=== PATIENT | female | born 1970 | race Caucasian/White ===

== ENCOUNTER 2017-07-20 17:05 | Emergency (ER) | payer BC, OTHER ==
[~2017-07-20] VITALS: Ht 172.7 cm; Wt 86.2 kg
[~2017-07-20 17:05] MED LIST: ACHYD1T PO; CALC-671 PO; DCS100C PO; DOCU100T7 PO; DULO30CA3 PO; ESCI20TA2 PO; ESOM20SU PO; FAMO-119 PO; FLUO20CA25 PO; FLUO20CA42 PO; FLURAZEPAM; IBP800T PO; IMIP25TA4 PO; LEVO75TA57 PO; MULT-608 PO; MULT-963 PO; NF-ESOM40C PO; OMEG1CAP51 PO; OMEG1CAP58 PO; POLY17PO6 PO; PRD20T PO; PREN1TAB39 PO; SODI44SP4 NS; SULF1TAB38 PO; [UNRECOGNIZED DRUG - OTHER]
--- OUTSIDE RECORDS SUMMARY | 2017-07-20 17:12 | XMS REPORT ---
Author Author EDISON VEGA Organization [employer] Address Unknown Phone Unavailable Care Team Providers Care Spar Machine Operator Helper Name Role Phone EDISON VEGA CP Unavailable Allergies, Adverse Reactions, Alerts Substance Reaction Event Type Imipramine HCl rash Drug Allergy Celebrex Info Not Available Drug Allergy Amoxicillin Info Not Available Drug Allergy Tape can only use paper tape Non Drug Allergy Vladimir Toilet Paper yeast infection Non Drug Allergy Problems Problem Type Condition Code Onset Dates Condition Status Problem Abnormal mammogram of right breast R92.8 Active Assessment Major depressive disorder, recurrent, moderate F33.1 Active Problem Major depressive disorder, recurrent episode, moderate F33.1 Active Problem Dysuria R30.0 Active Problem Encounter for dental examination Z01.20 Active Problem Chronic fatigue R53.82 Active Problem Hyperkalemia E87.5 Active Problem Acute cystitis without hematuria N30.00 Active Problem Epigastric pain R10.13 Active Medications Medication Code System Code Instructions Start Date End Date Status Dosage Cymbalta [facility] [address]-12 30 MG Orally Once a day 3 capsule Flonase NDC 0 50 mcg/actuation nasal daily Oct 27, 2014 inhale 1 spray (50 mcg) in each nostril by intranasal route 2 times per day PRN Claritin [facility] [address]-16 10 mg February 03, 2013 take 1 tablet (10 mg) by oral route once daily Zolpidem Tartrate [facility] [address]-12 10 MG Orally Once a day January 31, 2016 1 tablet at bedtime as needed Omeprazole [facility] [address]-44 20 MG Nov 05, 2013 take 1 capsule ( 20 mg) by oral route once daily before a meal Procedures Procedure Coding System Code Date Office Visit, Est Pt., Level 4 CPT-4 25021 January 31, 2016 Vital Signs Date/Time: January 31, 2016 Cardiac Monitoring Heart Rate 108 bpm Weight 164.4 lbs Height 68 in BMI 24.99 Index Blood Pressure Diastolic 76 mmHg Blood Pressure Systolic 118 mmHg Results No Known Results Summary Purpose [employer]ClinicalWorks Submission
--- OUTSIDE RECORDS SUMMARY | 2017-07-20 17:12 | XMS REPORT ---
Author Author ALEX DELANEY Organization [employer] Address Unknown Phone Unavailable Care Team Providers Care Maintenance Helper Name Role Phone ALEX DELANEY CP Unavailable Allergies No Known Allergies Problems Problem Type Condition Code Onset Dates Condition Status Problem Acute cystitis without hematuria N30.00 Active Problem Epigastric pain R10.13 Active Problem Dysuria R30.0 Active Problem Abnormal mammogram of right breast R92.8 Active Problem Chronic fatigue R53.82 Active Problem Hyperkalemia E87.5 Active Medications Medication Code System Code Instructions Start Date End Date Status Dosage Ambien [facility] [address]-78 12.5 MG Orally Once a day Aug 24, 2015 1 tablet at bedtime as needed Cymbalta [facility] [address]-69 30 MG Orally Once a day 3 capsule Results No Known Results Summary Purpose eClinicalWorks Submission
--- OUTSIDE RECORDS SUMMARY | 2017-07-20 17:12 | XMS REPORT ---
Author Author EDISON VEGA Organization [employer] Address Unknown Phone Unavailable Care Team Providers Care Invoice Checker Name Role Phone EDISON VEGA CP Unavailable Allergies No Known Allergies Problems Problem Type Condition Code Onset Dates Condition Status Problem Gastroesophageal reflux disease without esophagitis K21.9 Active Problem Tremor R25.1 Active Problem Abnormal fasting glucose R73.01 Active Problem Dental examination Z01.20 Active Problem Prediabetes R73.09 Active Problem Major depressive disorder, recurrent episode, moderate F33.1 Active Medications Medication Code System Code Instructions Start Date End Date Status Dosage Zolpidem Tartrate [facility] [address]-52 10 mg Orally Once a day January 31, 2016 1 tablet at bedtime as needed Results No Known Results Summary Purpose eClinicalWorks Submission
--- OUTSIDE RECORDS SUMMARY | 2017-07-20 17:12 | XMS REPORT ---
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 Active Assessment Dental examination V72.2 Active Problem Dysthymic disorder 300.4 Active Problem Unspecified myalgia and myositis 729.1 Active Problem Adjustment disorder with mixed anxiety and depressed mood 309.28 Active Problem Adjustment disorder with depressed mood 309.0 Active Problem Major depressive disorder, recurrent episode, moderate 296.32 Active Problem Rosacea 695.3 Active Problem Unspecified hypothyroidism 244.9 Active Medications No Known Medications Procedures Procedure Coding System Code Date INTRAORL-PERIAPICAL 1 FILM 03404 CPT-4 D0220 May 09, 2015 INTRAORL-PERIAPICAL EA ADD FILM CPT-4 D0230 May 09, 2015 PERIODIC ORAL EXAMINATION CPT-4 D0120 May 09, 2015 BITEWINGS - FOUR FILMS CPT-4 D0274 May 09, 2015 INTRAORL-PERIAPICAL EA ADD FILM CPT-4 D0230 May 09, 2015 PROPHYLAXIS - ADULT CPT-4 D1110 May 09, 2015 PANORAMIC FILM SEE ALSO CODE 12789 CPT-4 D0330 May 09, 2015 Results No Known Results Summary Purpose eClinicalWorks Submission
--- OUTSIDE RECORDS SUMMARY | 2017-07-20 17:12 | XMS REPORT ---
Author Author MAURICE VEGA [employer] Address Unknown Phone Unavailable Care Team Providers Care Mail Service Coordinator Name Role Phone MAURICE VEGA CP Unavailable Allergies No Known Allergies Problems Problem Type Condition Code Onset Dates Condition Status Problem Abnormal mammogram of right breast R92.8 Active Assessment Major depressive disorder, recurrent episode, moderate F33.1 Active Problem Major depressive disorder, recurrent episode, moderate F33.1 Active Problem Dysuria R30.0 Active Problem Encounter for dental examination Z01.20 Active Problem Chronic fatigue R53.82 Active Problem Hyperkalemia E87.5 Active Problem Acute cystitis without hematuria N30.00 Active Problem Epigastric pain R10.13 Active Medications No Known Medications Procedures Procedure Coding System Code Date Psychotherapy, patient &/family, 30 minutes, established patient CPT-4 88815 May 17, 2016 Results No Known Results Summary Purpose [employer]ClinicalWorks Submission
--- OUTSIDE RECORDS SUMMARY | 2017-07-20 17:12 | XMS REPORT ---
Author Author MAURICE VEGA [employer] Address Unknown Phone Unavailable Care Team Providers Care Assembly Technician Name Role Phone MAURICE VEGA CP Unavailable [...] Coding System Code Date Psychotherapy, patient &/family, 45 minutes, established patient CPT-4 02314 January 31, 2016 Results No Known Results Summary Purpose eClinicalWorks Submission
--- OUTSIDE RECORDS SUMMARY | 2017-07-20 17:12 | XMS REPORT ---
Author Author EDISON VEGA Organization [employer] Address Unknown Phone Unavailable Care Team Providers Care Motorcycle Subassembly Repairer Name Role Phone EDISON VEGA CP Unavailable Allergies, Adverse Reactions, Alerts Substance Reaction Event Type Imipramine HCl rash Drug Allergy Celebrex Info Not Available Drug Allergy Amoxicillin Info Not Available Drug Allergy Tape can only use paper tape Non Drug Allergy Vladimir Toilet Paper yeast infection Non Drug Allergy Problems Problem Type Condition Code Onset Dates Condition Status Assessment Major depressive disorder, recurrent, moderate F33.1 Active Problem Abnormal mammogram of right breast R92.8 Active Problem Hyperkalemia E87.5 Active Assessment Other half-way (current) 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 Z79.899 Active Problem Major depressive disorder, recurrent episode, moderate F33.1 Active Problem Dysuria R30.0 Active Problem Encounter for dental examination Z01.20 Active Problem Chronic fatigue R53.82 Active Problem Dental examination Z01.20 Active Problem Acute cystitis without hematuria N30.00 Active Problem Epigastric pain R10.13 Active Medications Medication Code System Code Instructions Start Date End Date Status Dosage Duloxetine HCl [facility] [address]-45 60 MG Orally Once a day April 09, [address] [facility] [address]-16 150 MG Orally Once a day April 19, 2016 1 [address] B[address] DS [facility] [address]-14 800-160 MG Orally Twice a day May 23, 2016 Jun 02, 2016 1 tablet Zolpidem Tartrate [facility] [address]-49 10 MG Orally Once a day January 31, 2016 1 tablet at bedtime as needed Aripiprazole [facility] [address]-20 5 MG Orally Once a day May 29, 2016 0.[address] [facility] [address]-68 20 MG Nov 05, 2013 take 1 capsule ( 20 mg) by oral route once daily before a meal Flonase NDC 0 50 mcg/actuation nasal daily Oct 27, 2014 inhale 1 spray (50 mcg) in each nostril by intranasal route 2 times per day PRN Claritin [facility] [address]-91 10 mg February 03, 2013 take 1 tablet (10 mg) by oral route once daily Procedures Procedure Coding System Code Date COMPREHEN METABOLIC PANEL CPT-4 67855 May 29, 2016 Office Visit, Est Pt., Level 3 CPT-4 41549 May 29, 2016 Vital Signs Date/Time: May 29, 2016 Cardiac Monitoring Heart Rate 118 bpm Weight 164.0 lbs Height 68 in BMI 24.93 Index Blood Pressure Diastolic 67 mmHg Blood Pressure Systolic 96 mmHg Results No Known Results Summary Purpose eClinicalWorks Submission
--- OUTSIDE RECORDS SUMMARY | 2017-07-20 17:12 | XMS REPORT ---
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
--- OUTSIDE RECORDS SUMMARY | 2017-07-20 17:12 | XMS REPORT ---
Author Author MAURICE VEGA [facility] Address [address] [place] [address] Care Team Providers Care Telephone Directory Deliverer Name Role Phone MAURICE VEGA Unavailable PROBLEMS Type Condition ICD9-CM Code [id number] Code Onset Dates Condition Status SNOMED Code Problem Prediabetes R73.09 Active 690240725 Problem Major depressive disorder, recurrent episode, moderate F33.1 Active 685802760 Problem Major depressive disorder, recurrent, moderate F33.1 Active 90427195 Problem Insomnia, unspecified G47.00 Active 644000995 Problem Gastroesophageal reflux disease without esophagitis K21.9 Active 180144518 Problem Tremor R25.1 Active 45781636 Problem Allergy, insect bite Z91.038 Active 999463511 Problem Abnormal fasting glucose R73.01 Active 658110951 ALLERGIES Unknown Allergies SOCIAL HISTORY No smoking Hx information available PLAN OF CARE Activity Details Follow Up Next available Reason: Follow-up VITAL SIGNS MEDICATIONS Unknown Medications RESULTS No Results PROCEDURES Procedure Date Ordered Related Diagnosis Body Site Psychotherapy, patient &/family, 45 minutes, established patient Sep 26, 2016 IMMUNIZATIONS No Known Immunizations
--- OUTSIDE RECORDS SUMMARY | 2017-07-20 17:12 | XMS REPORT ---
Author Author SINGH CHURCHILL Organization [employer] Address Unknown Phone Unavailable Care Team Providers Care Statistician Name Role Phone SINGH CHURCHILL CP Unavailable Allergies No Known Allergies Problems Problem Type Condition Code Onset Dates Condition Status Assessment Breast cancer screening V76.10 Active Assessment Abnormal mammogram of right breast R92.8 Active Problem Abnormal mammogram of right breast R92.8 Active Medications No Known Medications Results No Known Results Summary Purpose eClinicalWorks Submission
--- OUTSIDE RECORDS SUMMARY | 2017-07-20 17:12 | XMS REPORT | Clinical Summary ---
Author Author [facility] Organization [facility] Address Unknown Phone Unavailable Care Team Providers Care Project Engineering Manager Name Role Phone PCP Unavailable Source Comments Some departments are not documenting in the electronic medical record. If you do not see the information that you expected, contact Release of Information in the Health Information Management department at [phone] for further assistance in locating additional records.[facility] Allergies Active Allergy Reactions Severity Noted Date Comments Amoxicillin RASH Medium 07/26/2015 Cyclobenzaprine RASH Medium 07/26/2015 Current Medications Prescription Sig. Disp. Refills Start End Date Status Date DULoxetine DR (CYMBALTA) Take 3 Caps by mouth 30 Cap 1 07/28/20 Active 30 mg capsule daily. 15 ARIPIPRAZOLE (ABILIFY PO) Take by mouth daily. Active Takes 2.5mg daily zolpidem (AMBIEN) 10 mg Take 10 mg by mouth at Active tablet bedtime as needed for Sleep. omeprazole DR(+) Take 20 mg by mouth daily Active (PRILOSEC) 20 mg capsule before breakfast. linaclotide(+) (LINZESS) Take 290 mcg by mouth Active 290 mcg capsule daily. MULTIVITAMINS WITH Take by mouth daily. Active FLUORIDE (MULTI-VITAMIN PO) SOY ISOFLA/BLK COHOSH/MAG Take by mouth daily. Active BARK (ESTROVEN PO) other medication 1 Dose. Allergy Active injections weekly ibuprofen (ADVIL) 200 mg Take 200 mg by mouth Active tablet every 6 hours as needed for Pain. Take with food. acetaminophen (TYLENOL) Take 15 mg/kg by mouth Active 160 mg/5 mL oral solution every 6 hours as needed. Max of 4,000 mg of acetaminophen in 24 hours. Active Problems Problem Noted Date Physiological tremor 08/15/2016 Overview: Episodes daily that last 15-30 minutes of both hands shaking, facial tremor, and inside her legs feels like they are shaking internally. She also has palpitation and increased breathing during these events Major depressive disorder, recurrent, severe without psychotic features ([facility]) Resolved Problems Problem Noted Date Resolved Date Suicidal ideation 07/26/2015 07/28/2015 Family History Medical History Relation Name Comments Cancer Maternal Aunt Cancer Maternal Aunt Cancer Maternal Aunt Cancer Maternal Grandfather Cancer Maternal Uncle Neuropathy Maternal Uncle Cancer Maternal Uncle Dementia Mother Hypertension Mother Cancer Paternal Grandfather Diabetes Paternal Grandfather Hypertension Paternal Grandmother Cancer Paternal Uncle Migraines Sister Relation Name Status Comments Father Maternal Aunt Maternal Aunt Alive Maternal Aunt Alive Maternal Grandfather Maternal Uncle Maternal Uncle Alive Mother Alive Paternal Grandfather Paternal Grandmother Paternal Uncle Alive Sister Alive Social History Tobacco Use Types Packs/Day Years Used Date Never Smoker Smokeless Tobacco: Never Used Alcohol Use Drinks/Week oz/Week Comments Yes 0 Standard 0.0 occasional use drinks or equivalent Sex Assigned at Date Recorded Not on file Last Filed Vital Signs Vital Sign Reading Time Taken Blood Pressure 101/69 08/15/2016 9:00 AM CDT Pulse 87 08/15/2016 9:00 AM CDT Temperature 36.5 C (97.7 F) 07/28/2015 8:00 AM CDT Respiratory Rate - - Oxygen Saturation 97% 07/28/2015 8:00 AM CDT Inhaled Oxygen - - Concentration Weight 78.7 kg (173 lb 8 oz) 08/15/2016 9:00 AM CDT Height 172.7 cm (5' 8") 08/15/2016 9:00 AM CDT Body Mass Index 26.38 08/15/2016 9:00 AM CDT Plan of Treatment Health Maintenance Due Date Last Done Comments PHYSICAL (COMPREHENSIVE) 1977 EXAM PERTUSSIS VACCINE 1981 TETANUS VACCINE 1987 CERVICAL CANCER SCREENING 2000 BREAST CANCER SCREENING 2010 INFLUENZA VACCINE 07/14/2017 Results Not on filefrom Last 3 Months
--- OUTSIDE RECORDS SUMMARY | 2017-07-20 17:12 | XMS REPORT ---
Author Author EDISON VEGA Organization [employer] Address Unknown Phone Unavailable Care Team Providers Care Telegraph Editor Name Role Phone EDISON VEGA CP Unavailable Allergies No Known Allergies Problems Problem Type Condition Code Onset Dates Condition Status Problem Abnormal mammogram of right breast R92.8 Active Problem Major depressive disorder, recurrent episode, moderate F33.1 Active Problem Dysuria R30.0 Active Problem Encounter for dental examination Z01.20 Active Problem Chronic fatigue R53.82 Active Problem Hyperkalemia E87.5 Active Problem Acute cystitis without hematuria N30.00 Active Problem Epigastric pain R10.13 Active Medications Medication Code System Code Instructions Start Date End Date Status Dosage Duloxetine HCl [facility] [address]-69 60 MG Orally Once a day April 09, 2016 2 capsule Cymbalta [facility] [address]-96 30 MG Orally Once a day 3 capsule Results No Known Results Summary Purpose eClinicalWorks Submission
--- OUTSIDE RECORDS SUMMARY | 2017-07-20 17:12 | XMS REPORT ---
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
--- OUTSIDE RECORDS SUMMARY | 2017-07-20 17:13 | XMS REPORT ---
Author Author EDISON VEGA Organization [employer] Address Unknown Phone Unavailable Care Team Providers Care Public Health Specialist Name Role Phone EDISON VEGA CP Unavailable [...] Date End Date Status Dosage Duloxetine HCl [facility] [address]-88 60 MG Orally Once a day April 09, 2016 2 capsule Results No Known Results Summary Purpose eClinicalWorks Submission
--- OUTSIDE RECORDS SUMMARY | 2017-07-20 17:13 | XMS REPORT ---
Author Author Karon EDISON Organization [facility] Address [address] [place] [address] Care Team Providers Care Field Aide Name Role Phone denisseEDISON Vázquez Unavailable PROBLEMS Type Condition ICD9-CM Code [id number] Code Onset Dates Condition Status SNOMED Code Problem Prediabetes R73.09 Active 240776831 Problem Major depressive disorder, recurrent episode, moderate F33.1 Active 195668368 Problem Major depressive disorder, recurrent, moderate F33.1 Active 14011715 Problem Insomnia, unspecified G47.00 Active 410045379 Problem Gastroesophageal reflux disease without esophagitis K21.9 Active 136666527 Problem Tremor R25.1 Active 00816842 Problem Allergy, insect bite Z91.038 Active 719049344 Problem Abnormal fasting glucose R73.01 Active 368976212 ALLERGIES Unknown Allergies SOCIAL HISTORY No smoking Hx information available PLAN OF CARE Activity Details Follow Up 2 Months Reason: VITAL SIGNS Height 68 in 2016-10-02 Weight 178.5 lbs 2016-10-02 Heart Rate 80 bpm 2016-10-02 Respiratory Rate 18 2016-10-02 BMI 27.14 kg/m2 2016-10-02 Blood pressure systolic 128 mmHg 2016-10-02 Blood pressure diastolic 70 mmHg 2016-10-02 MEDICATIONS Medication Instructions Dosage Frequency Start Date End Date Duration Status Triamcinolone Acetonide 0.1 % Externally Twice a day 1 application to affected area 12h Jul, Active Linzess 290 MCG Orally Once a day 1 capsule 24h Aug, Jan, 30 day(s) Active Cymbalta 30 MG Orally Once a day 3 capsule 24h Aug, Active Zolpidem Tartrate 10 MG Orally Once a day 1 tablet at bedtime as needed 24h 20 Sep, 2016 30 days Active Flonase 50 mcg/actuation nasal daily inhale 1 spray (50 mcg) in each nostril by intranasal route 2 times per day PRN 24h Oct, Active Omeprazole 20 TAKE 1 CAPSULE BY MOUTH DAILY BEFORE A MEAL 30 Active Omeprazole 20 mg Orally Once a day 1 capsule 24h 23 Oct, 2013 Active Aripiprazole 5 TAKE 1/2 TABLET BY MOUTH DAILY Active Aripiprazole 5 MG Orally Once a day 0.5 tablet 24h May, Active RESULTS No Results PROCEDURES Procedure Date Ordered Related Diagnosis Body Site Office Visit, Est Pt., Level 3 Oct 02, 2016 IMMUNIZATIONS No Known Immunizations
--- OUTSIDE RECORDS SUMMARY | 2017-07-20 17:13 | XMS REPORT ---
Author Author MAURICE VEGA [employer] Address Unknown Phone Unavailable Care Team Providers Care Pharmacy Order Entry Technician Name Role Phone MAURICE VEGA CP [...] patient &/family, 45 minutes, established patient CPT-4 92405 March 28, 2016 Results No Known Results Summary Purpose eClinicalWorks Submission
--- OUTSIDE RECORDS SUMMARY | 2017-07-20 17:13 | XMS REPORT ---
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
--- OUTSIDE RECORDS SUMMARY | 2017-07-20 17:13 | XMS REPORT ---
Author Author SINGH CHURCHILL [facility] eClinicalWorks Address Unknown Phone Unavailable Care Team Providers Care Science Professor Name Role Phone SINGH CHURCHILL Unavailable Allergies, Adverse Reactions, Alerts Substance Reaction Event Type Imipramine HCl rash Drug Allergy Celebrex Info Not Available Drug Allergy Amoxicillin Info Not Available Drug Allergy Vladimir Toilet Paper yeast infection Non Drug Allergy Tape can only use paper tape Non Drug Allergy Problems Problem Type Condition Code Onset Dates Condition Status Assessment Prediabetes R73.09 Active Assessment Gastroesophageal reflux disease without esophagitis K21.9 Active Assessment Tremor R25.1 Active Problem Gastroesophageal reflux disease without esophagitis K21.9 Active Problem Tremor R25.1 Active Problem Abnormal fasting glucose R73.01 Active Problem Dental examination Z01.20 Active Assessment Abnormal fasting glucose R73.01 Active Problem Prediabetes R73.09 Active Problem Major depressive disorder, recurrent episode, moderate F33.1 Active Medications Medication Code System Code Instructions Start Date End Date Status Dosage Zolpidem Tartrate [facility] [address]-09 10 MG Orally Once a day January 31, 2016 1 tablet at bedtime as needed Aripiprazole [facility] [address]-48 5 MG Orally Once a day May 29, 2016 0.5 tablet Claritin [facility] [address]-76 10 mg February 03, 2013 take 1 tablet (10 mg) by oral route once daily Omeprazole [facility] [address]-85 20 mg Orally Once a day Nov 05, 2013 1 capsule Duloxetine HCl [facility] [address]-84 60 MG Orally Once a day April 09, 2016 2 capsule Flonase NDC 0 50 mcg/actuation nasal daily Oct 27, 2014 inhale 1 spray (50 mcg) in each nostril by intranasal route 2 times per day PRN Procedures Procedure Coding System Code Date Office Visit, Est Pt., Level 4 CPT-4 94825 Jun 06, 2016 GLYCATED HEMOGLOBIN TEST CPT-4 96958 Jun 06, 2016 Vital Signs Date/Time: Jun 06, 2016 Cardiac Monitoring Heart Rate 94 bpm Weight 165.5 lbs Height 68 in BMI 25.16 Index Blood Pressure Diastolic 70 mmHg Blood Pressure Systolic 118 mmHg Results No Known Results Summary Purpose eClinicalWorks Submission
--- OUTSIDE RECORDS SUMMARY | 2017-07-20 17:13 | XMS REPORT ---
Author Author SINGH CHURCHILL [facility] eClinicalWorks Address Unknown Phone Unavailable Care Team Providers Care Mix Maker Name Role Phone SINGH CHURCHILL CP Unavailable Allergies, Adverse Reactions, Alerts Substance Reaction Event Type Celebrex Info Not Available Drug Allergy Amoxicillin Info Not Available Drug Allergy Vladimir Toilet Paper yeast infection Non Drug Allergy Tape can only use paper tape Non Drug Allergy Problems Problem Type Condition ICD-9 Code Onset Dates Condition Status Assessment Insomnia 780.52 Active Problem Major depressive disorder, recurrent episode, [...] myositis 729.1 Active Problem Rosacea 695.3 Active Assessment Dysuria 788.1 Active Assessment High risk sexual behavior V69.2 Active Assessment Unspecified myalgia and myositis 729.1 Active Medications Medication Code System Code Instructions Start Date End Date Status Dosage Baclofen [facility] [place] [address]-21 10 MG Orally 2 times a day prn 1 tablet with food or milk flurazepam NDC 0 15 mg oral Once a day at hs 1 Capsule by Oral route 1 time per day at bedtime Omeprazole [facility] [place] [address]-59 20 MG Nov 05, 2013 take 1 capsule ( 20 mg) by oral route once daily before a meal Myrbetriq [facility] [place] [address]-97 25 MG Orally Once a day Oct 30, 2015 1 tablet Estroven Nighttime [facility] [place] [address] 1,000 unit Nov 17, 2014 1 time per day Vitamin D3 [facility] [place] [address] 1,000 unit May 25, 2014 take 1 Tablet by Po route 1 time per day Pseudoephedrine HCl [facility] [place] [address]-92 60 mg December 15, 2014 take 1 tablet (60 mg) by oral route every 4-6 hours as needed Multivital-M [facility] [place] [address] Orally not defined Claritin [facility] [place] [address]-24 10 mg February 03, 2013 take 1 tablet (10 mg) by oral route once daily Shedd 3 [facility] [place] [address] 1200 MG Orally Once a day 1 capsule Cymbalta [facility] [place] [address]-63 60 mg May 25, 2014 take 1 capsule (60 mg) by oral route once daily Flonase [facility] [place] [address]-01 50 mcg/actuation Oct 27, 2014 inhale 1 spray (50 mcg) in each nostril by intranasal route 2 times per day PRN Procedures Procedure Coding System Code Date CULTURE, BACTERIA, OTHER CPT-4 76846 Jun 15, 2015 TRICHOMONAS VAGIN, DIR PROBE CPT-4 83552 Jun 15, 2015 No Charge CPT-4 72549 Jun 15, 2015 URINALYSIS, AUTO, W/O SCOPE CPT-4 81568 Jun 15, 2015 VIRUS INOCULATION, TISSUE CPT-4 97825 Jun 15, 2015 Office Visit, Est Pt., Level 4 CPT-4 84615 Jun 15, 2015 Vital Signs Date/Time: Jun 15, 2015 Temperature 98.4 F Weight 168.2 lbs Height 68 in BMI 25.57 Index Blood Pressure Diastolic 74 mmHg Blood Pressure Systolic 112 mmHg Cardiac Monitoring Heart Rate 88 bpm Results Name Result Date Reference Range Unit Abnormality Flag UA LONG DIP (IN HOUSE) TRICHOMONAS (IN HOUSE) Summary Purpose eClinicalWorks Submission
--- OUTSIDE RECORDS SUMMARY | 2017-07-20 17:13 | XMS REPORT ---
Author Author SINGH CHURCHILL Organization eClinicalWorks Address Unknown Phone Unavailable Care Team Providers Care Barrel Raiser Name Role Phone SINGH CHURCHILL CP Unavailable [...] pain R10.13 Active Medications No Known Medications Results No Known Results Summary Purpose eClinicalWorks Submission
--- OUTSIDE RECORDS SUMMARY | 2017-07-20 17:13 | XMS REPORT ---
Author Author GISELL BATISTA Organization eClinicalWorks Address Unknown Phone Unavailable Care Team Providers Care Hose Tubing Backer Name Role Phone GISELL BATISTA Unavailable Allergies, Adverse Reactions, Alerts Substance Reaction Event Type Imipramine HCl rash Drug Allergy Celebrex Info Not Available Drug Allergy Amoxicillin Info Not Available Drug Allergy Vladimir Toilet Paper yeast infection Non Drug Allergy Tape can only use paper tape Non Drug Allergy Problems Problem Type Condition Code Onset Dates Condition Status Problem Dental examination Z01.20 Active Assessment Dental examination Z01.20 Active Problem Major depressive disorder, recurrent episode, moderate F33.1 Active Medications Medication Code System Code Instructions Start Date End Date Status Dosage Omeprazole [facility] [address]-46 20 MG Nov 05, 2013 take 1 capsule ( 20 mg) by oral route once daily before a meal Zolpidem Tartrate [facility] [address]-62 10 MG Orally Once a day January 31, 2016 1 tablet at bedtime as needed Claritin [facility] [address]-64 10 mg February 03, 2013 take 1 tablet (10 mg) by oral route once daily Flonase NDC 0 50 mcg/actuation nasal daily Oct 27, 2014 inhale 1 spray (50 mcg) in each nostril by intranasal route 2 times per day PRN Aripiprazole [facility] [address]-93 5 MG Orally Once a day May 29, 2016 0.5 tablet Procedures Procedure Coding System Code Date BITEWINGS - FOUR FILMS CPT-4 D0274 Jun 01, 2016 PROPHYLAXIS - ADULT CPT-4 D1110 Jun 01, 2016 PERIODIC ORAL EXAMINATION CPT-4 D0120 Jun 01, 2016 Vital Signs Date/Time: Jun 01, 2016 Blood Pressure Diastolic 67 mmHg Blood Pressure Systolic 100 mmHg Results No Known Results Summary Purpose eClinicalWorks Submission
--- OUTSIDE RECORDS SUMMARY | 2017-07-20 17:13 | XMS REPORT ---
Author Author SINGH CHURCHILL [facility] eClinicalWorks Address Unknown Phone Unavailable Care Team Providers Care Club Lounge Attendant Name Role Phone SINGH CHURCHILL CP Unavailable [...] Active Problem Unspecified hypothyroidism 244.9 Active Medications Medication Code System Code Instructions Start Date End Date Status Dosage Omeprazole [facility] [address]-16 20 MG Nov 05, 2013 take 1 capsule ( 20 mg) by oral route once daily before a meal Results No Known Results Summary Purpose eClinicalWorks Submission
--- OUTSIDE RECORDS SUMMARY | 2017-07-20 17:13 | XMS REPORT ---
Author Author EDISON Brantley Organization [facility] Address [address] [place] [address] Care Team Providers Care Alarm Operator Name Role Phone EDISON Brantley Unavailable PROBLEMS Type Condition ICD9-CM Code MDF10-GS Code Onset Dates Condition Status SNOMED Code Problem Prediabetes R73.09 Active 015756837 Problem Major depressive disorder, recurrent episode, moderate F33.1 Active 078652177 Problem Major depressive disorder, recurrent, moderate F33.1 Active 23580683 Problem Insomnia, unspecified G47.00 Active 874785169 Problem Tremor R25.1 Active 47394840 Problem Gastroesophageal reflux disease without esophagitis K21.9 Active 719513188 Problem Allergy, insect bite Z91.038 Active 502433336 Problem Abnormal fasting glucose R73.01 Active 333677811 ALLERGIES Unknown Allergies SOCIAL HISTORY No smoking Hx information available PLAN OF CARE VITAL SIGNS MEDICATIONS Medication Instructions Dosage Frequency Start Date End Date Duration Status Zolpidem Tartrate 10 mg Orally Once a day 1 tablet at bedtime as needed 24h Sep, 30 days Active RESULTS No Results PROCEDURES No Known procedures IMMUNIZATIONS No Known Immunizations
--- OUTSIDE RECORDS SUMMARY | 2017-07-20 17:13 | XMS REPORT ---
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 Active Problem Adjustment disorder with depressed mood 309.0 Active Problem Major depressive disorder, recurrent episode, moderate 296.32 Active Assessment Major depressive disorder, recurrent, moderate F33.1 Active Problem Breast pain 611.71 Active Problem Adjustment disorder with mixed anxiety and depressed mood 309.28 Active Problem Major depressive disorder, recurrent, moderate F33.1 Active Problem Rosacea 695.3 Active Problem Unspecified hypothyroidism 244.9 Active Problem Dysthymic disorder 300.4 Active Problem Unspecified myalgia and myositis 729.1 Active Medications No Known Medications Procedures Procedure Coding System Code Date Psychotherapy, patient &/family, 30 minutes, established patient CPT-4 07139 Aug 31, 2015 Results No Known Results Summary Purpose [employer]ular[employer] Submission
--- OUTSIDE RECORDS SUMMARY | 2017-07-20 17:13 | XMS REPORT ---
Author Author ALEX DELANEY [facility] eClinicalWorks Address Unknown Phone Unavailable Care Team Providers Care Pulverizer Tender Name Role Phone ALEX DELANEY Unavailable Allergies, Adverse Reactions, Alerts Substance Reaction Event Type Imipramine HCl rash Drug Allergy Celebrex Info Not Available Drug Allergy Amoxicillin Info Not Available Drug Allergy Vladimir Toilet Paper yeast infection Non Drug Allergy Tape can only use paper tape Non Drug Allergy Problems Problem Type Condition Code Onset Dates Condition Status Assessment Insomnia, unspecified G47.00 Active Problem Major depressive disorder, recurrent episode, [...] 729.1 Active Problem Rosacea 695.3 Active Assessment Major depressive disorder, recurrent, moderate F33.1 Active Assessment Dysthymic disorder F34.1 Active Assessment Adjustment disorder with mixed anxiety and depressed mood F43.23 Active Medications Medication Code System Code Instructions Start Date End Date Status Dosage Multivital-M [facility] [address] Orally not defined Flonase [facility] [address]-41 50 mcg/actuation Oct 27, 2014 inhale 1 spray (50 mcg) in each nostril by intranasal route 2 times per day PRN Ambien CR [facility] [address]-81 6.25 MG Orally Once a day Aug 24, 2015 1 tablet at bedtime as needed Claritin [facility] [address]-30 10 mg February 03, 2013 take 1 tablet (10 mg) by oral route once daily Myrbetriq [facility] [address]-84 25 MG Orally Once a day Oct 30, 2015 1 tablet Pseudoephedrine HCl [facility] [address]-78 60 mg December 15, 2014 take 1 tablet (60 mg) by oral route every 4-6 hours as needed Vitamin D3 [facility] [address] 1,000 unit May 25, 2014 take 1 Tablet by Po route 1 time per day Cymbalta [facility] [address]-18 30 MG Orally Once a day 1 capsule Cymbalta [facility] [address]-07 60 MG Orally Once a day take with 30mg tab 1 capsule Omeprazole [facility] [address]-82 20 MG Nov 05, 2013 take 1 capsule ( 20 mg) by oral route once daily before a meal Baclofen [facility] [address]-16 10 MG Orally 2 times a day prn 1 tablet with food or milk [place] 3 [facility] [address] 1200 MG Orally Once a day 1 capsule Procedures Procedure Coding System Code Date Psych diagnostic evaluation w/medical services, established patient CPT-4 03758 Aug 24, 2015 Vital Signs Date/Time: Aug 24, 2015 Cardiac Monitoring Heart Rate 96 bpm Weight 163.0 lbs Height 68 in BMI 24.78 Index Blood Pressure Diastolic 70 mmHg Blood Pressure Systolic 110 mmHg Results No Known Results Summary Purpose eClinicalWorks Submission
--- OUTSIDE RECORDS SUMMARY | 2017-07-20 17:13 | XMS REPORT ---
Author Author ROBINSON TAYLOR Organization eClinicalWorks Address Unknown Phone Unavailable Care Team Providers Care Construction Flagger Name Role Phone ROBINSON TAYLOR CP Unavailable Allergies No Known Allergies Problems Problem Type Condition Code Onset Dates Condition Status Problem Acute cystitis without hematuria N30.00 Active Problem Epigastric pain R10.13 Active Problem Dysuria R30.0 Active Problem Abnormal mammogram of right breast R92.8 Active Problem Chronic fatigue R53.82 Active Problem Hyperkalemia E87.5 Active Medications Medication Code System Code Instructions Start Date End Date Status Dosage Nan [facility] [address]-94 12.5 MG Orally Once a day Aug 24, 2015 1 tablet at bedtime as needed Results No Known Results Summary Purpose eClinicalWorks Submission
--- OUTSIDE RECORDS SUMMARY | 2017-07-20 17:14 | XMS REPORT ---
Author Author SINGH CHURCHILL [facility] eClinicalWorks Address Unknown Phone Unavailable Care Team Providers Care Chemical Supervisor Name Role Phone SINGH CHURCHILL Unavailable Allergies, Adverse Reactions, Alerts Substance Reaction Event Type Imipramine HCl rash Drug Allergy Celebrex Info Not Available Drug Allergy Amoxicillin Info Not Available Drug Allergy Vladimir Toilet Paper yeast infection Non Drug Allergy Tape can only use paper tape Non Drug Allergy Problems Problem Type Condition Code Onset Dates Condition Status Assessment Depression F32.9 Active Problem Major depressive disorder, recurrent episode, moderate 296.32 Active Problem 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 Active Assessment Sinusitis J32.9 Active Problem Adjustment disorder with mixed anxiety and depressed mood 309.28 Active Problem Dysthymic disorder 300.4 Active Problem Breast pain 611.71 Active Problem Unspecified hypothyroidism 244.9 Active Problem Adjustment disorder with depressed mood 309.0 Active Problem Unspecified myalgia and myositis 729.1 Active Problem Rosacea 695.3 Active Medications Medication Code System Code Instructions Start Date End Date Status Dosage Multivital-M [facility] [address] Orally not defined Myrbetriq [facility] [address]-66 25 MG Orally Once a day Oct 30, 2015 1 tablet Vitamin D3 [facility] [address] 1,000 unit May 25, 2014 take 1 Tablet by Po route 1 time per day Pseudoephedrine HCl [facility] [address]-75 60 mg December 15, 2014 take 1 tablet (60 mg) by oral route every 4-6 hours as needed Omeprazole [facility] [address]-15 20 MG Nov 05, 2013 take 1 capsule ( 20 mg) by oral route once daily before a meal Baclofen [facility] [address]-73 10 MG Orally 2 times a day prn 1 tablet with food or milk Cymbalta [facility] [address]-95 60 MG Orally Once a day take with 30mg tab 1 capsule Cymbalta [facility] [address]-19 30 MG Orally Twice a day 1 capsule Flonase [facility] [address]-90 50 mcg/actuation Oct 27, 2014 inhale 1 spray (50 mcg) in each nostril by intranasal route 2 times per day PRN Azithromycin [facility] [address]-74 250 MG Orally Once a day Aug 16, 2015 Aug 21, 2015 2 tablets on the first day, then 1 tablet daily for 4 days flurazepam NDC 0 15 mg oral Once a day at hs 1 Capsule by Oral route 1 time per day at bedtime Procedures Procedure Coding System Code Date Office Visit, Est Pt., Level 4 CPT-4 75304 Aug 16, 2015 Vital Signs Date/Time: Aug 16, 2015 Temperature 97.8 F Weight 164.1 lbs Height 68 in BMI 24.95 Index Blood Pressure Diastolic 74 mmHg Blood Pressure Systolic 116 mmHg Cardiac Monitoring Heart Rate 88 bpm Results No Known Results Summary Purpose eClinicalWorks Submission
--- OUTSIDE RECORDS SUMMARY | 2017-07-20 17:14 | XMS REPORT ---
Author Author STEPH OJEDA Organization eClinicalWorks Address Unknown Phone Unavailable Care Team Providers Care Perianesthesia Manager Name Role Phone STEPH OJEDA CP Unavailable Allergies No Known Allergies Problems Problem Type Condition Code Onset Dates Condition Status Problem Abnormal fasting glucose R73.01 Active Problem Gastroesophageal reflux disease without esophagitis K21.9 Active Problem Allergy, insect bite Z91.038 Active Problem Major depressive disorder, recurrent episode, moderate F33.1 Active Problem Dental examination Z01.20 Active Problem Tremor R25.1 Active Problem Prediabetes R73.09 Active Medications Medication Code System Code Instructions Start Date End Date Status Dosage Linzess [facility] [address]-14 290 MCG Orally Once a day Aug 16, 2016January 1 capsule Results No Known Results Summary Purpose eClinicalWorks Submission
--- OUTSIDE RECORDS SUMMARY | 2017-07-20 17:14 | XMS REPORT ---
Author Author SINGH CHURCHILL [facility] eClinicalWorks Address Unknown Phone Unavailable Care Team Providers Care Leader Tier Name Role Phone SINGH CHURCHILL Unavailable Allergies, Adverse Reactions, Alerts Substance Reaction Event Type Imipramine HCl rash Drug Allergy Celebrex Info Not Available Drug Allergy Amoxicillin Info Not Available Drug Allergy Vladimir Toilet Paper yeast infection Non Drug Allergy Tape can only use paper tape Non Drug Allergy Problems Problem Type Condition Code Onset Dates Condition Status Assessment Chronic fatigue R53.82 Active Assessment Acute cystitis without hematuria N30.00 Active Assessment Epigastric pain R10.13 Active Assessment Vaginal yeast infection B37.3 Active Assessment Sinusitis J32.9 Active Problem Acute cystitis without hematuria N30.00 Active Problem Epigastric pain R10.13 Active Problem Dysuria R30.0 Active Problem Abnormal mammogram of right breast R92.8 Active Assessment Dysuria R30.0 Active Problem Chronic fatigue R53.82 Active Problem Hyperkalemia E87.5 Active Medications Medication Code System Code Instructions Start Date End Date Status Dosage Diflucan [facility] [address]-01 150 MG Orally daily Oct 18, 2015 Oct 21, 2015 1 tablet Myrbetriq [facility] [address]-97 25 MG Orally Once a day Oct 30, 2015 1 tablet Multivital-M [facility] [address] Orally not defined Keflex [facility] [address]-67 500 MG Orally three times a day Oct 18, 2015 Oct 28, 2015 1 capsule Cymbalta [facility] [address]-95 30 MG Orally Once a day 3 capsule Ambien CR [facility] [address]-51 12.5 MG Orally Once a day Aug 24, 2015 1 tablet at bedtime as needed Baclofen [facility] [address]-18 10 MG Orally 2 times a day prn 1 tablet with food or milk Flonase NDC 0 50 mcg/actuation Oct 27, 2014 inhale 1 spray (50 mcg ) in each nostril by intranasal route 2 times per day PRN Pseudoephedrine HCl [facility] [address]-85 60 mg December 15, 2014 take 1 tablet (60 mg) by oral route every 4-6 hours as needed Omeprazole [facility] [address]-83 20 MG Nov 05, 2013 take 1 capsule ( 20 mg) by oral route once daily before a meal Procedures Procedure Coding System Code Date IMMUNOASSAY,INFECTIOUS AGENT CPT-4 51267 Oct 18, 2015 ASSAY THYROID STIM HORMONE CPT-4 65477 Oct 18, 2015 URINALYSIS, AUTO, W/O SCOPE CPT-4 95211 Oct 18, 2015 Office Visit, Est Pt., Level 4 CPT-4 87365 Oct 18, 2015 VENIPUNCT, ROUTINE* CPT-4 66405 Oct 18, 2015 COMPLETE CBC W/AUTO DIFF WBC CPT-4 67156 Oct 18, 2015 COMPREHEN METABOLIC PANEL CPT-4 81316 Oct 18, 2015 URINE CULTURE/COLONY COUNT CPT-4 82035 Oct 18, 2015 CULTURE, BACTERIA, OTHER CPT-4 34345 Oct 18, 2015 Vital Signs Date/Time: Oct 18, 2015 Temperature 98.7 F Weight 156.4 lbs Height 68 in BMI 23.78 Index Blood Pressure Diastolic 72 mmHg Blood Pressure Systolic 114 mmHg Cardiac Monitoring Heart Rate 84 bpm Results Name Result Date Reference Range Unit Abnormality Flag UA LONG DIP (IN HOUSE) ----pH 6.0 20151018 ----BLO negative [id number] ----Clarity clear [id number] ----Color yellow [id number] ----Odor no [id number] ----GLU negative [id number] ----TOM Trace [id number] ----RICHARD negative [id number] ----NIT positive [id number] ----KET negative [id number] ----Lot # [id number] ----SG 1.015 20151018 ----URO 0.2 [id number] ----Exp date [id number] ----Protein negative [id number] ROUTINE VENIPUNCTURE H. PYLORI (IN HOUSE) ----Exp date Jul [id number] ----Control + [id number] ----Lot # [id number] ----H. PYLORI Negative [id number] Summary Purpose eClinicalWorks Submission
--- OUTSIDE RECORDS SUMMARY | 2017-07-20 17:14 | XMS REPORT ---
Author Author EDISON VEGA Organization eClinicalWorks Address Unknown Phone Unavailable Care Team Providers Care Truck Loader And Unloader Name Role Phone EDISON VEGA CP Unavailable [...] End Date Status Dosage Zolpidem Tartrate [facility] [address]-57 10 mg Orally Once a day January 31, 2016 1 tablet at bedtime as needed Cymbalta [facility] [address]-06 30 MG Orally Once a day 3 capsule Results No Known Results Summary Purpose eClinicalWorks Submission
--- OUTSIDE RECORDS SUMMARY | 2017-07-20 17:14 | XMS REPORT ---
Author Author Karon EDISON Organization [facility] Address [address] [place] [address] Care Team Providers Care Screen Print Operator Name Role Phone denisseCarlLYNN EDISON Unavailable PROBLEMS Type Condition ICD9-CM Code COR18-PW Code Onset Dates Condition Status SNOMED Code Problem Major depressive disorder, recurrent episode, moderate F33.1 Active 373994723 Problem Gastroesophageal reflux disease without esophagitis K21.9 Active 893140250 Problem Prediabetes R73.09 Active 055003019 Problem Dental examination Z01.20 Active 799588290 Problem Major depressive disorder, recurrent, moderate F33.1 Active 72397110 Problem Abnormal fasting glucose R73.01 Active 264649585 Problem Tremor R25.1 Active 15102444 Problem Insomnia, unspecified G47.00 Active 773308133 Problem Allergy, insect bite Z91.038 Active 951827317 ALLERGIES No Information SOCIAL HISTORY Never Assessed PLAN OF CARE Activity Details Follow Up 2 Months Reason: VITAL SIGNS Height 68 in 2016-12-04 Weight 182.1 lbs 2016-12-04 Heart Rate 88 bpm 2016-12-04 Respiratory Rate 20 2016-12-04 BMI 27.69 kg/m2 2016-12-04 Blood pressure systolic 118 mmHg 2016-12-04 Blood pressure diastolic 72 mmHg 2016-12-04 MEDICATIONS Medication Instructions Dosage Frequency Start Date End Date Duration Status Duloxetine HCl 60 mg Orally take with 30 mg Once a day 1 capsule 24h Mar Active Aripiprazole 5 TAKE 1/2 TABLET BY MOUTH DAILY Active Zolpidem Tartrate 10 mg Orally Once a day 1 tablet at bedtime as needed 24h Sep, Active Cymbalta 30 MG Orally take with 60 mg Once a day 1 capsule 24h Aug, Active Flonase 50 mcg/actuation nasal daily inhale 1 spray (50 mcg) in each nostril by intranasal route 2 times per day PRN 24h Oct, Active Triamcinolone Acetonide 0.1 % Externally Twice a day 1 application to affected area 12h 21 Jul, 2016 Active Omeprazole 20 mg Orally Once a day 1 capsule 24h 23 Oct, 2013 Active RESULTS No Results PROCEDURES No Known procedures IMMUNIZATIONS No Known Immunizations MEDICAL (GENERAL) HISTORY Type Description Date Medical History chronic sinusitis Medical History gastroesophageal reflux disease (GERD) Medical History depression Medical History hypothyroidism- Normal TSH Medical History rosacea Medical History herpes simplex I: negative Medical History adjustment disorder Medical History insomnia Medical History Abnormal mammogram of right breast Surgical History loop electrosurgical excision procedure (LEEP) 1996 Surgical History hernia repair 2002 Surgical History arthroscopic knee surgery: right 1997, 1998; left 1998 Surgical History tonsillectomy 1972 Surgical History bladder suspension 2010 Surgical History dilatation and curettage 2009 Surgical History partial hysterectomy 2010 Surgical History laminectomy with discectomyx5 and fusion C4-6 with cage Surgical History right great toe bone shaved Surgical History right carpel tunnel surgery Surgical History right hand had cyst removed Surgical History left shoulder surgery Surgical History Left knee 02/2015 Surgical History epidural back injection L5 S1 for chronic back pain 12/2015 Surgical History left pinky finger bone spur and cyst removal jun 2016 Surgical History Torn medial meniscus removed 01/17/2017 Surgical History R elbow torn ligament repair 01/24/2017 Hospitalization History infection 2001 Hospitalization History [facility] suicide/depression 07/26/2015
--- OUTSIDE RECORDS SUMMARY | 2017-07-20 17:14 | XMS REPORT ---
Author Author EDISON Brantley Organization [facility] Address [address] [place] [address] Care Team Providers Care Fringe Knotter Name Role Phone EDISON Brantley Unavailable PROBLEMS Type Condition ICD9-CM Code ALL99-VW Code Onset Dates Condition Status SNOMED Code Problem Prediabetes R73.09 Active 842212312 Problem Major depressive disorder, recurrent episode, moderate F33.1 Active 211434957 Problem Major depressive disorder, recurrent, moderate F33.1 Active 75808577 Problem Insomnia, unspecified G47.00 Active 704034225 Problem Tremor R25.1 Active 38063330 Problem Gastroesophageal reflux disease without esophagitis K21.9 Active 481945329 Problem Allergy, insect bite Z91.038 Active 570676647 Problem Abnormal fasting glucose R73.01 Active 555136125 ALLERGIES Unknown Allergies SOCIAL HISTORY No smoking Hx information available PLAN OF CARE VITAL SIGNS MEDICATIONS Medication Instructions Dosage Frequency Start Date End Date Duration Status Duloxetine HCl 60 mg Orally take with 30 mg Once a day 1 capsule 24h Mar 30 days Active Cymbalta 30 MG Orally take with 60 mg Once a day 1 capsule 24h Aug, 30 days Active RESULTS No Results PROCEDURES No Known procedures IMMUNIZATIONS No Known Immunizations
--- OUTSIDE RECORDS SUMMARY | 2017-07-20 17:14 | XMS REPORT ---
Author Author MAURICE VEGA [employer] Address Unknown Phone Unavailable Care Team Providers Care Completions Manager Name Role Phone MAURICE VEGA CP Unavailable Allergies No Known Allergies Problems Problem Type Condition Code Onset Dates Condition Status Assessment Major depressive disorder, recurrent episode, moderate F33.1 Active Problem Abnormal fasting glucose R73.01 Active Problem Gastroesophageal reflux disease without esophagitis K21.9 Active Problem Allergy, insect bite Z91.038 Active Problem Major depressive disorder, recurrent episode, moderate F33.1 Active Problem Dental examination Z01.20 Active Problem Tremor R25.1 Active Problem Prediabetes R73.09 Active Medications No Known Medications Procedures Procedure Coding System Code Date Psychotherapy, patient &/family, 45 minutes, established patient CPT-4 52834 Sep 04, 2016 Results No Known Results Summary Purpose [employer]ClinicalWorks Submission
--- OUTSIDE RECORDS SUMMARY | 2017-07-20 17:14 | XMS REPORT ---
Author Author SINGH CHURCHILL Organization [employer] Address Unknown Phone Unavailable Care Team Providers Care Trapeze Performer Name Role Phone SINGH CHURCHILL CP Unavailable Allergies No Known Allergies Problems Problem Type Condition Code Onset Dates Condition Status Assessment Family history of hypertension Z82.49 Active Problem Acute cystitis without hematuria N30.00 Active Problem Epigastric pain R10.13 Active Problem Dysuria R30.0 Active Problem Abnormal mammogram of right breast R92.8 Active Assessment Hyperkalemia E87.5 Active Problem Chronic fatigue R53.82 Active Problem Hyperkalemia E87.5 Active Medications No Known Medications Results No Known Results Summary Purpose [employer]ClinicalWorks Submission
--- OUTSIDE RECORDS SUMMARY | 2017-07-20 17:14 | XMS REPORT ---
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 Active Problem Major depressive disorder, recurrent episode, moderate F33.1 Active Problem Dysuria R30.0 Active Problem Encounter for dental examination Z01.20 Active Problem Chronic fatigue R53.82 Active Problem Hyperkalemia E87.5 Active Problem Acute cystitis without hematuria N30.00 Active Problem Epigastric pain R10.13 Active Medications No Known Medications Procedures Procedure Coding System Code Date ASSAY OF FREE THYROXINE CPT-4 68311 May 30, 2016 LIPID PANEL CPT-4 78339 May 30, 2016 ASSAY THYROID STIM HORMONE CPT-4 98514 May 30, 2016 MANUAL CELL COUNT, EACH CPT-4 13329 May 30, 2016 COMPREHEN METABOLIC PANEL CPT-4 71781 May 30, 2016 VENIPUNCT, ROUTINE* CPT-4 48606 May 30, 2016 Results No Known Results Summary Purpose [employer]ClinicalWorks Submission
--- OUTSIDE RECORDS SUMMARY | 2017-07-20 17:15 | XMS REPORT ---
Author Author SINGH CHURCHILL Organization [employer] Address Unknown Phone Unavailable Care Team Providers Care Telegraph And Teletype Operator Name Role Phone SINGH CHURCHILL CP Unavailable Allergies No Known Allergies Problems Problem Type Condition Code Onset Dates Condition Status Problem Abnormal mammogram of right breast R92.8 Active Assessment Abnormal mammogram of right breast [...]
--- OUTSIDE RECORDS SUMMARY | 2017-07-20 17:15 | XMS REPORT ---
Author EDISON Chaudhry [employer] Address Unknown Phone Unavailable Care Team Providers Care Science Analyst Name Role Phone EDISON VEGA CP Unavailable Allergies No Known Allergies Problems Problem Type Condition Code Onset Dates Condition Status Assessment MDD (major depressive disorder), recurrent episode, mild F33.0 Active Problem Abnormal fasting glucose R73.01 Active Problem Gastroesophageal reflux disease without esophagitis K21.9 Active Problem Allergy, insect bite Z91.038 Active Problem Major depressive disorder, recurrent episode, moderate F33.1 Active Problem Dental examination Z01.20 Active Problem Tremor R25.1 Active Problem Prediabetes R73.09 Active Medications Medication Code System Code Instructions Start Date End Date Status Dosage Triamcinolone Acetonide [facility] [address]-30 0.1 % Externally Twice a day Aug 03, 2016 1 application to affected area Linzess [facility] [address]-82 290 MCG Orally Once a day Aug 03, 2016 Sep 02, 2016 1 capsule Omeprazole [facility] 70199799405 20 TAKE 1 CAPSULE BY MOUTH DAILY BEFORE A MEAL Cymbalta [facility] [address]-83 30 MG Orally Once a day Aug 22, 2016 3 capsule Zolpidem Tartrate ER [facility] [address]-80 6.25 MG Orally Once a day Aug 22, 2016 1 tablet at bedtime as needed Aripiprazole [facility] [address]-01 5 MG Orally Once a day May 29, 2016 0.5 tablet Flonase NDC 0 50 mcg/actuation nasal daily Oct 27, 2014 inhale 1 spray (50 mcg) in each nostril by intranasal route 2 times per day PRN Omeprazole [facility] [address]-67 20 mg Orally Once a day Nov 05, 2013 1 capsule Procedures Procedure Coding System Code Date Office Visit, Est Pt., Level 4 CPT-4 24741 Aug 16, 2016 Vital Signs Date/Time: Aug 16, 2016 Cardiac Monitoring Heart Rate 72 bpm Weight 172.2 lbs Height 68 in BMI 26.18 Index Blood Pressure Diastolic 70 mmHg Blood Pressure Systolic 118 mmHg Results No Known Results Summary Purpose [employer]ClinicalWorks Submission
--- OUTSIDE RECORDS SUMMARY | 2017-07-20 17:15 | XMS REPORT ---
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 Problem Adjustment disorder with depressed mood 309.0 Active Problem Major depressive disorder, recurrent episode, moderate 296.32 Active Problem Breast pain 611.71 Active Problem Adjustment disorder with mixed anxiety and depressed mood 309.28 Active Problem Major depressive disorder, recurrent, moderate F33.1 Active Problem Rosacea 695.3 Active Problem Unspecified hypothyroidism 244.9 Active Problem Dysthymic disorder 300.4 Active Problem Unspecified myalgia and myositis 729.1 Active Medications Medication Code System Code Instructions Start Date End Date Status Dosage Omeprazole [facility] [address]-40 20 MG Nov 05, 2013 take 1 capsule ( 20 mg) by oral route once daily before a meal Results No Known Results Summary Purpose [employer]Works Submission
--- OUTSIDE RECORDS SUMMARY | 2017-07-20 17:15 | XMS REPORT ---
Author Author DAVONTE VEGA Organization [employer] Address Unknown Phone Unavailable Care Team Providers Care Asp Net Developer Name Role Phone DAVONTE VEGA CP Unavailable Allergies No Known Allergies Problems Problem Type Condition Code Onset Dates Condition Status Assessment Major depressive disorder, recurrent episode, unspecified severity F33.9 Active Problem Major depressive disorder, recurrent episode, [...] Rosacea 695.3 Active Medications No Known Medications Procedures Procedure Coding System Code Date Psych diagnostic evaluation, established patient CPT-4 91553 Aug 16, 2015 Results No Known Results Summary Purpose [employer]ClinicalWorks Submission
--- OUTSIDE RECORDS SUMMARY | 2017-07-20 17:15 | XMS REPORT ---
Author STEPH Mims [facility] [employer]Works Address Unknown Phone Unavailable Care Team Providers Care Broker Assistant Name Role Phone STEPH OJEDA CP Unavailable Allergies, Adverse Reactions, Alerts Substance Reaction Event Type Imipramine HCl rash Drug Allergy Celebrex Info Not Available Drug Allergy Amoxicillin Info Not Available Drug Allergy Vladimir Toilet Paper yeast infection Non Drug Allergy Tape can only use paper tape Non Drug Allergy Problems Problem Type Condition Code Onset Dates Condition Status Assessment Allergy, insect bite Z91.038 Active Assessment Dysuria R30.0 Active Assessment Chronic idiopathic constipation K59.04 Active Problem Abnormal fasting glucose R73.01 Active Problem Gastroesophageal reflux disease without esophagitis K21.9 Active Problem Allergy, insect bite Z91.038 Active Problem Major depressive disorder, recurrent episode, moderate F33.1 Active Problem Dental examination Z01.20 Active Problem Tremor R25.1 Active Problem Prediabetes R73.09 Active Medications Medication Code System Code Instructions Start Date End Date Status Dosage Flonase NDC 0 50 mcg/actuation nasal daily Oct 27, 2014 inhale 1 spray (50 mcg) in each nostril by intranasal route 2 times per day PRN Zolpidem Tartrate [facility] [address]-47 10 mg Orally Once a day January 31, 2016 1 tablet at bedtime as needed Triamcinolone Acetonide [facility] [address]-44 0.1 % Externally Twice a day Aug 03, 2016 1 application to affected area Claritin [facility] [address]-36 10 mg February 03, 2013 take 1 tablet (10 mg) by oral route once daily Aripiprazole [facility] [address]-90 5 MG Orally Once a day May 29, 2016 0.5 tablet Linzess [facility] [address]-69 145 MCG Orally Once a day Aug 03, 2016 Sep 02, 2016 1 capsule Omeprazole [facility] 75244973399 20 TAKE 1 CAPSULE BY MOUTH DAILY BEFORE A MEAL Omeprazole [facility] [address]-38 20 mg Orally Once a day Nov 05, 2013 1 capsule Duloxetine HCl [facility] [address]-51 60 MG Orally Once a day April 09, 2016 2 capsule Procedures Procedure Coding System Code Date Office Visit, Est Pt., Level 3 CPT-4 65396 Aug 03, 2016 URINALYSIS, AUTO, W/O SCOPE CPT-4 42891 Aug 03, 2016 Vital Signs Date/Time: Aug 03, 2016 Cardiac Monitoring Heart Rate 78 bpm Weight 172 lbs Height 68 in BMI 26.15 Index Blood Pressure Diastolic 72 mmHg Blood Pressure Systolic 110 mmHg Results Name Result Date Reference Range Unit Abnormality Flag UA LONG DIP (IN HOUSE) ----TOM Negative 20160803 ----NIT Negative 20160803 ----Exp date 20160803 ----Lot # [id number] ----SG 1.010 20160803 ----KET Negative [id number] ----RICHARD Negative 20160803 ----GLU Negative [id number] ----Odor No 20160803 ----pH 7.0 20160803 ----BLO Negative [id number] ----URO 0.2 20160803 ----Protein Negative [id number] ----Lot # [id number] ----Exp date [id number] ----Clarity Clear [id number] ----Color Yellow [id number] Summary Purpose eClinicalWorks Submission
--- OUTSIDE RECORDS SUMMARY | 2017-07-20 17:15 | XMS REPORT ---
Author STEPH Mims [facility] [employer]Works Address Unknown Phone Unavailable Care Team Providers Care Automobile Bumper Straightener Name Role Phone STEPH OJEDA CP Unavailable [...] R92.8 Active Assessment Dysuria R30.0 Active Problem Major depressive disorder, recurrent episode, moderate F33.1 Active Problem Dysuria R30.0 Active Problem Encounter for dental examination Z01.20 Active Problem Chronic fatigue R53.82 Active Problem Hyperkalemia E87.5 Active Problem Acute cystitis without hematuria N30.00 Active Problem Epigastric pain R10.13 Active Medications Medication Code System Code Instructions Start Date End Date Status Dosage Fluconazole [facility] [address]-36 150 MG Orally Once a day April 19, 2016 1 tablet Omeprazole [facility] [address]-38 20 MG Nov 05, 2013 take 1 capsule ( 20 mg) by oral route once daily before a meal Claritin [facility] [address]-88 10 mg February 03, 2013 take 1 tablet (10 mg) by oral route once daily Duloxetine HCl [facility] [address]-41 60 MG Orally Once a day April 09, 2016 2 capsule Flonase [facility] 0 50 mcg/actuation nasal daily Oct 27, 2014 inhale 1 spray (50 mcg) in each nostril by intranasal route 2 times per day PRN Bactrim DS [facility] [address]-53 800-160 MG Orally Twice a day May 23, 2016 Jun 02, 2016 1 tablet Cymbalta [facility] [address]-07 30 MG Orally Once a day 3 capsule Procedures Procedure Coding System Code Date Office Visit, Est Pt., Level 3 CPT-4 68426 May 23, 2016 URINALYSIS, AUTO, W/O SCOPE CPT-4 14165 May 23, 2016 Vital Signs Date/Time: May 23, 2016 Cardiac Monitoring Heart Rate 76 bpm Weight 165 lbs Height 68 in BMI 25.09 Index Blood Pressure Diastolic 70 mmHg Blood Pressure Systolic 112 mmHg Results No Known Results Summary Purpose eClinicalWorks Submission
--- OUTSIDE RECORDS SUMMARY | 2017-07-20 17:16 | XMS REPORT ---
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
--- OUTSIDE RECORDS SUMMARY | 2017-07-20 17:16 | XMS REPORT ---
Author Author ALEX DELANEY Organization [employer] Address Unknown Phone Unavailable Care Team Providers Care Agriculture Internship Name Role Phone ALEX DELANEY CP Unavailable [...]
--- OUTSIDE RECORDS SUMMARY | 2017-07-20 17:16 | XMS REPORT ---
Author Author SINGH CHURCHILL Organization [employer] Address Unknown Phone Unavailable Care Team Providers Care Lyft Driver Name Role Phone SINGH CHURCHILL CP Unavailable Allergies No Known Allergies Problems Problem Type Condition Code Onset Dates Condition Status Assessment Abnormal mammogram of right breast R92.8 Active Problem Acute cystitis without hematuria N30.00 Active Problem Epigastric pain R10.13 Active Problem Dysuria R30.0 Active Problem Abnormal mammogram of right breast R92.8 Active Assessment Breast cancer screening V76.10 Active Problem Chronic fatigue R53.82 Active Problem Hyperkalemia E87.5 Active Medications No Known Medications Results Name Result Date Reference Range Unit Abnormality Flag Mammogram Dx, Right Summary Purpose [employer]ClinicalWorks Submission
--- OUTSIDE RECORDS SUMMARY | 2017-07-20 17:16 | XMS REPORT ---
Author Author SINGH CHURCHILL Organization [employer] Address Unknown Phone Unavailable Care Team Providers Care Application Spec Name Role Phone SINGH CHURCHILL CP Unavailable [...]
--- OUTSIDE RECORDS SUMMARY | 2017-07-20 17:16 | XMS REPORT ---
Author Author SINGH CHURCHILL [facility] Address [address] [place] [address] Care Team Providers Care District Gauger Name Role Phone SINGH CHURCHILL Unavailable PROBLEMS Type Condition ICD9-CM Code FHZ09-GI Code Onset Dates Condition Status SNOMED Code Problem Major depressive disorder, recurrent episode, moderate F33.1 Active 650378418 Problem Gastroesophageal reflux disease without esophagitis K21.9 Active 823976559 Problem Prediabetes R73.09 Active 277003522 Problem Dental examination Z01.20 Active 990355762 Problem Major depressive disorder, recurrent, moderate F33.1 Active 19270879 Problem Abnormal fasting glucose R73.01 Active 786377819 Problem Tremor R25.1 Active 11202189 Problem Insomnia, unspecified G47.00 Active 795820698 Problem Allergy, insect bite Z91.038 Active 338454067 ALLERGIES Unknown Allergies SOCIAL HISTORY No smoking Hx information available PLAN OF CARE VITAL SIGNS MEDICATIONS Unknown Medications RESULTS No Results PROCEDURES No Known procedures IMMUNIZATIONS No Known Immunizations
--- OUTSIDE RECORDS SUMMARY | 2017-07-20 17:16 | XMS REPORT ---
Author Author ALEX DELANEY [facility] [employer] Address Unknown Phone Unavailable Care Team Providers Care Cosmetic Manager Name Role Phone ALEX DELANEY Unavailable Allergies No Known Allergies Problems Problem [...] Problem Unspecified myalgia and myositis 729.1 Active Assessment Dysthymic disorder F34.1 Active Assessment Major depressive disorder, recurrent, moderate F33.1 Active Assessment Insomnia, unspecified G47.00 Active Medications Medication Code System Code Instructions Start Date End Date Status Dosage Vitamin D3 [facility] 45972-[address]1958 1,000 unit May 25, 2014 take 1 Tablet by Po route 1 time per day Pseudoephedrine HCl [facility] [address]-46 60 mg December 15, 2014 take 1 tablet (60 mg) by oral route every 4-6 hours as needed Claritin [facility] [address]-39 10 mg February 03, 2013 take 1 tablet (10 mg) by oral route once daily Baclofen [facility] [address]-81 10 MG Orally 2 times a day prn 1 tablet with food or milk Flonase [facility] [address]-10 50 mcg/actuation Oct 27, 2014 inhale 1 spray (50 mcg) in each nostril by intranasal route 2 times per day PRN Multivital-M [facility] 23533-05402 Orally not defined Scarbro 3 [facility] 49899-29113 1200 MG Orally Once a day 1 capsule Cymbalta [facility] [address]-10 60 MG Orally Once a day take with 30mg tab 1 capsule Ambien CR [facility] [address]-24 12.5 MG Orally Once a day Aug 24, 2015 1 tablet at bedtime as needed Omeprazole [facility] [address]-23 20 MG Nov 05, 2013 take 1 capsule ( 20 mg) by oral route once daily before a meal Cymbalta [facility] [address]-34 30 MG Orally Once a day 1 capsule Myrbetriq [facility] [address]-94 25 MG Orally Once a day Oct 30, 2015 1 tablet Procedures Procedure Coding System Code Date Office Visit, Est Pt., Level 3 CPT-4 73930 Aug 31, 2015 Vital Signs Date/Time: Aug 31, 2015 Cardiac Monitoring Heart Rate 88 bpm Weight 161.6 lbs Height 68 in BMI 24.57 Index Blood Pressure Diastolic 64 mmHg Blood Pressure Systolic 118 mmHg Results No Known Results Summary Purpose eClinicalWorks Submission
--- OUTSIDE RECORDS SUMMARY | 2017-07-20 17:18 | XMS REPORT | Continuity of Care Document ---
Author Author [facility] Address Unknown Phone Unavailable Allergies Active Description Code Type Severity Reaction Onset Reported/Identified Relationship to Patient Clinical Status Yes amoxicillin [id number] Drug Allergy Unknown RASH 03/01/2010 Yes amoxicillin Drug Allergy 04/10/2012 Yes tape Drug Allergy 04/10/2012 Yes mason toilet paper OA N/A N/A 07/21/2012 Yes mason toilet paper OA 07/21/2012 Yes celecoxib [id number] Drug Allergy Unknown N/A 12/20/2014 Yes cyclobenzaprine [id number] Drug Allergy Unknown N/A 12/20/2014 Yes tapentadol [id number] Drug Allergy Unknown RASH, 12/20/2014 Yes ondansetron [id number] Drug Allergy Mild RASH 08/01/2015 Yes imipramine [id number] Drug Allergy Severe RASH 08/03/2015 Medications Problems Date Dx Coded Attending Type Code Diagnosis Diagnosed By 08/29/2011 Ot 618.4 UTERVAGINAL PROLAPSE NOS 08/29/2011 Ot 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 08/29/2011 Ot 625.6 FEM STRESS INCONTINENCE 04/10/2012 461.9 ACUTE SINUSITIS UNSPECIFIED 04/10/2012 MELINA KIRK APRN 461.9 ACUTE SINUSITIS UNSPECIFIED 04/10/2012 461.9 ACUTE SINUSITIS UNSPECIFIED 04/10/2012 461.9 ACUTE SINUSITIS UNSPECIFIED 04/10/2012 461.9 ACUTE SINUSITIS UNSPECIFIED 04/10/2012 461.9 ACUTE SINUSITIS UNSPECIFIED 04/10/2012 461.9 ACUTE SINUSITIS UNSPECIFIED 04/10/2012 CARLINE FERNANDES MD 461.9 ACUTE SINUSITIS UNSPECIFIED 04/10/2012 RAFFY HYATT DDS 461.9 ACUTE SINUSITIS UNSPECIFIED 04/10/2012 GM WILKS DO 461.9 ACUTE SINUSITIS UNSPECIFIED 04/10/2012 RAFFY HYATT DDS 461.9 ACUTE SINUSITIS UNSPECIFIED 04/10/2012 GETACHEW DDS, JAXON Vasquez 461.9 ACUTE SINUSITIS UNSPECIFIED 04/10/2012 MADL 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, SINGH L 461.9 ACUTE SINUSITIS UNSPECIFIED 04/10/2012 MADL 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, SINGH L 461.9 ACUTE SINUSITIS UNSPECIFIED 04/10/2012 MILADY 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, MERVIN A 461.9 ACUTE SINUSITIS UNSPECIFIED 04/10/2012 ROSA BYERS, SIERRA R 461.9 ACUTE SINUSITIS UNSPECIFIED 04/10/2012 GM WILKS DO K 461.9 ACUTE SINUSITIS UNSPECIFIED 04/10/2012 MADL 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, SINGH L 461.9 ACUTE SINUSITIS UNSPECIFIED 04/10/2012 GALE LCMF, HAILY W 461.9 ACUTE SINUSITIS UNSPECIFIED 04/10/2012 GALE LCMF, HAILY W 461.9 ACUTE SINUSITIS UNSPECIFIED 04/10/2012 MADL 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, SINGH L 461.9 ACUTE SINUSITIS UNSPECIFIED 04/10/2012 GALE LCMF, HAILY W 461.9 ACUTE SINUSITIS UNSPECIFIED 04/10/2012 GALE LCMF, HAILY W 461.9 ACUTE SINUSITIS UNSPECIFIED 04/10/2012 MADL 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, SINGH L 461.9 ACUTE SINUSITIS UNSPECIFIED 04/10/2012 MILADY 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, MERVIN A 461.9 ACUTE SINUSITIS UNSPECIFIED 04/10/2012 STEPH OJEDA APRN 461.9 ACUTE SINUSITIS UNSPECIFIED 04/10/2012 MADL 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, SINGH L 461.9 ACUTE SINUSITIS UNSPECIFIED 04/17/2012 719.46 joint pain, localized in the knee 04/17/2012 MELINA KIRK APRN 719.46 joint pain, localized in the knee 04/17/2012 719.46 joint pain, localized in the knee 04/17/2012 719.46 joint pain, localized in the knee 04/17/2012 719.46 joint pain, localized in the knee 04/17/2012 719.46 joint pain, localized in the knee 04/17/2012 719.46 joint pain, localized in the knee 04/17/2012 DOM IZQUIERDO, CARLINE Chiang 719.46 joint pain, localized in the knee 04/17/2012 HYATT DDS, RAFFY 719.46 joint pain, localized in the knee 04/17/2012 WILKS DO, GM K 719.46 joint pain, localized in the knee 04/17/2012 HYATT DDS, RAFFY 719.46 joint pain, localized in the knee 04/17/2012 GETACHEW DDS, JAXON Vasquez 719.46 joint pain, localized in the knee 04/17/2012 MADL 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, SINGH L 719.46 joint pain, localized in the knee 04/17/2012 MADL 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, SINGH L 719.46 joint pain, localized in the knee 04/17/2012 MILADY 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, MERVIN A 719.46 joint pain, localized in the knee 04/17/2012 ROSA 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SIERRA 719.46 joint pain, localized in the knee 04/17/2012 WILKS DO, GM K 719.46 joint pain, localized in the knee 04/17/2012 MADL 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, SINGH L 719.46 joint pain, localized in the knee 04/17/2012 GALE LCMF, HAILY W 719.46 joint pain, localized in the knee 04/17/2012 GALE LCMF, HAILY W 719.46 joint pain, localized in the knee 04/17/2012 MADL 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, SINGH L 719.46 joint pain, localized in the knee 04/17/2012 GALE LCMF, HAILY W 719.46 joint pain, localized in the knee 04/17/2012 GALE LCMF, HAILY W 719.46 joint pain, localized in the knee 04/17/2012 MADL 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, SINGH L 719.46 joint pain, localized in the knee 04/17/2012 MILADY 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, MERVIN A 719.46 joint pain, localized in the knee 04/17/2012 STEPH OJEDA APRN 719.46 joint pain, localized in the knee 04/17/2012 MADL 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, SINGH L 719.46 joint pain, localized in the knee 05/01/2012 V69.2 HIGH-RISK SEXUAL BEHAVIOR 05/01/2012 MELINA KIRK APRN S V69.2 HIGH-RISK SEXUAL BEHAVIOR 05/01/2012 V69.2 HIGH-RISK SEXUAL BEHAVIOR 05/01/2012 V69.2 High-risk Sexual Behavior 05/01/2012 V69.2 High-risk Sexual Behavior 05/01/2012 V69.2 High-risk Sexual Behavior 05/01/2012 V69.2 High-risk Sexual Behavior 05/01/2012 CARLINE FERNANDES MD V69.2 High-risk Sexual Behavior 05/01/2012 HYATT DDS, RAFFY V69.2 High-risk Sexual Behavior 05/01/2012 WILKS DO GM K V69.2 High-risk Sexual Behavior 05/01/2012 HYATT DDS, RAFFY V69.2 High-risk Sexual Behavior 05/01/2012 GETACHEW DDS, JAXON Vasquez V69.2 High-risk Sexual Behavior 05/01/2012 MADL 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, SINGH L V69.2 High-risk Sexual Behavior 05/01/2012 ANAL 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, SINGH L V69.2 High-risk Sexual Behavior 05/01/2012 MERVIN HENNING APRN V69.2 High-risk Sexual Behavior 05/01/2012 SIERRA LEE APRN V69.2 High-risk Sexual Behavior 05/01/2012 WILKS DOBILLA K V69.2 High-risk Sexual Behavior 05/01/2012 MADJericho 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, SINGH L V69.2 High-risk Sexual Behavior 05/01/2012 GALE DIANEF, HAILY W V69.2 High-risk Sexual Behavior 05/01/2012 GALE DIANEF, HAILY W V69.2 High-risk Sexual Behavior 05/01/2012 KERLINE 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, SINGH L V69.2 High-risk Sexual Behavior 05/01/2012 GALE DIANEF, HAILY W V69.2 High-risk Sexual Behavior 05/01/2012 GALE DIANEF, HAILY W V69.2 High-risk Sexual Behavior 05/01/2012 KERLINE BYERS, SINGH L V69.2 High-risk Sexual Behavior 05/01/2012 RACHAEL HENNING APRNIDI A V69.2 High-risk Sexual Behavior 05/01/2012 STEPH OJEDA APRN V69.2 High-risk Sexual Behavior 05/01/2012 MADJericho 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, SINGH L V69.2 High-risk Sexual Behavior 07/21/2012 683 ACUTE LYMPHADENITIS 07/21/2012 MELINA KIRK APRN S 683 ACUTE LYMPHADENITIS 07/21/2012 683 ACUTE LYMPHADENITIS 07/21/2012 683 Acute Lymphadenitis 07/21/2012 683 Acute Lymphadenitis 07/21/2012 683 Acute Lymphadenitis 07/21/2012 683 Acute Lymphadenitis 07/21/2012 CARLINE FERNANDES MD 683 Acute Lymphadenitis 07/21/2012 OLENA STEWARTS, RAFFY 683 Acute Lymphadenitis 07/21/2012 GM WILKS DO K 683 Acute Lymphadenitis 07/21/2012 HYATT DDS, RAFFY 683 Acute Lymphadenitis 07/21/2012 JAXON CHILEL DDS 683 Acute Lymphadenitis 07/21/2012 MAD 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, SINGH L 683 Acute Lymphadenitis 07/21/2012 MAD 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, SINGH L 683 Acute Lymphadenitis 07/21/2012 MILADY BYERS MERVIN A 683 Acute Lymphadenitis 07/21/2012 SIERRA LEE APRN 683 Acute Lymphadenitis 07/21/2012 GM WILKS DO K 683 Acute Lymphadenitis 07/21/2012 MAD 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, SINGH L 683 Acute Lymphadenitis 07/21/2012 GALE WUMF, HAILY W 683 Acute Lymphadenitis 07/21/2012 GALE WUMF, HAILY W 683 Acute Lymphadenitis 07/21/2012 KERLINE 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, SINGH L 683 Acute Lymphadenitis 07/21/2012 GALE DIANEF, HAILY W 683 Acute Lymphadenitis 07/21/2012 GALE WUMF, HAILY W 683 Acute Lymphadenitis 07/21/2012 MAD 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, SINGH L 683 Acute Lymphadenitis 07/21/2012 MILADY BYERS MERVIN A 683 Acute Lymphadenitis 07/21/2012 STEPH OJEDA APRN 683 Acute Lymphadenitis 07/21/2012 MADL 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, SINGH L 683 Acute Lymphadenitis 10/16/2012 REAGAN 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, MELINA S 465.9 UPPER RESPIRATORY INFECTION 10/16/2012 REAGAN 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, MELINA S V74.5 STD SCREEN 10/16/2012 465.9 UPPER RESPIRATORY INFECTION 10/16/2012 V74.5 STD SCREEN 10/16/2012 465.9 Upper Respiratory Infection 10/16/2012 V74.5 Std Screen 10/16/2012 465.9 Upper Respiratory Infection 10/16/2012 V74.5 Std Screen 10/16/2012 465.9 Upper Respiratory Infection 10/16/2012 V74.5 Std Screen 10/16/2012 465.9 Upper Respiratory Infection 10/16/2012 V74.5 Std Screen 10/16/2012 DOM IZQUIERDO, CARLINE Chiang 465.9 Upper Respiratory Infection 10/16/2012 CARLINE FERNANDES MD V74.5 Std Screen 10/16/2012 HYATT DDS, RAFFY 465.9 Upper Respiratory Infection 10/16/2012 HYATT DDS, RAFFY V74.5 Std Screen 10/16/2012 WILKS DO, GM K 465.9 Upper Respiratory Infection 10/16/2012 WILKS DO, GM K V74.5 Std Screen 10/16/2012 HYATT DDS, RAFFY 465.9 Upper Respiratory Infection 10/16/2012 HYATT DDS, RAFFY V74.5 Std Screen 10/16/2012 WHITE DDS, JAXON D 465.9 Upper Respiratory Infection 10/16/2012 WHITE DDS, JAXON D V74.5 Std Screen 10/16/2012 MADL 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, SINGH L 465.9 Upper Respiratory Infection 10/16/2012 MADL 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, SINGH L V74.5 Std Screen 10/16/2012 MADL 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, SINGH L 465.9 Upper Respiratory Infection 10/16/2012 MADL 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, SINGH L V74.5 Std Screen 10/16/2012 MILADY 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, MERVIN A 465.9 Upper Respiratory Infection 10/16/2012 MILADY 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, MERVIN A V74.5 Std Screen 10/16/2012 SIERRA LEE APRN R 465.9 Upper Respiratory Infection 10/16/2012 ROSA 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, SIERRA R V74.5 Std Screen 10/16/2012 WILKS DO, GM K 465.9 Upper Respiratory Infection 10/16/2012 WILKS DO, GM K V74.5 Std Screen 10/16/2012 MADL 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, SINGH L 465.9 Upper Respiratory Infection 10/16/2012 MADL 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, SINGH L V74.5 Std Screen 10/16/2012 GALE LCMF, HAILY W 465.9 Upper Respiratory Infection 10/16/2012 GALE LCMF, HAILY W V74.5 Std Screen 10/16/2012 GALE LCMF, AHILY W 465.9 Upper Respiratory Infection 10/16/2012 GALE LCMF, HAILY W V74.5 Std Screen 10/16/2012 MADL 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, SINGH L 465.9 Upper Respiratory Infection 10/16/2012 MADL 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, SINGH L V74.5 Std Screen 10/16/2012 GALE LCMF, HAILY W 465.9 Upper Respiratory Infection 10/16/2012 GALE LCMF, HAILY W V74.5 Std Screen 10/16/2012 GALE LCMF, HAILY W 465.9 Upper Respiratory Infection 10/16/2012 GALE LCMF, HAILY W V74.5 Std Screen 10/16/2012 MADL 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, SINGH L 465.9 Upper Respiratory Infection 10/16/2012 MADL 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, SINGH L V74.5 Std Screen 10/16/2012 MILADY 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, MERVIN A 465.9 Upper Respiratory Infection 10/16/2012 MILADY 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, MERVIN A V74.5 Std Screen 10/16/2012 RUSTY 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STEPH Chiang T 465.9 Upper Respiratory Infection 10/16/2012 RUSTY 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STEPH T V74.5 Std Screen 10/16/2012 ANAL 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, SINGH L 465.9 Upper Respiratory Infection 10/16/2012 ANAL 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, SINGH L V74.5 Std Screen 10/25/2012 Ot 558.9 NONINF GASTROENTERIT NEC 10/25/2012 Ot 787.91 DIARRHEA 10/25/2012 Ot V04.81 ND FOR PROPHYLACTIC VACCIN AND INOCULATI 11/12/2012 473.9 SINUSITIS 11/12/2012 473.9 SINUSITIS 11/12/2012 473.9 SINUSITIS 11/12/2012 473.9 SINUSITIS 11/12/2012 473.9 SINUSITIS 11/12/2012 DOM IZQUIERDO, CARLINE Chiang 473.9 SINUSITIS 11/12/2012 OLENA DDS, RAFFY 473.9 SINUSITIS 11/12/2012 GM WILKS DO K 473.9 SINUSITIS 11/12/2012 HYATT DDS, RAFFY 473.9 SINUSITIS 11/12/2012 GETACHEW DDS, JAXON Vasquez 473.9 SINUSITIS 11/12/2012 MADL 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, SINGH L 473.9 SINUSITIS 11/12/2012 MADL 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, SINGH L 473.9 SINUSITIS 11/12/2012 MILADY MIN, MERVIN A 473.9 SINUSITIS 11/12/2012 ROSA 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, SIERRA Pisano 473.9 SINUSITIS 11/12/2012 WILKS , GM K 473.9 SINUSITIS 11/12/2012 MADL 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, SINGH L 473.9 SINUSITIS 11/12/2012 GALE LCMF, HAILY W 473.9 SINUSITIS 11/12/2012 GALE LCMF, HAILY W 473.9 SINUSITIS 11/12/2012 MADL 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, SINGH L 473.9 SINUSITIS 11/12/2012 GALE LCMF, HAILY W 473.9 SINUSITIS 11/12/2012 GALE LCMF, HAILY W 473.9 SINUSITIS 11/12/2012 MADL 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, SINGH L 473.9 SINUSITIS 11/12/2012 MILADY MIN, MERVIN A 473.9 SINUSITIS 11/12/2012 STEPH OJEAD APRN 473.9 SINUSITIS 11/12/2012 MADL 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, SINGH L 473.9 SINUSITIS 01/12/2013 719.41 PAIN IN JOINT INVOLVING SHOULDER REGION 01/12/2013 782.0 DISTURBANCE OF SKIN SENSATION 01/12/2013 719.41 PAIN IN JOINT INVOLVING SHOULDER REGION 01/12/2013 782.0 DISTURBANCE OF SKIN SENSATION 01/12/2013 719.41 PAIN IN JOINT INVOLVING SHOULDER REGION 01/12/2013 782.0 DISTURBANCE OF SKIN SENSATION 01/12/2013 719.41 PAIN IN JOINT INVOLVING SHOULDER REGION 01/12/2013 782.0 DISTURBANCE OF SKIN SENSATION 01/12/2013 CARLINE FERNANDES MD 719.41 PAIN IN JOINT INVOLVING SHOULDER REGION 01/12/2013 CARLINE FERNANDES MD 782.0 DISTURBANCE OF SKIN SENSATION 01/12/2013 HYATT DDSRAFFY 719.41 PAIN IN JOINT INVOLVING SHOULDER REGION 01/12/2013 HYATT DDSRAFFY 782.0 DISTURBANCE OF SKIN SENSATION 01/12/2013 WILKS DO GM K 719.41 PAIN IN JOINT INVOLVING SHOULDER REGION 01/12/2013 WILKS DO GM K 782.0 DISTURBANCE OF SKIN SENSATION 01/12/2013 HYATT DDSRAFFY 719.41 PAIN IN JOINT INVOLVING SHOULDER REGION 01/12/2013 OLENA STEWARTSRAFFY 782.0 DISTURBANCE OF SKIN SENSATION 01/12/2013 JAXON CHILEL DDS 719.41 PAIN IN JOINT INVOLVING SHOULDER REGION 01/12/2013 GETACHEW STEWARTSJAXON D 782.0 DISTURBANCE OF SKIN SENSATION 01/12/2013 MADL 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, SINGH L 719.41 PAIN IN JOINT INVOLVING SHOULDER REGION 01/12/2013 MADL 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, SINGH L 782.0 DISTURBANCE OF SKIN SENSATION 01/12/2013 MADL 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, SINGH L 719.41 PAIN IN JOINT INVOLVING SHOULDER REGION 01/12/2013 MADL 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, SINGH L 782.0 DISTURBANCE OF SKIN SENSATION 01/12/2013 MILADY 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, MERVIN A 719.41 PAIN IN JOINT INVOLVING SHOULDER REGION 01/12/2013 MILADY 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, MERVIN A 782.0 DISTURBANCE OF SKIN SENSATION 01/12/2013 ROSA 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, SIERRA R 719.41 PAIN IN JOINT INVOLVING SHOULDER REGION 01/12/2013 ROSA 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, SIRERA R 782.0 DISTURBANCE OF SKIN SENSATION 01/12/2013 WILKS DO, GM K 719.41 PAIN IN JOINT INVOLVING SHOULDER REGION 01/12/2013 WILKS DO, GM K 782.0 DISTURBANCE OF SKIN SENSATION 01/12/2013 MADL 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, SINGH L 719.41 PAIN IN JOINT INVOLVING SHOULDER REGION 01/12/2013 KERLINE MINENMASINGH L 782.0 DISTURBANCE OF SKIN SENSATION 01/12/2013 GALE LCMF, HAILY W 719.41 PAIN IN JOINT INVOLVING SHOULDER REGION 01/12/2013 GALE LCMF, HAILY W 782.0 DISTURBANCE OF SKIN SENSATION 01/12/2013 GALE LCMF, HAILY W 719.41 PAIN IN JOINT INVOLVING SHOULDER REGION 01/12/2013 GALE LCMF, HAILY W 782.0 DISTURBANCE OF SKIN SENSATION 01/12/2013 KERLINE MIN SINGH L 719.41 PAIN IN JOINT INVOLVING SHOULDER REGION 01/12/2013 ANAL 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, SINGH L 782.0 DISTURBANCE OF SKIN SENSATION 01/12/2013 GALE LCMF, HAILY W 719.41 PAIN IN JOINT INVOLVING SHOULDER REGION 01/12/2013 GALE LCMF, HAILY W 782.0 DISTURBANCE OF SKIN SENSATION 01/12/2013 GALE LCMF, HAILY W 719.41 PAIN IN JOINT INVOLVING SHOULDER REGION 01/12/2013 GALE LCMF, HAILY W 782.0 DISTURBANCE OF SKIN SENSATION 01/12/2013 ANAJericho ENMA BYERSWNYA L 719.41 PAIN IN JOINT INVOLVING SHOULDER REGION 01/12/2013 ANAJericho MIN, SINGH L 782.0 DISTURBANCE OF SKIN SENSATION 01/12/2013 MERVIN HENNING APRN A 719.41 PAIN IN JOINT INVOLVING SHOULDER REGION 01/12/2013 RACHAEL HENNING APRNIDI A 782.0 DISTURBANCE OF SKIN SENSATION 01/12/2013 STEPH OJEDA APRN 719.41 PAIN IN JOINT INVOLVING SHOULDER REGION 01/12/2013 STEPH OJEDA APRN 782.0 DISTURBANCE OF SKIN SENSATION 01/12/2013 KERLINE BYERS SINGH L 719.41 PAIN IN JOINT INVOLVING SHOULDER REGION 01/12/2013 ANAL 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, SINGH L 782.0 DISTURBANCE OF SKIN SENSATION 02/03/2013 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 02/03/2013 V72.31 METAL TURNER EXAM, ROUTINE 02/03/2013 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 02/03/2013 V72.31 METAL TURNER EXAM, ROUTINE 02/03/2013 DOM IZQUIERDO, CARLINE Chiang 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 02/03/2013 DOM IZQUIERDO, CARLINE Chiang V72.31 METAL TURNER EXAM, ROUTINE 02/03/2013 HYATT DDS, RAFFY 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 02/03/2013 HYATT DDS, RAFFY V72.31 METAL TURNER EXAM, ROUTINE 02/03/2013 WILKS DO, GM K 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 02/03/2013 WILKS DO, GM K V72.31 METAL TURNER EXAM, ROUTINE 02/03/2013 HYATT DDS, RAFFY 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 02/03/2013 HYATT DDS, RAFFY V72.31 METAL TURNER EXAM, ROUTINE 02/03/2013 WHITE DDS, JAXON Vasquez 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 02/03/2013 WHITE DDS, JAXON Vasquez V72.31 METAL TURNER EXAM, ROUTINE 02/03/2013 MADL 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, SINGH L 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 02/03/2013 MADL 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, SINGH L V72.31 METAL TURNER EXAM, ROUTINE 02/03/2013 MADL 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, SINGH L 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 02/03/2013 MADL 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, SINGH L V72.31 METAL TURNER EXAM, ROUTINE 02/03/2013 MILADYMariia BYERS MERVIN A 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 02/03/2013 MILADY APRN, MERVIN A V72.31 METAL TURNER EXAM, ROUTINE 02/03/2013 ROSA MIN, SIERRA R 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 02/03/2013 ROSA 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, SIERRA R V72.31 METAL TURNER EXAM, ROUTINE 02/03/2013 WILKS DO, GM K 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 02/03/2013 WILKS DO, GM K V72.31 METAL TURNER EXAM, ROUTINE 02/03/2013 MADL 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, SINGH L 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 02/03/2013 MADL 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, SINGH L V72.31 METAL TURNER EXAM, ROUTINE 02/03/2013 GALE LCMF, HAILY W 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 02/03/2013 GALE LCMF, HAILY W V72.31 METAL TURNER EXAM, ROUTINE 02/03/2013 GALE LCMF, HAILY W 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 02/03/2013 GALE LCMF, HAILY W V72.31 METAL TURNER EXAM, ROUTINE 02/03/2013 MADL 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, SINGH L 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 02/03/2013 MADL 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, SINGH L V72.31 METAL TURNER EXAM, ROUTINE 02/03/2013 GALE LCMF, HAILY W 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 02/03/2013 GALE LCMF, HAILY W V72.31 METAL TURNER EXAM, ROUTINE 02/03/2013 GALE LCMF, HAILY W 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 02/03/2013 GALE LCMF, HAILY W V72.31 METAL TURNER EXAM, ROUTINE 02/03/2013 MADL 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, SINGH L 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 02/03/2013 MADL 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, SINGH L V72.31 METAL TURNER EXAM, ROUTINE 02/03/2013 MILADYMariia BYERS MERVIN A 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 02/03/2013 MILADYTINA BYERS, MERVIN A V72.31 METAL TURNER EXAM, ROUTINE 02/03/2013 STEPH OJEDA APRN 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 02/03/2013 STEPH OJEDA APRN V72.31 METAL TURNER EXAM, ROUTINE 02/03/2013 KERLINE 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, SINGH L 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 02/03/2013 MADL 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, SINGH L V72.31 METAL TURNER EXAM, ROUTINE 03/12/2013 054.10 HERPES SIMPLEX GENITAL 03/12/2013 DOM IZQIUERDO, CARLINE N 054.10 HERPES SIMPLEX GENITAL 03/12/2013 RAFFY YHATT DDS 054.10 HERPES SIMPLEX GENITAL 03/12/2013 WILKS DO, GM K 054.10 HERPES SIMPLEX GENITAL 03/12/2013 OLENA STEWARTS, RAFFY 054.10 HERPES SIMPLEX GENITAL 03/12/2013 GETACHEW STEWARTS, JXAON Vasquez 054.10 HERPES SIMPLEX GENITAL 03/12/2013 [facility] 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, SINGH L 054.10 HERPES SIMPLEX GENITAL 03/12/2013 [facility] 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, SINGH L 054.10 HERPES SIMPLEX GENITAL 03/12/2013 MILADY 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, MERVIN A 054.10 HERPES SIMPLEX GENITAL 03/12/2013 ROSA 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, SIERRA Pisano 054.10 HERPES SIMPLEX GENITAL 03/12/2013 WILKS DO, GM K 054.10 HERPES SIMPLEX GENITAL 03/12/2013 [facility] 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, SINGH L 054.10 HERPES SIMPLEX GENITAL 03/12/2013 [facility] HAILY Arnett 054.10 HERPES SIMPLEX GENITAL 03/12/2013 [facility] HAILY Arnett 054.10 HERPES SIMPLEX GENITAL 03/12/2013 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, SINGH L 054.10 HERPES SIMPLEX GENITAL 03/12/2013 [facility] HAILY Arnett 054.10 HERPES SIMPLEX GENITAL 03/12/2013 [facility], HAILY Arnett 054.10 HERPES SIMPLEX GENITAL 03/12/2013 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, SINGH L 054.10 HERPES SIMPLEX GENITAL 03/12/2013 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, MERVIN A 054.10 HERPES SIMPLEX GENITAL 03/12/2013 RUSTY MIN, STEPH Chung 054.10 HERPES SIMPLEX GENITAL 03/12/2013 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, SINGH L 054.10 HERPES SIMPLEX GENITAL 11/05/2013 CARLINE FERNANDES MD N 244.9 HYPOTHYROIDISM 11/05/2013 CARLINE FERNANDES MD 695.3 ROS[place]A 11/05/2013 OLENA STEWARTSRAFFY 244.9 HYPOTHYROIDISM 11/05/2013 OLENA STEWARTS, RAFFY 695.3 [place] 11/05/2013 WILKS DOGM K 244.9 HYPOTHYROIDISM 11/05/2013 WILKS DOBILLA K 695.3 [place] 11/05/2013 OLENA STEWARTS, RAFFY 244.9 HYPOTHYROIDISM 11/05/2013 OLENA STEWARTS, RAFFY 695.3 [place] 11/05/2013 WHITE DDS, JAXON D 244.9 HYPOTHYROIDISM 11/05/2013 WHITE DDS, JAXON D 695.3 [place] 11/05/2013 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, SINGH L 244.9 HYPOTHYROIDISM 11/05/2013 [facility] 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, 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 L 695.3 [place] 11/05/2013 [facility] 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, SINGH L 244.9 HYPOTHYROIDISM 11/05/2013 [facility] 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, SINGH L 695.3 [place] 11/05/2013 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, MERVIN A 244.9 HYPOTHYROIDISM 11/05/2013 [facility] 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, MERVIN A 695.3 [place] 11/05/2013 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, SIERRA R 244.9 HYPOTHYROIDISM 11/05/2013 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, SIERRA R 695.3 [place] 11/05/2013 WILKS DO, GM K 244.9 HYPOTHYROIDISM 11/05/2013 WILKS DO, GM K 695.3 [place] 11/05/2013 [facility] 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, SINGH L 244.9 HYPOTHYROIDISM 11/05/2013 [facility] 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, SINGH L 695.3 [place] 11/05/2013 [facility], HAILY W 244.9 HYPOTHYROIDISM 11/05/2013 [facility], HAILY Arnett 695.3 [place] 11/05/2013 [facility] LCMF, HAILY W 244.9 HYPOTHYROIDISM 11/05/2013 [facility] LCMF, HAILY Arnett 695.3 [place] 11/05/2013 [facility] 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, 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 L 244.9 HYPOTHYROIDISM 11/05/2013 [facility] 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, SINGH L 695.3 [place] 11/05/2013 [facility] LCMF, HAILY W 244.9 HYPOTHYROIDISM 11/05/2013 [facility] LCMF, HAILY W 695.3 [place] 11/05/2013 [facility] LCMF, HAILY W 244.9 HYPOTHYROIDISM 11/05/2013 [facility] LCMF, HAILY Arnett 695.3 [place] 11/05/2013 [facility] 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, SINGH L 244.9 HYPOTHYROIDISM 11/05/2013 [facility] 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, 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 L 695.3 [place] 11/05/2013 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, MERVIN A 244.9 HYPOTHYROIDISM 11/05/2013 [facility] 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, MERVIN A 695.3 [place] 11/05/2013 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, STEPH T 244.9 HYPOTHYROIDISM 11/05/2013 [facility] 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, STEPH T 695.3 [place] 11/05/2013 [facility] 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, SINGH L 244.9 HYPOTHYROIDISM 11/05/2013 [facility] 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, SINGH L 695.3 ROS[place] 01/26/2014 HYATT DDS, RAFFY 564.00 UNSPECIFIED CONSTIPATION 01/26/2014 HYATT DDS, RAFFY 578.1 BLOOD IN STOOL 01/26/2014 HYATT DDS, RAFFY V74.5 STD SCREEN 01/26/2014 OLENA DDS, RAFFY V76.10 BREAST CANCER SCREENING 01/26/2014 OLENA DDS, RAFFY V76.51 COLON CANCER SCREENING 01/26/2014 WILKS BILL [place] K 564.00 UNSPECIFIED CONSTIPATION 01/26/2014 WILKS GM [place] K 578.1 BLOOD IN STOOL 01/26/2014 GM WILKS DO K V74.5 STD SCREEN 01/26/2014 WILKS GM AUSTIN K V76.10 BREAST CANCER SCREENING 01/26/2014 WILKS GM AUSTIN K V76.51 COLON CANCER SCREENING 01/26/2014 HYATT DDSRAFFY 564.00 UNSPECIFIED CONSTIPATION 01/26/2014 HYATT DDS, RAFFY 578.1 BLOOD IN STOOL 01/26/2014 HYATT DDS, RAFFY V74.5 STD SCREEN 01/26/2014 HYATT DDS, RAFFY V76.10 BREAST CANCER SCREENING 01/26/2014 HYATT DDS, RAFFY V76.51 COLON CANCER SCREENING 01/26/2014 WHITE DDS, JAXON D 564.00 UNSPECIFIED CONSTIPATION 01/26/2014 WHITE DDS, JAXON D 578.1 BLOOD IN STOOL 01/26/2014 WHITE DDS, JAXON D V74.5 STD SCREEN 01/26/2014 WHITE DDS, JAXON Vasquez V76.10 BREAST CANCER SCREENING 01/26/2014 WHITE DDS, JAXON Pedro V76.51 COLON CANCER SCREENING 01/26/2014 MADL 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, SINGH L 564.00 UNSPECIFIED CONSTIPATION 01/26/2014 MADL 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, SINGH L 578.1 BLOOD IN STOOL 01/26/2014 MADL 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, SINGH L V74.5 STD SCREEN 01/26/2014 MADL 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, SINGH L V76.10 BREAST CANCER SCREENING 01/26/2014 MADL 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, SINGH L V76.51 COLON CANCER SCREENING 01/26/2014 MADL 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, SINGH L 564.00 UNSPECIFIED CONSTIPATION 01/26/2014 MADL 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, SINGH L 578.1 BLOOD IN STOOL 01/26/2014 MADL 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, SINGH L V74.5 STD SCREEN 01/26/2014 MADL 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, SINGH L V76.10 BREAST CANCER SCREENING 01/26/2014 [facility] 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, SINGH L V76.51 COLON CANCER SCREENING 01/26/2014 MILADY 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, MERVIN A 564.00 UNSPECIFIED CONSTIPATION 01/26/2014 MILADY 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, MERVIN A 578.1 BLOOD IN STOOL 01/26/2014 MILADY 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, MERVIN A V74.5 STD SCREEN 01/26/2014 MILADY 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, MERVIN A V76.10 BREAST CANCER SCREENING 01/26/2014 MILADY 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, MERVIN A V76.51 COLON CANCER SCREENING 01/26/2014 ROSA 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, SIERRA R 564.00 UNSPECIFIED CONSTIPATION 01/26/2014 ROSA 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, SIERRA R 578.1 BLOOD IN STOOL 01/26/2014 ROSA 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, SIERRA R V74.5 STD SCREEN 01/26/2014 ROSA 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, SIERRA R V76.10 BREAST CANCER SCREENING 01/26/2014 ROSA 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, SIERRA R V76.51 COLON CANCER SCREENING 01/26/2014 WILKS DO, GM K 564.00 UNSPECIFIED CONSTIPATION 01/26/2014 WILKS DO, GM K 578.1 BLOOD IN STOOL 01/26/2014 WILKS DO, GM K V74.5 STD SCREEN 01/26/2014 WILKS DO, GM K V76.10 BREAST CANCER SCREENING 01/26/2014 WILKS DO, GM K V76.51 COLON CANCER SCREENING 01/26/2014 MADL 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, SINGH L 564.00 UNSPECIFIED CONSTIPATION 01/26/2014 MADL 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, SINGH L 578.1 BLOOD IN STOOL 01/26/2014 MADL 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, SINGH L V74.5 STD SCREEN 01/26/2014 MADL 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, SINGH L V76.10 BREAST CANCER SCREENING 01/26/2014 MADL 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, SINGH L V76.51 COLON CANCER SCREENING 01/26/2014 GALE LCMF, HAILY W 564.00 UNSPECIFIED CONSTIPATION 01/26/2014 GALE LCMF, HAILY W 578.1 BLOOD IN STOOL 01/26/2014 GALE LCMF, HAILY W V74.5 STD SCREEN 01/26/2014 GALE LCMF, HAILY W V76.10 BREAST CANCER SCREENING 01/26/2014 GALE LCMF, HAILY W V76.51 COLON CANCER SCREENING 01/26/2014 GALE LCMF, HAILY W 564.00 UNSPECIFIED CONSTIPATION 01/26/2014 GALE LCMF, HAILY W 578.1 BLOOD IN STOOL 01/26/2014 GALE LCMF, HAILY W V74.5 STD SCREEN 01/26/2014 GALE LCMF, HAILY W V76.10 BREAST CANCER SCREENING 01/26/2014 GALE LCMF, HAILY W V76.51 COLON CANCER SCREENING 01/26/2014 MADL 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, SINGH L 564.00 UNSPECIFIED CONSTIPATION 01/26/2014 MADL 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, SINGH L 578.1 BLOOD IN STOOL 01/26/2014 MADL 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, SINGH L V74.5 STD SCREEN 01/26/2014 MADL 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, SINGH L V76.10 BREAST CANCER SCREENING 01/26/2014 MADL 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, SINGH L V76.51 COLON CANCER SCREENING 01/26/2014 GALE LCMF, HAILY W 564.00 UNSPECIFIED CONSTIPATION 01/26/2014 GALE LCMF, HAILY W 578.1 BLOOD IN STOOL 01/26/2014 GALE LCMF, HAILY W V74.5 STD SCREEN 01/26/2014 GALE LCMF, HAILY W V76.10 BREAST CANCER SCREENING 01/26/2014 GALE LCMF, HAILY W V76.51 COLON CANCER SCREENING 01/26/2014 GALE LCMF, HAILY W 564.00 UNSPECIFIED CONSTIPATION 01/26/2014 GALE LCMF, HAILY W 578.1 BLOOD IN STOOL 01/26/2014 GALE LCMF, HAILY W V74.5 STD SCREEN 01/26/2014 GALE LCMF, HAILY W V76.10 BREAST CANCER SCREENING 01/26/2014 GALE LCMF, HAILY W V76.51 COLON CANCER SCREENING 01/26/2014 KERLINE MIN, SINGH L 564.00 UNSPECIFIED CONSTIPATION 01/26/2014 KERLINE 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, SINGH L 578.1 BLOOD IN STOOL 01/26/2014 ANA 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, SINGH L V74.5 STD SCREEN 01/26/2014 ANA 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, SINGH L V76.10 BREAST CANCER SCREENING 01/26/2014 ANA 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, SINGH L V76.51 COLON CANCER SCREENING 01/26/2014 MILADY APRN, MERVIN A 564.00 UNSPECIFIED CONSTIPATION 01/26/2014 MILADY 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, MERVIN A 578.1 BLOOD IN STOOL 01/26/2014 MILADY BYERS, MERVIN A V74.5 STD SCREEN 01/26/2014 MILADY 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, MERVIN A V76.10 BREAST CANCER SCREENING 01/26/2014 MILADY 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, MERVIN A V76.51 COLON CANCER SCREENING 01/26/2014 STEPH OJEDA APRN T 564.00 UNSPECIFIED CONSTIPATION 01/26/2014 STEPH OJEDA APRN 578.1 BLOOD IN STOOL 01/26/2014 STEPH OJEDA APRN T V74.5 STD SCREEN 01/26/2014 STEPH OJEDA APRN T V76.10 BREAST CANCER SCREENING 01/26/2014 STEPH OJEDA APRN V76.51 COLON CANCER SCREENING 01/26/2014 MADJericho BYERS, SINGH L 564.00 UNSPECIFIED CONSTIPATION 01/26/2014 ENMA CHURCHILL APRNWNYA L 578.1 BLOOD IN STOOL 01/26/2014 KERLINE MIMariia SINGH L V74.5 STD SCREEN 01/26/2014 KERLINE MIMariia SINGH L V76.10 BREAST CANCER SCREENING 01/26/2014 KERLINE MIMariia SINGH L V76.51 COLON CANCER SCREENING 01/29/2014 GM WILKS DO 729.1 MYALGIA AND MYOSITIS UNSPECIFIED 01/29/2014 OLENA DDSRAFFY 729.1 MYALGIA AND MYOSITIS UNSPECIFIED 01/29/2014 GETACHEW DDS, JAXON Vasquez 729.1 MYALGIA AND MYOSITIS UNSPECIFIED 01/29/2014 MADL SINGH BYERS L 729.1 MYALGIA AND MYOSITIS UNSPECIFIED 01/29/2014 ANAL 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SALLY ChiangA L 729.1 MYALGIA AND MYOSITIS UNSPECIFIED 01/29/2014 MERVIN HENNING APRN 729.1 MYALGIA AND MYOSITIS UNSPECIFIED 01/29/2014 SIERRA LEE APRN R 729.1 MYALGIA AND MYOSITIS UNSPECIFIED 01/29/2014 GM WILKS DO 729.1 MYALGIA AND MYOSITIS UNSPECIFIED 01/29/2014 SINGH CHURCHILL APRN L 729.1 MYALGIA AND MYOSITIS UNSPECIFIED 01/29/2014 GALE PATEL, HAILY Arnett 729.1 MYALGIA AND MYOSITIS UNSPECIFIED 01/29/2014 GALE DIANEF, HAILY Arnett 729.1 MYALGIA AND MYOSITIS UNSPECIFIED 01/29/2014 SALLY CHURCHILL APRNA L 729.1 MYALGIA AND MYOSITIS UNSPECIFIED 01/29/2014 GALE PATEL, HAILY W 729.1 MYALGIA AND MYOSITIS UNSPECIFIED 01/29/2014 GALE PATEL, HAILY Arnett 729.1 MYALGIA AND MYOSITIS UNSPECIFIED 01/29/2014 SALLY CHURCHILL APRNA L 729.1 MYALGIA AND MYOSITIS UNSPECIFIED 01/29/2014 MILADY 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, MERVIN A 729.1 MYALGIA AND MYOSITIS UNSPECIFIED 01/29/2014 STEPH OJEDA APRN 729.1 MYALGIA AND MYOSITIS UNSPECIFIED 01/29/2014 KERLINE 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SINGH Chiang L 729.1 MYALGIA AND MYOSITIS UNSPECIFIED 05/25/2014 MADL 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, SINGH L 216.9 BENIGN NEOPLASM OF SKIN SITE UNSPECIFIED 05/25/2014 MADL 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, SINGH L 300.4 DYSTHYMIC DISORDER 05/25/2014 MADL 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, SINGH L 216.9 BENIGN NEOPLASM OF SKIN SITE UNSPECIFIED 05/25/2014 MADL 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, SINGH L 300.4 DYSTHYMIC DISORDER 05/25/2014 MILADYMariia BYERS MERVIN A 216.9 BENIGN NEOPLASM OF SKIN SITE UNSPECIFIED 05/25/2014 MILADY APRN, MERVIN A 300.4 DYSTHYMIC DISORDER 05/25/2014 ROSA BYERS, SIERRA R 216.9 BENIGN NEOPLASM OF SKIN SITE UNSPECIFIED 05/25/2014 ROSA BYERS, SIERRA R 300.4 DYSTHYMIC DISORDER 05/25/2014 WILKS DO, GM K 216.9 BENIGN NEOPLASM OF SKIN SITE UNSPECIFIED 05/25/2014 WILKS DO GM K 300.4 DYSTHYMIC DISORDER 05/25/2014 MADL 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, SINGH L 216.9 BENIGN NEOPLASM OF SKIN SITE UNSPECIFIED 05/25/2014 ANAJericho 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, SINGH L 300.4 DYSTHYMIC DISORDER 05/25/2014 HAILY NORMAN 216.9 BENIGN NEOPLASM OF SKIN SITE UNSPECIFIED 05/25/2014 HAILY NORMAN 300.4 DYSTHYMIC DISORDER 05/25/2014 HAILY NORMAN 216.9 BENIGN NEOPLASM OF SKIN SITE UNSPECIFIED 05/25/2014 HAILY NORMAN 300.4 DYSTHYMIC DISORDER 05/25/2014 KERLINE BYERS, SINGH L 216.9 BENIGN NEOPLASM OF SKIN SITE UNSPECIFIED 05/25/2014 ANAL 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, SINGH L 300.4 DYSTHYMIC DISORDER 05/25/2014 HAILY NORMAN 216.9 BENIGN NEOPLASM OF SKIN SITE UNSPECIFIED 05/25/2014 [facility], HAILY W 300.4 DYSTHYMIC DISORDER 05/25/2014 [facility], HAILY W 216.9 BENIGN NEOPLASM OF SKIN SITE UNSPECIFIED 05/25/2014 [facility]ALE [facility], HAILY W 300.4 DYSTHYMIC DISORDER 05/25/2014 MADL 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, SINGH L 216.9 BENIGN NEOPLASM OF SKIN SITE UNSPECIFIED 05/25/2014 MADL 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, SINGH L 300.4 DYSTHYMIC DISORDER 05/25/2014 MILADY 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, MERVIN A 216.9 BENIGN NEOPLASM OF SKIN SITE UNSPECIFIED 05/25/2014 MILADY 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, MERVIN A 300.4 DYSTHYMIC DISORDER 05/25/2014 STEPH OJEDA APRN T 216.9 BENIGN NEOPLASM OF SKIN SITE UNSPECIFIED 05/25/2014 STEPH OJEDA APRN 300.4 DYSTHYMIC DISORDER 05/25/2014 MADL 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, SINGH L 216.9 BENIGN NEOPLASM OF SKIN SITE UNSPECIFIED 05/25/2014 MADL 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, SINGH L 300.4 DYSTHYMIC DISORDER 06/25/2014 MADL 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, SINGH L V69.2 HIGH-RISK SEXUAL BEHAVIOR 06/25/2014 MILADY 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, MERVIN A V69.2 HIGH-RISK SEXUAL BEHAVIOR 06/25/2014 SIERRA LEE APRN R V69.2 HIGH-RISK SEXUAL BEHAVIOR 06/25/2014 GM WILKS DO K V69.2 HIGH-RISK SEXUAL BEHAVIOR 06/25/2014 MADL 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, SINGH L V69.2 HIGH-RISK SEXUAL BEHAVIOR 06/25/2014 [facility], HAILY W V69.2 HIGH-RISK SEXUAL BEHAVIOR 06/25/2014 [facility], HAILY W V69.2 HIGH-RISK SEXUAL BEHAVIOR 06/25/2014 MADL 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, SINGH L V69.2 HIGH-RISK SEXUAL BEHAVIOR 06/25/2014 [facility], HAILY W V69.2 HIGH-RISK SEXUAL BEHAVIOR 06/25/2014 [facility], HAILY W V69.2 HIGH-RISK SEXUAL BEHAVIOR 06/25/2014 MADL 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, SINGH L V69.2 HIGH-RISK SEXUAL BEHAVIOR 06/25/2014 MILADY 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, MERVIN A V69.2 HIGH-RISK SEXUAL BEHAVIOR 06/25/2014 STEPH OJEDA APRN V69.2 HIGH-RISK SEXUAL BEHAVIOR 06/25/2014 MADL 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, SINGH L V69.2 HIGH-RISK SEXUAL BEHAVIOR 07/20/2014 ROSA 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, SIERRA R 461.9 SINUSITIS ACUTE 07/20/2014 WILKS DO, GM K 461.9 SINUSITIS ACUTE 07/20/2014 MADL 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, SINGH L 461.9 SINUSITIS ACUTE 07/20/2014 GALE LCMF, HAILY W 461.9 SINUSITIS ACUTE 07/20/2014 GALE LCMF, HAILY W 461.9 SINUSITIS ACUTE 07/20/2014 MADL 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, SINGH L 461.9 SINUSITIS ACUTE 07/20/2014 GLAE LCMF, HAILY W 461.9 SINUSITIS ACUTE 07/20/2014 GALE LCMF, HAILY W 461.9 SINUSITIS ACUTE 07/20/2014 MADL 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, SINGH L 461.9 SINUSITIS ACUTE 07/20/2014 MILADY 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, MERVIN A 461.9 SINUSITIS ACUTE 07/20/2014 STEPH OJEDA APRN 461.9 SINUSITIS ACUTE 07/20/2014 MADL 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, SINGH L 461.9 SINUSITIS ACUTE 07/26/2014 WILKS DO, GM K 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 07/26/2014 MADL 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, SINGH L 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 07/26/2014 GALE LCMF, HAILY W 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 07/26/2014 GALE LCMF, HAILY W 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 07/26/2014 MADL 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, SINGH L 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 07/26/2014 GALE LCMF, HAILY W 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 07/26/2014 GALE LCMF, HAILY W 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 07/26/2014 MADL 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, SINGH L 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 07/26/2014 MILADY 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, MERVIN A 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 07/26/2014 STEPH OJEDA APRN T 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 07/26/2014 MADL 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, SINGH L 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 10/06/2014 GALE LCMF, HAILY W 296.32 MO DEPRESSIVE RECURRENT MODERATE 10/06/2014 GALE LCMF, HAILY W 309.0 AD ADJ D/O W DEPRESSED 10/06/2014 GALE LCMF, HAILY W 296.32 MO DEPRESSIVE RECURRENT MODERATE 10/06/2014 GALE LCMF, HAILY W 309.0 AD ADJ D/O W DEPRESSED 10/06/2014 MADL 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, SINGH L 296.32 MO DEPRESSIVE RECURRENT MODERATE 10/06/2014 MADL 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, SINGH L 309.0 AD ADJ D/O W DEPRESSED 10/06/2014 GALE LCMF, HAILY W 296.32 MO DEPRESSIVE RECURRENT MODERATE 10/06/2014 GALE LCMF, HAILY W 309.0 AD ADJ D/O W DEPRESSED 10/06/2014 GALE LCMF, HAILY W 296.32 MO DEPRESSIVE RECURRENT MODERATE 10/06/2014 GALE LCMF, HAILY W 309.0 AD ADJ D/O W DEPRESSED 10/06/2014 MADL 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, SINGH L 296.32 MO DEPRESSIVE RECURRENT MODERATE 10/06/2014 MADL 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, SINGH L 309.0 AD ADJ D/O W DEPRESSED 10/06/2014 MILADY APRN, MERVIN A 296.32 MO DEPRESSIVE RECURRENT MODERATE 10/06/2014 MILADY 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, MERVIN A 309.0 AD ADJ D/O W DEPRESSED 10/06/2014 STEPH OJEDA APRN T 296.32 MO DEPRESSIVE RECURRENT MODERATE 10/06/2014 STEPH OJEDA APRN T 309.0 AD ADJ D/O W DEPRESSED 10/06/2014 MADL 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, SINGH L 296.32 MO DEPRESSIVE RECURRENT MODERATE 10/06/2014 MADL 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, SINGH L 309.0 AD ADJ D/O W DEPRESSED 10/13/2014 GALE LCMF, HAILY W 309.4 AD ADJ D/O W DIST OF EMOT 10/13/2014 MADL 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, SINGH L 309.4 AD ADJ D/O W DIST OF EMOT 10/13/2014 GALE LCMF, HAILY W 309.4 AD ADJ D/O W DIST OF EMOT 10/13/2014 GALE MF, HAILY W 309.4 AD ADJ D/O W DIST OF EMOT 10/13/2014 SALLY CHURCHILL APRNA L 309.4 AD ADJ D/O W DIST OF EMOT 10/13/2014 MILADY 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, MERVIN A 309.4 AD ADJ D/O W DIST OF EMOT 10/13/2014 STEPH OJEDA APRN 309.4 AD ADJ D/O W DIST OF EMOT 10/13/2014 KERLINE 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GLORIASINGH L 309.4 AD ADJ D/O W DIST OF EMOT 10/15/2014 SALLY CHURCHILL APRNA L 780.52 INSOMNIA UNSPECIFIED 10/15/2014 [facility], HAILY W 780.52 INSOMNIA UNSPECIFIED 10/15/2014 [facility], HAILY W 780.52 INSOMNIA UNSPECIFIED 10/15/2014 ANAL SALLY BYERSA L 780.52 INSOMNIA UNSPECIFIED 10/15/2014 MILADY MIN, MERVIN A 780.52 INSOMNIA UNSPECIFIED 10/15/2014 STEPH OJEDA APRN 780.52 INSOMNIA UNSPECIFIED 10/15/2014 ANAL MODESTA, SINGH L 780.52 INSOMNIA UNSPECIFIED 11/17/2014 ANAL SALLY BYERSA L 309.28 AD ADJ D/O W ANX DEP MOOD 11/17/2014 MADL GLORIA BYERSNYA L 787.99 OTHER SYMPTOMS INVOLVING DIGESTIVE SYSTEM 11/17/2014 MADL 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, SINGH L 788.41 URINARY FREQUENCY 11/17/2014 MILADY MODESTA MERVIN A 309.28 AD ADJ D/O W ANX DEP MOOD 11/17/2014 MILADY 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RACHAELMERVIN A 787.99 OTHER SYMPTOMS INVOLVING DIGESTIVE SYSTEM 11/17/2014 MILADY MODESTA MERVIN A 788.41 URINARY FREQUENCY 11/17/2014 STEPH OJEDA APRN 309.28 AD ADJ D/O W ANX DEP MOOD 11/17/2014 STEPH OJEDA APRN 787.99 OTHER SYMPTOMS INVOLVING DIGESTIVE SYSTEM 11/17/2014 STEPH OJEDA APRN 788.41 URINARY FREQUENCY 11/17/2014 SINGH CHURCHILL APRN 309.28 AD ADJ D/O W ANX DEP MOOD 11/17/2014 SINGH CHURCHILL APRN 787.99 OTHER SYMPTOMS INVOLVING DIGESTIVE SYSTEM 11/17/2014 SINGH CHURCHILL APRN 788.41 URINARY FREQUENCY 11/29/2014 Ot 599.70 11/29/2014 Ot 285.9 11/29/2014 Ot 618.4 11/29/2014 Ot 625.6 11/29/2014 Ot V72.63 11/29/2014 Ot V74.8 11/29/2014 Ot 719.46 11/29/2014 Ot 785.6 11/29/2014 Ot 719.41 11/29/2014 Ot 729.89 11/29/2014 Ot 782.0 11/29/2014 JOSEFINA PARRA MD Ot 719.41 11/29/2014 MERVIN HENNING A 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 Ot 564.00 11/29/2014 MILADY MERVIN A 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 Ot 578.1 11/29/2014 MILADY MERVIN A 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 Ot V72.31 11/29/2014 MILADY MERVIN A 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 Ot V74.5 11/29/2014 MILADY MERVIN A 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 Ot V76.12 11/29/2014 MILADY MERVIN A 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 Ot V76.51 11/29/2014 MILADY MERVIN A 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 Ot 611.89 11/29/2014 MILADY MERVIN A 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 Ot V76.12 11/30/2014 Ot 599.70 11/30/2014 Ot 285.9 11/30/2014 Ot 618.4 11/30/2014 Ot 625.6 11/30/2014 Ot V72.63 11/30/2014 Ot V74.8 11/30/2014 Ot 719.46 11/30/2014 Ot 785.6 11/30/2014 Ot 719.41 11/30/2014 Ot 729.89 11/30/2014 Ot 782.0 11/30/2014 JOSEFINA PARRA MD Ot 719.41 11/30/2014 MERVIN HENNING SOCK AND STOCKING IRONER Ot 564.00 11/30/2014 MERVIN HENNING SOCK AND STOCKING IRONER Ot 578.1 11/30/2014 MERVIN HENNING SOCK AND STOCKING IRONER Ot V72.31 11/30/2014 MERVIN HENNING SOCK AND STOCKING IRONER Ot V74.5 11/30/2014 MERVIN HENNING SOCK AND STOCKING IRONER Ot V76.12 11/30/2014 MERVIN HENNING SOCK AND STOCKING IRONER Ot V76.51 11/30/2014 MERVIN HENNING SOCK AND STOCKING IRONER Ot 611.89 11/30/2014 MERVIN HENNING SOCK AND STOCKING IRONER Ot V76.12 12/03/2014 STEPH OJEDA APRN 112.1 CANDIDIASIS OF VULVA AND VAGINA 12/03/2014 STEPH OJEDA APRN 599.0 URINARY TRACT INFECTION 12/03/2014 SINGH CHURCHILL APRN 112.1 CANDIDIASIS OF VULVA AND VAGINA 12/03/2014 SINGH CHURCHILL APRN 599.0 URINARY TRACT INFECTION 12/15/2014 STEPH OJEDA APRN 616.10 VAGINITIS AND VULVOVAGINITIS UNSPECIFIED 12/15/2014 SINGH CHURCHILL APRN L 616.10 VAGINITIS AND VULVOVAGINITIS UNSPECIFIED 12/20/2014 Ot 564.00 12/20/2014 Ot V16.0 07/07/2015 MERVIN HENNING SOCK AND STOCKING IRONER Ot 611.71 08/01/2015 MERVIN HENNING SOCK AND STOCKING IRONER Ot 611.71 08/01/2015 JANN IZQUIERDO, VALERIO T Ot K11.7 08/01/2015 JANN IZQUIERDO, VALERIO T Ot L27.0 08/01/2015 JANN IZQUIERDO, VALERIO T Ot S06.0X1A 08/01/2015 JANN IZQUIERDO, VALERIO T Ot S09.90XA 08/01/2015 JANN IZQUIERDO, VALERIO T Ot T43.015A 08/01/2015 JANN IZQUIERDO, VALERIO T Ot W22.8XXA 08/01/2015 JANN IZQUIERDO, VALERIO T Ot Y92.009 08/01/2015 JANN IZQUIERDO, VALERIO Chung Ot Y99.8 08/03/2015 MERVIN HENNING SOCK AND STOCKING IRONER Ot 611.71 08/03/2015 MERVIN HENNING SOCK AND STOCKING IRONER Ot 611.71 08/03/2015 DAVID SARAH Ot L50.0 08/03/2015 DAVID SARAH Ot R11.0 08/03/2015 DAVID SARAH Ot R51 08/03/2015 DAVID SARAH Ot T43.011A 08/03/2015 DAVID SARAH Ot Y92.009 08/23/2015 ANAMARIA BARONE APRN Ot G47.00 INSOMNIA, UNSPECIFIED 08/23/2015 ANAMARIA BARONE APRN Ot K59.00 CONSTIPATION, UNSPECIFIED 08/23/2015 ANAMAIRA BARONE APRN Ot S20.212A CONTUSION OF LEFT FRONT WALL OF THORAX , 08/23/2015 ANAMARIA BARONE APRN Ot W01.190A FALL SAME LEV FROM SLIP/TRIP W STRIKE AG 08/23/2015 ANAMARIA BARONE APRN Ot Y92.017 GARDEN OR YARD IN SINGLE-FAMILY ( PRIVATE 08/23/2015 ANAMARIA BARONE APRN Ot Y93.H2 ACTIVITY, GARDENING AND LANDSCAPING 08/23/2015 ANAMARIA BARONE APRN Ot Y99.8 OTHER EXTERNAL CAUSE STATUS 08/23/2015 MERVIN HENNING APRN Ot 611.71 10/24/2015 MERVIN HENNING APRN Ot 611.71 10/27/2015 MERVIN HENNING SOCK AND STOCKING IRONER Ot 611.71 10/27/2015 SINGH CHURCHILL ELECTRICIAN LOCOMOTIVE Ot R92.8 11/11/2015 MADSINGH Echavarria ELECTRICIAN LOCOMOTIVE Ot R92.8 01/02/2016 MERVIN HENNING SOCK AND STOCKING IRONER Ot 611.71 01/02/2016 SINGH CHURCHILL ELECTRICIAN LOCOMOTIVE Ot R92.8 01/02/2016 RAFFY CHILEL MD Ot M51.16 INTERVERTEBRAL DISC DISORDERS W RADICULO 01/02/2016 RAFFY CHILEL MD Ot Z79.899 OTHER [facility] (CURRENT) DRUG THERAPY 01/02/2016 MERVIN HENNING APRN Ot 611.71 01/02/2016 SINGH [place]UR[place]ILL ELECTRICIAN LOCOMOTIVE Ot R92.8 01/30/2016 GETACHEW IZQUIERDO, RAFFY Fernández Ot M51.16 INTERVERTEBRAL DISC DISORDERS W RADICULO 01/30/2016 GETACHEW IZQUIERDO, RAFFY Fernández Ot M53.3 SACROCOCCYGEAL DISORDERS, NOT ELSEWHERE 02/15/2016 ANAMARIA BARONE SOCK AND STOCKING IRONER Ot M72.2 PLANTAR FASCIAL FIBROMATOSIS 02/16/2016 ANAMARIA BARONE SOCK AND STOCKING IRONER Ot M72.2 PLANTAR FASCIAL FIBROMATOSIS 05/10/2016 MADLSINGH ELECTRICIAN LOCOMOTIVE Ot R92.8 OTH ABN AND INCONCLUSIVE FINDINGS ON DX 05/15/2016 MADL, SINGH Echavarria ELECTRICIAN LOCOMOTIVE Ot R92.8 OTH ABN AND INCONCLUSIVE FINDINGS ON DX 05/25/2016 MADL, SINGH Echavarria ELECTRICIAN LOCOMOTIVE Ot R92.8 OTH ABN AND INCONCLUSIVE FINDINGS ON DX 06/21/2016 Ot 599.70 HEMATURIA, UNSPECIFIED 06/21/2016 Ot 285.9 ANEMIA NOS 06/21/2016 Ot 618.4 UTERVAGINAL PROLAPSE NOS 06/21/2016 Ot 625.6 FEM STRESS INCONTINENCE 06/21/2016 Ot V72.63 PRE-PROCEDURAL LABORATORY EXAMINATION 06/21/2016 Ot V74.8 SCREEN-BACTERIAL DIS NEC 06/21/2016 Ot 719.46 JOINT PAIN-L/LEG 06/21/2016 Ot 785.6 ENLARGEMENT LYMPH NODES 06/21/2016 Ot 719.41 JOINT PAIN-SHLDER 06/21/2016 Ot 729.89 MUSCSKEL SYMPT LIMB NEC 06/21/2016 Ot 782.0 SKIN SENSATION DISTURB 06/21/2016 JOSEFINA PARRA MD Ot 719.41 JOINT PAIN-SHLDER 06/21/2016 MERVIN HENNING SOCK AND STOCKING IRONER Ot 564.00 UNSPEC CONSTIPATION 06/21/2016 MERVIN HENNING SOCK AND STOCKING IRONER Ot 578.1 BLOOD IN STOOL 06/21/2016 MERVIN HENNING APRN Ot V72.31 ROUTINE GYNECOLOGICAL EXAMINATION 06/21/2016 MERVIN HENNING APRN Ot V74.5 SCREEN FOR VENERAL DIS 06/21/2016 MERVIN HENNING APRN Ot V76.12 OTH SCREEN MAMMO-MALIGN NEOPLASM OF ESHA 06/21/2016 MERVIN HENNING SOCK AND STOCKING IRONER Ot V76.51 SCREEN MAL NEOP-COLON 06/21/2016 MERVIN HENNING SOCK AND STOCKING IRONER Ot 611.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 OF BREAST 06/21/2016 MERVIN HENNING SOCK AND STOCKING IRONER Ot V76.12 OTH SCREEN MAMMO-MALIGN NEOPLASM OF ESHA 06/21/2016 ANA IZQUIERDO, NAT Jamison Ot V72.84 EXAM PRE-OPERATIVE NOS 06/21/2016 Ot V72.84 EXAM PRE-OPERATIVE NOS 06/21/2016 SINGH CHURCHILL ELECTRICIAN LOCOMOTIVE Ot R92.8 OTH ABN AND INCONCLUSIVE FINDINGS ON DX 06/22/2016 SARAY IZQUIERDO, MARYCRUZ Monge Ot J32.9 CHRONIC SINUSITIS, UNSPECIFIED 06/27/2016 SARAY IZQUIERDO, MARYCRUZ Monge Ot J32.9 CHRONIC SINUSITIS, UNSPECIFIED 07/04/2016 SARAY IZQUIERDO, MARYCRUZ Monge Ot J32.9 CHRONIC SINUSITIS, UNSPECIFIED 07/12/2016 SINGH CHUR[place]ILL ELECTRICIAN LOCOMOTIVE Ot R92.8 OTH ABN AND INCONCLUSIVE FINDINGS ON DX 07/13/2016 ANAMARIA BARONE APRN Ot G47.00 INSOMNIA, UNSPECIFIED 07/13/2016 ANAMARIA BARONE APRN Ot K59.00 CONSTIPATION, UNSPECIFIED 07/13/2016 ANAMARIA BARONE APRN Ot S20.212A CONTUSION OF LEFT FRONT WALL OF THORAX , 07/13/2016 ANAMARIA BARONE APRN Ot W01.190A FALL SAME LEV FROM SLIP/TRIP W STRIKE AG 07/13/2016 ANAMARIA BARONE APRN Ot Y92.017 GARDEN OR YARD IN SINGLE-FAMILY ( PRIVATE 07/13/2016 ANAMARIA BARONE APRN Ot Y93.H2 ACTIVITY, GARDENING AND LANDSCAPING 07/13/2016 ANAMARIA BARONE APRN Ot Y99.8 OTHER EXTERNAL CAUSE STATUS Procedures Code Description [place] [address] PAP SMEAR 2005 39985 PAP SMEAR 2005 81416 PAP SMEAR 2005 51836 PAP SMEAR 2006 61571 PAP SMEAR 2006 71739 PAP SMEAR 2008 59.79 08/27/2011 65.63 08/27/2011 68.51 08/27/2011 70.50 08/27/2011 99954 ROUTINE VENIPUNCTURE 07/21/2012 72024 ESR/SED RATE 05/2012 05174 CMP 07/22/2012 [id number] GFR CALC (RESULT ONLY) 07/22/2012 56125 CBC 07/22/2012 [address] ABDOMEN & PELVIS W/ & W/O CONTRAST 07/29/2012 93417 TRICHOMONAS (IN-HOUSE) 10/16/2012 34340 GC/CHLAM PROBE (STATE) 10/17/2012 30166 CULTURE UROGENITAL 10/18/2012 30114 MRI EXTREMITY, UPPER LEFT, W/O CONTRAST 01/16/2013 67879 MAMMOGRAM, SCREENING 02/03/2013 24221 HERPES SIMPLEX CULTURE 02/03/2013 63859 ROUTINE VENIPUNCTURE 03/12/2013 59410 SYPHILLIS-STATE LAB 03/12/2013 58376 HIV ANTIBODIES (RML) 03/12/2013 40311 GC/CHLAM URINE (STATE) 03/12/2013 31470 UA W/ CULTURE IF INDICATED 11/05/2013 18793 ROUTINE VENIPUNCTURE 01/26/2014 61322 HEMOCCULT 2013 79051 TRICHOMONAS (IN-HOUSE) 01/26/2014 11828 CBC 01/26/2014 [id number] GFR CALC (RESULT ONLY) 01/26/2014 49153 CMP 01/26/2014 32898 LIPID PANEL 01/26 62314 TSH 01/26/2014 44404 CULTURE UROGENITAL 01/27/2014 24002 MAMMOGRAM, SCREENING 01/27/2014 39848 SYPHILLIS-STATE LAB 01/27/2014 50719 HIV (STATE LAB) 01/27/2014 55868 GC/CHLAM PROBE (STATE) 01/27/2014 19390 ROUTINE VENIPUNCTURE 01/29/2014 85446 VITAMIN D 25-HYDROXY (D2,D3, TOTAL) 01/29/2014 48931 MAMMOGRAM DX, RIGHT 02/11/2014 34457 ROUTINE VENIPUNCTURE 06/25/2014 94059 GC/CHLAM URINE (STATE) 06/25/2014 12759 HIV ANTIBODIES (RML) 06/26/2014 40107 UA W/ CULTURE IF INDICATED 07/20/2014 86861 PSYCH DIAGNOSTIC EVALUATION 10/06/2014 90212 PSYCH DIAGNOSTIC EVALUATION 10/06/2014 79273 PSYTX PT&/FAMILY 45 MINUTES 10/15/2014 79762 ROUTINE VENIPUNCTURE 10/15/2014 [id number] GFR CALC (RESULT ONLY) 10/15/2014 12438 CMP 10/15/2014 93674 VITAMIN D 25-HYDROXY (D2,D3, TOTAL) 10/15/2014 89011 TSH 10/15/2014 24462 PSYCHO TESTING 1 HR W COMP 11/03/2014 96258 ROUTINE VENIPUNCTURE 11/17/2014 51256 PSYTX PT&/FAMILY 45 MINUTES 11/17/2014 GENERAL S PEREZ NAT 11/17/2014 HERPSM1,2 HERPES SIMPLEX 1 AND 2, IGM, IGG 11/17/2014 31836 PSYTX PT&/FAMILY 45 MINUTES 11/18/2014 27645 UA W/ CULTURE IF INDICATED 11/18/2014 35055 CULTURE URINE 04/2015 59374 SKIN TAG REM 1-15 01/04/2015 92477 CRYOTHERAPY OF SKIN 01/04/2015 Results Encounters ACCT No. Visit Date/Time Discharge Status Pt. Type Provider Facility Loc./Unit Complaint [id number] 01/14/2015 16:31:00 01/14/2015 23: 59:59 CLS Outpatient SINGH CHURCHILL APRN [id number] 01/04/2015 14:32:00 01/04/2015 23: 59:59 CLS Outpatient STEPH OJEDA APRN [id number] 11/18/2014 14:49:00 11/18/2014 23: 59:59 CLS Outpatient MERVIN HENNING APRN [id number] 11/17/2014 15:05:00 11/17/2014 23: 59:59 CLS Outpatient SINGH CHURCHILL APRN [id number] 11/03/2014 11:48:00 11/03/2014 23: 59:59 CLS Outpatient HAILY NORMAN [id number] 10/25/2014 17:01:00 10/25/2014 23: 59:59 CLS Outpatient HAILY NORMAN [id number] 10/15/2014 14:30:00 10/15/2014 23: 59:59 CLS Outpatient SINGH CHURCHILL APRN [id number] 10/13/2014 15:57:00 10/13/2014 23: 59:59 CLS Outpatient HAILY NORMAN [id number] 10/06/2014 08:07:00 10/06/2014 23: 59:59 CLS Outpatient GALE LCMMeka, HAILY Arnett [id number] 10/01/2014 10:14:00 10/01/2014 23: 59:59 CLS Outpatient MADL SINGH BYERS [place] [id number] 07/26/2014 13:48:00 07/26/2014 23: 59:59 CLS Outpatient EFE AUSTIN GM Page [id number] 07/20/2014 17:28:00 07/20/2014 23: 59:59 CLS Outpatient WEI LEE APRNKELSEY Pisano [id number] 06/25/2014 15:04:00 06/25/2014 23: 59:59 CLS Outpatient MADL [facility] [employer]ONERSINGH [place] [id number] 05/25/2014 09:09:00 05/25/2014 23: 59:59 CLS Outpatient MADL [employer]ON[employer]H [place] [id number] 02/11/2014 00:00:00 02/11/2014 23: 59:59 CLS Outpatient GETACHEW DDS JAXON Vasquez [id number] 02/04/2014 14:59:00 02/04/2014 23: 59:59 CLS Outpatient HYATT GABE RAFFY [id number] 01/29/2014 14:58:00 01/29/2014 23: 59:59 CLS Outpatient EFE AUSTIN GM Page [id number] 01/26/2014 10:59:00 01/26/2014 23: 59:59 CLS Outpatient HYATT DDSGABINOW [id number] 01/26/2014 08:32:00 01/26/2014 23: 59:59 CLS Outpatient MILADY BYERS MERVIN Jose [id number] 11/05/2013 15:08:00 11/05/2013 23: 59:59 CLS Outpatient CARLINE FERNANDES MD [id number] 01/12/2013 10:25:00 01/12/2013 23: 59:59 CLS Outpatient [id number] 11/12/2012 15:00:00 11/12/2012 23: 59:59 CLS Outpatient [id number] 10/16/2012 18:25:00 10/16/2012 23: 59:59 CLS Outpatient MELINA KIRK APRN [id number] 09/03/2012 13:05:00 09/03/2012 23: 59:59 CLS Outpatient [id number] 03/12/2013 15:01:00 Document Registration [id number] 02/03/2013 15:34:00 Document Registration [id number] 01/21/2013 08:48:00 Document Registration [id number] 05/15/2017 07:32:00 2016 23:59:59 CLS Preadmit DENI CARMONA MD [facility] RAD SCREENING [id number] 06/21/2016 11:19:00 2015 23:59:59 CLS Outpatient MARYCRUZ SO MD [facility] RAD CHRONIC SINUSITIS [id number] 05/09/2016 08:12:00 2015 23:59:59 CLS Outpatient MADLSINGH ELECTRICIAN LOCOMOTIVE [facility] RAD ABNORMAL MAMMO RT BREAST [id number] 02/15/2016 21:45:00 2015 22:49:00 DIS Emergency ANAMARIA BARONE [employer] [facility] ER [id number] 01/30/2016 12:25:00 2015 13:17:00 DIS Outpatient RAFFY CHILEL MD [facility] CARD SI DIORDER NOT ELSEWISE CLASSIFED, LUMBAR RACULOPAT [id number] 01/02/2016 12:12:00 2015 13:20:00 DIS Outpatient RAFFY CHILEL MD [facility] CARD [id number] 10/24/2015 13:35:00 2015 23:59:59 CLS Outpatient ANALSINGH ELECTRICIAN LOCOMOTIVE [facility] RAD ABNORMAL MAMMO [id number] 08/23/2015 18:17:00 2014 21:06:00 DIS Outpatient ANAMARIA BARONE [employer] [facility] ER FALL [id number] 08/03/2015 14:11:00 2014 15:49:00 DIS Emergency DAVID SARAH [facility] ER [id number] 08/01/2015 18:56:00 2014 21:45:00 DIS Emergency JANN IZQUIERDO, VALERIO T [facility] ER [id number] 04/27/2015 14:32:00 2014 23:59:59 CLS Outpatient MILADY, MERVIN A S[employer] 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[employer]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 [facility] RAD [id number] 12/06/2014 09:45:00 2014 23:59:59 CLS Preadmit NAT PEREZ MD [facility] SDC CONSTIPATION; CHANGE IN BOWEL HABITS; FAMILY HX [id number] 12/01/2014 15:15:00 2014 23:59:59 CLS Outpatient NAT PEREZ MD [facility] PREOP CONSTIPATION; CHANGE IN BOWEL HABITS; FAMILY HX [id number] 02/18/2014 14:09:00 2013 23:59:59 CLS Outpatient MILADY MERVIN A 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 [facility] RAD RT BREAST ASYMMETRY,ABN MAMMO [id number] 02/04/2014 11:36:00 2013 23:59:59 CLS Outpatient MILADY, MERVIN A S[employer] STOCK[employer] IRONER [facility] RAD SCREENING [id number] 06/19/2013 13:58:00 2012 23:59:59 CLS Outpatient JOSEFINA PARRA MD [facility] RAD SHOULDER PAIN [id number] 12/20/2014 08:54:00 Document Registration [id number] 12/16/2014 06:09:00 Document Registration [id number] 01/14/2013 13:23:00 Document Registration [id number] 10/25/2012 13:40:00 Document Registration [id number] 07/24/2012 08:53:00 Document Registration [id number] 07/17/2012 10:21:00 Document Registration [id number] 08/27/2011 05:52:00 Document Registration [id number] 08/20/2011 10:29:00 Document Registration [id number] 08/02/2011 12:07:00 Document Registration
[2017-07-20 18:05] LABS: BILIRUBIN,URINE NEGATIVE (NEGATIVE); KETONES,URINE NEGATIVE (NEGATIVE); LEUKOCYTE ESTERASE ,URINE NEGATIVE (NEGATIVE); NITRITE,URINE NEGATIVE (NEGATIVE); PH,URINE 6 (5-9); PROTEIN,URINE NEGATIVE (NEGATIVE); UROBILINOGEN,URINE NORMAL (NORMAL)
[2017-07-20 18:15] LABS: WBC,URINE 0-2 /HPF
--- NOTE | 2017-07-20 18:15 | ED GU-Female ---
General Chief Complaint: -Female Stated Complaint: ABD PAIN Nursing Triage Note: ADM TO ED C/O L LOWER ABD PAIN X 3 WEEKS HAS NOT SEEN HER FAMILY FOR. Nursing Sepsis Screen: No Definite Risk Source: patient Exam Limitations: no limitations History of Present Illness Time seen by provider: 18:15 Initial Comments 46-year-old female patient presents to the emergency department complains of lower abdominal pain for 3 weeks. Patient denies contacting her family practitioner for this. Patient does report a lengthy history for constipation and states she frequently has to take fleets Phospho-Soda to relieve symptoms. Patient does report 1 episode of nausea without vomiting. Denies diarrhea, rectal bleeding, hematemesis. Patient reports having a very small BM this a.m. States prior to this a.m. last BM was approximately one to one and half weeks ago. Timing/Duration: constant, other (3 week onset) Severity/Quality: aching, cramping Location: suprapubic Radiation: LLQ Activities at Onset: none Prior Genitourinary Problems: similar symptoms Modifying Factors: Worsens With Palpation Allergies and Home Medications Allergies Coded Allergies: imipramine (Verified Allergy, Severe, RASH, 08/03/15) ondansetron (Verified Allergy, Mild, RASH, 08/01/15) Mild skin rash after IV administration of Zofran. No signs or symptoms of anaphylaxis amoxicillin (Verified Allergy, Unknown, RASH, 03/01/10) celecoxib (Unverified Allergy, Unknown, 12/20/14) cyclobenzaprine (Unverified Allergy, Unknown, 12/20/14) tapentadol (Unverified Allergy, Unknown, RASH,, 12/20/14) Home Medications Duloxetine HCl 30 Mg Capsule.dr, 90 MG PO DAILY, (Reported) [place]-3 Fatty Acids/Fish Oil 1 Each Capsule, 1 EACH PO DAILY, (Reported) Polyethylene Glycol 3350 17 Gm Powd.pack, 17 GM PO DAILY for 5 Days Prescribed by: ANAMARIA BARONE on 08/23/152034 Polyethylene Glycol 3350 119 Gm Powder, 17 GM PO UD, #1 Ref 0 17 g mixed with 8 oz of fluids bid x3d, then hs as needed for constipation. Prescribed by: DAVID OWEN on 07/20/171931 Promethazine HCl 25 Mg Tablet, 25 MG PO Q6H PRN for NAUSEA/VOMITING, #10 Ref 0 Prescribed by: DAVID OWEN on 07/20/17 193 [Prolisec] , (Reported) Constitutional: No chills, No diaphoresis, No dizziness, No fever, No malaise EENTM: no symptoms reported Respiratory: No cough, No phlegm, No short of breath Cardiovascular: No chest pain, No palpitations Gastrointestinal: see HPI, abdominal pain, constipation, No diarrhea, No loss of appetite, No nausea (reports one episode of nausea. Resolved at this time.) , No vomiting Genitourinary: denies burning, denies discharge, denies dysuria, denies frequency, denies flank pain, denies hematuria Musculoskeletal: no symptoms reported Skin: no symptoms reported Psychiatric/Neurological: No Symptoms Reported All Other Systemes Reviewed Negative Unless Noted: Yes (Negative excepted noted.) Past Xmlatmv-Sjhkds-Sxkuig Hx Patient Social History Alcohol Use: Denies Use Recreational Drug Use: No Smoking Status: Never a Smoker Recent Foreign Travel: No Contact w/Someone Who Travel: No Recent Infectious Disease Expo: No Recent Hopitalizations: Yes (NECK SURG JUL 25 2011) Surgeries History of Surgeries: Yes (T&A, Rt. 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 Gastrointestinal History of Gastrointestinal Di: Yes Gastrointestinal Disorders: Gastroesophageal Reflux, Chronic Constipation Musculoskeletal History of Musculoskeletal Dis: No Endocrine History of Endocrine Disorders: No Cancer History of Cancer: No Psychosocial History of Psychiatric Problem: Yes Behavioral Health Disorders: Depression Integumentary History of Skin or Integumenta: No Blood Transfusions History of Blood Disorders: No Adverse Reaction to a Blood Tr: No Reviewed Nursing Assessment Reviewed/Agree w Nursing PMH: Yes Family Medical History Significant Family History: No Pertinent Family Hx Physical Exam Vital Signs Vital Sign - Last 12Hours 07/20/17 17:50 Temp 99.0 Pulse 84 Resp 18 B/P (MAP) 111/73 Pulse Ox 100 O2 Delivery Room Air Capillary Refill : Less Than 3 Seconds General Appearance: WD/WN, no apparent distress HEENT: PERRL/EOMI, pharynx normal Neck: supple, normal inspection Cardiovascular: normal peripheral pulses, regular rate, rhythm, no edema, no murmur Respiratory: lungs clear, normal breath sounds, no respiratory distress, no accessory muscle use Gastrointestinal: normal bowel sounds, soft, no organomegaly, No distended, No guarding, No rebound, tenderness (suprapubic and bilateral lower quadrant tenderness), No mass Back: normal inspection, no CVA tenderness Extremities: no pedal edema, no calf tenderness, normal capillary refill Neurologic/Psychiatric: alert, normal mood/affect, oriented x 3 Skin: normal color, warm/dry Progress/Results/Core Measures Results/Orders Lab Results Laboratory Tests Test 07/20/17 17:00 07/20/17 18:51 Range/Units Urine Color YELLOW Urine Clarity CLEAR Urine pH 6 5-9 Urine Specific [place] 1.010 L 1.016-1.022 Urine Protein NEGATIVE NEGATIVE Urine Glucose (UA) NEGATIVE NEGATIVE Urine Ketones NEGATIVE NEGATIVE Urine Nitrite NEGATIVE NEGATIVE Urine Bilirubin NEGATIVE NEGATIVE Urine Urobilinogen NORMAL NORMAL MG/DL Urine Leukocyte Esterase NEGATIVE NEGATIVE Urine RBC (Auto) NEGATIVE NEGATIVE Urine RBC NONE /HPF Urine WBC 0-2 /HPF Urine Squamous Epithelial Cells 5-10 /HPF Urine Crystals NONE /LPF Urine Bacteria MODERATE H /HPF Urine Casts NONE /LPF Urine Mucus NEGATIVE /LPF Urine Culture Indicated NO White Blood Count 8.0 4.3-11.0 10^3/uL Red Blood Count 4.28 L 4.35-5.85 10^6/uL Hemoglobin 13.0 11.5-16.0 G/DL Hematocrit 40 35-52 % Mean Corpuscular Volume 93 80-99 FL Mean Corpuscular Hemoglobin 30 25-34 PG Mean Corpuscular Hemoglobin Concent 33 32-36 G/DL Red Cell Distribution Width 12.6 10.0-14.5 % Platelet Count 320 130-400 10^3/uL Mean Platelet Volume 9.6 7.4-10.4 FL Neutrophils (%) (Auto) 48 42-75 % Lymphocytes (%) (Auto) 33 12-44 % Monocytes (%) (Auto) 12 0-12 % Eosinophils (%) (Auto) 7 0-10 % Basophils (%) (Auto) 1 0-10 % Neutrophils # (Auto) 3.8 1.8-7.8 X 10^3 Lymphocytes # (Auto) 2.6 1.0-4.0 X 10^3 Monocytes # (Auto) 1.0 0.0-1.0 X 10^3 Eosinophils # (Auto) 0.6 H 0.0-0.3 10^3/uL Basophils # (Auto) 0.1 0.0-0.1 10^3/uL Sodium Level 139 135-145 MMOL/L Potassium Level 4.1 3.6-5.0 MMOL/L Chloride Level 103 98-107 MMOL/L Carbon Dioxide Level 27 21-32 MMOL/L Anion Gap 9 5-14 MMOL/L Blood Urea Nitrogen 10 7-18 MG/DL Creatinine 0.89 0.60-1.30 MG/DL Estimat Glomerular Filtration Rate > 60 BUN/Creatinine Ratio 11 Glucose Level 87 70-105 MG/DL Calcium Level 9.8 8.5-10.1 MG/DL Total Bilirubin 0.4 0.1-1.0 MG/DL Aspartate Amino Transf (AST/SGOT) 17 5-34 U/L Alanine Aminotransferase (ALT/SGPT) 15 0-55 U/L Alkaline Phosphatase 56 40-136 U/L C-Reactive Protein High Sensitivity 0.08 0.00-0.50 MG/DL Total Protein 7.7 6.4-8.2 GM/DL Albumin 4.2 3.2-4.5 GM/DL Lipase 23 8-78 U/L My Orders Orders - DAVID OWEN Saline Lock/Iv-Start (07/20/17 18:26) Acute Abd Series (07/20/17 18:26) Cbc With Automated Diff (07/20/17 18:26) Comprehensive Metabolic Panel (07/20/17 18:26) Hs C Reactive Protein (07/20/17 18:26) Lipase (07/20/17 18:26) Ns Iv 1000 Ml (Sodium Chloride 0.9%) (07/20/17 18:26) Ketorolac Injection (Toradol Injection) (07/20/17 18:26) Medications Given in ED Current Medications Medications Dose Ordered Sig/Karly Route Start Time Stop Time Status Last Admin Dose Admin Sodium Chloride 1,000 ml @ 0 mls/hr Q0M ONCE IV 07/20/17 18:26 07/20/17 18:32 DC 07/20/17 18:48 1,000 MLS/HR Vital Signs/I&O Vital Sign - Last 12Hours 07/20/17 07/20/17 17:50 19:48 Temp 99.0 Pulse 84 86 Resp 18 16 B/P (MAP) 111/73 Pulse Ox 100 99 O2 Delivery Room Air Blood Pressure Mean: 86 Diagnostic Imaging Diagonstic Imaging: Xray Plain Films/CT/US/NM/MRI: abdomen Comments FINDINGS: Upright view of the chest demonstrates the lungs to be clear. The heart, mediastinum and pulmonary vascularity are normal. Postoperative changes are seen in the cervical spine. Supine and upright views of the abdomen demonstrate surgical clips in the region of gallbladder fossa in the right side of the pelvis. No free air or gaseous distention is present. A few air-fluid levels are seen in the small bowel. Thee small bowel is somewhat gaseous. Possible mild enteritis. IMPRESSION: There are a few air-fluid levels in the small bowel with possible mild enteritis. No dilatation is present. Dictated on workstation # [id number] Reviewed: Reviewed by Me (radiology report reviewed by me) Departure Communication (Admissions) Progress Notes Laboratory and diagnostic findings discussed with the patient. Patient reports feeling better at this time. Plan for discharge to home. Patient to follow-up with her primary care provider for recheck. Impression Impression: Primary Impression: Lower abdominal pain Additional Impression: Chronic constipation Disposition: 01 HOME, SELF-CARE Condition: Improved Departure-Patient Inst. Decision time for Depature: 19:29 Referrals: [facility] (PCP/Family) Primary Care Physician Patient Instructions: Acute Abdomen (Belly Pain), Adult (DC), Constipation, Adult (DC) Add. Discharge Instructions: All discharge instructions reviewed with patient and/or family. Voiced understanding. Continue usual home medications. Plenty of fluids. Tylenol Extra Strength cixo-llh-bjgnrnq as directed for pain. Ibuprofen 800 mg by mouth every 8 hours as needed for pain. MiraLAX 17 g mixed with 8 ounces of fluids by mouth twice daily for 3 days, then at bedtime as needed for constipation. Dulcolax 10 mg once daily as needed for constipation. Magnesium citrate as needed. Return to the emergency department for worsened symptoms or any other concerns. Follow up with her family practitioner for recheck and possible need for outpatient colonoscopy. Scripts Promethazine HCl (Promethazine Tablet) 25 Mg Tablet 25 MG PO Q6H Y for NAUSEA/VOMITING, #10 TAB 0 Refills Prov: DAVID OWEN 07/20/17 Polyethylene Glycol 3350 (Miralax) 119 Gm Powder 17 GM PO UD, #1 EA 0 Refills 17 g mixed with 8 oz of fluids bid x3d, then hs as needed for constipation. Prov: DAVID OWEN 07/20/17 DAVID OWEN Jul 20, 2017 18:15
[2017-07-20] MEDS ORDERED: KETOROLAC 30 MG/ML VIAL IVP STA (18:26)
[2017-07-20] MEDS ORDERED: NS IV 1000 ML 1,000 ML IV ONE (18:26)
[2017-07-20 18:57] LABS: BASOPHILS # (AUTO) 0.1 10^3/uL (0.0-0.1); BASOPHILS % (AUTO) 1 % (0-10); EOSINOPHILS # (AUTO) 0.6 10^3/uL (0.0-0.3); EOSINOPHILS % (AUTO) 7 % (0-10); LYMPHOCYTES # (AUTO) 2.6 X 10^3 (1.0-4.0); LYMPHOCYTES % (AUTO) 33 % (12-44); MEAN CORPUSCULAR HEMOGLOBIN 30 PG (25-34); MEAN CORPUSCULAR HGB CONC 33 G/DL (32-36); MEAN CORPUSCULAR VOLUME 93 FL (80-99); MEAN PLATELET VOLUME 9.6 FL (7.4-10.4); MONOCYTES % (AUTO) 12 % (0-12); NEUTROPHILS # (AUTO) 3.8 X 10^3 (1.8-7.8); NEUTROPHILS % (AUTO) 48 % (42-75); PLATELET COUNT 320 10^3/uL (130-400); RED BLOOD COUNT 4.28 10^6/uL (4.35-5.85); RED CELL DISTRIBUTION WIDTH 12.6 % (10.0-14.5)
--- NOTE | 2017-07-20 19:17 | Diagnostic Imaging Report ---
INDICATION: Lower abdominal pain for 3 weeks COMPARISON STUDIES: None FINDINGS: Upright view of the chest demonstrates the lungs to be clear. The heart, mediastinum and pulmonary vascularity are normal. Postoperative changes are seen in the cervical spine. Supine and upright views of the abdomen demonstrate surgical clips in the region of gallbladder fossa in the right side of the pelvis. No free air or gaseous distention is present. A few air-fluid levels are seen in the small bowel. Thee small bowel is somewhat gaseous. Possible mild enteritis. IMPRESSION: There are a few air-fluid levels in the small bowel with possible mild enteritis. No dilatation is present. Dictated by: Dictated on workstation # [id number]
[2017-07-20 19:20] LABS: ALANINE AMINOTRANSFERASE 15 U/L (0-55); ALBUMIN 4.2 GM/DL (3.2-4.5); ANION GAP 9 MMOL/L (5-14); ASPARTATE AMINO TRANSFERASE 17 U/L (5-34); BILIRUBIN,TOTAL 0.4 MG/DL (0.1-1.0); BLOOD UREA NITROGEN 10 MG/DL (7-18); BUN/CREATININE RATIO 11; CALCIUM 9.8 MG/DL (8.5-10.1); CARBON DIOXIDE 27 MMOL/L (21-32); CHLORIDE 103 MMOL/L (98-107); CREATININE SERUM 0.89 MG/DL (0.60-1.30); GFR ESTIMATED > 60; GLUCOSE 87 MG/DL (70-105); LIPASE 23 U/L (8-78); POTASSIUM 4.1 MMOL/L (3.6-5.0); SODIUM 139 MMOL/L (135-145); TOTAL PROTEIN 7.7 GM/DL (6.4-8.2); hs C REACTIVE PROTEIN 0.08 MG/DL (0.00-0.50)
[2017-07-20] MEDS ORDERED: POLY119P5 PO (19:32)
[2017-07-20] MEDS ORDERED: PROM25TA14 PO (19:38)
[2017-07-20 19:48] VITALS: BP 115/75
== END 2017-07-20 19:48 | disposition home or self-care (01) ==
LOC: EDUNIT# 17:05 → ER 17:07
DX: K59.09 Other constipation (principal); K21.9 Gastro-esophageal reflux disease without esophagitis; F32.9 Major depressive disorder, single episode, unspecified; Z90.89 Acquired absence of other organs
CPT/HCPCS: 36415; 74022; 80053; 81000; 83690; 85025; 86141; 96374

== ENCOUNTER 2018-05-15 19:41 | Emergency (ER) | payer SELFPAY ==
[~2018-05-15] VITALS: Ht 172.7 cm; Wt 85.3 kg
[~2018-05-15 19:41] MED LIST changes: +POLY119P5 PO; +PROM25TA14 PO
[2018-05-15] MEDS ORDERED: KETOROLAC 60 MG/2 ML VIAL IM STA (20:37)
[2018-05-15] MEDS ORDERED: predniSONE 20 MG TAB PO ONE (20:45)
--- NOTE | 2018-05-15 20:53 | ED Lower Extremity ---
General Chief Complaint: Lower Extremity Stated Complaint: R TOE PAIN Nursing Triage Note: PATIENT HERE WITH CONCERNS OF PAIN IN HER TOES AND FEET. 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 SHE STATES THAT THE PAIN STARTS IN THE TOPS OF HER GREAT TOES AND FEELS LIKE A "BOLT OF LIGHTNING." THE PAIN IS INCONSISTENT NORMALLY BUT HAS BEEN RELATIVELY CONSTANT FOR THE LAST COUPLE OF DAYS. IT IS NOW RADIATING UP HER ANKLE. Nursing Sepsis Screen: No Definite Risk Source: patient Exam Limitations: no limitations History of Present Illness Date Seen by Provider: May 15, 2018 Time Seen by Provider: 20:17 Initial Comments Here with report of bilateral toe pain that initially started on the top of her right great toe but now is also noted on her left great toe and across the top of the foot. She describes it as a shooting pain or lightning bolt pain. States that it comes and goes but is been more constant recently. 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 She has been seen by her provider a few times and has not had any improvement but has had limited evaluation. Does report history of L5- S1 disc bulge after an accident in 2000. She hasn't had problems from that significantly since but has noted that she's had some low back pain recently. Denies bowel or bladder incontinence. Denies numbness between her legs. Denies weakness of the lower extremities. Onset: other (4 months) Severity: moderate Pain/Injury Location: bilateral 1st toe Method of Injury: unknown Modifying Factors: Improves With Rest Allergies and Home Medications Allergies Coded Allergies: imipramine (Verified Allergy, Severe, RASH, 08/03/15) ondansetron (Verified Allergy, Mild, RASH, 08/01/15) Mild skin rash after IV administration of Zofran. No signs or symptoms of anaphylaxis amoxicillin (Verified Allergy, Unknown, RASH, 03/01/10) celecoxib (Unverified Allergy, Unknown, 12/20/14) cyclobenzaprine (Unverified Allergy, Unknown, 12/20/14) tapentadol (Unverified Allergy, Unknown, RASH,, 12/20/14) Home Medications Duloxetine HCl 30 Mg Capsule.dr, 90 MG PO DAILY, (Reported) [place]-3 Fatty Acids/Fish Oil 1 Each Capsule, 1 EACH PO DAILY, (Reported) Polyethylene Glycol 3350 17 Gm Powd.pack, 17 GM PO DAILY Prescribed by: ANAMARIA BARONE on 08/23/152034 Polyethylene Glycol 3350 119 Gm Powder, 17 GM PO UD 17 g mixed with 8 oz of fluids bid x3d, then hs as needed for constipation. Prescribed by: DAVID OWEN on 07/20/171931 Promethazine HCl 25 Mg Tablet, 25 MG PO Q6H PRN for NAUSEA/VOMITING Prescribed by: DAVID OWEN on 07/20/171937 Patient Home Medication List Home Medication List Reviewed: Yes Constitutional: see HPI; No chills, No fever Respiratory: no symptoms reported Cardiovascular: no symptoms reported Gastrointestinal: no symptoms reported Genitourinary: no symptoms reported Musculoskeletal: see HPI, back pain; No muscle pain, No muscle stiffness Skin: no symptoms reported Psychiatric/Neurological: See HPI; Denies Weakness Past Jczfmmh-Dzvxvv-Wiwzdx Hx Past Med/Social Hx: Reviewed Nursing Past Med/Soc Hx Patient Social History Alcohol Use: Denies Use Recreational Drug Use: No Smoking Status: Never a Smoker 2nd Hand Smoke Exposure: No Recent Foreign Travel: No Contact w/Someone Who Travel: No Recent Infectious Disease Expo: No Recent Hopitalizations: Yes (NECK SURG JUL 25 2011) Physical Abuse: No Sexual Abuse: No Past Medical History Surgeries: Yes (T&A, Rt. 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 0oz. 85.946957rk; 25.1 BMI Method:Stated General Appearance: WD/WN, no apparent distress Cardiovascular: regular rate, rhythm, no murmur Respiratory: lungs clear, normal breath sounds Gastrointestinal: non tender, soft Back: No muscle spasm, No vertebral tenderness; other (mild bilateral low back tenderness) Feet: bilateral foot non-tender, bilateral foot normal inspection, bilateral foot normal range of motion Neurologic/Psychiatric: alert, oriented x 3 Skin: normal color, warm/dry Progress/Results/Core Measures Results/Orders My Orders Orders - BRYON SMITH MD Ketorolac Injection (Toradol Injection) (05/15/18 20:37) Prednisone Tablet (Deltasone Tablet) (05/15/18 20:45) Vital Signs/I&O 05/15/18 19:45 Temp 98.7 Pulse 90 Resp 20 B/P (MAP) 125/85 (98) Pulse Ox 100 O2 Delivery Room Air Blood Pressure Mean: 98 Progress Progress Note : Progress Note Seen and evaluated. I did review patient's past medical history with her. She does report the low back pain and she does have history of L5-S1 disc bulge. The shooting pain to the toes may be related to radiculopathy from this Sam Jr that fits that nerve distribution. This is discussed with the patient. She may need further imaging including MRI but we will try supportive therapy and have her follow up with her primary doctor for further evaluation is needed. Toradol 60 mg IM and prednisone 40 mg by mouth given. We will try burst dose of steroids and see if this improves her symptoms. All of this was discussed with the patient who agrees. Discharged home with return precautions. Patient verbalize understanding instructions and agreement with plan. I will send a copy of the chart to the clinic. Departure Impression Primary Impression: Radiculopathy of lumbosacral region Disposition: 01 HOME, SELF-CARE Condition: Stable Departure-Patient Inst. Decision time for Depature: 20:54 Referrals: [facility] (PCP/Family) Primary Care Physician Patient Instructions: Radiculopathy (DC) Add. Discharge Instructions: All discharge instructions reviewed with patient and/or family. Voiced understanding. You may take Tylenol/acetaminophen 1000 mg every 8 hours as needed for pain. You may take ibuprofen 800 mg every 8 hours as needed for pain. Drink plenty of fluids. Use supportive pillow for your low back when driving. Follow-up with your doctor next week for recheck and further evaluation. You may need further imaging and this may be discussed with your doctor. Return for worse pain, weakness, numbness between your legs, difficulty walking or going to the bathroom or other concerns as needed. Scripts Prednisone (Prednisone) 20 Mg Tab 40 MG PO DAILY, #12 TAB 0 Refills Prov: BRYON SMITH MD 05/15/18 Copy Copies To 1: GM WILKS TIMOTHY D MD May 15, 2018 20:53
[2018-05-15] MEDS ORDERED: PRD20T PO (20:56)
[2018-05-15 20:58] VITALS: BP 125/85
--- OUTSIDE RECORDS SUMMARY | 2018-05-16 00:32 | XMS REPORT | Clinical Summary ---
Author Author [facility] Organization [facility] Address Unknown Phone Unavailable Care Team Providers Care Beater Boss Name Role Phone JamesGenesis watkins GRISELDA PCP Cedrick Ramirez RN Unavailable Unavailable Jackelin Tirado DO Unavailable Source Comments Some departments are not documenting in the electronic medical record. If you do not see the information that you expected, contact Release of Information in the Health Information Management department at [phone] for further assistance in locating additional records.[facility] Allergies Active Allergy Reactions Severity Noted Date [...] depressive disorder, recurrent, severe without psychotic features ([facility]) Resolved Problems Problem Noted Date Resolved Date [...] PHYSICAL (COMPREHENSIVE) 1977 EXAM PERTUSSIS VACCINE 1981 HIV SCREENING 1985 TETANUS VACCINE 1987 CERVICAL CANCER SCREENING 2000 BREAST CANCER SCREENING 2010 INFLUENZA VACCINE 07/14/2018 Results Not on filefrom Last 3 Months
--- OUTSIDE RECORDS SUMMARY | 2018-05-16 00:32 | XMS REPORT ---
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 In Name Role Phone DENITA CARRINGTON Unavailable PROBLEMS Type Condition ICD9-CM Code [id number] Code Onset Dates Condition Status SNOMED Code Problem Gastroesophageal reflux disease without esophagitis K21.9 Active 805309672 Problem Major depressive disorder, recurrent, moderate F33.1 Active 86708041 Problem Insomnia, unspecified G47.00 Active 689091525 Problem Major depressive disorder, recurrent episode, moderate F33.1 Active 929934427 Problem Recurrent major depressive disorder, in partial remission F33.41 Active 12884624 Problem Chronic maxillary sinusitis J32.0 Active 83072909 Problem History of prediabetes Z87.898 Active 408598553 Problem Overweight (BMI 25.0-29.9) E66.3 Active 530509451 Problem Skin lesion of right leg L98.9 Active 076990263 Problem Hyperlipidemia LDL goal <100 E78.5 Active 17370822 ALLERGIES No Information ENCOUNTERS Encounter Location Date Diagnosis [place] [id number] [place] [address] 20160- 1585 May, [place] [address] [place] [id number] [place] [address] 90189- 6013 May, [place] [id number] [place] [address] 38552- 1471 Apr, Overweight (BMI 25.0-29.9) E66.3 [place] [address] [place] [address] 31254- 4617 Mar, Major depressive disorder, recurrent, moderate F33.1 ; Left lateral ankle pain M25.572 ; Pain of left lower extremity M79.605 ; Insomnia, unspecified G47.00 ; Gastroesophageal reflux disease without esophagitis K21.9 ; Hyperlipidemia LDL goal <100 E78.5 ; Chronic maxillary sinusitis J32.0 and Overweight (BMI 25.0-29.9) E66.3 [facility] [place] [id number] [place] [address] 77322 -4600 February, Pain of left great toe M79.[address] 75608- 8031 Dec, Recurrent major depressive disorder, in partial remission F33.[address] 32023- 9219 Dec, History of prediabetes Z87.898 ; Overweight (BMI 25.0-29.9) E66.3 ; Hyperlipidemia LDL goal <100 E78.5 and Long-term use of high-risk medication Z79.[address] 67098- 7732 Nov, Skin lesion of right leg L98.[address] 38620- 5336 Nov, Overweight (BMI 25.0-29.9) E66.3 ; Gastroesophageal reflux disease without esophagitis K21.9 ; Prediabetes R73.09 ; Chronic maxillary sinusitis J32.0 and Skin lesion of right leg L98.9 [facility] [place] [id number] [place] [address] 21842 -5748 Oct, Acute non-recurrent frontal sinusitis J01.10 [facility] [place] [id number] [place] [address] 95487 -5849 Sep, Other viral agents as the cause of diseases classified elsewhere B97.89 and Acute upper respiratory infection, unspecified J06.9 [place] [id number] [place] [address] 11098- 1754 Sep, Major depressive disorder, recurrent episode, moderate F33.[address] [place] [address]- 0169 04 Sep, 2017 [place] [address] 19265- 3889 Aug, [place] [address] 07324- 6203 Jul, Chronic constipation K59.09 ; Overweight (BMI 25.0-29.9) E66.3 and Facial rash R21 [place] [address] 26107- 5644 17 Jul, 2017 [place] [address] 98577- 9024 14 Jun, 2017 Major depressive disorder, recurrent episode, moderate F33.1 [facility] [address] 52463 -8935 14 Jun, 2017 Dysuria R30.0 and Fluid level behind tympanic membrane of both ears H65.93 [place] [address] 63877- 2879 14 Jun, 2017 Dental examination Z01.20 [place] [address] 72590- 1187 08 Jun, 2017 Other group home (current) 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 Z79.899 [place] [address] 78339- 4392 08 Jun, 2017 Major depressive disorder, recurrent, moderate F33.1 and Other lpn rn hospice (current) 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 Z79.899 [place] [address] [place] [id number] [place] [address] 84626- 4941 May, Major depressive disorder, recurrent, moderate F33.1 [facility] [address] 75890 -7626 May, [facility] [address] 32652 -6117 07 May, 2017 Candidiasis B37.9 and Vaginal lesion N89.8 [facility] [address] [place] [id number] [place] [address] 53714- 0476 May, Major depressive disorder, recurrent, moderate F33.1 [place] [address] [place] [id number] [place] [address] 57737- 7846 Mar, Major depressive disorder, recurrent, moderate F33.1 ; Insomnia, unspecified G47.00 and Other group home (current) 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 Z79.899 [place] [address] [place] [id number] [place] [address] 72033- 9506 February, Major depressive disorder, recurrent, moderate F33.1 [place] [address] [place] [id number] [place] [address] 35549- 5076 Jan, Major depressive disorder, recurrent, moderate F33.1 [place] [address] [place] [id number] [place] [address] 83328- 3547 Nov, Major depressive disorder, recurrent, moderate F33.1 [place] [address] [place] [id number] [place] [address] 06879- 9612 Nov, [place] [address] [place] [id number] [place] [address] 22765- 1205 Oct, Insomnia, unspecified G47.00 [facility] [address] [place] [id number] [place] [address] 49325- 8113 Oct, Major depressive disorder, recurrent, moderate F33.1 [place] [address] [place] [id number] [place] [address] 84424- 8996 Sep, Major depressive disorder, recurrent, moderate F33.1 [place] [address] [place] [id number] [place] [address] 69251- 4696 Sep, Major depressive disorder, recurrent episode, moderate F33.1 [facility] [address] [place] [id number] [place] [address] 66293- 2183 Aug, Major depressive disorder, recurrent episode, moderate F33.1 [facility] [address] [place] [id number] [place] [address] 16001- 5367 Aug, [facility] [address] 71132- 3577 Aug, MDD (major depressive disorder), recurrent episode, mild F33.0 [facility] [address] 70486- 3095 Jul, Dysuria R30.0 ; Chronic idiopathic constipation K59.04 and Allergy, insect bite Z91.038 [facility] [address] 10339- 7239 Jul, Major depressive disorder, recurrent episode, moderate F33.1 [facility] [address] 74152- 6039 May, [facility] [address] 75488- 5152 May, Abnormal fasting glucose R73.01 ; Gastroesophageal reflux disease without esophagitis K21.9 ; Tremor R25.1 and Prediabetes R73.09 [facility] [address] [place] [id number] [place] [address] [id number] May, Dental examination Z01.20 [facility] [address] 42212- 1623 17 May, 2016 Other lpn rn hospice (current) 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 Z79.899 [facility] [address] [place] [id number] [place] [address] 05853- 6580 May, Major depressive disorder, recurrent, moderate F33.1 and Other group home (current) 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 Z79.899 [facility] [address] [place] [id number] [place] [address] 91956- 1324 May, [facility] [address] [place] [id number] [place] [address] 09022 -8989 May, Dysuria R30.0 [facility] [address] 56960- 0165 May, [facility] [address] [address]- 4595 May, Major depressive disorder, recurrent episode, moderate F33.1 [facility] [address] [place] [address] 72973- 4669 Apr, Abnormal mammogram of right breast R92.8 [facility] [address] [place] [address] 41749- 9811 Apr, [facility] [address] [place] [address] 97173- 3964 Apr, [facility] [address] [place] [id number] [place] [address] 06098- 6818 Mar, Major depressive disorder, recurrent, moderate F33.1 and Insomnia, unspecified G47.00 [facility] [address] [place] [address] 49012- 8605 Mar, Major depressive disorder, recurrent episode, moderate F33.1 [facility] [address] [place] [address] 57445- 5641 February, [facility] [address] [place] [id number] [place] [address] 49034- 2237 Jan, [facility] [address] [place] [address] 69075- 1034 Jan, Major depressive disorder, recurrent episode, moderate F33.1 [facility] [address] [place] [address] 09555- 9119 Jan, Major depressive disorder, recurrent, moderate F33.1 [facility] [address] [place] [address] [id number] Jan, Dental examination V72.2 [facility] [address] [address] -1477 Dec, Dysuria R30.0 ; Vaginal discharge N89.8 ; Vaginal yeast infection B37.3 and Encounter for screening for infections with a predominantly sexual mode of transmission Z11.3 [facility] [address] [place] [address] 06212- 5068 Dec, Major depressive disorder, recurrent episode, moderate F33.1 [facility] [address] [place] [id number] [place] [address] 69052- 4641 Dec, [facility] [address] 02935- 6347 Dec, [facility] [address] [place] [id number] [place] [address] 45012- 1249 Dec, [place] [address] 40061- 0253 Nov, Major depressive disorder, recurrent episode, moderate F33.1 [facility] [address] [id number] Nov, Encounter for dental examination Z01.20 [place] [address] [place] [id number] [place] [address] 43017- 0741 Nov, [facility] [address] [place] [id number] [place] [address] 38432- 8568 Nov, [place] [address] [place] [id number] [place] [address] 52062- 8764 Oct, Hyperkalemia E87.5 ; History of UTI Z87.440 and Sinusitis J32.9 [place] [address] [place] [id number] [place] [address] 87644- 0254 Oct, Hyperkalemia E87.5 and Family history of hypertension Z82.49 [place] [address] [place] [id number] [place] [address] 61617- 0449 Oct, [place] [address] 61273- 6349 Oct, Dysuria R30.0 ; Acute cystitis without hematuria N30.00 ; Epigastric pain R10.13 ; Chronic fatigue R53.82 ; Sinusitis J32.9 and Vaginal yeast infection B37.3 [place] [id number] [place] [address] 21159- 0120 Oct, Breast cancer screening V76.10 and Abnormal mammogram of right breast R92.8 [place] [address] [place] [id number] [place] [address] 44982- 2482 Oct, Breast cancer screening V76.10 and Abnormal mammogram of right breast R92.8 [place] [address] [place] [id number] [place] [address] 74421- 8102 Sep, [address] 71873- 1088 Sep, Major depressive disorder, recurrent episode, moderate 296.[address] 53829- 4374 Aug, Insomnia, unspecified G47.00 ; Major depressive disorder, recurrent, moderate F33.1 and Dysthymic disorder F34.1 [place] [id number] [place] [address] 74068- 2910 Aug, Major depressive disorder, recurrent, moderate F33.1 [place] [id number] [place] [address] 85495- 9018 Aug, Insomnia, unspecified G47.00 ; Adjustment disorder with mixed anxiety and depressed mood F43.23 ; Dysthymic disorder F34.1 and Major depressive disorder, recurrent, moderate F33.1 [place] [address] [place] [id number] [place] [address] 11943- 2158 Aug, Depression F32.9 and Sinusitis J32.9 [place] [id number] [place] [address] 45901- 6689 Aug, Major depressive disorder, recurrent episode, unspecified severity F33.9 [place] [id number] [place] [address] 04105- 0827 Aug, [place] [address]- 0715 Jul, [facility] [address] [address]- 1785 Jun, [facility] [address] [place] [address] 415677- 3047 Jun, Dysuria 788.1 [facility] [address] [place] [id number] [place] [address] 44923- 1038 Jun, Insomnia 780.52 ; Unspecified myalgia and myositis 729.1 ; High risk sexual behavior V69.2 and Dysuria 788.1 [place] [address] [place] [id number] [place] [address] 119114- 8881 Jun, [facility] [address] [place] [id number] [place] [address] 20669- 0620 May, [facility] [address] [place] [id number] [place] [address] 85048- 0832 Apr, [facility] [address] [place] [address] [id number] Apr, Dental examination V72.2 [place] [address] [place] [address] 43204- 9315 Apr, Insomnia 780.52 ; Unspecified myalgia and myositis 729.1 ; Long-term use of high-risk medication V58.69 and Urinary incontinence 788.30 [facility] [address] [place] [address] 82333- 8442 Apr, Breast cancer screening V76.10 and Breast pain 611.71 [place] [address] [place] [id number] [place] [address] 19535- 9441 Apr, Breast cancer screening V76.10 [place] [address] [place] [address] 91215- 4249 Apr, Breast cancer screening V76.10 and Vaginal itching 698.1 [place] [address] [place] [id number] [place] [address], [place] Apr, [facility] [address] [id number] [place] [address]- 3423 February, [facility] [address] [facility] [id number] [place] [address]- 4096 February, Insomnia, unspecified 780.52 [facility] [address] [id number] [place] [address]- 2587 Jan, [facility] [address] [id number] [place] [address]- 2914 Jan, [facility] [address] [id number] [place] [address]- 5876 Dec, [facility] [address] [facility] [id number] [place] [address]- 4520 Dec, [facility] [address] [place] [address]- 1696 Dec, [facility] [address] [id number] [place] [address]- 3246 Dec, [facility] [place] [facility] [address] [place] [id number] [place] [address]- 1908 Dec, [facility] [address] [facility] [id number] [place] [address]- 8065 Dec, [facility] [place] [facility] [address] [facility] [id number] [place] [address]- 4168 Dec, [facility] [place] [facility] [address] [id number] [place] [address]- 7144 Dec, [facility] [place] [facility] [address] [facility] [id number] [place] [address]- 4874 Dec, [facility] [place] [facility] [address] [facility] [id number] [place] [address]- 5676 Dec, [facility] [place] [facility] [address] [facility] [id number] [place] 9752 Nov, [facility] [place] [facility] [address] [facility] [id number] [place] [address]- 2770 Nov, 2014 [facility] [place] [facility] [address] [facility] [id number] [place] [address]- 9254 Nov, 2014 [facility] [place] [facility] [address] [facility] [id number] [place] [address]- 1856 Nov, 2014 [facility] [place] [facility] [address] [facility] [id number] [place] [address]- 2546 Nov, 2014 [facility] [place] [facility] [address] [facility] [id number] [place] [address]- 3991 Nov, 2014 [facility] [place] [facility] [address] [facility] [id number] [place] [address]- 5419 18 Nov, 2014 [facility] [place] [facility] [address] [place] [id number] [place] [address]- 8596 18 Nov, 2014 [facility] [place] [facility] [address] [facility] [id number] [place] [address]- 2073 17 Nov, 2014 [facility] [place] [facility] [address] [facility] [id number] [place] [address]- 0025 Nov, 2014 [facility] [place] [facility] [address] [facility] [id number] [place] [address]- 0038 09 Nov, 2014 [facility] [place] [facility] [address] [facility] [id number] [place] [address]- 1128 Nov, 2014 [facility] [place] [facility] [address] [facility] [id number], [place] [address]- 4717 Nov, 2014 [facility] [place] [facility] [address] [facility] [id number] [place] [address]- 5626 07 Nov, 2014 [facility] [place] [facility] [address] [facility] [id number], [place] [address]- 9651 06 Nov, 2014 [facility] [place] [facility] [address] [facility] [id number], [place] [address]- 2437 Nov, 2014 [facility] [place] [facility] [address] [id number] [place] [address]- 9315 Nov, 2014 [facility] [place] [facility] [address] [id number] [place] [address]- 0690 Nov, 2014 [facility] [place] [facility] [address] [id number] [place] [address]- 6514 Nov, 2014 [facility] [place] [facility] [address] [id number] [place] [address]- 6966 Nov, 2014 [facility] [place] [facility] [address] [id number] [place] [address]- 5525 Nov, 2014 [facility] [place] [facility] [address] [id number] [place] [address]- 1625 Nov, 2014 [facility] [place] [facility] [address] [id number] [place] [address]- 4584 Nov, [facility] [place] [facility] [address] [id number] [place] [address]- 9519 Oct, [facility] [place] [facility] [address] [id number] [place] [address]- 6049 Oct, [facility] [place] [facility] [address] [id number] [place] [address]- 3228 Oct, [facility] [place] [facility] [address] [id number], [place] [address]- 6404 Oct, [facility] [place] [facility] [address] [id number], [place] [address]- 5030 Oct, [facility] [place] [facility] [address] [id number] [place] [address]- 3086 Oct, [facility] [place] [facility] [address] [id number] [place] [address]- 7154 Oct, [facility] [place] [facility] [address] [id number] [place] [address]- 0205 Oct, [facility] [place] [facility] [address] [id number] [place] [address]- 3772 Oct, [facility] [place] [facility] [address] [id number] [place] 1968 Oct, [facility] [place] [facility] [address] [id number] [place] [address]- 0938 Oct, [facility] [place] [facility] [address] [id number] [place] [address]- 8383 Oct, [facility] [place] [facility] [address] [id number] [place] [address]- 8835 Sep, [facility] [place] [facility] [address] [id number] [place] 1646 Sep, [facility] [place] [facility] [address] [id number] [place] [address]- 4951 Sep, [facility] [place] [facility] [address] [id number] [place] [address]- 4634 Sep, [facility] [place] [facility] [address] [id number] [place] [address]- 3535 Sep, [facility] [place] [facility] [address] [id number] [place] [address]- 1514 Sep, [facility] [place] [facility] [address] [facility] [id number] [place] [address]- 5602 Aug, [facility] [place] [facility] [address] [id number] [place] [address]- 6328 Aug, [facility] [place] [facility] [address] [id number] [place] [address]- 3205 Jul, [facility] [place] [facility] [address] [id number] [place] [address]- 2009 Jul, [facility] [place] [facility] [address] [id number] [place] 3082 Jul, [facility] [place] [facility] [address] [id number] [place] [address] Jul, [facility] [place] [facility] [address] [id number] [place] [address] Jul, [facility] [place] [facility] [address] [id number] [place] [address] Jul, [facility] [place] [facility] [address] [id number] [place] [address] Jun, [facility] [place] [facility] [address] [id number] [place] [address] Jun, [facility] [place] [facility] [address] [id number] [place] [address] Jun, [facility] [place] [facility] [address] [id number] [place] [address] Jun, [facility] [place] [facility] [address] [id number] [place] [address] Jun, [facility] [place] [facility] [address] [id number] [place] [address] Jun, [facility] [place] [facility] [address] [id number] [place] [address] Jun, [facility] [place] [facility] [address] [id number] [place] [address] May, [facility] [place] [facility] [address] [id number] [place] [address] May, [facility] [place] [facility] [address] [id number] [place] [address] February, [facility] [place] [facility] [address] [id number] [place] [address] February, [facility] [place] [facility] [address] [id number] [place] [address] February, [facility] [place] [facility] [address] [id number] [place] [address] February, [facility] [place] [facility] [address] [id number] [place] [address] February, [facility] [place] [facility] [address] [id number] [place] [address] February, [facility] [place] [facility] [address] [id number] [place] [address] February, [facility] [place] [facility] [address] [id number] [place] [address]- [address] Jan, [facility] [place] [facility] [address] [id number] [place] [address]- [address] Jan, [facility] [place] [facility] [address] [id number] [place] [address]- [address] Jan, [facility] [place] [facility] [address] [id number] [place] [address]- [address] Jan, [facility] [place] [facility] [address] [id number] [place] [address]- [address] Jan, [facility] [place] [facility] [address] [id number] [place] [address] Jan, [facility] [place] [facility] [address] [id number] [place] [address] Jan, [facility] [place] [facility] [address] [id number] [place] [address] Jan, [facility] [place] [facility] [address] [id number] [place] [address]- [address] 16 Jan, 2014 [facility] [place] [facility] [address] [id number] [place] [address] 16 Jan, 2014 [facility] [place] [facility] [address] [id number] [place] [address] 15 Jan, 2014 [facility] [place] [facility] [address] [id number] [place] [address] 15 Jan, 2014 [facility] [place] [facility] [address] [id number] [place] [address] 15 Jan, 2014 [facility] [place] [facility] [address] [id number] [place] [address] 15 Jan, 2014 [facility] [address] [id number] [place] [address] Oct, [facility] [address] [id number] [place] [address] Oct, [facility] [address] [id number] [place] [address] 1978 May, [facility] [address] [id number] [place] [address] Mar, [facility] [address] [address] [id number] [place] [address] Mar, [facility] [address] [id number] [place] [address] Mar, [facility] [address] [id number] [place] [address] February, [facility] [address] [id number] [place] [address] February, [facility] [address] [id number] [place] [address] February, [facility] [address] [id number] [place] [address] February, [facility] [address] [id number] [place] [address] February, [facility] [address] [id number] [place] [address] Jan, [facility] [address] [id number] [place] [address] Jan, [facility] [address] [id number] [place] [address] Jan, [facility] [address] [id number] [place] [address] Oct, [facility] [place] [facility] [address] [id number] [place] [address] Oct, [facility] [place] [facility] [address] [id number] [place] [address] Oct, [facility] [place] [facility] [address] [id number] [place] [address] Oct, [facility] [place] [facility] [address] [id number] [place] [address] Oct, [facility] [place] [facility] [address] [id number] [place] [address] Oct, [facility] [place] [facility] [address] [id number] [place] [address] Oct, [facility] [place] [facility] [address] [id number] [place] [address] Oct, [facility] [place] [facility] [address] [id number], [place] [address] Aug, [facility] [place] [facility] [address] [id number] [address] Jul, [facility] [place] [facility] [address] [id number], [place] [address] Jul, [facility] [place] [facility] [address] [id number], [place] [address] Jul, [facility] [place] [facility] [address] [id number], [place] [address] Jul, [facility] [place] [facility] [address] [id number], [place] [address] Jul, [facility] [place] [facility] [address] [id number] [address] Jul, [facility] [place] [facility] [address] [id number] [address] Jul, [facility] [place] [facility] [address] [id number], [place] [address] Jun, [facility] [id number] [address] May, [facility] [id number] [address] May, [facility] [id number] [address] Apr, [facility] [id number] [address] Apr, [facility] [id number] [place] [address] Apr, [facility] [id number] [address] Apr, [facility] [id number], [place] [address] Apr, [facility] [id number], [place] [address] Apr, [facility] [id number], [place] [address] Apr, [facility] [id number], [place] [address] Apr, [facility] [id number], [place] [address] Mar, [facility] [address] [id number], [place] [address] Jul, IMMUNIZATIONS No Known Immunizations SOCIAL HISTORY Never Assessed REASON FOR VISIT f/u, contract PLAN OF CARE Activity Details Follow Up 4 Months Reason: VITAL SIGNS MEDICATIONS Medication Instructions Dosage Frequency Start Date End Date Duration Status Omeprazole 20 mg Orally Once a day 1 capsule 24h Oct, Active Flonase 50 MCG/ACT Nasally Once a day 1 spray in each nostril 24h 14 Jun, 2017 30 day(s) Active Cymbalta 30 MG Orally take with 60 mg Once a day 1 capsule 24h 30 days Active Contrave 8-90 MG Orally Twice a day 1 tablet 12h Aug, 28 days Active Cymbalta 60 MG Orally Once a day 1 capsule 24h 30 days Active Zolpidem Tartrate 10 mg Orally Once a day 1 tablet at bedtime as needed 24h 20 Sep, 2016 30 days Active Sudafed 12 Hour 120 MG Orally every 12 hrs prn 1 tablet as needed 06 Nov 10 days Active Biotin Active RESULTS No Results PROCEDURES No Known procedures INSTRUCTIONS MEDICATIONS ADMINISTERED No Known Medications MEDICAL (GENERAL) HISTORY Type Description Date Medical History chronic sinusitis Medical History gastroesophageal reflux disease (GERD) Medical History hypothyroidism- Normal TSH Medical History rosacea Medical History herpes simplex I: negative Medical History adjustment disorder Medical History insomnia Medical History Abnormal mammogram of right breast Medical History Chronic Constipation from [place] [facility] Dr. Lieberman Surgical History loop electrosurgical excision procedure (LEEP) [...] History R elbow torn ligament repair 01/24/2017 Surgical History colonoscopy 08/2017 Hospitalization History infection 2001 Hospitalization History [facility] suicide/depression 07/26/2015
--- OUTSIDE RECORDS SUMMARY | 2018-05-16 00:33 | XMS REPORT ---
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 Laboratory Animal Care Name Role Phone SINGH CHURCHILL Unavailable PROBLEMS Type Condition ICD9-CM Code AGX29-YG Code Onset Dates Condition Status SNOMED Code Problem Gastroesophageal reflux disease without esophagitis K21.9 Active 547240978 Problem Major depressive disorder, recurrent, moderate F33.1 Active 92926994 Problem Insomnia, unspecified G47.00 Active 903584960 Problem Major depressive disorder, recurrent episode, moderate F33.1 Active 505706471 Problem Recurrent major depressive disorder, in partial remission F33.41 Active 08129240 Problem Chronic maxillary sinusitis J32.0 Active 90649004 Problem History of prediabetes Z87.898 Active 957757616 Problem Overweight (BMI 25.0-29.9) E66.3 Active 573601494 Problem Skin lesion of right leg L98.9 Active 624213247 Problem Hyperlipidemia LDL goal <100 E78.5 Active 70849287 ALLERGIES Substance Reaction Event Type Date Status Imipramine HCl rash Drug Allergy Dec, Active Celebrex Unknown Drug Allergy Dec, Active Amoxicillin Unknown Drug Allergy Dec, Active Vladimir Toilet Paper yeast infection Non Drug Allergy Dec, Active Tape can only use paper tape Non Drug Allergy Dec, Active ENCOUNTERS Encounter Location Date Diagnosis [facility] [address] [facility] [id number] [address] May, [facility] [address] [facility] [id number], [place] [address] Apr, Overweight (BMI 25.0-29.9) E66.3 [facility] [address] [facility] [id number], [place] [address] Mar, Major depressive disorder, recurrent, moderate F33.1 ; Left lateral ankle pain M25.572 ; Pain of left lower extremity M79.605 ; Insomnia, unspecified G47.00 ; Gastroesophageal reflux disease without esophagitis K21.9 ; Hyperlipidemia LDL goal <100 E78.5 ; Chronic maxillary sinusitis J32.0 and Overweight (BMI 25.0-29.9) E66.3 [facility] [address] [address] February, Pain of left great toe M79.[address] [address] 15 Dec, 2017 Recurrent major depressive disorder, in partial remission F33.[address] [address] Dec, History of prediabetes Z87.898 ; Overweight (BMI 25.0-29.9) E66.3 ; Hyperlipidemia LDL goal <100 E78.5 and Long-term use of high-risk medication Z79.[address] [address] Nov, Skin lesion of right leg L98.[address] [address] Nov, Overweight (BMI 25.0-29.9) E66.3 ; Gastroesophageal reflux disease without esophagitis K21.9 ; Prediabetes R73.09 ; Chronic maxillary sinusitis J32.0 and Skin lesion of right leg L98.9 [facility] [place] [id number] [place] [address] Oct, Acute non-recurrent frontal sinusitis J01.10 [facility] [address] [address] Sep, Other viral agents as the cause of diseases classified elsewhere B97.89 and Acute upper respiratory infection, unspecified J06.[address] [address]- [address] Sep, Major depressive disorder, recurrent episode, moderate F33.1 [facility] [address] [place] [id number] [place] [address] 11919- 9837 Sep, [facility] [address] [place] [id number] [place] [address] Aug, [place] [address] [place] [id number] [place] [address] 95206- 7823 Jul, Chronic constipation K59.09 ; Overweight (BMI 25.0-29.9) E66.3 and Facial rash R21 [place] [address] [place] [id number] [place] [address] 80921- 3408 Jul, [place] [address] [place] [id number] [place] [address] 90721- 8446 14 Jun, 2017 Major depressive disorder, recurrent episode, moderate F33.1 [facility] [address] [place] [id number] [place] [address]161 -4418 14 Jun, 2017 Dysuria R30.0 and Fluid level behind tympanic membrane of both ears H65.93 [place] [address] [place] [id number] [place] [address] 36564- 0503 14 Jun, 2017 Dental examination Z01.20 [place] [address] [place] [id number] [place] [address] 46960- 0640 08 Jun, 2017 Other intermediate (current) 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 Z79.899 [place] [address] [place] [id number] [place] [address] 96250- 7276 08 Jun, 2017 Major depressive disorder, recurrent, moderate F33.1 and Other intermediate (current) 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 Z79.899 [place] [address] [place] [id number] [place] [address] 64289- 5661 14 May, 2017 Major depressive disorder, recurrent, moderate F33.1 [facility] [address] [place] [id number] [place] [address]18 -7035 May, [facility] [address] [place] [id number] [place] [address] 74027 -9365 May, Candidiasis B37.9 and Vaginal lesion N89.8 [facility] [address] [address]- [address] May, Major depressive disorder, recurrent, moderate F33.1 [facility] [address] 03000- 3316 Mar, Major depressive disorder, recurrent, moderate F33.1 ; Insomnia, unspecified G47.00 and 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 [place] [address] 82964- 0266 February, Major depressive disorder, recurrent, moderate F33.1 [place] [address] [place] [id number] [place] [address] 86652- 0633 Jan, Major depressive disorder, recurrent, moderate F33.1 [place] [address] 86321- 5008 Nov, Major depressive disorder, recurrent, moderate F33.1 [place] [address] 71477- 0808 Nov, [place] [address] [place] [id number] [place] [address] 05527- 1414 Oct, Insomnia, unspecified G47.00 [place] [address] [place] [id number] [place] [address] 67704- 8168 Oct, Major depressive disorder, recurrent, moderate F33.1 [place] [address] [place] [id number] [place] [address] 38143- 1496 Sep, Major depressive disorder, recurrent, moderate F33.1 [facility] [address] [place] [id number] [place] [address] 69758- 8819 Sep, Major depressive disorder, recurrent episode, moderate F33.1 [place] [address] [place] [id number] [place] [address] 98464- 8034 Aug, Major depressive disorder, recurrent episode, moderate F33.1 [facility] [address] [place] [id number] [place] [address] 29296- 5523 Aug, [facility] [address] [address] Aug, MDD (major depressive disorder), recurrent episode, mild F33.0 [facility] [address] 75142- 8137 Jul, Dysuria R30.0 ; Chronic idiopathic constipation K59.04 and Allergy, insect bite Z91.038 [place] [address] 11310- 3421 Jul, Major depressive disorder, recurrent episode, moderate F33.1 [place] [address] 41187- 1431 May, [facility] [address] 55343- 7671 May, Abnormal fasting glucose R73.01 ; Gastroesophageal reflux disease without esophagitis K21.9 ; Tremor R25.1 and Prediabetes R73.09 [facility] [address] [place] [id number] [place] [address] [id number] May, Dental examination Z01.20 [place] [address] [place] [id number] [place] [address] 39327- 4600 May, Other intermediate (current) 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 Z79.899 [facility] [address] [place] [id number] [place] [address] 97076- 0050 May, Major depressive disorder, recurrent, moderate F33.1 and Other intermediate (current) 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 Z79.899 [facility] [address] [place] [id number] [place] [address] 84220- 0543 May, [facility] [address] [place] [id number] [place] [address] 91403 -5499 May, Dysuria R30.0 [facility] [address] [address] May, [facility] [address] [place] [id number] [place] [address] 56573- 4862 May, Major depressive disorder, recurrent episode, moderate F33.1 [facility] [address] [place] [id number] [place] [address] 64596- 5503 Apr, Abnormal mammogram of right breast R92.8 [facility] [address] [place] [id number] [place] [address] 80352- 7408 Apr, [facility] [address] [place] [id number] [place] [address] 23150- 8644 Apr, [facility] [address] [place] [id number] [place] [address] 22358- 6900 Mar, Major depressive disorder, recurrent, moderate F33.1 and Insomnia, unspecified G47.00 [facility] [address] [place] [id number] [place] [address] 42189- 0288 Mar, Major depressive disorder, recurrent episode, moderate F33.1 [facility] [address] [place] [id number] [place] [address] 71182- 3974 February, [facility] [address] [place] [id number] [place] [address] 39852- 6614 Jan, [facility] [address] [place] [id number] [place] [address] 44948- 1738 Jan, Major depressive disorder, recurrent episode, moderate F33.1 [facility] [address] [place] [address] 57679- 8723 Jan, Major depressive disorder, recurrent, moderate F33.1 [facility] [address] [place] [address] [id number] Jan, Dental examination V72.2 [facility] [address] [place] [address] 45747 -3836 Dec, Dysuria R30.0 ; Vaginal discharge N89.8 ; Vaginal yeast infection B37.3 and Encounter for screening for infections with a predominantly sexual mode of transmission Z11.3 [facility] [address] [place] [address] 56659- 2070 Dec, Major depressive disorder, recurrent episode, moderate F33.1 [facility] [address] [place] [id number] [place] [address] 20675- 2869 Dec, [facility] [address] [place] [id number] [place] [address] 60402- 1722 Dec, [facility] [address] [place] [id number] [place] [address] 54019- 8095 Dec, [place] [address] [place] [id number] [place] [address] 52296- 1455 Nov, Major depressive disorder, recurrent episode, moderate F33.1 [facility] [address] [place] [id number] [place] [address] [id number] Nov, Encounter for dental examination Z01.20 [place] [address] [place] [id number] [place] [address] 64305- 7268 Nov, [place] [address] [place] [id number] [place] [address] 10275- 2311 Nov, [facility] [address] [place] [address] 62231- 6495 Oct, Hyperkalemia E87.5 ; History of UTI Z87.440 and Sinusitis J32.9 [facility] [address] [place] [address] 15303- 0294 Oct, Hyperkalemia E87.5 and Family history of hypertension Z82.49 [facility] [address] [place] [id number] [place] [address] 88030- 0202 Oct, [facility] [address] [place] [address] 19932- 1026 05 Av, 2016 Dysuria R30.0 ; Acute cystitis without hematuria N30.00 ; Epigastric pain R10.13 ; Chronic fatigue R53.82 ; Sinusitis J32.9 and Vaginal yeast infection B37.3 [place] [address]- [address]33 Oct, Breast cancer screening V76.10 and Abnormal mammogram of right breast R92.[address] 063 Oct, Breast cancer screening V76.10 and Abnormal mammogram of right breast R92.[address] 407 Sep, [address] 872 Sep, Major depressive disorder, recurrent episode, moderate 296.32 [place] [address]- 4370 Aug, Insomnia, unspecified G47.00 ; Major depressive disorder, recurrent, moderate F33.1 and Dysthymic disorder F34.[address] 90676- 8174 Aug, Major depressive disorder, recurrent, moderate F33.[address] 85565- 1940 Aug, Insomnia, unspecified G47.00 ; Adjustment disorder with mixed anxiety and depressed mood F43.23 ; Dysthymic disorder F34.1 and Major depressive disorder, recurrent, moderate F33.1 [place] [address]- 0177 Aug, Depression F32.9 and Sinusitis J32.9 [place]- [address]497 Aug, Major depressive disorder, recurrent episode, unspecified severity F33.[address] [place] [address]- 7166 Aug, [facility] [address] [place] [id number] [place] [address] 59127- 4057 Jul, [facility] [address] [address]- 2198 Jun, [facility] [address] [place] [id number] [place] [address] 40046- 2846 Jun, Dysuria 788.1 [facility] [address] [place] [id number] [place] [address] 76731- 2478 Jun, Insomnia 780.52 ; Unspecified myalgia and myositis 729.1 ; High risk sexual behavior V69.2 and Dysuria 788.1 [facility] [address] [place] [id number] [place] [address] 67749- 8046 Jun, [facility] [address] [place] [id number] [place] [address] 29564- 2378 May, [facility] [address] [place] [address] 87160- 0543 Apr, [facility] [address] [place] [id number] [place] [address] [id number] Apr, Dental examination V72.2 [facility] [address] [place] [address] 78660- 1887 Apr, Insomnia 780.52 ; Unspecified myalgia and myositis 729.1 ; Long-term use of high-risk medication V58.69 and Urinary incontinence 788.30 [facility] [address] [address]- 3173 Apr, Breast cancer screening V76.10 and Breast pain 611.71 [facility] [address] [place] [address] 95859- 8156 Apr, Breast cancer screening V76.10 [facility] [address] [place] [address] 51169- 3618 Apr, Breast cancer screening V76.10 and Vaginal itching 698.1 [facility] [address] [place] [id number] [address]- 6746 Apr, [facility] [address] [facility] [id number] [place] [address]- 9638 February, [facility] [address] [address]- 9699 February, Insomnia, unspecified 780.52 [facility] [address] [facility] [id number] [place] [address]- 0130 Jan, [facility] [address] [place] [id number] [place] [address]- 7935 Jan, [facility] [address] [place] [id number] [address]- 1027 Dec, [facility] [address] 6722 Dec, [facility] [address] [place] [id number] 2994 Dec, [facility] [address] [place] [id number] 5118 Dec, [facility] [address] [place] [id number] [address]- 8137 Dec, [facility] [address] [place] [id number] [address]- 0686 Dec, [facility] [address] [facility] [id number], [place] [address]- 2522 Dec, [facility] [address] [facility] [id number] [place] [address]- 1956 Dec, [facility] [address] [facility] [id number], [place] [address]- 5396 Dec, [facility] [address] [place] [id number] [address]- 9774 Dec, [facility] [place] [facility] [address] [facility] [id number] [place] [address]- 1935 Nov, 2014 [facility] [place] [facility] [address] [facility] [id number] [place] [address]- 9286 Nov, 2014 [facility] [place] [facility] [address] [facility] [id number] [place] [address]- 0711 Nov, 2014 [facility] [place] [facility] [address] [facility] [id number] [place] [address]- 3754 Nov, 2014 [facility] [place] [facility] [address] [facility] [id number] [place] [address]- 4540 Nov, 2014 [facility] [place] [facility] [address] [facility] [id number] [place] [address]- 2168 Nov, 2014 [facility] [place] [facility] [address] [place] [id number] [place] [address]- 3399 Nov, 2014 [facility] [place] [facility] [address] [facility] [id number] [place] [address]- 5869 Nov, 2014 [facility] [place] [facility] [address] [place] [id number] [place] [address]- 3955 17 Nov, 2014 [facility] [place] [facility] [address] [place] [id number] [place] [address]- 0675 Nov, 2014 [facility] [place] [facility] [address] [place] [id number] [place] [address]- 4021 Nov, 2014 [facility] [place] [facility] [address] [facility] [id number] [address]- 2548 Nov, 2014 [facility] [place] [facility] [address] [facility] [id number] [place] [address]- 8657 Nov, 2014 [facility] [place] [facility] [address] [facility] [id number], [place] [address]- 5819 07 Nov, 2014 [facility] [place] [facility] [address] [id number] [address]- 2302 Nov, 2014 [facility] [place] [facility] [address] [id number] [place] [address]- 7827 Nov, 2014 [facility] [place] [facility] [address] [id number] [place] [address]- 7310 Nov, 2014 [facility] [place] [facility] [address] [id number] [place] [address]- 5177 Nov, 2014 [facility] [place] [facility] [address] [id number] [place] [address]- 6466 Nov, 2014 [facility] [place] [facility] [address] [id number] [place] [address]- 2801 Nov, 2014 [facility] [place] [facility] [address] [id number] [place] [address]- 4510 Nov, 2014 [facility] [place] [facility] [address] [id number] [place] [address]- 4501 Nov, 2014 [facility] [place] [facility] [address] [id number] [place] [address]- 7483 Nov, 2014 [facility] [place] [facility] [address] [id number] [place] [address]- 4883 Oct, [facility] [place] [facility] [address] [id number] [place] [address]- 0993 Oct, [facility] [place] [facility] [address] [id number] [place] [address]- 4346 Oct, [facility] [place] [facility] [address] [id number] [place] [address]- 5341 Oct, [facility] [place] [facility] [address] [id number] [place] [address]- 2190 Oct, [facility] [place] [facility] [address] [id number] [place] [address]- 4833 Oct, [facility] [place] [facility] [address] [id number] [place] [address]- 4509 Oct, [facility] [place] [facility] [address] [id number] [place] [address]- 5970 Oct, [facility] [address] [id number] [place] [address]- 4515 Oct, [facility] [place] [facility] [address] [id number] [place] [address]- 8902 Oct, [facility] [address] [id number] [place] [address]- 8955 Oct, [facility] [place] [facility] [address] [id number] [place] [address]- 2222 Oct, [facility] [address] [id number] [place] 6178 Sep, [facility] [address] [id number] [place] [address]- 4698 Sep, [facility] [address] [id number] [place] [address]- 0678 Sep, [facility] [address] [id number] [place] [address]- 5726 Sep, [facility] [place] [facility] [address] [id number] [place] [address]- 3879 Sep, [facility] [address] [facility] [id number] [place] [address]- 4025 Sep, [facility] [place] [facility] [address] [id number] [place] [address]- 4323 Aug, [facility] [place] [facility] [address] [id number] [place] [address]- 9111 Aug, [facility] [place] [facility] [address] [id number] [place] [address]- 3316 Jul, [facility] [place] [facility] [address] [id number] [place] [address] Jul, [facility] [place] [facility] [address] [id number] [place] [address] Jul, [facility] [place] [facility] [address] [id number] [place] [address] Jul, [facility] [place] [facility] [address] [id number] [place] [address] Jul, [facility] [place] [facility] [address] [id number] [place] [address] Jul, [facility] [place] [facility] [address] [id number] [place] [address] Jun, [facility] [place] [facility] [address] [id number] [place] [address] Jun, [facility] [place] [facility] [address] [id number] [place] [address] 16 Jun, 2014 [facility] [place] [facility] [address] [id number] [place] [address] Jun, [facility] [place] [facility] [address] [id number] [place] [address] Jun, [facility] [place] [facility] [address] [id number] [place] [address] Jun, [facility] [place] [facility] [address] [id number] [place] [address] Jun, [facility] [place] [facility] [address] [id number] [place] [address] May, [facility] [place] [facility] [address] [id number] [address] May, [facility] [place] [facility] [address] [id number] [place] [address] February, [facility] [place] [facility] [address] [id number] [place] [address] February, [facility] [place] [facility] [address] [id number] [place] [address] February, [facility] [place] [facility] [address] [id number] [place] [address] February, [facility] [place] [facility] [address] [id number] [place] [address] February, [facility] [place] [facility] [address] [id number] [place] [address] February, [facility] [place] [facility] [address] [id number] [place] [address] February, [facility] [place] [facility] [address] [id number] [place] [address] Jan, [facility] [place] [facility] [address] [id number] [place] [address] Jan, [facility] [place] [facility] [address] [id number] [place] [address] Jan, [facility] [place] [facility] [address] [id number] [place] [address] Jan, [facility] [place] [facility] [address] [id number] [place] [address] Jan, [facility] [place] [facility] [address] [id number] [place] [address] Jan, [facility] [place] [facility] [address] [id number] [place] [address] Jan, [facility] [place] [facility] [address] [id number] [place] [address] Jan, [facility] [place] [facility] [address] [id number] [place] [address]- 0166 16 Jan, 2014 [facility] [place] [facility] [address] [id number] [place] [address] 16 Jan, 2014 [facility] [place] [facility] [address] [id number] [place] [address] 15 Jan, 2014 [facility] [place] [facility] [address] [id number] [place] [address] 15 Jan, 2014 [facility] [place] [facility] [address] [id number] [place] [address] 15 Jan, 2014 [facility] [address] [id number] [place] [address] Jan, [facility] [place] [facility] [address] [id number] [place] [address] Oct, [facility] [address] [id number] [place] [address] Oct, [facility] [address] [id number] [place] [address] May, [facility] [address] [id number] [place] [address] Mar, [facility] [place] [facility] [address] [id number] [place] [address] Mar, [facility] [address] [id number] [place] [address] Mar, [facility] [address] [id number] [place] [address] February, [facility] [address] [id number] [place] [address] February, [facility] [address] [id number] [place] [address] February, [facility] [place] [facility] [address] [id number] [place] [address] February, [facility] [place] [facility] [address] [id number] [place] [address] February, [facility] [place] [facility] [address] [id number] [place] [address] Jan, [facility] [place] [facility] [address] [id number] [place] [address] Jan, [facility] [place] [facility] [address] [id number] [place] [address] Jan, [facility] [place] [facility] [address] [id number] [place] [address] Oct, [facility] [place] [facility] [address] [id number] [place] [address] Oct, [facility] [place] [facility] [address] [id number] [place] [address] Oct, [facility] [place] [facility] [address] [id number] [place] [address] Oct, [facility] [place] [facility] [address] [id number] [place] [address] Oct, [facility] [place] [facility] [address] [id number] [place] [address] Oct, [facility] [place] [facility] [address] [id number] [place] [address] Oct, [facility] [place] [facility] [address] [id number], [place] [address] Oct, [facility] [place] [facility] [address] [id number], [place] [address] Aug, [facility] [place] [facility] [address] [id number], [place] [address] Jul, [facility] [place] [facility] [address] [id number], [place] [address] Jul, [facility] [place] [facility] [address] [id number], [place] [address] Jul, [facility] [place] [facility] [address] [id number], [place] [address] Jul, [facility] [place] [facility] [address] [id number], [place] [address] Jul, [facility] [place] [facility] [address] [id number], [place] [address] Jul, [facility] [place] [facility] [address] [id number] [address] Jul, [facility] [address] [id number], [place] [address] Jun, [facility] [address] [id number], [place] [address] May, [facility] [id number], [place] [address] May, [facility] [address] [facility] [id number], [place] [address] Apr, [facility] [id number], [place] [address] Apr, [facility] [address] [id number], [place] [address] Apr, [facility] [id number], [place] [address] Apr, [facility] [id number], [place] [address] Apr, [facility] [id number], [place] [address] Apr, [facility] [address] [id number], [place] [address] Apr, [facility] [address] [id number], [place] [address] Apr, [facility] [address] [id number], [place] [address] Mar, [facility] [address] [id number] [address] Jul, IMMUNIZATIONS No Known Immunizations SOCIAL HISTORY Never Assessed REASON FOR VISIT weight loss management --Delfina, --wants to see about getting labs done today PLAN OF CARE Activity Details Follow Up 2 Months Reason:weight VITAL SIGNS Height 68 in 2017-12-25 Weight 180 lbs 2017-12-25 Temperature 98.6 degrees Fahrenheit 2017-12-25 Heart Rate 90 bpm 2017-12-25 Respiratory Rate 18 2017-12-25 BMI 27.37 kg/m2 2017-12-25 Blood pressure systolic 98 mmHg 2017-12-25 Blood pressure diastolic 66 mmHg 2017-12-25 MEDICATIONS Medication Instructions Dosage Frequency Start Date End Date Duration Status Contrave 8-90 MG Orally Twice a day 1 tablet 12h Aug, 28 days Active Cymbalta 30 MG Orally take with 60 mg Once a day 1 capsule 24h 30 days Active Zolpidem Tartrate 10 mg Orally Once a day 1 tablet at bedtime as needed 24h Sep, 30 days Active Biotin Active Sudafed 12 Hour 120 MG Orally every 12 hrs prn 1 tablet as needed Nov 10 days Active Flonase 50 MCG/ACT Nasally Once a day 1 spray in each nostril 24h Jun, 30 day(s) Active Omeprazole 20 mg Orally Once a day 1 capsule 24h Oct, Active RESULTS No Results PROCEDURES Procedure Date Ordered Result Body Site GLYCATED HEMOGLOBIN TEST December 25, 2017 COMPREHEN METABOLIC PANEL December 25, 2017 LIPID PANEL December 25, 2017 VENIPUNCT, ROUTINE* December 25, 2017 INSTRUCTIONS MEDICATIONS ADMINISTERED No Known Medications MEDICAL [...] Surgical History colonoscopy 08/2017 Hospitalization History infection 2002 Hospitalization History [facility] suicide/depression 07/26/2015
--- OUTSIDE RECORDS SUMMARY | 2018-05-16 00:34 | XMS REPORT ---
Author Author SINGH CHURCHILL Organization [facility] Address [address] [place] [address] Care Team Providers Care Fisher Mussel Name Role Phone SINGH CHURCHILL Unavailable PROBLEMS Type Condition ICD9-CM Code VYX85-RP Code Onset Dates Condition Status SNOMED Code Problem Gastroesophageal reflux disease without esophagitis K21.9 Active 614753364 Problem Major depressive disorder, recurrent, moderate F33.1 Active 39689070 Problem Insomnia, unspecified G47.00 Active 111818983 Problem Major depressive disorder, recurrent episode, moderate F33.1 Active 958633094 Problem Recurrent major depressive disorder, in partial remission F33.41 Active 32056337 Problem Chronic maxillary sinusitis J32.0 Active 19672746 Problem History of prediabetes Z87.898 Active 671069652 Problem Overweight (BMI 25.0-29.9) E66.3 Active 082139600 Problem Skin lesion of right leg L98.9 Active 429445354 Problem Hyperlipidemia LDL goal <100 E78.5 Active 02543590 ALLERGIES No Information ENCOUNTERS Encounter Location Date Diagnosis [facility] [id number] [place] [address] 11835- 4655 May, [facility] [id number] [place] [address] 34893- 1235 Mar, [facility] [id number] [place] [address] 14833- 4405 February, [facility] [address] [address] -[address]103 February, Pain of left great toe M79.675 [facility] [id number] [place] [address] 13939- 5754 Dec, Recurrent major depressive disorder, in partial remission F33.41 [place] [id number] [place] [address] 67419- 9703 14 Dec, 2017 History of prediabetes Z87.898 ; Overweight (BMI 25.0-29.9) E66.3 ; Hyperlipidemia LDL goal <100 E78.5 and Long-term use of high-risk medication Z79.899 [facility] [id number] [place] [address] 98561- 8551 Nov, Skin lesion of right leg L98.9 [place] [address] 10156- 2879 Nov, Overweight (BMI 25.0-29.9) E66.3 ; Gastroesophageal reflux disease without esophagitis K21.9 ; Prediabetes R73.09 ; Chronic maxillary sinusitis J32.0 and Skin lesion of right leg L98.9 [facility] [place] [id number] [place] [address] 59457 -8449 Oct, Acute non-recurrent frontal sinusitis J01.10 [facility] [place] [address] 45228 -9137 Sep, Other viral agents as the cause of diseases classified elsewhere B97.89 and Acute upper respiratory infection, unspecified J06.9 [place] [id number] [place] [address] 28903- 8827 Sep, Major depressive disorder, recurrent episode, moderate F33.1 [facility] [id number] [place] [address] 43095- 1870 04 Sep, 2017 [place] [id number] [place] [address] 33732- 6417 Aug, [address] 51257- 0673 Jul, Chronic constipation K59.09 ; Overweight (BMI 25.0-29.9) E66.3 and Facial rash R21 [address] 25030- 4635 Jul, [facility] [id number] [place] [address] 50424- 0664 14 Jun, 2017 Major depressive disorder, recurrent episode, moderate F33.1 [facility] [id number] [place] [address] 21092 -9291 14 Jun, 2017 Dysuria R30.0 and Fluid level behind tympanic membrane of both ears H65.93 [place] [id number] [place] [address] 02410- 6246 14 Jun, 2017 Dental examination Z01.20 [place] [address] 44377- 9086 08 Jun, 2017 Other alf (current) 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 Z79.899 [place] [address] 02203- 8901 08 Jun, 2017 Major depressive disorder, recurrent, moderate F33.1 and Other alf (current) 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 Z79.899 [place] [id number] [place] [address] 58311- 1366 May, Major depressive disorder, recurrent, moderate F33.1 [facility] [id number] [place] [address] 36300 -3189 May, [facility] [id number] [place] [address] 23473 -4025 May, Candidiasis B37.9 and Vaginal lesion N89.8 [place] [id number] [place] [address] 99595- 6769 May, Major depressive disorder, recurrent, moderate F33.1 [place] [address] 43677- 2096 Mar, Major depressive disorder, recurrent, moderate F33.1 ; Insomnia, unspecified G47.00 and 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 [place] [id number] [place] [address] 76830- 1066 February, Major depressive disorder, recurrent, moderate F33.1 [facility] [id number] [place] [address] 56511- 5034 Jan, Major depressive disorder, recurrent, moderate F33.1 [facility] [id number] [place] [address] 84606- 4879 Nov, Major depressive disorder, recurrent, moderate F33.1 [facility] [id number] [place] [address] 42809- 2740 Nov, [facility] [address] 92838- 9077 Oct, Insomnia, unspecified G47.00 [facility] [id number] [place] [address] 34005- 9433 Oct, Major depressive disorder, recurrent, moderate F33.1 [facility] [id number] [place] [address] 46560- 3736 Sep, Major depressive disorder, recurrent, moderate F33.1 [facility] [id number] [place] [address] 22435- 0262 Sep, Major depressive disorder, recurrent episode, moderate F33.1 [facility] [id number] [place] [address] 04208- 2095 Aug, Major depressive disorder, recurrent episode, moderate F33.1 [facility] [id number] [place] [address] 03598- 0370 Aug, [facility] [id number] [place] [address] 02351- 5320 Aug, MDD (major depressive disorder), recurrent episode, mild F33.0 [facility] [id number] [place] [address] 65231- 8203 Jul, Dysuria R30.0 ; Chronic idiopathic constipation K59.04 and Allergy, insect bite Z91.038 [facility] [address] [place] [address]- 9712 Jul, Major depressive disorder, recurrent episode, moderate F33.1 [facility] [address] 53879- 1134 May, [facility] [id number] [place] [address] 90704- 1882 May, Abnormal fasting glucose R73.01 ; Gastroesophageal reflux disease without esophagitis K21.9 ; Tremor R25.1 and Prediabetes R73.09 [facility] [id number] [place] [address] [id number] May, Dental examination Z01.20 [facility] [address] 06076- 7326 17 May, 2016 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 [facility] [address] 49861- 5825 May, Major depressive disorder, recurrent, moderate F33.1 and Other alf (current) 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 Z79.899 [facility] [id number] [place] [address] 52276- 3914 May, [facility] [id number] [place] [address] 94362 -6199 May, Dysuria R30.0 [facility] [id number] [place] [address] 12388- 7195 May, [facility] [id number] [place] [address] 29172- 7435 May, Major depressive disorder, recurrent episode, moderate F33.1 [facility] [id number] [place] [address] 18201- 2838 Apr, Abnormal mammogram of right breast R92.8 [facility] [id number] [place] [address] 16315- 5280 Apr, [facility] [address] [place] [address]- 1588 Apr, [facility] [id number] [place] [address] 27732- 3057 Mar, Major depressive disorder, recurrent, moderate F33.1 and Insomnia, unspecified G47.00 [facility] [id number] [place] [address] 66177- 4984 Mar, Major depressive disorder, recurrent episode, moderate F33.1 [facility] [id number] [place] [address] 16237- 5851 February, [facility] [id number] [place] [address] 04564- 2245 Jan, [facility] [id number] [place] [address] 08703- 3905 Jan, Major depressive disorder, recurrent episode, moderate F33.1 [facility] [id number] [place] [address] 84567- 5544 Jan, Major depressive disorder, recurrent, moderate F33.1 [facility] [id number] [place] [address] [id number] Jan, Dental examination V72.2 [facility] [id number] [place] [address] 60933 -8606 Dec, Dysuria R30.0 ; Vaginal discharge N89.8 ; Vaginal yeast infection B37.3 and Encounter for screening for infections with a predominantly sexual mode of transmission Z11.3 [facility] [address] [place] [address] 22992- 8851 Dec, Major depressive disorder, recurrent episode, moderate F33.1 [facility] [id number] [place] [address] 20402- 6892 Dec, [facility] [id number] [place] [address] 72950- 7548 Dec, [facility] [address] 78794- 5548 Dec, [facility] [address] [place] [address] 32132- 6207 Nov, Major depressive disorder, recurrent episode, moderate F33.1 [facility] [address] [place] [address] [id number] 15 Nov, 2015 Encounter for dental examination Z01.20 [place] [id number] [place] [address] 25714- 6473 Nov, [place] [id number] [place] [address] 32235- 4982 Nov, [place] [id number] [place] [address] 37686- 6610 Oct, Hyperkalemia E87.5 ; History of UTI Z87.440 and Sinusitis J32.9 [place] [id number] [place] [address] 74040- 1804 Oct, Hyperkalemia E87.5 and Family history of hypertension Z82.49 [place] [id number] [place] [address] 70261- 2278 Oct, [place] [address] [place] [address] 01411- 2717 Oct, Dysuria R30.0 ; Acute cystitis without hematuria N30.00 ; Epigastric pain R10.13 ; Chronic fatigue R53.82 ; Sinusitis J32.9 and Vaginal yeast infection B37.3 [place] [address] [place] [address] 62998- 3524 Oct, Breast cancer screening V76.10 and Abnormal mammogram of right breast R92.8 [place] [id number] [place] [address] 65408- 0649 Oct, Breast cancer screening V76.10 and Abnormal mammogram of right breast R92.8 [place] [id number] [place] [address] 99979- 1496 Sep, [place] [address] [place] [address] 32710- 9192 Sep, Major depressive disorder, recurrent episode, moderate 296.32 [place] [id number] [place] [address] 3176 Aug, Insomnia, unspecified G47.00 ; Major depressive disorder, recurrent, moderate F33.1 and Dysthymic disorder F34.1 [place] [address] 10246- 3193 Aug, Major depressive disorder, recurrent, moderate F33.1 [place] [address] 427955- 6329 Aug, Insomnia, unspecified G47.00 ; Adjustment disorder with mixed anxiety and depressed mood F43.23 ; Dysthymic disorder F34.1 and Major depressive disorder, recurrent, moderate F33.1 [place] [address] 53241- 4589 Aug, Depression F32.9 and Sinusitis J32.[address] 884554- 4512 Aug, Major depressive disorder, recurrent episode, unspecified severity F33.9 [place] [id number] [place] [address] 30102- 7616 Aug, [facility] [id number] [place] [address] 18231- 8336 Jul, [place] [id number] [place] [address] 50339- 3050 Jun, [place] [address] 05766- 2198 Jun, Dysuria 788.1 [place] [id number] [place] [address] 76697- 0800 Jun, Insomnia 780.52 ; Unspecified myalgia and myositis 729.1 ; High risk sexual behavior V69.2 and Dysuria 788.1 [facility] [address] [address]- 5029 Jun, [facility] [address] [address]- 5248 May, [facility] [address] [address]- 3932 Apr, [facility] [address] [id number] Apr, Dental examination V72.2 [facility] [id number] [place] [address] 94074- 6285 Apr, Insomnia 780.52 ; Unspecified myalgia and myositis 729.1 ; Long-term use of high-risk medication V58.69 and Urinary incontinence 788.30 [facility] [address] [place] [address] 68934- 5737 Apr, Breast cancer screening V76.10 and Breast pain 611.71 [facility] [address] [place] [address] 56878- 8446 Apr, Breast cancer screening V76.10 [facility] [address] [address]- 6162 Apr, Breast cancer screening V76.10 and Vaginal itching 698.1 [facility] [address] [address]- 6954 Apr, [facility] [address] [place] [address]- 8304 February, [facility] [id number] [place] [address] 14630- 3197 February, Insomnia, unspecified 780.52 [facility] [address] [place] [address]- 6572 Jan, [facility] [id number] [place] [address]- 4093 Jan, [facility] [place] [facility] [address] [id number] [place] [address]- 3175 Dec, [facility] [place] [facility] [address] [id number] [place] [address]- 1668 Dec, [facility] [place] [facility] [address] [id number] [place] [address]- 0773 Dec, [facility] [place] [facility] [address] [id number] [place] [address]- 3594 Dec, [facility] [place] [facility] [address] [id number] [place] [address]- 0504 Dec, [facility] [place] [facility] [address] [facility] [id number] [place] [address]- 8872 Dec, [facility] [place] [facility] [address] [facility] [id number] [place] [address]- 9563 Dec, [facility] [place] [facility] [address] [facility] [id number] [place] [address]- 0481 Dec, [facility] [place] [facility] [address] [id number] [place] [address]- 9403 Dec, [facility] [place] [facility] [address] [facility] [id number] [place] [address]- 5774 Dec, [facility] [place] [facility] [address] [id number] [place] [address]- 8153 Nov, [facility] [place] [facility] [address] [facility] [id number] [place] [address]- 3157 Nov, [facility] [place] [facility] [address] [id number] [place] [address]- 3887 Nov, [facility] [place] [facility] [address] [facility] [id number] [place] [address]- 5019 Nov, [facility] [place] [facility] [address] [facility] [id number] [place] [address]- 0179 Nov, [facility] [place] [facility] [address] [facility] [id number] [place] [address]- 2856 Nov, 2014 [facility] [place] [facility] [address] [facility] [id number] [place] [address]- 3569 Nov, 2014 [facility] [place] [facility] [address] [facility] [id number] [place] [address]- 8194 Nov, 2014 [facility] [place] [facility] [address] [facility] [id number] [place] [address]- 4671 Nov, 2014 [facility] [place] [facility] [address] [facility] [id number] [place] [address]- 9779 Nov, 2014 [facility] [place] [facility] [address] [facility] [id number] [place] [address]- 1516 Nov, 2014 [facility] [place] [facility] [id number] [place] [address]- 1672 Nov, 2014 [facility] [place] [facility] [address] [facility] [id number] [place] [address]- 1913 Nov, 2014 [facility] [place] [facility] [address] [facility] [id number] [place] [address]- 9767 Nov, 2014 [facility] [place] [facility] [address] [facility] [id number] [place] [address]- 0298 Nov, 2014 [facility] [place] [facility] [address] [facility] [id number] [place] [address]- 1284 Nov, 2014 [facility] [place] [facility] [address] [facility] [id number], [place] [address]- 5100 Nov, 2014 [facility] [place] [facility] [address] [facility] [id number] [place] [address]- 0672 Nov, 2014 [facility] [place] [facility] [address] [facility] [id number], [place] [address]- 9442 Nov, 2014 [facility] [place] [facility] [address] [facility] [id number], [place] [address]- 9946 Nov, 2014 [facility] [place] [facility] [address] [id number] [place] [address]- 9753 Nov, [facility] [place] [facility] [address] [id number] [place] [address]- 5534 Nov, [facility] [place] [facility] [address] [id number] [place] [address]- 5841 Nov, [facility] [place] [facility] [address] [id number] [place] [address]- 9737 Oct, [facility] [place] [facility] [address] [id number] [place] [address]- 3575 Oct, [facility] [place] [facility] [address] [id number] [place] [address]- 2818 Oct, [facility] [place] [facility] [address] [id number] [place] [address]- 4837 Oct, [facility] [place] [facility] [address] [id number], [place] [address]- 9973 Oct, [facility] [place] [facility] [address] [id number] [place] [address]- 7127 Oct, [facility] [place] [facility] [address] [id number], [place] [address]- 4611 Oct, [facility] [place] [facility] [address] [id number], [place] [address]- 2745 Oct, [facility] [place] [facility] [address] [id number], [place] [address]- 2526 Oct, [facility] [place] [facility] [address] [id number], [place] [address]- 0032 Oct, [facility] [place] [facility] [address] [id number], [place] [address]- 0619 Oct, [facility] [place] [facility] [address] [id number], [place] [address]- 1043 Oct, [facility] [place] [facility] [address] [id number], [place] [address]- 7369 Sep, [facility] [place] [facility] [address] [id number] [place] 4674 Sep, [facility] [place] [facility] [address] [id number] [place] [address]- 5618 Sep, [facility] [place] [facility] [address] [facility] [id number] [place] [address]- 3389 Sep, [facility] [place] [facility] [address] [id number] [place] [address]- 6437 Sep, [facility] [place] [facility] [address] [facility] [id number] [place] [address]- 2407 Sep, [facility] [place] [facility] [address] [facility] [id number] [place] [address]- 2672 Aug, [facility] [place] [facility] [address] [facility] [id number], [place] [address]- 4286 Aug, [facility] [place] [facility] [address] [facility] [id number], [place] [address]- 4558 Jul, [facility] [place] [facility] [address] [facility] [id number] [place] [address]- 6750 Jul, [facility] [place] [facility] [address] [facility] [id number], [place] [address]- 1407 Jul, [facility] [place] [facility] [address] [facility] [id number], [place] [address]- 6362 Jul, [facility] [place] [facility] [address] [facility] [id number], [place] [address]- 9134 Jul, [facility] [place] [facility] [address] [id number] 3646 Jul, [facility] [place] [facility] [address] [facility] [id number], [place] [address]- 9367 Jun, [facility] [place] [facility] [address] [facility] [id number], [place] [address]- 9561 Jun, [facility] [place] [facility] [address] [id number] [place] [address]- 3153 16 Jun, 2014 [facility] [place] [facility] [address] [id number] [place] [address]- 3539 16 Jun, 2014 [facility] [place] [facility] [address] [id number] [place] [address]- 7914 13 Jun, 2014 [facility] [place] [facility] [address] [id number] [place] [address]- 0005 12 Jun, 2014 [facility] [place] [facility] [address] [id number] [place] [address]- 3967 Jun, [facility] [place] [facility] [address] [id number] [place] [address]- 8355 May, [facility] [place] [facility] [address] [id number] [place] [address]- 6915 May, [facility] [place] [facility] [address] [id number] [place] [address] February, [facility] [place] [facility] [address] [id number] [place] [address] February, [facility] [place] [facility] [address] [id number] [place] [address] February, [facility] [place] [facility] [address] [id number] [place] [address] February, [facility] [place] [facility] [address] [id number] [place] [address] February, [facility] [place] [facility] [address] [id number] [place] [address] February, [facility] [place] [facility] [address] [id number] [place] [address] February, [facility] [place] [facility] [address] [id number] [place] [address] Jan, [facility] [place] [facility] [address] [id number] [place] [address] 29 Jan, 2014 [facility] [place] [facility] [address] [id number] [place] [address] Jan, [facility] [place] [facility] [address] [id number] [place] [address] Jan, [facility] [place] [facility] [address] [id number] [place] [address] 18 Jan, 2014 [facility] [place] [facility] [address] [id number] [place] [address] 18 Jan, 2014 [facility] [place] [facility] [address] [id number] [place] [address] Jan, [facility] [place] [facility] [address] [id number] [place] [address] 17 Jan, 2014 [facility] [place] [facility] [address] [id number] [place] [address] 16 Jan, 2014 [facility] [place] [facility] [address] [id number] [place] [address] 16 Jan, 2014 [facility] [place] [facility] [address] [id number] [place] [address] 15 Jan, 2014 [facility] [place] [facility] [address] [id number] [place] [address] 15 Jan, 2014 [facility] [place] [facility] [address] [id number] [place] [address] 15 Jan, 2014 [facility] [place] [facility] [address] [id number] [place] [address] 15 Jan, 2014 [facility] [place] [facility] [address] [id number] [place] [address] Oct, [facility] [place] [facility] [address] [id number] [place] [address] Oct, [facility] [place] [facility] [address] [id number] [place] [address] May, [facility] [place] [facility] [address] [id number] [place] [address] 14 Mar, 2013 [facility] [address] [id number] [place] [address] Mar, [facility] [address] [id number] [place] [address] Mar, [facility] [address] [id number] [place] [address] February, [facility] [address] [id number] [place] [address] February, [facility] [address] [id number] [place] [address] February, [facility] [address] [id number] [place] [address] February, [facility] [facility] [address] [id number] [place] [address] February, [facility] [address] [id number] [place] [address] Jan, [facility] [address] [id number] [place] [address] Jan, [facility] [address] [id number] [place] [address] Jan, [facility] [address] [id number] [place] [address] Oct, [facility] [address] [id number] [place] [address] Oct, [facility] [place] [facility] [address] [id number] [place] [address] 15 Oct, 2012 [facility] [place] [facility] [address] [id number] [place] [address] Oct, [facility] [address] [id number] [place] [address] Oct, [facility] [address] [id number] [place] [address] Oct, [facility] [place] [facility] [address] [id number] [place] [address] Oct, [facility] [place] [facility] [address] [id number] [place] [address] Oct, [facility] [place] [facility] [address] [id number] [place] [address] Aug, [facility] [place] [facility] [address] [id number] [place] [address] Jul, [facility] [place] [facility] [address] [id number] [place] [address] Jul, [facility] [place] [facility] [address] [id number] [place] [address] Jul, [facility] [place] [facility] [address] [id number] [place] [address] Jul, [facility] [place] [facility] [address] [id number] [place] [address] Jul, [facility] [place] [facility] [address] [id number] [place] [address] Jul, [facility] [place] [facility] [address] [id number] [place] [address] Jul, [facility] [place] [facility] [address] [id number] [place] [address] Jun, [facility] [place] [facility] [address] [id number] [place] [address] May, [facility] [place] [facility] [address] [id number] [place] [address] May, [facility] [place] [facility] [address] [id number] [place] [address] Apr, [facility] [place] [facility] [address] [id number], [place] [address] Apr, [facility] [address] [id number] [address] [address] Apr, [facility] [address] [id number], [place] [address] Apr, [facility] [id number] [id number] Apr, [facility] [id number], [place] [address] Apr, [facility] [id number], [place] [address] Apr, [facility] [id number], [place] [address] Apr, [facility] [id number], [place] [address] Mar, [facility] [id number] [address] Jul, IMMUNIZATIONS No Known Immunizations SOCIAL HISTORY Never Assessed REASON FOR VISIT New Rx PLAN OF CARE VITAL SIGNS MEDICATIONS Medication Instructions Dosage Frequency Start Date End Date Duration Status Contrave 8-90 MG 1 tablet daily x 7 days, 1 tablet BID thereafter Aug, Active RESULTS No Results PROCEDURES No Known [...]
--- OUTSIDE RECORDS SUMMARY | 2018-05-16 00:34 | XMS REPORT ---
Author Author JUANITA Muir Organization [facility] Address [address] [place] [address] Care Team Providers Care Firer Retort Name Role Phone JUANITA Muir Unavailable PROBLEMS Type Condition ICD9-CM Code ZES49-KG Code Onset Dates Condition Status SNOMED Code Problem Gastroesophageal reflux disease without esophagitis K21.9 Active 756887359 Problem Major depressive disorder, recurrent, moderate F33.1 Active 62445191 Problem Insomnia, unspecified G47.00 Active 482339823 Problem Major depressive disorder, recurrent episode, moderate F33.1 Active 241879771 Problem Recurrent major depressive disorder, in partial remission F33.41 Active 61102284 Problem Chronic maxillary sinusitis J32.0 Active 91874849 Problem History of prediabetes Z87.898 Active 229531577 Problem Overweight (BMI 25.0-29.9) E66.3 Active 530204558 Problem Skin lesion of right leg L98.9 Active 132172575 Problem Hyperlipidemia LDL goal <100 E78.5 Active 67048958 ALLERGIES Substance Reaction Event Type Date Status Imipramine HCl rash Drug Allergy Oct, Active Celebrex Unknown Drug Allergy Oct, Active Amoxicillin Unknown Drug Allergy Oct, Active Vladimir Toilet Paper yeast infection Non Drug Allergy Oct, Active Tape can only use paper tape Non Drug Allergy Oct, Active ENCOUNTERS Encounter Location Date Diagnosis [facility] [address] [facility] [id number] [address] May, [facility] [id number] [address] Apr, Overweight (BMI 25.0-29.9) E66.3 [facility] [address] [facility] [id number], [place] [address] Mar, Major depressive disorder, recurrent, moderate F33.1 ; Left lateral ankle pain M25.572 ; Pain of left lower extremity M79.605 ; Insomnia, unspecified G47.00 ; Gastroesophageal reflux disease without esophagitis K21.9 ; Hyperlipidemia LDL goal <100 E78.5 ; Chronic maxillary sinusitis J32.0 and Overweight (BMI 25.0-29.9) E66.3 [facility] [place] [address] [address] February, Pain of left great toe M79.[address] [address] Dec, Recurrent major depressive disorder, in partial remission F33.[address] [address] Dec, History of prediabetes Z87.898 ; Overweight (BMI 25.0-29.9) E66.3 ; Hyperlipidemia LDL goal <100 E78.5 and Long-term use of high-risk medication Z79.[address] [address] Nov, Skin lesion of right leg L98.[address] [address] Nov, Overweight (BMI 25.0-29.9) E66.3 ; Gastroesophageal reflux disease without esophagitis K21.9 ; Prediabetes R73.09 ; Chronic maxillary sinusitis J32.0 and Skin lesion of right leg L98.9 [facility] [address] [address] Oct, Acute non-recurrent frontal sinusitis J01.10 [facility] [address] [address] Sep, Other viral agents as the cause of diseases classified elsewhere B97.89 and Acute upper respiratory infection, unspecified J06.[address] [address] Sep, Major depressive disorder, recurrent episode, moderate F33.1 [facility] [facility] [id number] [place] [address]- 0019 Sep, [facility] [id number] [place] [address] 13211- 0901 Aug, [place] [address] [address] Jul, Chronic constipation K59.09 ; Overweight (BMI 25.0-29.9) E66.3 and Facial rash R21 [facility] [id number] [place] [address] 38620- 4890 Jul, [facility] [id number] [place] [address] 13472- 3528 14 Jun, 2017 Major depressive disorder, recurrent episode, moderate F33.1 [facility] [id number] [place] [address] 28678 [address]74 14 Jun, 2017 Dysuria R30.0 and Fluid level behind tympanic membrane of both ears H65.93 [facility] [facility] [id number] [place] [address] 13261- 4735 14 Jun, 2017 Dental examination Z01.20 [facility] [id number] [place] [address] 89633- 7293 08 Jun, 2017 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.899 [facility] [id number] [place] [address] 49222- 5642 08 Jun, 2017 Major depressive disorder, recurrent, moderate F33.1 and 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.899 [facility] [id number] [place] [address] 20522- 6016 14 May, 2017 Major depressive disorder, recurrent, moderate F33.1 [facility] [id number] [place] [address] May, [facility] [id number] [place] [address] May, Candidiasis B37.9 and Vaginal lesion N89.8 [facility] [id number] [place] [address] 34485- 6141 May, Major depressive disorder, recurrent, moderate F33.1 [facility] [id number] [place] [address] 41357- 7558 Mar, Major depressive disorder, recurrent, moderate F33.1 ; Insomnia, unspecified G47.00 and Other fci (current) 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 Z79.899 [facility] [id number] [place] [address] 59556- 5373 February, Major depressive disorder, recurrent, moderate F33.1 [facility] [id number] [place] [address] 65297- 3851 Jan, Major depressive disorder, recurrent, moderate F33.1 [facility] [id number] [place] [address] 29744- 5992 Nov, Major depressive disorder, recurrent, moderate F33.1 [facility] [id number] [place] [address] 19643- 1082 Nov, [facility] [id number] [place] [address] 47139- 4496 Oct, Insomnia, unspecified G47.00 [facility] [id number] [place] [address] 24645- 4666 Oct, Major depressive disorder, recurrent, moderate F33.1 [facility] [id number] [place] [address] 43167- 9447 Sep, Major depressive disorder, recurrent, moderate F33.1 [facility] [id number] [place] [address] 93733- 1716 Sep, Major depressive disorder, recurrent episode, moderate F33.1 [facility] [id number] [place] [address] 34499- 4228 Aug, Major depressive disorder, recurrent episode, moderate F33.1 [facility] [id number] [place] [address] 54332- 7983 Aug, [facility] [address] [address] Aug, MDD (major depressive disorder), recurrent episode, mild F33.0 [facility] [address] [address]60- 0598 Jul, Dysuria R30.0 ; Chronic idiopathic constipation K59.04 and Allergy, insect bite Z91.038 [facility] [facility] [address] [address] Jul, Major depressive disorder, recurrent episode, moderate F33.1 [facility] [address] [address]99- 0983 May, [facility] [address] [address]- 14[address] May, Abnormal fasting glucose R73.01 ; Gastroesophageal reflux disease without esophagitis K21.9 ; Tremor R25.1 and Prediabetes R73.09 [facility] [id number] [place] [id number] May, Dental examination Z01.20 [place] [id number] [place] [address] 06394- 1596 May, Other fci (current) 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 Z79.899 [facility] [id number] [place] [address] 55308- 5154 May, Major depressive disorder, recurrent, moderate F33.1 and Other fci (current) 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 Z79.899 [facility] [id number] [place] [address] 70044- 5084 May, [facility] [address] [address] May, Dysuria R30.0 [facility] [address], [place] [address] May, [facility] [id number] [place] [address] 78534- 9605 May, Major depressive disorder, recurrent episode, moderate F33.1 [facility] [address] [place] [address] 11586- 0017 Apr, Abnormal mammogram of right breast R92.8 [facility] [address] [place] [address] 36727- 4151 Apr, [facility] [id number] [place] [address] 81300- 6256 Apr, [facility] [id number] [place] [address] 85739- 7161 Mar, Major depressive disorder, recurrent, moderate F33.1 and Insomnia, unspecified G47.00 [facility] [address] [place] [address] 57181- 5541 Mar, Major depressive disorder, recurrent episode, moderate F33.1 [facility] [address] [place] [address] 84380- 9823 February, [facility] [address] [place] [address] 22718- 1695 Jan, [facility] [address] [place] [address] 51822- 6412 Jan, Major depressive disorder, recurrent episode, moderate F33.1 [facility] [address], [place] [address]- 98[address] Jan, Major depressive disorder, recurrent, moderate F33.1 [facility] [address] [id number] Jan, Dental examination V72.2 [facility] [address], [place] [address] Dec, Dysuria R30.0 ; Vaginal discharge N89.8 ; Vaginal yeast infection B37.3 and Encounter for screening for infections with a predominantly sexual mode of transmission Z11.3 [facility] [address] [place] [address] 00235- 8920 Dec, Major depressive disorder, recurrent episode, moderate F33.1 [facility] [facility] [id number] [place] [address] 47248- 2800 Dec, [facility] [address] 14107- 9844 Dec, [facility] [address] 35871- 8643 Dec, [facility] [id number] [place] [address] 61811- 3881 Nov, Major depressive disorder, recurrent episode, moderate F33.1 [facility] [address] [id number] Nov, Encounter for dental examination Z01.20 [facility] [id number] [place] [address] 13535- 6339 Nov, [facility] [id number] [place] [address] 68468- 2884 Nov, [facility] [address] [place] [address] 98443- 9643 Oct, Hyperkalemia E87.5 ; History of UTI Z87.440 and Sinusitis J32.9 [facility] [id number] [place] [address] 20457- 2940 Oct, Hyperkalemia E87.5 and Family history of hypertension Z82.49 [facility] [id number] [place] [address] 24594- 9480 Oct, [facility] [id number] [place] [address] 77900- 4996 Oct, Dysuria R30.0 ; Acute cystitis without hematuria N30.00 ; Epigastric pain R10.13 ; Chronic fatigue R53.82 ; Sinusitis J32.9 and Vaginal yeast infection B37.3 [facility] [id number] [place] [address] 82947- 1296 Oct, Breast cancer screening V76.10 and Abnormal mammogram of right breast R92.8 [place]386- 6860 Oct, Breast cancer screening V76.10 and Abnormal mammogram of right breast R92.8 [place] [id number] [place] [address] Sep, [place] [id number] [place] [address] Sep, Major depressive disorder, recurrent episode, moderate 296.[address] [address]- 3948 Aug, Insomnia, unspecified G47.00 ; Major depressive disorder, recurrent, moderate F33.1 and Dysthymic disorder F34.1 [place] [id number] [place] [address] 32045- 8136 Aug, Major depressive disorder, recurrent, moderate F33.1 [address] [place] [address] 52469- 8686 Aug, Insomnia, unspecified G47.00 ; Adjustment disorder with mixed anxiety and depressed mood F43.23 ; Dysthymic disorder F34.1 and Major depressive disorder, recurrent, moderate F33.1 [place] [id number] [place] [address] 93506- 2095 Aug, Depression F32.9 and Sinusitis J32.9 [address] [place] [address] Aug, Major depressive disorder, recurrent episode, unspecified severity F33.9 [address] [id number] [address]- 4927 Aug, [facility] [address] [place] [address] 03000- 7180 Jul, [facility] [id number] [place] [address] 28214- 2498 Jun, [facility] [id number] [place] [address] 49638- 5598 Jun, Dysuria 788.1 [facility] [id number] [place] [address] 62920- 2197 Jun, Insomnia 780.52 ; Unspecified myalgia and myositis 729.1 ; High risk sexual behavior V69.2 and Dysuria 788.1 [place] [id number] [place] [address] 45034- 1648 Jun, [facility] [id number] [place] [address] 76105- 8430 May, [facility] [address], [place] [address]- 8344 Apr, [facility] [id number] [place] [address] [id number] Apr, Dental examination V72.2 [facility] [address], [place] [address]- 2061 Apr, Insomnia 780.52 ; Unspecified myalgia and myositis 729.1 ; Long-term use of high-risk medication V58.69 and Urinary incontinence 788.30 [facility] [address], [place] [address]- 8792 Apr, Breast cancer screening V76.10 and Breast pain 611.71 [facility] [address] [place] [address] 19762- 5062 Apr, Breast cancer screening V76.10 [facility] [id number] [place] [address] 24904- 3426 Apr, Breast cancer screening V76.10 and Vaginal itching 698.1 [facility] [address], [place] [address]- 3079 Apr, [facility] [id number] [address]- 9466 February, [facility] [id number] [place] [address] 27954- 3889 February, Insomnia, unspecified 780.52 [facility] [address] [facility] [id number] [place] [address] 27422- 4514 Jan, [facility] [id number] [place] [address] 92475- 4078 Jan, [facility] [id number] [place] [address] 664479- 1795 Dec, [facility] [id number] [place] [address] 25548- 2933 Dec, [facility] [address], [place] [address]- 3891 Dec, [facility] [address] 7040 Dec, [facility] [address] 6623 Dec, [facility] [address], [place] [address]- 8076 Dec, [facility] [address], [place] [address]- 7982 Dec, [facility] [id number] [address]- 0497 Dec, [facility] [id number], [place] [address]- 8299 Dec, [facility] [id number], [place] [address]- 8068 Dec, [facility] [place] [facility] [address] [id number] [place] [address]- 3146 Nov, 2014 [facility] [place] [facility] [address] [id number] [place] [address]- 0615 Nov, 2014 [facility] [place] [facility] [address] [facility] [id number] [place] [address]- 9412 Nov, 2014 [facility] [place] [facility] [address] [id number] [place] [address]- 4376 Nov, 2014 [facility] [place] [facility] [address] [facility] [id number] [place] [address]- 4876 Nov, 2014 [facility] [place] [facility] [address] [facility] [id number] [place] [address]- 2762 Nov, 2014 [facility] [place] [facility] [address] [facility] [id number] [place] [address]- 9267 18 Nov, 2014 [facility] [place] [facility] [address] [facility] [id number] [place] [address]- 2535 18 Nov, 2014 [facility] [place] [facility] [address] [facility] [id number] [place] [address]- 7732 17 Nov, 2014 [facility] [place] [facility] [address] [facility] [id number] [address]- 3299 09 Nov, 2014 [facility] [place] [facility] [address] [facility] [id number] [place] [address]- 2543 09 Nov, 2014 [facility] [place] [facility] [address] [facility] [id number] [place] [address]- 2540 09 Nov, 2014 [facility] [place] [facility] [address] [facility] [id number] [place] [address]- 5784 09 Nov, 2014 [facility] [place] [facility] [address] [facility] [id number] [place] [address]- 4541 07 Nov, 2014 [facility] [place] [facility] [address] [facility] [id number] [place] [address]- 1290 Nov, 2014 [facility] [place] [facility] [address] [id number] [place] [address]- 0185 Nov, 2014 [facility] [place] [facility] [address] [id number] [place] [address]- 8810 Nov, 2014 [facility] [place] [facility] [address] [facility] [id number] [place] [address]- 1300 Nov, 2014 [facility] [place] [facility] [address] [id number] [place] [address]- 2721 Nov, 2014 [facility] [place] [facility] [address] [id number] [place] [address]- 4544 Nov, 2014 [facility] [place] [facility] [address] [facility] [id number] [place] [address]- 1098 Nov, 2014 [facility] [place] [facility] [address] [facility] [id number] [place] [address]- 9753 Nov, 2014 [facility] [place] [facility] [address] [facility] [id number] [place] [address]- 2527 Nov, [facility] [place] [facility] [address] [facility] [id number] [place] [address]- 8725 Oct, [facility] [place] [facility] [address] [facility] [id number] [place] [address]- 2051 Oct, [facility] [place] [facility] [address] [facility] [id number], [place] [address]- 0574 Oct, [facility] [place] [facility] [address] [facility] [id number], [place] [address]- 1339 Oct, [facility] [place] [facility] [address] [id number] [place] [address]- 6635 Oct, [facility] [place] [facility] [address] [facility] [id number], [place] [address]- 2958 Oct, [facility] [place] [facility] [address] [facility] [id number] [place] [address]- 3510 Oct, [facility] [place] [facility] [address] [id number] [place] [address]- 6312 Oct, [facility] [place] [facility] [address] [id number] [place] [address]- 0146 Oct, [facility] [place] [facility] [address] [id number] [place] [address]- 7746 Oct, [facility] [place] [facility] [address] [id number] [place] [address]- 2982 Oct, [facility] [place] [facility] [address] [id number] [place] [address]- 9825 Oct, [facility] [place] [facility] [address] [id number] [place] [address]- 9119 Sep, [facility] [place] [facility] [address] [id number] [place] 3397 Sep, [facility] [place] [facility] [address] [id number] [place] [address]- 6195 Sep, [facility] [place] [facility] [address] [id number] [place] [address]- 7962 Sep, [facility] [place] [facility] [address] [id number] [place] [address]- 8965 Sep, [facility] [place] [facility] [address] [id number] [place] [address]- 8762 Sep, [facility] [place] [facility] [address] [id number] [place] [address]- 3590 Aug, [facility] [place] [facility] [address] [id number] [place] [address]- 0652 Aug, [facility] [place] [facility] [address] [id number] [place] [address]- 1313 Jul, [facility] [place] [facility] [address] [id number] [place] [address]- 5506 Jul, [facility] [place] [facility] [address] [id number] [place] [address]- 2122 Jul, [facility] [place] [facility] [address] [id number] [place] [address]- 4609 Jul, [facility] [place] [facility] [address] [id number] [place] [address]- 6316 Jul, [facility] [place] [facility] [address] [id number] [place] [address]- 7987 Jul, [facility] [place] [facility] [address] [id number] [place] [address]- 0952 Jun, [facility] [place] [facility] [address] [id number] [place] [address]- 8422 Jun, [facility] [place] [facility] [address] [id number] [place] [address]- 7200 16 Jun, 2014 [facility] [place] [facility] [address] [id number] [place] [address]- 7389 Jun, [facility] [place] [facility] [address] [id number] [place] [address]- 9045 13 Jun, 2014 [facility] [place] [facility] [address] [id number] [place] [address]- 3462 Jun, [facility] [place] [facility] [address] [id number] [place] [address]- 7952 Jun, [facility] [place] [facility] [address] [id number], [place] [address] May, [facility] [place] [facility] [address] [id number], [place] [address] May, [facility] [place] [facility] [address] [id number] [place] [address] February, [facility] [place] [facility] [address] [id number] [place] [address] February, [facility] [place] [facility] [address] [id number] [place] [address] February, [facility] [place] [facility] [address] [id number] [place] [address] February, [facility] [place] [facility] [address] [id number] [place] [address] February, [facility] [place] [facility] [address] [id number] [place] [address] February, [facility] [place] [facility] [address] [id number] [place] [address] February, [facility] [place] [facility] [address] [id number] [place] [address] Jan, [facility] [place] [facility] [address] [id number] [place] [address] Jan, [facility] [place] [facility] [address] [id number] [place] [address] Jan, [facility] [place] [facility] [address] [id number] [place] [address] Jan, [facility] [place] [facility] [address] [id number] [place] [address] Jan, [facility] [place] [facility] [address] [id number] [place] [address] Jan, [facility] [place] [facility] [address] [id number] [place] [address] Jan, [facility] [place] [facility] [address] [id number] [place] [address] Jan, [facility] [place] [facility] [address] [id number] [place] [address] 16 Jan, 2014 [facility] [place] [facility] [address] [id number] [place] [address] Jan, [facility] [place] [facility] [address] [id number] [place] [address] 15 Jan, 2014 [facility] [place] [facility] [address] [id number] [place] [address] 15 Jan, 2014 [facility] [place] [facility] [address] [id number] [place] [address] Jan, [facility] [address] [id number] [place] [address] Jan, [facility] [address] [id number] [place] [address] Oct, [facility] [address] [id number] [place] [address] Oct, [facility] [address] [id number] [place] [address] May, [facility] [address] [id number] [place] [address] Mar, [facility] [address] [id number] [place] [address] Mar, [facility] [facility] [address] [id number] [place] [address] Mar, [facility] [address] [id number] [place] [address] February, [facility] [address] [id number] [place] [address] February, [facility] [address] [id number] [place] [address] February, [facility] [address] [id number] [place] [address] February, [facility] [address] [id number] [place] [address] February, [facility] [address] [id number] [place] [address] Jan, [facility] [address] [id number] [place] [address] Jan, [facility] [address] [id number] [place] [address] Jan, [facility] [place] [facility] [address] [id number] [place] [address] Oct, [facility] [place] [facility] [address] [id number] [place] [address] Oct, [facility] [place] [facility] [address] [id number] [place] [address] Oct, [facility] [place] [facility] [address] [id number] [place] [address] Oct, [facility] [place] [facility] [address] [id number] [place] [address] Oct, [facility] [place] [facility] [address] [id number] [place] [address] Oct, [facility] [place] [facility] [address] [id number] [place] [address] Oct, [facility] [place] [facility] [address] [id number] [place] [address] Oct, [facility] [place] [facility] [address] [id number] [place] [address] Aug, [facility] [place] [facility] [address] [id number] [place] [address] Jul, [facility] [place] [facility] [address] [id number], [place] [address] Jul, [facility] [place] [facility] [address] [id number], [place] [address] Jul, [facility] [place] [facility] [address] [id number] [place] [address] Jul, [facility] [place] [facility] [address] [id number], [place] [address] Jul, [facility] [place] [facility] [address] [id number] [place] [address] Jul, [facility] [place] [facility] [id number] [address] Jul, [facility] [id number] [place] [address] Jun, [facility] [id number], [place] [address] May, [facility] [id number], [place] [address] May, [facility] [id number], [place] [address] Apr, [facility] [id number] [place] [address] Apr, [facility] [id number], [place] [address] Apr, [facility] [id number] [place] [address] Apr, [facility] [id number], [place] [address] Apr, [facility] [id number], [place] [address] Apr, [facility] [id number], [place] [address] Apr, [facility] [id number] [place] [address] Apr, [facility] [id number] [address] Mar, [facility] [id number], [place] [address] Jul, IMMUNIZATIONS No Known Immunizations SOCIAL HISTORY Never Assessed REASON FOR VISIT Flu Symptoms/runny nose/congestion/headache/no energy PLAN OF CARE Activity Details Follow Up prn Reason: VITAL SIGNS Height 68 in 2017-10-16 Weight 182.4 lbs 2017-10-16 Temperature 99.2 degrees Fahrenheit 2017-10-16 Heart Rate 78 bpm 2017-10-16 Respiratory Rate 18 2017-10-16 BMI 27.73 kg/m2 2017-10-16 Blood pressure systolic 118 mmHg 2017-10-16 Blood pressure diastolic 64 mmHg 2017-10-16 MEDICATIONS Medication Instructions Dosage Frequency Start Date End Date Duration Status Zinc + Vitamin C Not-Taking Claritin 10 mg take 1 tablet (10 mg) by oral route once daily Jan, Not-Taking HydrOXYzine HCl 25 MG Orally three times a day as needed for anxiety 1 tablet as needed May, Not-Taking Duloxetine HCl 60 mg Orally take with 30 mg Once a day 1 capsule 24h 30 days Not-Taking Doxycycline Hyclate 100 mg Orally every 12 hrs 1 capsule 12h Oct, Oct, 5 day(s) Active Biotin Not-Taking [place] 3 Not-Taking Flonase 50 mcg/actuation nasal daily inhale 1 spray (50 mcg) in each nostril by intranasal route 2 times per day PRN 24h Oct, Not-Taking Zolpidem Tartrate 10 mg Orally Once a day 1 tablet at bedtime as needed 24h Sep, 30 days Active Omeprazole 20 mg Orally Once a day 1 capsule 24h 23 Oct, 2013 Active Triamcinolone Acetonide 0.1 % Externally Twice a day 1 application to affected area 12h Jul, Not-Taking Cymbalta 30 MG Orally take with 60 mg Once a day 1 capsule 24h 30 days Active Flonase 50 MCG/ACT Nasally Once a day 1 spray in each nostril 24h Jun, 30 day(s) Not-Taking Calcium Not-Taking RESULTS No Results PROCEDURES No Known procedures [...]
--- OUTSIDE RECORDS SUMMARY | 2018-05-16 00:35 | XMS REPORT ---
Author Author RAINA ANGELES [facility] Address [address] [place] [address] Care Team Providers Care Technical Proposal Writer Name Role Phone RAINA ANGELES Unavailable PROBLEMS Type Condition ICD9-CM Code [id number] Code Onset Dates Condition Status SNOMED Code Problem Gastroesophageal reflux disease without esophagitis K21.9 Active 379842492 Problem Major depressive disorder, recurrent, moderate F33.1 Active 25940337 Problem Insomnia, unspecified G47.00 Active 470346422 Problem Major depressive disorder, recurrent episode, moderate F33.1 Active 625937512 Problem Recurrent major depressive disorder, in partial remission F33.41 Active 73770073 Problem Chronic maxillary sinusitis J32.0 Active 61489338 Problem History of prediabetes Z87.898 Active 031004928 Problem Overweight (BMI 25.0-29.9) E66.3 Active 569002939 Problem Skin lesion of right leg L98.9 Active 318481155 Problem Hyperlipidemia LDL goal <100 E78.5 Active 33741382 ALLERGIES Substance Reaction Event Type Date Status Imipramine HCl rash Drug Allergy Jun, Active Celebrex Unknown Drug Allergy Jun, Active Amoxicillin Unknown Drug Allergy Jun, Active Vladimir Toilet Paper yeast infection Non Drug Allergy Jun, Active Tape can only use paper tape Non Drug Allergy Jun, Active ENCOUNTERS Encounter Location Date Diagnosis [facility] [place] [address] [facility] [id number], [place] [address] May, [facility] [place] [address] [facility] [id number], [place] [address] 15 Dec, 2017 Recurrent major depressive disorder, in partial remission F33.41 [facility] [place] [address] [facility] [id number], [place] [address] 14 Dec, 2017 History of prediabetes Z87.898 ; Overweight (BMI 25.0-29.9) E66.3 ; Hyperlipidemia LDL goal <100 E78.5 and Long-term use of high-risk medication Z79.[address] [address] 19 Nov, 2017 Skin lesion of right leg L98.[address] [address] 06 Nov, 2017 Overweight (BMI 25.0-29.9) E66.3 ; Gastroesophageal reflux disease without esophagitis K21.9 ; Prediabetes R73.09 ; Chronic maxillary sinusitis J32.0 and Skin lesion of right leg L98.9 [facility] [address] [address] Oct, Acute non-recurrent frontal sinusitis J01.[address] [address] Sep, Other viral agents as the cause of diseases classified elsewhere B97.89 and Acute upper respiratory infection, unspecified J06.[address] [address] Sep, Major depressive disorder, recurrent episode, moderate F33.1 [place] [id number] [place] [address] Sep, [address] [address] Aug, [address] [address] Jul, Chronic constipation K59.09 ; Overweight (BMI 25.0-29.9) E66.3 and Facial rash R21 [place] [address] [address] 17 Jul, 2017 [place] [address] [address] 14 Jun, 2017 Major depressive disorder, recurrent episode, moderate F33.1 [facility] [address] [place] [place] [id number] [place] [address] 14 Jun, 2017 Dysuria R30.0 and Fluid level behind tympanic membrane of both ears H65.93 [facility] [place] [address] [id number] [place] [address]207- 9300 14 Jun, 2017 Dental examination Z01.20 [place] [address] [place] [place] [id number] [place] [address] 41898- 6165 08 Jun, 2017 Other digester (current) 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 Z79.899 [place] [address] [place] [id number] [place] [address] 51167- 7275 08 Jun, 2017 Major depressive disorder, recurrent, moderate F33.1 and Other fci (current) 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 Z79.899 [place] [address] [place] [place] [id number] [place] [address] 91957- 2170 May, Major depressive disorder, recurrent, moderate F33.1 [facility] [id number] [place] [address]82 [address] May, [facility] [address] [address] May, Candidiasis B37.9 and Vaginal lesion N89.8 [place] [address] [place] [id number] [place] [address] 29263- 2174 May, Major depressive disorder, recurrent, moderate F33.1 [place] [address] [place] [id number] [place] [address] 43811- 7130 Mar, Major depressive disorder, recurrent, moderate F33.1 ; Insomnia, unspecified G47.00 and Other digester (current) 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 Z79.899 [place] [address] [place] [place] [id number] [place] [address] 81390- 6777 February, Major depressive disorder, recurrent, moderate F33.1 [place] [address] [place] [id number] [place] [address] 16522- 1653 Jan, Major depressive disorder, recurrent, moderate F33.1 [facility] [place] [address] [place] [address] 40501- 0164 Nov, Major depressive disorder, recurrent, moderate F33.1 [facility] [place] [address] [id number] [place] [address] 86257- 4956 Nov, [facility] [place] [address] [address] Oct, Insomnia, unspecified G47.00 [facility] [place] [address] [id number] [place] [address] 80552- 1191 Oct, Major depressive disorder, recurrent, moderate F33.1 [facility] [place] [address] [place] [id number] [place] [address] 12086- 7271 Sep, Major depressive disorder, recurrent, moderate F33.1 [facility] [place] [address] [place] [id number] [place] [address] 74627- 6216 Sep, Major depressive disorder, recurrent episode, moderate F33.1 [facility] [place] [address] [place] [id number] [place] [address] 32880- 3594 Aug, Major depressive disorder, recurrent episode, moderate F33.1 [facility] [place] [address] [place] [id number] [place] [address] 36863- 2528 Aug, [facility] [place] [address] [id number] [place] [address] 04403- 9567 Aug, MDD (major depressive disorder), recurrent episode, mild F33.0 [facility] [place] [address] [id number] [place] [address] 73930- 0809 Jul, Dysuria R30.0 ; Chronic idiopathic constipation K59.04 and Allergy, insect bite Z91.038 [facility] [place] [address] [id number] [place] [address] 68337- 4681 Jul, Major depressive disorder, recurrent episode, moderate F33.1 [facility] [place] [address] [place] [address] May, [facility] [place] [address] [place] [id number] [place] [address] 47931- 6838 May, Abnormal fasting glucose R73.01 ; Gastroesophageal reflux disease without esophagitis K21.9 ; Tremor R25.1 and Prediabetes R73.09 [facility] [address] [id number] May, Dental examination Z01.20 [facility] [place] [address] [id number] [place] [address] 01808- 1873 17 May, 2016 Other fci (current) 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 Z79.899 [facility] [place] [address] [place] [id number] [place] [address] 27310- 3072 May, Major depressive disorder, recurrent, moderate F33.1 and Other digester (current) 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 Z79.899 [facility] [place] [address] [id number] [place] [address] 09544- 3216 May, [facility] [address] [id number] [place] [address] 94072 -8586 May, Dysuria R30.0 [facility] [place] [address] [id number] [place] [address] 81407- 9680 May, [facility] [place] [address] [id number] [place] [address] 47050- 1896 May, Major depressive disorder, recurrent episode, moderate F33.1 [facility] [place] [address] [place] [address] 53310- 0901 Apr, Abnormal mammogram of right breast R92.8 [facility] [place] [address] [id number] [place] [address] 89695- 3717 Apr, [facility] [place] [address] [id number] [place] [address] 54803- 6908 Apr, [facility] [place] [address] [id number] [place] [address] 55729- 6076 Mar, Major depressive disorder, recurrent, moderate F33.1 and Insomnia, unspecified G47.00 [facility] [place] [address] [place] [address] 17432- 9209 Mar, Major depressive disorder, recurrent episode, moderate F33.1 [facility] [place] [address], [place] [address] 95[address] February, [facility] [place] [address] [place] [id number] [place] [address] 27336- 9046 Jan, [facility] [place] [address] [id number] [place] [address] 28586- 1814 Jan, Major depressive disorder, recurrent episode, moderate F33.1 [facility] [place] [address] [place] [address] 47435- 4324 Jan, Major depressive disorder, recurrent, moderate F33.1 [facility] [address] [place] [id number] [place] [address] [id number] Jan, Dental examination V72.2 [facility] [address] [place] [address] 87784 -8031 Dec, Dysuria R30.0 ; Vaginal discharge N89.8 ; Vaginal yeast infection B37.3 and Encounter for screening for infections with a predominantly sexual mode of transmission Z11.3 [facility] [place] [address], [place] [address] Dec, Major depressive disorder, recurrent episode, moderate F33.1 [facility] [place] [address], [place] [address]- 2301 Dec, [facility] [place] [address] [place] [place] [id number] [place] [address] 72981- 9467 Dec, [facility] [place] [address] [place] [address] 77445- 3290 Dec, [facility] [place] [address] [place] [address] 22227- 4545 Nov, Major depressive disorder, recurrent episode, moderate F33.1 [facility] [address] [id number] Nov, Encounter for dental examination Z01.20 [place] [address] [place] [address] 02512- 6635 Nov, [place] [address] [place] [id number] [place] [address] 24315- 8571 Nov, [place] [address] [place] [id number] [place] [address] 55402- 8881 Oct, Hyperkalemia E87.5 ; History of UTI Z87.440 and Sinusitis J32.9 [place] [address] [place] [id number] [place] [address] 18461- 6624 Oct, Hyperkalemia E87.5 and Family history of hypertension Z82.49 [place] [address] [place] [id number] [place] [address] 04112- 4338 Oct, [place] [address] [place] [id number] [place] [address] 48935- 3132 Oct, Dysuria R30.0 ; Acute cystitis without hematuria N30.00 ; Epigastric pain R10.13 ; Chronic fatigue R53.82 ; Sinusitis J32.9 and Vaginal yeast infection B37.3 [place] [address] [place] [address] 08976- 1217 Oct, Breast cancer screening V76.10 and Abnormal mammogram of right breast R92.8 [place] [address] [place] [address] 92052- 8268 Oct, Breast cancer screening V76.10 and Abnormal mammogram of right breast R92.8 [place] [address] [place] [address] 55690- 2546 Sep, [place] [address] [place] [id number] [place] [address] 23485- 4340 Sep, Major depressive disorder, recurrent episode, moderate 296.32 [place] [address] [place] [id number] [place] [address] 73653- 8587 Aug, Insomnia, unspecified G47.00 ; Major depressive disorder, recurrent, moderate F33.1 and Dysthymic disorder F34.1 [place] [address] [place] [id number] [place] [address] 49032- 1171 Aug, Major depressive disorder, recurrent, moderate F33.1 [place] [address] 237432- 3752 Aug, Insomnia, unspecified G47.00 ; Adjustment disorder with mixed anxiety and depressed mood F43.23 ; Dysthymic disorder F34.1 and Major depressive disorder, recurrent, moderate F33.1 [place] [address] 80793- 1748 Aug, Depression F32.9 and Sinusitis J32.9 [place] [address] 04868- 7527 Aug, Major depressive disorder, recurrent episode, unspecified severity F33.9 [place] [address] 20159- 3700 Aug, [place] [address] 43148- 8173 Jul, [place] [address] 12893- 7361 Jun, [place] [address] 21152- 1642 Jun, Dysuria 788.[address] 43677- 3930 Jun, Insomnia 780.52 ; Unspecified myalgia and myositis 729.1 ; High risk sexual behavior V69.2 and Dysuria 788.1 [place] [address] 61871- 1105 Jun, [facility] [place] [address], [place] [address]- 8483 May, [facility] [place] [address] [address] Apr, [facility] [id number] [id number] Apr, Dental examination V72.2 [facility] [place] [address] [place] [address] 56725- 9121 Apr, Insomnia 780.52 ; Unspecified myalgia and myositis 729.1 ; Long-term use of high-risk medication V58.69 and Urinary incontinence 788.30 [facility] [place] [address], [place] [address]- 1794 Apr, Breast cancer screening V76.10 and Breast pain 611.71 [place] [address] [place] [address] 73852- 5458 Apr, Breast cancer screening V76.10 [facility] [place] [address] [place] [id number] [place] [address] 62716- 0896 Apr, Breast cancer screening V76.10 and Vaginal itching 698.1 [facility] [place] [address], [place] [address]- 7673 Apr, [facility] [place] [address], [place] [address]- 4214 February, [facility] [place] [address], [place] [address]- 3624 February, Insomnia, unspecified 780.52 [facility] [place] [address], [place] [address]- 0475 Jan, [facility] [place] [address], [place] [address]- 7050 Jan, [facility] [place] [address] [place] [address] 14334- 2025 Dec, [facility] [place] [facility] [address] [id number] [place] [address]- 8664 Dec, [facility] [place] [facility] [address] [id number] [place] [address]- 0732 Dec, [facility] [place] [facility] [address] [facility] [id number] [place] [address]- 8917 Dec, [facility] [place] [facility] [address] [id number] [place] [address]- 5492 Dec, [facility] [place] [facility] [address] [id number] [place] [address]- 3945 Dec, [facility] [place] [facility] [address] [facility] [id number] [place] [address]- 6879 Dec, [facility] [place] [facility] [address] [facility] [id number] [place] [address]- 3685 Dec, [facility] [place] [facility] [address] [id number], [place] [address]- 8734 Dec, [facility] [place] [facility] [address] [facility] [id number] [place] [address]- 9946 Dec, [facility] [place] [facility] [address] [facility] [id number] [place] [address]- 3489 Nov, [facility] [place] [facility] [address] [facility] [id number], [place] [address]- 5972 Nov, [facility] [place] [facility] [address] [id number], [place] [address]- 1126 Nov, [facility] [place] [facility] [address] [id number] [place] [address]- 1255 Nov, [facility] [place] [facility] [address] [facility] [id number] [place] [address]- 8827 Nov, [facility] [place] [facility] [address] [facility] [id number] [place] [address]- 1251 Nov, [facility] [place] [facility] [address] [id number] [place] [address]- 1394 Nov, 2014 [facility] [place] [facility] [address] [id number] [place] [address]- 1925 Nov, 2014 [facility] [place] [facility] [address] [facility] [id number] [place] [address]- 254 17 Nov, 2014 [facility] [place] [facility] [address] [facility] [id number] [place] [address]- 2206 Nov, 2014 [facility] [place] [facility] [address] [id number] [place] [address]- 3599 Nov, 2014 [facility] [place] [facility] [address] [facility] [id number] [place] [address]- 5267 Nov, 2014 [facility] [place] [facility] [address] [facility] [id number] [place] [address]- 4655 Nov, 2014 [facility] [place] [facility] [address] [facility] [id number] [place] [address]- 0125 Nov, 2014 [facility] [place] [facility] [address] [facility] [id number] [place] [address]- 6423 Nov, 2014 [facility] [place] [facility] [address] [facility] [id number] [place] [address]- 4387 Nov, 2014 [facility] [place] [facility] [address] [facility] [id number] [place] [address]- 5741 Nov, 2014 [facility] [place] [facility] [address] [facility] [id number], [place] [address]- 2547 Nov, 2014 [facility] [place] [facility] [address] [facility] [id number] [place] [address]- 5241 Nov, 2014 [facility] [place] [facility] [address] [facility] [id number] [place] [address]- 8729 Nov, 2014 [facility] [place] [facility] [address] [facility] [id number] [place] [address]- 4869 Nov, 2014 [facility] [place] [facility] [address] [facility] [id number] [place] [address]- 4684 Nov, [facility] [address] [id number] [place] [address]- 1197 Nov, [facility] [place] [facility] [address] [id number] [place] [address]- 2299 Oct, [facility] [address] [id number] [place] [address] Oct, [facility] [address] [id number] [place] [address] Oct, [facility] [address] [id number] [place] [address] Oct, [facility] [address] [id number] [place] [address] Oct, [facility] [address] [id number] [place] [address] Oct, [facility] [address] [id number] [place] [address] Oct, [facility] [address] [id number] [place] [address] Oct, [facility] [address] [id number] [place] [address] Oct, [facility] [address] [id number] [place] [address] Oct, [facility] [address] [id number] [place] [address] Oct, [facility] [place] [facility] [address] [id number] [place] [address] Oct, [facility] [place] [facility] [address] [id number] [place] [address] Sep, [facility] [address] [id number] [place] [address] Sep, [facility] [place] [facility] [address] [id number] [place] [address] Sep, [facility] [place] [facility] [address] [id number] [place] [address] Sep, [facility] [place] [facility] [address] [id number] [place] [address] Sep, [facility] [place] [facility] [address] [id number] [place] [address] Sep, [facility] [place] [facility] [address] [id number] [place] [address] Aug, [facility] [place] [facility] [address] [id number] [place] [address] Aug, [facility] [place] [facility] [address] [id number] [place] [address] Jul, [facility] [place] [facility] [address] [id number] [place] [address] Jul, [facility] [place] [facility] [address] [id number] [place] [address] Jul, [facility] [place] [facility] [address] [id number], [place] [address] Jul, [facility] [place] [facility] [address] [id number], [place] [address] Jul, [facility] [place] [facility] [address] [id number], [place] [address] 07 Jul, 2014 [facility] [place] [facility] [address] [id number] [place] [address] Jun, [facility] [place] [facility] [address] [id number] [address] 25 Jun, 2014 [facility] [place] [facility] [address] [id number], [place] [address] 16 Jun, 2014 [facility] [place] [facility] [address] [id number], [place] [address] 16 Jun, 2014 [facility] [place] [facility] [address] [id number] [place] [address] 13 Jun, 2014 [facility] [place] [facility] [address] [id number] [place] [address] Jun, [facility] [place] [facility] [address] [id number] [place] [address] Jun, [facility] [place] [facility] [address] [id number] [place] [address] May, [facility] [place] [facility] [address] [id number] [place] [address] May, [facility] [facility] [address] [id number] [place] [address] February, [facility] [place] [facility] [address] [id number] [place] [address] February, [facility] [place] [facility] [address] [id number] [place] [address] February, [facility] [place] [facility] [address] [id number] [place] [address] February, [facility] [place] [facility] [address] [id number] [place] [address] February, [facility] [place] [facility] [address] [id number] [place] [address] February, [facility] [place] [facility] [address] [id number] [place] [address] February, [facility] [place] [facility] [address] [id number] [place] [address] Jan, [facility] [place] [facility] [address] [id number] [place] [address] Jan, [facility] [place] [facility] [address] [id number] [place] [address] Jan, [facility] [place] [facility] [address] [id number] [place] [address] 21 Jan, 2014 [facility] [place] [facility] [address] [id number] [place] [address] 18 Jan, 2014 [facility] [place] [facility] [address] [id number] [place] [address] 18 Jan, 2014 [facility] [place] [facility] [address] [id number] [place] [address] 17 Jan, 2014 [facility] [place] [facility] [address] [id number] [place] [address] 17 Jan, 2014 [facility] [place] [facility] [address] [id number] [place] [address] 16 Jan, 2014 [facility] [place] [facility] [address] [id number] [place] [address] 16 Jan, 2014 [facility] [place] [facility] [address] [id number] [place] [address] 15 Jan, 2014 [facility] [address] [id number] [place] [address] 15 Jan, 2014 [facility] [address] [id number] [place] [address] 15 Jan, 2014 [facility] [address] [id number] [place] [address] 15 Jan, 2014 [facility] [address] [id number] [place] [address] Oct, [facility] [address] [id number] [place] [address] Oct, [facility] [place] [address] [id number] [place] [address] May, [facility] [address] [id number] [place] [address] 14 Mar, 2013 [facility] [address] [id number] [place] [address] Mar, [facility] [address] [id number] [place] [address] Mar, [facility] [address] [id number] [place] [address] February, [facility] [address] [id number] [place] [address] February, [facility] [address] [id number] [place] [address] February, [facility] [address] [id number] [place] [address] February, [facility] [address] [id number] [place] [address] February, [facility] [address] [id number] [place] [address] Jan, [facility] [address] [id number] [place] [address] Jan, [facility] [address] [id number] [place] [address] 365[address] Jan, [facility] [address] [id number] [place] [address] Oct, [facility] [address] [id number], [place] [address] Oct, [facility] [address] [id number], [place] [address] Oct, [facility] [address] [id number] [place] [address] Oct, [facility] [address] [id number], [place] [address] Oct, [facility] [address] [id number] [place] [address] Oct, [facility] [address] [id number] [place] [address] Oct, [facility] [address] [id number] [place] [address] Oct, [facility] [address] [id number] [place] [address]44 Aug, [facility] [address] [id number] [place] [address] 9769 Jul, [facility] [address] [id number] [place] [address] Jul, [facility] [address] [id number] [place] [address] Jul, [facility] [address] [id number] [place] [address] Jul, [facility] [address] [id number] [place] [address] Jul, [facility] [address] [id number] [place] [address] Jul, [facility] [address] [id number] [place] [address] Jul, [facility] [address] [id number] [place] [address] Jun, [facility] [address] [id number] [place] [address] May, [facility] [address] [id number] [place] [address]42 May, [facility] [address] [id number] [place] [address] Apr, [facility] [address] [id number] [place] [address] 2026 Apr, [facility] [address] [id number] [place] [address] Apr, [facility] [place] [address] [facility] [id number], [place] [address] Apr, [facility] [place] [address] [id number], [place] [address] Apr, [facility] [place] [address] [facility] [id number], [place] [address] Apr, [facility] [place] [id number], [place] [address] Apr, [facility] [place] [address] [facility] [id number], [place] [address] Apr, [facility] [place] [address] [id number], [place] [address] Mar, [facility] [place] [address] [id number], [place] [address] Jul, IMMUNIZATIONS Vaccine Route Administration Date Status DEXAMETHASONE 4MG/ML (PER 1 MG) IM Intramuscular Jun 27, 2017 Administered DEPO MEDROL 40 MG/ML IM Intramuscular Jun 27, 2017 Administered SOCIAL HISTORY Never Assessed REASON FOR VISIT Sinus Infection/UTI, dizzy started saturdaySilvina Larson MA PLAN OF CARE Activity Details Follow Up prn Reason: VITAL SIGNS Height 68 in 2017-06-27 Weight 187.8 lbs 2017-06-27 Temperature 97.9 degrees Fahrenheit 2017-06-27 Heart Rate 68 bpm 2017-06-27 Respiratory Rate 20 2017-06-27 BMI 28.55 kg/m2 2017-06-27 Blood pressure systolic 98 mmHg 2017-06-27 Blood pressure diastolic 68 mmHg 2017-06-27 MEDICATIONS Medication Instructions Dosage Frequency Start Date End Date Duration Status Triamcinolone Acetonide 0.1 % Externally Twice a day 1 application to affected area 12h Jul, Active Flonase 50 MCG/ACT Nasally Once a day 1 spray in each nostril 24h Jun, 30 day(s) Active Zyrtec Allergy 10 MG Orally Once a day 1 tablet 24h Jun, Jul, 30 day(s) Active Zolpidem Tartrate 10 mg Orally Once a day 1 tablet at bedtime as needed 24h Sep, 30 days Active Duloxetine HCl 60 mg Orally take with 30 mg Once a day 1 capsule 24h 30 Active HydrOXYzine HCl 25 MG Orally three times a day as needed for anxiety 1 tablet as needed May, 30 day(s) Active Abilify 5 mg Orally Once a day TAKE ONE-HALF TABLET BY MOUTH ONCE DAILY 24h 30 Active Cymbalta 30 MG Orally take with 60 mg Once a day 1 capsule 24h 30 days Active RESULTS No Results PROCEDURES Procedure Date Ordered Result Body Site URINALYSIS, AUTO, W/O SCOPE Jun 27, 2017 DEPO MEDROL 40 MG/ML Jun 27, 2017 DEXAMETHASONE 4MG/ML (PER 1 MG) Jun 27, 2017 THER/PROPH/DIAG INJ, SC/IM Jun 27, 2017 INSTRUCTIONS MEDICATIONS ADMINISTERED No Known Medications [...] 01/24/2017 Hospitalization History infection 2001 Hospitalization History psych hernandez suicide/depression 07/26/2015
--- OUTSIDE RECORDS SUMMARY | 2018-05-16 00:35 | XMS REPORT ---
Author Author CHARISSA DENITA Organization [facility] Address [address] [place] [address] Care Team Providers Care Studio Artist Name Role Phone ELIZABETKEKE PELLETIERA Unavailable PROBLEMS Type Condition ICD9-CM Code ZYN75-WP Code Onset Dates Condition Status SNOMED Code Problem Gastroesophageal reflux disease without esophagitis K21.9 Active 545203482 Problem Major depressive disorder, recurrent, moderate F33.1 Active 51034836 Problem Insomnia, unspecified G47.00 Active 021701534 Problem Major depressive disorder, recurrent episode, moderate F33.1 Active 820147606 Problem Recurrent major depressive disorder, in partial remission F33.41 Active 04737179 Problem Chronic maxillary sinusitis J32.0 Active 33563338 Problem History of prediabetes Z87.898 Active 483788250 Problem Overweight (BMI 25.0-29.9) E66.3 Active 049926626 Problem Skin lesion of right leg L98.9 Active 232760386 Problem Hyperlipidemia LDL goal <100 E78.5 Active 04400709 ALLERGIES Substance Reaction Event Type Date Status Imipramine HCl rash Drug Allergy Sep, Active Celebrex Unknown Drug Allergy Sep, Active Amoxicillin Unknown Drug Allergy Sep, Active Vladimir Toilet Paper yeast infection Non Drug Allergy Sep, Active Tape can only use paper tape Non Drug Allergy Sep, Active ENCOUNTERS Encounter Location Date Diagnosis [facility] [id number] [address] May, [facility] [id number] [place] [address] Mar, [facility] [address] [id number] [address] February, Pain of left great toe M79.675 [facility] [address] [place] [address] 38649- 5840 15 Dec, 2017 Recurrent major depressive disorder, in partial remission F33.[address] [address]- [address] 14 Dec, 2017 History of prediabetes Z87.898 ; Overweight (BMI 25.0-29.9) E66.3 ; Hyperlipidemia LDL goal <100 E78.5 and Long-term use of high-risk medication Z79.[address] 7[address]- 4821 Nov, Skin lesion of right leg L98.[address] 47858- 1357 06 Nov, 2017 Overweight (BMI 25.0-29.9) E66.3 ; Gastroesophageal reflux disease without esophagitis K21.9 ; Prediabetes R73.09 ; Chronic maxillary sinusitis J32.0 and Skin lesion of right leg L98.9 [facility] WALK [place] [id number] [place] [address]07 -2943 Oct, Acute non-recurrent frontal sinusitis J01.10 [facility] [place] [id number] [place] [address] 49446 -6484 Sep, Other viral agents as the cause of diseases classified elsewhere B97.89 and Acute upper respiratory infection, unspecified J06.9 [place] [id number] [place] [address] 27951- 5801 Sep, Major depressive disorder, recurrent episode, moderate F33.1 [place] [id number] [place] [address] 09634- 2312 Sep, [address] 01856- 8604 Aug, [address] [address]252- 9617 Jul, Chronic constipation K59.09 ; Overweight (BMI 25.0-29.9) E66.3 and Facial rash R21 [place] [id number] [address]28- 0888 17 Jul, 2017 [place] [address] 18132- 1891 14 Jun, 2017 Major depressive disorder, recurrent episode, moderate F33.1 [facility] [place] [address] 89127 [address]7838 14 Jun, 2017 Dysuria R30.0 and Fluid level behind tympanic membrane of both ears H65.93 [place] [address] 46083- 1271 14 Jun, 2017 Dental examination Z01.20 [place] [address] 58498- 3207 08 Jun, 2017 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 [place] [address] 97177- 0937 08 Jun, 2017 Major depressive disorder, recurrent, moderate F33.1 and Other mcfp (current) 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 Z79.899 [place] [address] 29930- 6320 May, Major depressive disorder, recurrent, moderate F33.1 [facility] [place] [address] [address]396 May, [facility] [address] [address] May, Candidiasis B37.9 and Vaginal lesion N89.8 [place] [address] 35802- 1832 May, Major depressive disorder, recurrent, moderate F33.1 [place] [address] 74568- 3233 Mar, Major depressive disorder, recurrent, moderate F33.1 ; Insomnia, unspecified G47.00 and 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 [facility] [address] [place] [address] 81185- [address] February, Major depressive disorder, recurrent, moderate F33.1 [facility] [id number] [place] [address] 10993- 5495 Jan, Major depressive disorder, recurrent, moderate F33.1 [facility] [id number] [place] [address] 71568- 6434 Nov, Major depressive disorder, recurrent, moderate F33.1 [facility] [id number] [place] [address] 46229- 5558 Nov, [facility] [id number] [place] [address] 69029- 9144 Oct, Insomnia, unspecified G47.00 [facility] [id number] [place] [address] 47634- 1839 Oct, Major depressive disorder, recurrent, moderate F33.1 [facility] [id number] [place] [address] 54586- 8765 Sep, Major depressive disorder, recurrent, moderate F33.1 [facility] [id number] [place] [address] 70227- 6307 Sep, Major depressive disorder, recurrent episode, moderate F33.1 [facility] [id number] [place] [address] 13800- 5844 Aug, Major depressive disorder, recurrent episode, moderate F33.1 [facility] [id number] [place] [address] 77477- 4394 Aug, [facility] [id number] [place] [address] 29821- 3329 Aug, MDD (major depressive disorder), recurrent episode, mild F33.0 [facility] [id number] [place] [address] 67608- 6312 Jul, Dysuria R30.0 ; Chronic idiopathic constipation K59.04 and Allergy, insect bite Z91.038 [facility] [id number] [place] [address] 22530- 4222 Jul, Major depressive disorder, recurrent episode, moderate F33.1 [facility] [id number] [place] [address] 51062- 2282 May, [facility] [address] 84242- 6826 May, Abnormal fasting glucose R73.01 ; Gastroesophageal reflux disease without esophagitis K21.9 ; Tremor R25.1 and Prediabetes R73.09 [facility] [address] [id number] May, Dental examination Z01.20 [place] [address] 93174- 3223 17 May, 2016 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 [facility] [address] 36832- 0463 May, Major depressive disorder, recurrent, moderate F33.1 and 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 [facility] [address] 57712- 4626 May, [facility] [id number] [place] [address] 84158 -8690 May, Dysuria R30.0 [facility] [id number] [place] [address] 71592- 7350 May, [facility] [address] 36733- 5359 May, Major depressive disorder, recurrent episode, moderate F33.1 [facility] [id number] [place] [address] 43987- 5605 Apr, Abnormal mammogram of right breast R92.8 [facility] [address] [place] [address]- 4566 Apr, [facility] [id number] [place] [address] 29126- 4665 Apr, [facility] [id number] [place] [address] 09312- 9063 Mar, Major depressive disorder, recurrent, moderate F33.1 and Insomnia, unspecified G47.00 [facility] [id number] [place] [address] 23462- 6086 Mar, Major depressive disorder, recurrent episode, moderate F33.1 [facility] [id number] [place] [address] 42875- 6828 February, [facility] [id number] [place] [address] 77292- 1658 Jan, [facility] [id number] [place] [address] 33695- 6134 Jan, Major depressive disorder, recurrent episode, moderate F33.1 [facility] [id number] [place] [address] 75166- 2714 Jan, Major depressive disorder, recurrent, moderate F33.1 [facility] [id number] [place] [address] [id number] Jan, Dental examination V72.2 [facility] [address] [place] [address] 05340 -9181 Dec, Dysuria R30.0 ; Vaginal discharge N89.8 ; Vaginal yeast infection B37.3 and Encounter for screening for infections with a predominantly sexual mode of transmission Z11.3 [facility] [address] [place] [address] 08213- 0707 Dec, Major depressive disorder, recurrent episode, moderate F33.1 [facility] [id number] [place] [address] 73097- 4773 Dec, [facility] [id number] [place] [address] 73465- 9607 Dec, [facility] [address] [place] [address] 97631- 7708 Dec, [facility] [id number] [place] [address] 60012- 4712 Nov, Major depressive disorder, recurrent episode, moderate F33.1 [facility] [address] [place] [address] [id number] Nov, Encounter for dental examination Z01.20 [place] [id number] [place] [address] 71207- 7474 Nov, [place] [id number] [place] [address] 19615- 7576 Nov, [place] [id number] [place] [address] 99123- 3899 Oct, Hyperkalemia E87.5 ; History of UTI Z87.440 and Sinusitis J32.9 [place] [id number] [place] [address] 50381- 1728 Oct, Hyperkalemia E87.5 and Family history of hypertension Z82.49 [place] [id number] [place] [address] 77814- 5902 Oct, [place] [id number] [place] [address] 02508- 0863 Oct, Dysuria R30.0 ; Acute cystitis without hematuria N30.00 ; Epigastric pain R10.13 ; Chronic fatigue R53.82 ; Sinusitis J32.9 and Vaginal yeast infection B37.3 [place] [id number] [place] [address] 44396- 2164 Oct, Breast cancer screening V76.10 and Abnormal mammogram of right breast R92.8 [place] [id number] [place] [address] 56867- 8997 Oct, Breast cancer screening V76.10 and Abnormal mammogram of right breast R92.8 [place] [address] [place] [address] 29048- 7892 Sep, [place] [id number] [place] [address] 29121- 7037 Sep, Major depressive disorder, recurrent episode, moderate 296.32 [place] [id number] [place] [address] 67801- 5962 Aug, Insomnia, unspecified G47.00 ; Major depressive disorder, recurrent, moderate F33.1 and Dysthymic disorder F34.1 [place] [id number] [place] [address] 23136- 1098 Aug, Major depressive disorder, recurrent, moderate F33.1 [place] [id number] [place] [address] 09495- 4452 Aug, Insomnia, unspecified G47.00 ; Adjustment disorder with mixed anxiety and depressed mood F43.23 ; Dysthymic disorder F34.1 and Major depressive disorder, recurrent, moderate F33.1 [place] [id number] [place] [address] 33963- 7991 Aug, Depression F32.9 and Sinusitis J32.9 [place] [id number] [place] [address] 52607- 6558 Aug, Major depressive disorder, recurrent episode, unspecified severity F33.9 [place] [id number] [place] [address] 62931- 3849 Aug, [place] [id number] [place] [address] 66385- 4347 Jul, [place] [id number] [place] [address] 77247- 6643 Jun, [place] [id number] [place] [address] 84928- 8664 15 Jun, 2015 Dysuria 788.1 [place] [address] 05705- 0321 Jun, Insomnia 780.52 ; Unspecified myalgia and myositis 729.1 ; High risk sexual behavior V69.2 and Dysuria 788.1 [facility] [address], [place] [address]- 1402 Jun, [facility] [address] [place] [address] 99094- 4823 May, [facility] [address] [place] [address] 63987- 5628 Apr, [facility] [address] [place] [address] [id number] Apr, Dental examination V72.2 [facility] [id number] [place] [address] 41494- 1954 Apr, Insomnia 780.52 ; Unspecified myalgia and myositis 729.1 ; Long-term use of high-risk medication V58.69 and Urinary incontinence 788.30 [facility] [address] [place] [address] 16486- 5334 Apr, Breast cancer screening V76.10 and Breast pain 611.71 [facility] [address] [place] [address] 41365- 1506 Apr, Breast cancer screening V76.10 [facility] [id number] [place] [address] 41919- 2866 Apr, Breast cancer screening V76.10 and Vaginal itching 698.1 [facility] [address], [place] [address]- 3837 Apr, [facility] [id number] [place] [address] 15044- 1873 February, [facility] [address] [address]- 0562 February, Insomnia, unspecified 780.52 [facility] [id number] [place] [address]- 3187 14 Jan, 2015 [facility] [place] [facility] [address] [id number] [place] [address]- 5368 13 Jan, 2015 [facility] [place] [facility] [address] [id number] [place] [address]- 8230 Dec, [facility] [place] [facility] [address] [id number] [place] [address]- 5751 Dec, [facility] [place] [facility] [address] [id number] [place] [address]- 9196 Dec, [facility] [place] [facility] [address] [id number] [place] [address]- 3435 Dec, [facility] [place] [facility] [address] [facility] [id number] [place] [address]- 7864 Dec, [facility] [place] [facility] [address] [facility] [id number] [place] [address]- 8160 Dec, [facility] [place] [facility] [address] [facility] [id number] [place] [address]- 4398 Dec, [facility] [place] [facility] [address] [id number] [place] [address]- 6716 Dec, [facility] [place] [facility] [address] [facility] [id number] [place] [address]- 2309 Dec, [facility] [place] [facility] [address] [id number] [place] [address] Dec, [facility] [place] [facility] [address] [facility] [id number] [place] [address]- 7854 Nov, [facility] [place] [facility] [address] [id number] [place] [address]- 1404 Nov, [facility] [place] [facility] [address] [facility] [id number] [place] [address]- 8001 Nov, [facility] [place] [facility] [address] [facility] [id number] [place] [address]- 8643 Nov, [facility] [place] [facility] [address] [id number] [place] [address]- 9636 Nov, 2014 [facility] [place] [facility] [address] [facility] [id number] [place] [address]- 7006 Nov, 2014 [facility] [place] [facility] [address] [facility] [id number] [place] [address]- 8061 Nov, 2014 [facility] [place] [facility] [address] [facility] [id number] [place] [address]- 4313 Nov, 2014 [facility] [place] [facility] [address] [facility] [id number] [place] [address]- 2469 Nov, 2014 [facility] [place] [facility] [address] [facility] [id number] [place] [address]- 6493 Nov, 2014 [facility] [place] [facility] [address] [facility] [id number] [place] [address]- 6862 Nov, 2014 [facility] [place] [facility] [address] [facility] [id number] [place] [address]- 5330 Nov, 2014 [facility] [place] [facility] [address] [facility] [id number] [place] [address]- 8722 Nov, 2014 [facility] [place] [facility] [address] [facility] [id number] [place] [address]- 0225 Nov, 2014 [facility] [place] [facility] [address] [facility] [id number] [place] [address]- 8242 Nov, 2014 [facility] [place] [facility] [address] [facility] [id number] [address]- 4479 Nov, 2014 [facility] [place] [facility] [address] [facility] [id number] [place] [address]- 7908 Nov, 2014 [facility] [place] [facility] [address] [facility] [id number] [place] [address]- 9838 Nov, 2014 [facility] [place] [facility] [address] [facility] [id number], [place] [address]- 6408 05 Fe2014 [facility] [place] [facility] [address] [id number] [place] [address]- 1341 Nov, [facility] [place] [facility] [address] [id number] [place] [address]- 9661 Nov, [facility] [place] [facility] [address] [id number] [place] [address]- 6946 Nov, [facility] [place] [facility] [address] [id number] [place] [address]- 5012 Nov, [facility] [place] [facility] [address] [id number] [place] [address]- 4695 Oct, [facility] [place] [facility] [address] [id number] [place] [address]- 6103 Oct, [facility] [place] [facility] [address] [id number] [place] [address]- 4364 Oct, [facility] [place] [facility] [address] [id number] [place] [address]- 8816 Oct, [facility] [place] [facility] [address] [id number] [place] [address]- 8691 Oct, [facility] [place] [facility] [address] [id number] [place] [address]- 6691 Oct, [facility] [place] [facility] [address] [id number] [place] [address]- 9229 Oct, [facility] [place] [facility] [address] [id number], [place] [address]- 8399 Oct, [facility] [place] [facility] [address] [id number] [place] [address]- 6848 Oct, [facility] [place] [facility] [address] [id number] [place] [address]- 5746 Oct, [facility] [place] [facility] [address] [id number], [place] [address]- 6250 Oct, [facility] [place] [facility] [address] [id number], [place] [address]- 6796 Oct, [facility] [place] [facility] [address] [id number] [place] [address]- 0884 Sep, [facility] [place] [facility] [address] [id number] [place] 8268 Sep, [facility] [place] [facility] [address] [id number] [place] [address]- 2251 Sep, [facility] [place] [facility] [address] [id number] [place] [address]- 1217 Sep, [facility] [place] [facility] [address] [id number] [place] [address]- 1842 Sep, [facility] [place] [facility] [address] [id number] [place] [address]- 0077 Sep, [facility] [place] [facility] [address] [facility] [id number] [place] [address]- 6295 Aug, [facility] [place] [facility] [address] [id number] [place] [address]- 2942 Aug, [facility] [place] [facility] [address] [facility] [id number] [place] [address]- 8987 Jul, [facility] [place] [facility] [address] [facility] [id number] [place] [address]- 7319 Jul, [facility] [place] [facility] [address] [facility] [id number], [place] [address]- 0511 Jul, [facility] [place] [facility] [address] [id number], [place] [address]- 2775 Jul, [facility] [place] [facility] [address] [id number], [place] [address]- 2493 Jul, [facility] [place] [facility] [address] [facility] [id number], [place] [address]- 9749 Jul, [facility] [place] [facility] [address] [facility] [id number], [place] [address]- 5684 Jun, [facility] [place] [facility] [address] [id number] [place] [address]- 9012 25 Jun, 2014 [facility] [place] [facility] [address] [id number] [place] [address]- 1863 16 Jun, 2014 [facility] [place] [facility] [address] [id number] [place] [address]- 0521 16 Jun, 2014 [facility] [place] [facility] [address] [id number] [place] [address]- 3351 13 Jun, 2014 [facility] [place] [facility] [address] [id number] [place] [address]- 7983 12 Jun, 2014 [facility] [place] [facility] [address] [id number] [place] [address]- 6036 Jun, [facility] [place] [facility] [address] [id number] [place] [address]- 6946 May, [facility] [place] [facility] [address] [id number] [place] [address] May, [facility] [place] [facility] [address] [id number] [place] [address] February, [facility] [place] [facility] [address] [id number] [place] [address] February, [facility] [place] [facility] [address] [id number] [place] [address] February, [facility] [place] [facility] [address] [id number] [place] [address] February, [facility] [place] [facility] [address] [id number] [place] [address] February, [facility] [place] [facility] [address] [id number] [place] [address] February, [facility] [place] [facility] [address] [id number] [place] [address] February, [facility] [place] [facility] [address] [id number] [place] [address] 29 Jan, 2014 [facility] [place] [facility] [address] [id number] [place] [address] 29 Jan, 2014 [facility] [place] [facility] [address] [id number] [place] [address] Jan, [facility] [place] [facility] [address] [id number] [place] [address] Jan, [facility] [place] [facility] [address] [id number] [place] [address] 18 Jan, 2014 [facility] [place] [facility] [address] [id number] [place] [address] 18 Jan, 2014 [facility] [place] [facility] [address] [id number] [place] [address] 17 Jan, 2014 [facility] [place] [facility] [address] [id number] [place] [address] Jan, [facility] [place] [facility] [address] [id number] [place] [address] 16 Jan, 2014 [facility] [place] [facility] [address] [id number] [place] [address] 16 Jan, 2014 [facility] [place] [facility] [address] [id number] [place] [address] 15 Jan, 2014 [facility] [place] [facility] [address] [id number] [place] [address] 15 Jan, 2014 [facility] [place] [facility] [address] [id number] [address] 15 Jan, 2014 [facility] [place] [facility] [address] [id number] [place] [address] 15 Jan, 2014 [facility] [place] [facility] [address] [id number] [place] [address] Oct, [facility] [place] [facility] [address] [id number] [place] [address] Oct, [facility] [place] [facility] [address] [id number] [place] [address] May, [facility] [address] [id number] [place] [address] Mar, [facility] [address] [id number] [place] [address] Mar, [facility] [address] [id number] [place] [address] Mar, [facility] [address] [id number] [place] [address] February, [facility] [address] [id number] [place] [address] February, [facility] [address] [id number] [place] [address] February, [facility] [address] [id number] [place] [address] February, [facility] [address] [id number] [place] [address] February, [facility] [address] [id number] [place] [address] Jan, [facility] [address] [id number] [place] [address] Jan, [facility] [address] [id number] [place] [address] Jan, [facility] [address] [id number] [place] [address] Oct, [facility] [address] [id number] [place] [address] Oct, [facility] [place] [facility] [address] [id number] [place] [address] Oct, [facility] [address] [id number] [place] [address] Oct, [facility] [place] [facility] [address] [id number] [place] [address] Oct, [facility] [place] [facility] [address] [id number] [place] [address] Oct, [facility] [place] [facility] [address] [id number] [place] [address] Oct, [facility] [place] [facility] [address] [id number] [place] [address] Oct, [facility] [place] [facility] [address] [id number] [place] [address] Aug, [facility] [place] [facility] [address] [id number] [place] [address] Jul, [facility] [place] [facility] [address] [id number] [place] [address] Jul, [facility] [place] [facility] [address] [id number] [place] [address] Jul, [facility] [place] [facility] [address] [id number] [place] [address] Jul, [facility] [place] [facility] [address] [id number] [place] [address] Jul, [facility] [place] [facility] [address] [id number] [place] [address] Jul, [facility] [place] [facility] [address] [id number] [place] [address] Jul, [facility] [place] [facility] [address] [id number] [place] [address] Jun, [facility] [place] [facility] [address] [id number] [place] [address] May, [facility] [place] [facility] [address] [id number] [place] [address] May, [facility] [place] [facility] [address] [id number] [address] Apr, [facility] [address] [id number] [address] Apr, [facility] [id number] [address] Apr, [facility] [id number], [place] [address] Apr, [facility] [id number] [address] Apr, [facility] [id number], [place] [address] Apr, [facility] [id number] [address] Apr, [facility] [id number], [place] [address] Apr, [facility] [id number], [place] [address] Mar, [facility] [address] [id number] [address] Jul, IMMUNIZATIONS No Known Immunizations SOCIAL HISTORY Never Assessed REASON FOR VISIT f/u--Garry Mcgee MA PLAN OF CARE Activity Details Follow Up 3 Months Reason: VITAL SIGNS Height 68 in 2017-09-24 Weight 184.2 lbs 2017-09-24 Heart Rate 88 bpm 2017-09-24 Respiratory Rate 20 2017-09-24 BMI 28.00 kg/m2 2017-09-24 Blood pressure systolic 108 mmHg 2017-09-24 Blood pressure diastolic 68 mmHg 2017-09-24 MEDICATIONS Medication Instructions Dosage Frequency Start Date End Date Duration Status Claritin 10 mg take 1 tablet (10 mg) by oral route once daily Jan, Not-Taking Schuyler 3 Active Omeprazole 20 mg Orally Once a day 1 capsule 24h Oct, Not- Taking Triamcinolone Acetonide 0.1 % Externally Twice a day 1 application to affected area 12h Jul, Not-Taking Biotin Active HydrOXYzine HCl 25 MG Orally three times a day as needed for anxiety 1 tablet as needed May, Active Cymbalta 30 MG Orally take with 60 mg Once a day 1 capsule 24h 30 days Active Zinc + Vitamin C Active Flonase 50 MCG/ACT Nasally Once a day 1 spray in each nostril 24h Jun, 30 day(s) Not-Taking Calcium Active Duloxetine HCl 60 mg Orally take with 30 mg Once a day 1 capsule 24h 30 days Active Flonase 50 mcg/actuation nasal daily inhale 1 spray (50 mcg) in each nostril by intranasal route 2 times per day PRN 24h Oct, Not-Taking Contrave 8-90 MG Orally Twice a day 1 tablet 12h Aug, Sep, 14 days Active Zolpidem Tartrate 10 mg Orally [...]
--- OUTSIDE RECORDS SUMMARY | 2018-05-16 00:36 | XMS REPORT ---
Author Author ROBINSON TAYLOR [facility] Address [address] [place] [address] Care Team Providers Care Carpenter/Labor Name Role Phone ROBINSON TAYLOR Unavailable PROBLEMS Type Condition ICD9-CM Code IUD42-NS Code Onset Dates Condition Status SNOMED Code Problem Gastroesophageal reflux disease without esophagitis K21.9 Active 844613317 Problem Major depressive disorder, recurrent, moderate F33.1 Active 96928352 Problem Insomnia, unspecified G47.00 Active 749166777 Problem Major depressive disorder, recurrent episode, moderate F33.1 Active 688538014 Problem Recurrent major depressive disorder, in partial remission F33.41 Active 37753555 Problem Chronic maxillary sinusitis J32.0 Active 28836755 Problem History of prediabetes Z87.898 Active 172316698 Problem Overweight (BMI 25.0-29.9) E66.3 Active 568487275 Problem Skin lesion of right leg L98.9 Active 801638207 Problem Hyperlipidemia LDL goal <100 E78.5 Active 53130734 ALLERGIES No Information ENCOUNTERS Encounter Location Date Diagnosis [place] [address], [place] [address] May, [facility] [id number] [place] [address] 50812- 8783 Dec, Recurrent major depressive disorder, in partial remission F33.41 [facility] [address] [place] [id number], [place] [address] 14 Dec, 2017 History of prediabetes Z87.898 ; Overweight (BMI 25.0-29.9) E66.3 ; Hyperlipidemia LDL goal <100 E78.5 and Long-term use of high-risk medication Z79.899 [facility] [id number], [place] [address] 24[address] Nov, Skin lesion of right leg L98.9 [place] [address] [place] [address] [id number] [place] [address] 46590- 3345 Nov, Overweight (BMI 25.0-29.9) E66.3 ; Gastroesophageal reflux disease without esophagitis K21.9 ; Prediabetes R73.09 ; Chronic maxillary sinusitis J32.0 and Skin lesion of right leg L98.9 [facility] [place] [address] [address] [id number] [place] [address] 31124 -2560 Oct, Acute non-recurrent frontal sinusitis J01.10 [facility] [place] [id number] [place] [address] 01178 -2391 Sep, Other viral agents as the cause of diseases classified elsewhere B97.89 and Acute upper respiratory infection, unspecified J06.9 [place] [id number] [place] [address] 37702- 9333 Sep, Major depressive disorder, recurrent episode, moderate F33.1 [place] [address] [place] [address] [id number] [place] [address] 34314- 6216 Sep, [address] [address]- [address] Aug, [place] [address] [place] [address] [id number] [place] [address] 86677- 3242 Jul, Chronic constipation K59.09 ; Overweight (BMI 25.0-29.9) E66.3 and Facial rash R21 [place] [address] [address] [id number] [place] [address] 98451- 2171 17 Jul, [address] 23778- 3179 14 Jun, 2017 Major depressive disorder, recurrent episode, moderate F33.1 [facility] [place] [address] [place] [id number] [place] [address] 69459 -0438 14 Jun, 2017 Dysuria R30.0 and Fluid level behind tympanic membrane of both ears H65.[address] [id number] [address] 14 Jun, 2017 Dental examination Z01.20 [place] [address] [place] [address] [id number] [place] [address] 94714- 9076 08 Jun, 2017 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 [place] [address] [place] [id number] [place] [address] 31318- 4514 08 Jun, 2017 Major depressive disorder, recurrent, moderate F33.1 and Other half-way (current) 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 Z79.899 [place] [address] [place] [id number] [place] [address] 57494- 5523 14 May, 2017 Major depressive disorder, recurrent, moderate F33.1 [facility] [id number] [place] [address] 42099 -7737 May, [facility] [address] [place] [id number] [place] [address] 80863 -3366 May, Candidiasis B37.9 and Vaginal lesion N89.8 [place] [address] [place] [id number] [place] [address] 98923- 2547 May, Major depressive disorder, recurrent, moderate F33.1 [place] [address] [place] [address] 82460- 2770 Mar, Major depressive disorder, recurrent, moderate F33.1 ; Insomnia, unspecified G47.00 and Other half-way (current) 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 Z79.899 [place] [address] [place] [address] 13346- 8872 February, Major depressive disorder, recurrent, moderate F33.1 [place] [address] [place] [id number] [place] [address] 42526- 7264 Jan, Major depressive disorder, recurrent, moderate F33.1 [place] [address] [place] [address] 19596- 8777 Nov, Major depressive disorder, recurrent, moderate F33.1 [place] [address] [place] [address] 79962- 4714 Nov, [place] [address] [place] [id number] [place] [address] 72672- 5851 Oct, Insomnia, unspecified G47.00 [facility] [address] [place] [address] [id number] [place] [address] 17277- 7787 Oct, Major depressive disorder, recurrent, moderate F33.1 [place] [address] [place] [id number] [place] [address] 81318- 4674 Sep, Major depressive disorder, recurrent, moderate F33.1 [place] [address] [place] [id number] [place] [address] 58952- 2688 Sep, Major depressive disorder, recurrent episode, moderate F33.1 [place] [address] [place] [id number] [place] [address] 01997- 4131 Aug, Major depressive disorder, recurrent episode, moderate F33.1 [place] [address] [place] [id number] [place] [address] 90705- 1990 Aug, [place] [address] [place] [id number] [place] [address] 04779- 1794 Aug, MDD (major depressive disorder), recurrent episode, mild F33.0 [place] [address] [place] [id number] [place] [address] 89652- 6496 Jul, Dysuria R30.0 ; Chronic idiopathic constipation K59.04 and Allergy, insect bite Z91.038 [place] [address] [place] [id number] [place] [address] 13940- 1938 Jul, Major depressive disorder, recurrent episode, moderate F33.1 [place] [address] [place] [id number] [place] [address] 79560- 8350 May, [place] [address] [place] [id number] [place] [address] 53138- 7258 May, Abnormal fasting glucose R73.01 ; Gastroesophageal reflux disease without esophagitis K21.9 ; Tremor R25.1 and Prediabetes R73.09 [facility] [address] [id number] [id number] May, 2016 Dental examination Z01.20 [facility] [address], [place] [address] 0373 17 May, 2016 Other half-way (current) 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 Z79.899 [facility] [address] [place] [address] [id number] [place] [address] 37008- 6601 16 May, 2016 Major depressive disorder, recurrent, moderate F33.1 and Other half-way (current) 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 Z79.899 [facility] [address] [place] [address] [id number] [place] [address] 82509- 1790 16 May, 2016 [facility] [address] [place] [address] 16274 -7445 10 May, 2016 Dysuria R30.0 [facility] [address] [place] [address] 10512- 9650 08 May, 2016 [facility] [address] [place] [address] 39667- 5158 May, Major depressive disorder, recurrent episode, moderate F33.1 [facility] [address] [place] [address] 60195- 1376 Apr, Abnormal mammogram of right breast R92.8 [facility] [address] [place] [address] 91790- 7370 Apr, [facility] [address] [place] [address] 81379- 1184 Apr, [facility] [address] [place] [id number] [place] [address] 35514- 4896 Mar, Major depressive disorder, recurrent, moderate F33.1 and Insomnia, unspecified G47.00 [facility] [address], [place] [address]- 5492 Mar, Major depressive disorder, recurrent episode, moderate F33.1 [facility] [address], [place] [address]- 5558 February, [facility] [address] [place] [address] [id number] [place] [address] 35111- 6817 Jan, [facility] [address] [place] [address] 87222- 2174 Jan, Major depressive disorder, recurrent episode, moderate F33.1 [facility] [id number] [place] [address] 99063- 4600 Jan, Major depressive disorder, recurrent, moderate F33.1 [facility] [address] [place] [id number] [place] [address] [id number] Jan, Dental examination V72.2 [facility] [address], [place] [address] Dec, Dysuria R30.0 ; Vaginal discharge N89.8 ; Vaginal yeast infection B37.3 and Encounter for screening for infections with a predominantly sexual mode of transmission Z11.3 [facility] [address] [place] [address] 46286- 3912 Dec, Major depressive disorder, recurrent episode, moderate F33.1 [facility] [address], [place] [address]- 5136 30 Dec, 2015 [facility] [address] [place] [address] 29140- 0036 Dec, [facility] [address], [place] [address]- 4707 Dec, [facility] [address] [place] [address] 93889- 4515 Nov, Major depressive disorder, recurrent episode, moderate F33.1 [facility] [address] [place] [address] [id number] Nov, Encounter for dental examination Z01.20 [facility] [address] [place] [id number] [place] [address] 46393- 1602 Nov, [place] [address] [place] [id number] [place] [address] 05635- 1132 Nov, [place] [address] [place] [address] [id number] [place] [address] 1213 Oct, Hyperkalemia E87.5 ; History of UTI Z87.440 and Sinusitis J32.9 [place] [address] 93726- 6580 Oct, Hyperkalemia E87.5 and Family history of hypertension Z82.49 [place] [address] 11447- 0930 Oct, [place] [address] [place] [id number] [place] [address] 36884- 4190 Oct, Dysuria R30.0 ; Acute cystitis without hematuria N30.00 ; Epigastric pain R10.13 ; Chronic fatigue R53.82 ; Sinusitis J32.9 and Vaginal yeast infection B37.3 [place] [address] [place] [id number] [place] [address] 94823- 7629 Oct, Breast cancer screening V76.10 and Abnormal mammogram of right breast R92.8 [place] [id number] [place] [address] 17235- 7054 Oct, Breast cancer screening V76.10 and Abnormal mammogram of right breast R92.8 [place] [address] [place] [id number] [place] [address] 48831- 2335 Sep, [address] 22700- 5645 09 Sep, 2015 Major depressive disorder, recurrent episode, moderate 296.32 [place] [address] [place] [id number] [place] [address] 19969- 0925 18 Aug, 2015 Insomnia, unspecified G47.00 ; Major depressive disorder, recurrent, moderate F33.1 and Dysthymic disorder F34.1 [facility] [address] [place] [address] [id number] [place] [address] 68590- 5908 Aug, Major depressive disorder, recurrent, moderate F33.1 [facility] [address] [place] [id number] [place] [address] 08236- 2491 Aug, Insomnia, unspecified G47.00 ; Adjustment disorder with mixed anxiety and depressed mood F43.23 ; Dysthymic disorder F34.1 and Major depressive disorder, recurrent, moderate F33.1 [place] [address] 32035- 7854 Aug, Depression F32.9 and Sinusitis J32.9 [place] [address] 82509- 8047 Aug, Major depressive disorder, recurrent episode, unspecified severity F33.9 [place] [address] 10158- 4412 Aug, [place] [address] [place] [id number] [place] [address] 36441- 9638 Jul, [place] [address] 13189- 2972 Jun, [place] [address] 09154- 7946 Jun, Dysuria 788.1 [place] [address] [place] [id number] [place] [address] 19033- 9159 Jun, Insomnia 780.52 ; Unspecified myalgia and myositis 729.1 ; High risk sexual behavior V69.2 and Dysuria 788.1 [place] [address] 74811- 3605 Jun, [facility] [address] [place] [id number] [place] [address] 95920- 4510 May, [place] [address] 54466- 2803 Apr, [facility] [id number] [id number] Apr, Dental examination V72.2 [facility] [address], [place] [address]- 2114 Apr, Insomnia 780.52 ; Unspecified myalgia and myositis 729.1 ; Long-term use of high-risk medication V58.69 and Urinary incontinence 788.30 [facility] [address], [place] [address]- 3999 17 Apr, 2015 Breast cancer screening V76.10 and Breast pain 611.71 [place] [address] [place] [id number] [place] [address] 35039- 1083 Apr, Breast cancer screening V76.10 [facility] [address] [place] [id number] [place] [address] 63418- 4973 Apr, Breast cancer screening V76.10 and Vaginal itching 698.1 [facility] [address], [place] [address]- 0751 Apr, [facility] [address], [place] [address]- 0837 February, [facility] [address], [place] [address]- 2869 February, Insomnia, unspecified 780.52 [facility] [address], [place] [address]- 7230 Jan, [facility] [address], [place] [address]- 2513 Jan, [facility] [address] [id number] 1666 Dec, [facility] [address] 2856 Dec, [facility] [address] 8246 Dec, [facility] [place] [facility] [address] [id number] [place] [address]- 5431 Dec, [facility] [place] [facility] [address] [id number] [place] [address]- 9866 Dec, [facility] [place] [facility] [address] [id number] [place] [address]- 3382 Dec, [facility] [place] [facility] [address] [id number] [place] [address]- 8389 Dec, [facility] [place] [facility] [address] [id number] [place] [address]- 7451 Dec, [facility] [place] [facility] [address] [id number] [place] [address]- 5861 Dec, [facility] [place] [facility] [address] [facility] [id number] [place] [address]- 5264 Dec, [facility] [place] [facility] [address] [facility] [id number] [place] [address]- 7710 Nov, 2014 [facility] [place] [facility] [address] [facility] [id number] [place] [address]- 7914 Nov, [facility] [place] [facility] [address] [facility] [id number] [place] [address]- 7096 Nov, [facility] [place] [facility] [address] [id number] [place] [address]- 2871 Nov, 2014 [facility] [place] [facility] [address] [facility] [id number], [place] [address]- 4040 Nov, 2014 [facility] [place] [facility] [address] [id number] [place] [address]- 5611 Nov, 2014 [facility] [place] [facility] [address] [facility] [id number] [place] [address]- 2672 Nov, 2014 [facility] [place] [facility] [address] [facility] [id number] [place] [address]- 5241 Nov, 2014 [facility] [place] [facility] [address] [id number] [place] [address]- 2574 Nov, 2014 [facility] [place] [facility] [address] [id number] [place] [address]- 7803 Nov, 2014 [facility] [place] [facility] [address] [id number] [place] [address]- 2544 Nov, 2014 [facility] [place] [facility] [address] [id number] [place] [address]- 5621 Nov, 2014 [facility] [place] [facility] [address] [id number] [place] [address]- 7483 Nov, 2014 [facility] [place] [facility] [address] [id number] [place] [address]- 9100 Nov, 2014 [facility] [place] [facility] [address] [facility] [id number] [place] [address]- 2139 Nov, 2014 [facility] [place] [facility] [address] [facility] [id number] [place] [address]- 1565 Nov, 2014 [facility] [place] [facility] [address] [facility] [id number] [place] [address]- 3421 Nov, 2014 [facility] [place] [facility] [address] [facility] [id number] [place] [address]- 0404 Nov, 2014 [facility] [place] [facility] [address] [facility] [id number] [place] [address]- 3616 Nov, 2014 [facility] [place] [facility] [address] [facility] [id number], [place] [address]- 0149 Nov, 2014 [facility] [place] [facility] [address] [facility] [id number] [place] [address]- 9457 Nov, 2014 [facility] [place] [facility] [address] [id number] [place] [address]- 2139 Nov, 2014 [facility] [place] [facility] [address] [facility] [id number] [place] [address]- 1740 Nov, 2014 [facility] [place] [facility] [address] [facility] [id number] [place] [address]- 6674 Oct, [facility] [address] [id number] [place] [address]- 3876 Oct, [facility] [place] [facility] [address] [id number] [place] [address]- 1162 Oct, [facility] [place] [facility] [address] [id number] [place] [address]- 5400 Oct, [facility] [place] [facility] [address] [id number] [place] [address]- 2265 Oct, [facility] [place] [facility] [address] [id number] [place] [address]- 8383 Oct, [facility] [place] [facility] [address] [id number] [place] [address]- 7100 Oct, [facility] [place] [facility] [address] [id number] [place] [address]- 3903 Oct, [facility] [place] [facility] [address] [id number] [place] [address]- 7258 Oct, [facility] [place] [facility] [address] [id number] [place] [address]- 1074 Oct, [facility] [place] [facility] [address] [id number] [place] [address]- 4117 Oct, [facility] [place] [facility] [address] [id number] [place] [address]- 8960 Oct, [facility] [place] [facility] [address] [id number] [place] [address]- 0240 Sep, [facility] [place] [facility] [address] [id number] [place] [address]- 1487 Sep, [facility] [place] [facility] [address] [id number] [place]- 2589 Sep, [facility] [place] [facility] [address] [id number] [place] [address]- 0502 Sep, [facility] [place] [facility] [address] [id number] [place] [address]- 4654 Sep, [facility] [place] [facility] [address] [id number] [place] [address]- 8051 Sep, [facility] [place] [facility] [address] [id number] [place] [address]- 3393 Aug, [facility] [place] [facility] [address] [id number] [place] [address]- 3449 Aug, [facility] [place] [facility] [address] [id number] [place] [address]- 3468 Jul, [facility] [place] [facility] [address] [id number] [place] [address]- 5895 Jul, [facility] [place] [facility] [address] [id number] [place] [address]- 3978 Jul, [facility] [place] [facility] [address] [id number] [place] [address]- 9713 Jul, [facility] [place] [facility] [address] [id number] [place] [address]- 8310 Jul, [facility] [place] [facility] [address] [id number] [place] [address]- 0751 Jul, [facility] [place] [facility] [address] [id number] [place] [address]- 3308 25 Jun, 2014 [facility] [place] [facility] [address] [id number], [place] [address]- 1406 25 Jun, 2014 [facility] [place] [facility] [address] [id number] [place] [address] 16 Jun, 2014 [facility] [place] [facility] [address] [id number] [place] [address] 16 Jun, 2014 [facility] [place] [facility] [address] [id number] [place] [address] 13 Jun, 2014 [facility] [place] [facility] [address] [id number], [place] [address] Jun, [facility] [place] [facility] [address] [id number] [place] [address] Jun, [facility] [place] [facility] [address] [id number] [place] [address] May, [facility] [place] [facility] [address] [id number] [place] [address] May, [facility] [place] [facility] [address] [id number] [place] [address] February, [facility] [place] [facility] [address] [id number] [place] [address] February, [facility] [place] [facility] [address] [id number] [place] [address] February, [facility] [place] [facility] [address] [id number] [place] [address] February, [facility] [place] [facility] [address] [id number] [place] [address] February, [facility] [place] [facility] [address] [id number] [place] [address] February, [facility] [place] [facility] [address] [id number] [place] [address] February, [facility] [place] [facility] [address] [id number] [place] [address] Jan, [facility] [place] [facility] [address] [id number] [place] [address] Jan, [facility] [place] [facility] [address] [id number] [place] [address] Jan, [facility] [place] [facility] [address] [id number] [place] [address] Jan, [facility] [place] [facility] [address] [id number] [place] [address] Jan, [facility] [place] [facility] [address] [id number] [place] [address] 18 Jan, 2014 [facility] [address] [id number] [place] [address] 17 Jan, 2014 [facility] [place] [facility] [address] [id number] [place] [address] 17 Jan, 2014 [facility] [address] [id number] [place] [address] 16 Jan, 2014 [facility] [place] [facility] [address] [id number] [place] [address] 16 Jan, 2014 [facility] [address] [id number] [place] [address] 15 Jan, 2014 [facility] [address] [id number] [place] [address] 15 Jan, 2014 [facility] [address] [id number] [place] [address] 15 Jan, 2014 [facility] [address] [id number] [place] [address] 15 Jan, 2014 [facility] [place] [facility] [address] [id number] [place] [address] Oct, [facility] [address] [id number] [place] [address] Oct, [facility] [address] [id number] [place] [address] May, [facility] [place] [facility] [address] [id number] [place] [address] Mar, [facility] [place] [facility] [address] [id number] [place] [address] Mar, [facility] [place] [facility] [address] [id number] [place] [address] Mar, [facility] [place] [facility] [address] [id number] [place] [address] February, [facility] [address] [id number] [place] [address] February, [facility] [address] [id number] [place] [address] February, [facility] [facility] [address] [id number] [place] [address] February, [facility] [address] [id number] [place] [address] February, [facility] [address] [id number] [place] [address] Jan, [facility] [address] [id number] [place] [address] Jan, [facility] [address] [id number] [place] [address] Jan, [facility] [address] [id number] [place] [address] Oct, [facility] [address] [id number] [place] [address] Oct, [facility] [address] [id number] [place] [address] Oct, [facility] [address] [id number] [place] [address] Oct, [facility] [place] [facility] [address] [id number] [place] [address] Oct, [facility] [place] [facility] [address] [id number] [place] [address] Oct, [facility] [place] [facility] [address] [id number] [place] [address] Oct, [facility] [place] [facility] [address] [id number] [place] [address] Oct, [facility] [place] [facility] [address] [id number] [place] [address] Aug, [facility] [place] [facility] [address] [id number] [place] [address] Jul, [facility] [place] [facility] [address] [id number] [place] [address] Jul, [facility] [place] [facility] [address] [id number] [place] [address] Jul, [facility] [place] [facility] [address] [id number] [place] [address] Jul, [facility] [place] [facility] [address] [id number] [place] [address] Jul, [facility] [place] [facility] [address] [id number] [place] [address] Jul, [facility] [place] [facility] [address] [id number] [place] [address] Jul, [facility] [place] [facility] [address] [id number] [place] [address] Jun, [facility] [place] [facility] [address] [id number] [place] [address] May, [facility] [place] [facility] [address] [id number] [place] [address] May, [facility] [place] [facility] [address] [id number] [place] [address] Apr, [facility] [place] [facility] [address] [id number] [place] [address] Apr, [facility] [place] [facility] [address] [id number] [place] [address] Apr, [facility] [place] [facility] [address] [id number] [place] [address] Apr, [facility] [place] [facility] [address] [id number] [place] [address] Apr, [facility] [place] [facility] [address] [facility] [id number], [place] [address] Apr, [facility] [address] [facility] [id number], [place] [address] Apr, [facility] [address] [facility] [id number], [place] [address] Apr, [facility] [address] [facility] [id number], [place] [address] Mar, [facility] [address] [facility] [id number], [place] [address] Jul, IMMUNIZATIONS No Known Immunizations SOCIAL HISTORY Never Assessed REASON FOR VISIT ambien refill PLAN OF CARE VITAL SIGNS MEDICATIONS Medication Instructions Dosage Frequency Start Date End Date Duration Status Cymbalta 30 MG Orally take with 60 mg Once a day 1 capsule 24h 30 days Active Abilify 5 mg Orally Once a day TAKE ONE-HALF TABLET BY MOUTH ONCE DAILY 24h 30 days Active Zolpidem Tartrate 10 [...] 1997, 1998; left 1998 Surgical History tonsillectomy 1973 Surgical History bladder suspension 2010 Surgical History [...]
--- OUTSIDE RECORDS SUMMARY | 2018-05-16 00:37 | XMS REPORT ---
Author Author GISELL BATISTA [facility] Address [address] [place] [address] Care Team Providers Care Credit Professional Name Role Phone GISELL ABTISTA Unavailable PROBLEMS Type Condition ICD9-CM Code ORQ62-PB Code Onset Dates Condition Status SNOMED Code Problem Gastroesophageal reflux disease without esophagitis K21.9 Active 376889105 Problem Major depressive disorder, recurrent, moderate F33.1 Active 53236779 Problem Insomnia, unspecified G47.00 Active 324163045 Problem Major depressive disorder, recurrent episode, moderate F33.1 Active 505762235 Problem Recurrent major depressive disorder, in partial remission F33.41 Active 91714342 Problem Chronic maxillary sinusitis J32.0 Active 79758638 Problem History of prediabetes Z87.898 Active 460962630 Problem Overweight (BMI 25.0-29.9) E66.3 Active 156545190 Problem Skin lesion of right leg L98.9 Active 763417981 Problem Hyperlipidemia LDL goal <100 E78.5 Active 20416930 ALLERGIES Substance Reaction Event Type Date Status Imipramine HCl rash Drug Allergy Jun, Active Celebrex Unknown Drug Allergy Jun, Active Amoxicillin Unknown Drug Allergy Jun, Active Vladimir Toilet Paper yeast infection Non Drug Allergy Jun, Active Tape can only use paper tape Non Drug Allergy Jun, Active ENCOUNTERS Encounter Location Date Diagnosis [facility] [address] [facility] [id number] [address] May, [facility] [address] [facility] [id number], [place] [address] 15 Dec, 2017 Recurrent major depressive disorder, in partial remission F33.41 [facility] [address] [id number] [address] 14 Dec, 2017 History of prediabetes Z87.898 ; Overweight (BMI 25.0-29.9) E66.3 ; Hyperlipidemia LDL goal <100 E78.5 and Long-term use of high-risk medication Z79.[address] [address] Nov, Skin lesion of right leg L98.[address] [address]- [address] Nov, Overweight (BMI 25.0-29.9) E66.3 ; Gastroesophageal reflux disease without esophagitis K21.9 ; Prediabetes R73.09 ; Chronic maxillary sinusitis J32.0 and Skin lesion of right leg L98.9 [facility] [address] [address] Oct, Acute non-recurrent frontal sinusitis J01.[address] [address] Sep, Other viral agents as the cause of diseases classified elsewhere B97.89 and Acute upper respiratory infection, unspecified J06.[address] [address]- [address] Sep, Major depressive disorder, recurrent episode, moderate F33.[address] [address]- 7826 Sep, [address] [address]- 4499 Aug, [address] [address]- 1874 Jul, Chronic constipation K59.09 ; Overweight (BMI 25.0-29.9) E66.3 and Facial rash R21 [address] [address]- 1171 17 Jul, [address] [address]- 4229 14 Jun, 2017 Major depressive disorder, recurrent episode, moderate F33.1 [facility] [id number] [place] [address]288 14 Jun, 2017 Dysuria R30.0 and Fluid level behind tympanic membrane of both ears H65.93 [facility] [id number] [place] [address] 00327- 0550 14 Jun, 2017 Dental examination Z01.20 [place] [address] [address]- [address] 08 Jun, 2017 Other fusing machine feeder (current) 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 Z79.899 [place] [address] [address]- 7704 08 Jun, 2017 Major depressive disorder, recurrent, moderate F33.1 and Other residential (current) 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 Z79.899 [place] [id number] [place] [address] 53375- 4400 May, Major depressive disorder, recurrent, moderate F33.1 [facility] [id number] [place] [address] 6[address]32 -1430 May, [facility] [id number] [place] [address] 89161 -0223 May, Candidiasis B37.9 and Vaginal lesion N89.8 [place] [id number] [place] [address] 75055- 6775 May, Major depressive disorder, recurrent, moderate F33.1 [place] [id number] [place] [address] 58193- 0744 Mar, Major depressive disorder, recurrent, moderate F33.1 ; Insomnia, unspecified G47.00 and Other residential (current) 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 Z79.899 [facility] [id number] [place] [address] 06748- 2471 February, Major depressive disorder, recurrent, moderate F33.1 [place] [id number] [place] [address] 46173- 4537 Jan, Major depressive disorder, recurrent, moderate F33.1 [facility] [address] [place] [address] 77790- 3226 Nov, Major depressive disorder, recurrent, moderate F33.1 [facility] [id number] [place] [address] 59412- 6073 Nov, [facility] [address] 13072- 7549 Oct, Insomnia, unspecified G47.00 [facility] [id number] [place] [address] 32087- 9812 Oct, Major depressive disorder, recurrent, moderate F33.1 [facility] [id number] [place] [address] 39469- 0855 Sep, Major depressive disorder, recurrent, moderate F33.1 [facility] [id number] [place] [address] 93767- 1574 Sep, Major depressive disorder, recurrent episode, moderate F33.1 [facility] [id number] [place] [address] 24076- 2710 Aug, Major depressive disorder, recurrent episode, moderate F33.1 [facility] [id number] [place] [address] 10148- 1332 Aug, [facility] [id number] [place] [address] 54130- 4335 Aug, MDD (major depressive disorder), recurrent episode, mild F33.0 [facility] [id number] [place] [address] 21272- 9918 Jul, Dysuria R30.0 ; Chronic idiopathic constipation K59.04 and Allergy, insect bite Z91.038 [facility] [address] [place] [address] 31045- 0481 Jul, Major depressive disorder, recurrent episode, moderate F33.1 [facility] [id number] [place] [address] 24476- 2149 May, [facility] [id number] [place] [address] 02884- 4470 May, Abnormal fasting glucose R73.01 ; Gastroesophageal reflux disease without esophagitis K21.9 ; Tremor R25.1 and Prediabetes R73.09 [facility] [address] [place] [address] [id number] May, Dental examination Z01.20 [facility] [id number] [place] [address] 00117- 5066 17 May, 2016 Other residential (current) 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 Z79.899 [place] [id number] [place] [address] 49843- 4223 May, Major depressive disorder, recurrent, moderate F33.1 and Other fusing machine feeder (current) 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 Z79.899 [place] [id number] [place] [address] 90128- 8769 May, [facility] [id number] [place] [address] 80499 -2563 May, Dysuria R30.0 [facility] [id number] [place] [address] 89674- 7078 May, [facility] [id number] [place] [address] 05545- 4669 May, Major depressive disorder, recurrent episode, moderate F33.1 [facility] [id number] [place] [address] 52313- 6085 Apr, Abnormal mammogram of right breast R92.8 [facility] [id number] [place] [address] 13739- 1130 Apr, [facility] [id number] [place] [address] 48982- 8692 Apr, [facility] [id number] [place] [address] 00444- 8686 Mar, Major depressive disorder, recurrent, moderate F33.1 and Insomnia, unspecified G47.00 [facility] [address], [place] [address]- 97[address] Mar, Major depressive disorder, recurrent episode, moderate F33.1 [facility] [address], [place] [address] February, [facility] [id number] [place] [address] 57151- 1613 Jan, [facility] [address] [place] [address] 54775- 3912 Jan, Major depressive disorder, recurrent episode, moderate F33.1 [facility] [address], [place] [address]- 5470 Jan, Major depressive disorder, recurrent, moderate F33.1 [facility] [address] [place] [address] [id number] Jan, Dental examination V72.2 [facility] [address], [place] [address] Dec, Dysuria R30.0 ; Vaginal discharge N89.8 ; Vaginal yeast infection B37.3 and Encounter for screening for infections with a predominantly sexual mode of transmission Z11.3 [facility] [address], [place] [address]- 7161 Dec, Major depressive disorder, recurrent episode, moderate F33.1 [facility] [address], [place] [address]- [address] Dec, [facility] [id number] [place] [address] 809724- 1792 Dec, [facility] [address], [place] [address]- 7582 Dec, [facility] [address] [place] [address] 23042- 0329 Nov, Major depressive disorder, recurrent episode, moderate F33.1 [facility] [address] [address] 15 Nov, 2015 Encounter for dental examination Z01.20 [place] [address] [place] [address] 88259- 2029 Nov, [place] [id number] [place] [address] 47938- 8480 Nov, [place] [address] [place] [address] 06785- 2774 Oct, Hyperkalemia E87.5 ; History of UTI Z87.440 and Sinusitis J32.9 [place] [address] [place] [address] 13147- 0453 Oct, Hyperkalemia E87.5 and Family history of hypertension Z82.49 [place] [address] [place] [address] 74675- 0181 Oct, [place] [address] [place] [address] 00783- 3425 Oct, Dysuria R30.0 ; Acute cystitis without hematuria N30.00 ; Epigastric pain R10.13 ; Chronic fatigue R53.82 ; Sinusitis J32.9 and Vaginal yeast infection B37.3 [place] [address] [place] [address] 33187- 2371 Oct, Breast cancer screening V76.10 and Abnormal mammogram of right breast R92.8 [place] [address] [place] [address] 69866- 3000 Oct, Breast cancer screening V76.10 and Abnormal mammogram of right breast R92.8 [place] [address] [place] [address] 24751- 0676 Sep, [place] [address] [place] [address] 88205- 1938 Sep, Major depressive disorder, recurrent episode, moderate 296.32 [place] [address] 67053- 7960 Aug, Insomnia, unspecified G47.00 ; Major depressive disorder, recurrent, moderate F33.1 and Dysthymic disorder F34.1 [place] [address] 22850- 1094 Aug, Major depressive disorder, recurrent, moderate F33.1 [place] [address] 071516- 7510 Aug, Insomnia, unspecified G47.00 ; Adjustment disorder with mixed anxiety and depressed mood F43.23 ; Dysthymic disorder F34.1 and Major depressive disorder, recurrent, moderate F33.1 [place] [address] 74892- 9574 Aug, Depression F32.9 and Sinusitis J32.9 [place] [address] 716466- 7318 Aug, Major depressive disorder, recurrent episode, unspecified severity F33.9 [place] [address] 46853- 9393 Aug, [place] [address] 75294- 3152 Jul, [place] [address] 07191- 3597 Jun, [place] [address] 94582- 3409 15 Jun, 2015 Dysuria [address]88.[address] 37453- 3462 02 Jun, 2015 Insomnia 780.52 ; Unspecified myalgia and myositis 729.1 ; High risk sexual behavior V69.2 and Dysuria 788.[address] 78058- 7197 Jun, [facility] [address] [address] 1278 May, [facility] [address] [place] [address] 546627- 5708 Apr, [facility] [address] [address] Apr, Dental examination V72.2 [facility] [address] [place] [address] 93768- 3977 Apr, Insomnia 780.52 ; Unspecified myalgia and myositis 729.1 ; Long-term use of high-risk medication V58.69 and Urinary incontinence 788.30 [facility] [address] [place] [address] 02246- 0947 Apr, Breast cancer screening V76.10 and Breast pain 611.71 [facility] [address] [place] [address] 34372- 8488 Apr, Breast cancer screening V76.10 [facility] [address] [place] [address] 03515- 1391 Apr, Breast cancer screening V76.10 and Vaginal itching 698.1 [facility] [address] [place] [address] 48065- 9720 Apr, [facility] [id number] [place] [address] 33880- 1174 February, [facility] [address] [place] [address] 79130- 2574 February, Insomnia, unspecified 780.52 [facility] [id number] [place] [address] 24974- 2999 Jan, [facility] [id number] [place] [address] 90804- 1964 Jan, [facility] [id number] [place] [address] 91907- 0442 Dec, [facility] [place] [facility] [address] [id number] [place] [address]- 9669 Dec, [facility] [place] [facility] [address] [id number] [place] [address]- 4926 Dec, [facility] [place] [facility] [address] [id number] [place] [address]- 1433 Dec, [facility] [place] [facility] [address] [id number] [place] [address]- 9545 Dec, [facility] [place] [facility] [address] [id number] [place] [address]- 6398 Dec, [facility] [place] [facility] [address] [facility] [id number] [place] [address]- 7561 Dec, [facility] [place] [facility] [address] [facility] [id number] [place] [address]- 6430 Dec, [facility] [place] [facility] [address] [facility] [id number], [place] [address]- 7188 Dec, [facility] [place] [facility] [address] [id number], [place] [address]- 9606 Dec, [facility] [place] [facility] [address] [facility] [id number], [place] [address]- 9916 Nov, [facility] [place] [facility] [address] [id number], [place] [address]- 0672 Nov, [facility] [place] [facility] [address] [facility] [id number], [place] [address]- 8591 Nov, [facility] [place] [facility] [address] [id number] [place] [address]- 5525 Nov, [facility] [place] [facility] [address] [id number], [place] [address]- 9797 Nov, [facility] [place] [facility] [address] [facility] [id number], [place] [address]- 3624 Nov, [facility] [place] [facility] [address] [id number] [place] [address]- 2734 Nov, 2014 [facility] [place] [facility] [address] [id number] [place] [address]- 7393 Nov, 2014 [facility] [place] [facility] [address] [id number] [place] [address]- 6438 17 Nov, 2014 [facility] [place] [facility] [address] [id number] [place] [address]- 8670 Nov, 2014 [facility] [place] [facility] [address] [id number] [place] [address]- 6036 Nov, 2014 [facility] [place] [facility] [address] [facility] [id number] [place] [address]- 2218 Nov, 2014 [facility] [place] [facility] [address] [facility] [id number] [place] [address]- 6836 Nov, 2014 [facility] [place] [facility] [address] [facility] [id number] [place] [address]- 9645 Nov, 2014 [facility] [place] [facility] [address] [facility] [id number] [place] [address]- 7940 Nov, 2014 [facility] [place] [facility] [address] [facility] [id number] [place] [address]- 6429 Nov, 2014 [facility] [place] [facility] [id number] [place] [address]- 9006 Nov, 2014 [facility] [place] [facility] [address] [facility] [id number] [place] [address]- 254 Nov, 2014 [facility] [place] [facility] [address] [facility] [id number] [place] [address]- 5875 Nov, 2014 [facility] [place] [facility] [address] [facility] [id number] [place] [address]- 4034 Nov, 2014 [facility] [place] [facility] [address] [facility] [id number] [place] [address]- 8681 Nov, 2014 [facility] [place] [facility] [address] [id number] [place] [address]- 7535 Nov, [facility] [place] [facility] [address] [id number] [place] [address]- 9680 Nov, [facility] [place] [facility] [address] [id number] [place] [address]- 3939 Oct, [facility] [place] [facility] [address] [id number] [place] [address]- 2009 Oct, [facility] [place] [facility] [address] [id number] [place] [address]- 0418 Oct, [facility] [place] [facility] [address] [id number] [place] [address]- 0168 Oct, [facility] [place] [facility] [address] [id number] [place] [address]- 6784 Oct, [facility] [place] [facility] [address] [id number] [place] [address]- 9507 Oct, [facility] [place] [facility] [address] [id number] [place] [address]- 1859 Oct, [facility] [place] [facility] [address] [id number] [place] [address]- 4758 Oct, [facility] [place] [facility] [address] [id number] [place] [address]- 5625 Oct, [facility] [place] [facility] [address] [id number] [place] [address]- 7069 Oct, [facility] [place] [facility] [address] [id number] [place] [address]- 1183 Oct, [facility] [place] [facility] [address] [id number] [place] [address]- 5711 Oct, [facility] [place] [facility] [address] [id number] [place] [address]- 9601 Sep, [facility] [place] [facility] [address] [id number] [place] [address]- 4193 Sep, [facility] [place] [facility] [address] [id number] [place] [address]- 4212 Sep, [facility] [place] [facility] [address] [id number] [place] [address]- 9722 Sep, [facility] [place] [facility] [address] [id number] [place] 4421 Sep, [facility] [place] [facility] [address] [id number] [place] [address]- 1836 Sep, [facility] [place] [facility] [address] [id number] [place] [address]- 1185 Aug, [facility] [place] [facility] [address] [id number] [place] [address]- 9702 Aug, [facility] [place] [facility] [address] [id number] [place] [address]- 0098 Jul, [facility] [place] [facility] [address] [id number] [place] [address]- 4891 Jul, [facility] [place] [facility] [address] [id number] [place] [address]- 9092 Jul, [facility] [place] [facility] [address] [id number], [place] [address]- 8994 Jul, [facility] [place] [facility] [address] [id number], [place] [address]- 0721 Jul, [facility] [place] [facility] [address] [id number], [place] [address]- 4768 07 Jul, 2014 [facility] [place] [facility] [address] [id number], [place] [address] Jun, [facility] [place] [facility] [address] [id number], [place] [address] 25 Jun, 2014 [facility] [place] [facility] [address] [id number], [place] [address] 16 Jun, 2014 [facility] [place] [facility] [address] [id number] [place] [address] 16 Jun, 2014 [facility] [place] [facility] [address] [id number] [place] [address] 13 Jun, 2014 [facility] [place] [facility] [address] [id number] [place] [address] Jun, [facility] [place] [facility] [address] [id number] [place] [address] Jun, [facility] [place] [facility] [address] [id number] [place] [address] May, [facility] [place] [facility] [address] [id number] [place] [address] May, [facility] [place] [facility] [address] [id number] [place] [address] February, [facility] [place] [facility] [address] [id number] [place] [address] February, [facility] [place] [facility] [address] [id number] [place] [address] February, [facility] [place] [facility] [address] [id number] [place] [address] February, [facility] [place] [facility] [address] [id number] [place] [address]- [address] February, [facility] [place] [facility] [address] [id number] [place] [address] February, [facility] [place] [facility] [address] [id number] [place] [address] February, [facility] [place] [facility] [address] [id number] [place] [address] Jan, [facility] [place] [facility] [address] [id number] [place] [address] Jan, [facility] [place] [facility] [address] [id number] [place] [address] Jan, [facility] [place] [facility] [address] [id number] [place] [address]- [address] Jan, [facility] [place] [facility] [address] [id number] [place] [address] 18 Jan, 2014 [facility] [place] [facility] [address] [id number] [place] [address] 18 Jan, 2014 [facility] [place] [facility] [address] [id number] [place] [address] Jan, [facility] [place] [facility] [address] [id number] [place] [address] 17 Jan, 2014 [facility] [place] [facility] [address] [id number] [place] [address] 16 Jan, 2014 [facility] [place] [facility] [address] [id number] [place] [address] 16 Jan, 2014 [facility] [place] [facility] [address] [id number] [place] [address] 15 Jan, 2014 [facility] [place] [facility] [address] [id number] [place] [address] Jan, [facility] [place] [facility] [address] [id number] [place] [address] 15 Jan, 2014 [facility] [place] [facility] [address] [id number] [place] [address] Jan, [facility] [facility] [address] [id number] [place] [address] Oct, [facility] [place] [facility] [address] [id number] [place] [address] Oct, [facility] [place] [facility] [address] [id number] [place] [address] May, [facility] [place] [facility] [address] [id number] [place] [address] 14 Mar, 2013 [facility] [place] [facility] [address] [id number] [place] [address] Mar, [facility] [address] [id number] [place] [address] Mar, [facility] [place] [facility] [address] [id number] [place] [address] February, [facility] [address] [id number] [place] [address] February, [facility] [place] [facility] [address] [id number] [place] [address] February, [facility] [address] [id number] [place] [address] February, [facility] [address] [id number] [place] [address] February, [facility] [address] [id number] [place] [address] Jan, [facility] [place] [facility] [address] [id number] [place] [address] Jan, [facility] [place] [facility] [address] [id number] [place] [address] Jan, [facility] [place] [facility] [address] [id number] [place] [address] Oct, [facility] [place] [facility] [address] [id number] [place] [address] Oct, [facility] [place] [address] [id number] [place] [address] Oct, [facility] [place] [facility] [address] [id number] [place] [address] Oct, [facility] [place] [facility] [address] [id number] [place] [address] Oct, [facility] [place] [address] [id number] [place] [address] Oct, [facility] [address] [id number] [place] [address] Oct, [facility] [address] [id number] [place] [address] Oct, [facility] [address] [id number] [place] [address] Aug, [facility] [address] [id number] [place] [address] Jul, [facility] [address] [id number] [place] [address] Jul, [facility] [address] [id number] [place] [address] Jul, [facility] [address] [id number] [place] [address] Jul, [facility] [place] [facility] [address] [id number] [place] [address] Jul, [facility] [address] [id number] [place] [address] Jul, [facility] [address] [id number] [place] [address] Jul, [facility] [address] [id number] [place] [address] Jun, [facility] [address] [id number] [place] [address] May, [facility] [address] [id number] [place] [address] May, [facility] [address] [id number] [place] [address] Apr, [facility] [address] [id number] [place] [address] Apr, [facility] [address] [id number] [place] [address] Apr, [facility] [address] [facility] [id number] [address] Apr, [facility] [address] [id number] [address] Apr, [facility] [address] [id number] [address] Apr, [facility] [id number] [address] Apr, [facility] [address] [facility] [id number], [place] [address] Apr, [facility] [address] [id number], [place] [address] Mar, [facility] [address] [id number], [place] [address] Jul, IMMUNIZATIONS No Known Immunizations SOCIAL HISTORY Never Assessed REASON FOR VISIT Dental Hygiene Recare PLAN OF CARE Activity Details Follow Up 2 - 3 Days Reason:WALT/RE-EVALUATION OF TX. PLAN VITAL SIGNS Blood pressure systolic 103 mmHg 2017-06-27 Blood pressure diastolic 69 mmHg 2017-06-27 MEDICATIONS Medication Instructions Dosage Frequency Start Date End Date Duration Status Triamcinolone Acetonide 0.1 % Externally Twice a day 1 application to affected area 12h 21 Jul, 2016 Active Abilify 5 mg Orally Once a day TAKE ONE-HALF TABLET BY MOUTH ONCE DAILY 24h 30 Active Zolpidem Tartrate 10 mg Orally Once a day 1 tablet at bedtime as needed 24h 20 Sep, 2016 30 days Active Cymbalta 30 MG Orally take with 60 mg Once a day 1 capsule 24h 30 days Active HydrOXYzine HCl 25 MG Orally three times a day as needed for anxiety 1 tablet as needed May, 30 day(s) Active Duloxetine HCl 60 mg Orally take with 30 mg Once a day 1 capsule 24h 30 Active RESULTS No Results PROCEDURES Procedure Date Ordered Result Body Site BITEWINGS - FOUR FILMS Jun 27, 2017 PROPHYLAXIS - ADULT Jun 27, 2017 TOPICAL FLUORIDE VARNISH Jun 27, 2017 INSTRUCTIONS MEDICATIONS ADMINISTERED No [...]
--- OUTSIDE RECORDS SUMMARY | 2018-05-16 00:38 | XMS REPORT ---
Author Author SINGH CHURCHILL Organization [facility] Address [address] [place] [address] Care Team Providers [employer] Director Name Role Phone SINGH CHURCHILL Unavailable PROBLEMS Type Condition ICD9-CM Code [id number] Code Onset Dates Condition Status SNOMED Code Problem Gastroesophageal reflux disease without esophagitis K21.9 Active 011587396 Problem Major depressive disorder, recurrent, moderate F33.1 Active 61786936 Problem Insomnia, unspecified G47.00 Active 406995761 Problem Major depressive disorder, recurrent episode, moderate F33.1 Active 748872150 Problem Recurrent major depressive disorder, in partial remission F33.41 Active 85264224 Problem Chronic maxillary sinusitis J32.0 Active 63023147 Problem History of prediabetes Z87.898 Active 839065481 Problem Overweight (BMI 25.0-29.9) E66.3 Active 062383544 Problem Skin lesion of right leg L98.9 Active 990066694 Problem Hyperlipidemia LDL goal <100 E78.5 Active 92621627 ALLERGIES No Information ENCOUNTERS Encounter Location Date Diagnosis [facility] [id number] [place] [address] 14221- 3236 May, [facility] [id number] [place] [address] 65577- 8136 28 Mar, 2018 [facility] [id number] [place] [address] 83526 -0126 February, Pain of left great toe M79.675 [facility] [id number] [place] [address] 59063- 2983 15 Dec, 2017 Recurrent major depressive disorder, in partial remission F33.41 [facility] [id number] [place] [address] 32644- 1192 14 Dec, 2017 History of prediabetes Z87.898 ; Overweight (BMI 25.0-29.9) E66.3 ; Hyperlipidemia LDL goal <100 E78.5 and Long-term use of high-risk medication Z79.[id number] [place] [address] 83438- 7372 19 Nov, 2017 Skin lesion of right leg L98.[address] 74976- 0636 Nov, Overweight (BMI 25.0-29.9) E66.3 ; Gastroesophageal reflux disease without esophagitis K21.9 ; Prediabetes R73.09 ; Chronic maxillary sinusitis J32.0 and Skin lesion of right leg L98.9 [facility] [address] [address] -3579 Oct, Acute non-recurrent frontal sinusitis J01.10 [facility] [address] 72332 -7491 Sep, Other viral agents as the cause of diseases classified elsewhere B97.89 and Acute upper respiratory infection, unspecified J06.[address] 27911- 1898 Sep, Major depressive disorder, recurrent episode, moderate F33.[address] 94210- 9272 Sep, [address] 67344- 8338 Aug, [address] 77858- 2925 Jul, Chronic constipation K59.09 ; Overweight (BMI 25.0-29.9) E66.3 and Facial rash R21 [address] 48304- 6221 17 Jul, [address] 15817- 2374 14 Jun, 2017 Major depressive disorder, recurrent episode, moderate F33.1 [facility] [id number] [place] [address] 11657 -6465 14 Jun, 2017 Dysuria R30.0 and Fluid level behind tympanic membrane of both ears H65.93 [facility] [id number] [place] [address] 28089- 6385 14 Jun, 2017 Dental examination Z01.20 [place] [address] 05008- 9862 08 Jun, 2017 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 [place] [address] 14505- 2195 08 Jun, 2017 Major depressive disorder, recurrent, moderate F33.1 and Other halfway (current) 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 Z79.899 [place] [address] 99844- 9965 May, Major depressive disorder, recurrent, moderate F33.1 [facility] [id number] [place] [address] 59111 -4338 May, [facility] [id number] [place] [address] 36960 -4140 May, Candidiasis B37.9 and Vaginal lesion N89.8 [place] [id number] [place] [address] 64773- 8667 May, Major depressive disorder, recurrent, moderate F33.1 [place] [id number] [place] [address] 92632- 3173 Mar, Major depressive disorder, recurrent, moderate F33.1 ; Insomnia, unspecified G47.00 and 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 [facility] [id number] [place] [address] 79146- 2033 February, Major depressive disorder, recurrent, moderate F33.1 [place] [address] [place] [address]- 0256 Jan, Major depressive disorder, recurrent, moderate F33.1 [facility] [id number] [place] [address] 91947- 1862 Nov, Major depressive disorder, recurrent, moderate F33.1 [facility] [id number] [place] [address] 54288- 6666 Nov, [facility] [address] 63989- 4287 Oct, Insomnia, unspecified G47.00 [facility] [id number] [place] [address] 61352- 0218 Oct, Major depressive disorder, recurrent, moderate F33.1 [facility] [id number] [place] [address] 08765- 5100 Sep, Major depressive disorder, recurrent, moderate F33.1 [facility] [id number] [place] [address] 41300- 8149 Sep, Major depressive disorder, recurrent episode, moderate F33.1 [facility] [id number] [place] [address] 80940- 8292 Aug, Major depressive disorder, recurrent episode, moderate F33.1 [facility] [id number] [place] [address] 88370- 9667 Aug, [facility] [id number] [place] [address] 83763- 0297 Aug, MDD (major depressive disorder), recurrent episode, mild F33.0 [facility] [id number] [place] [address] 89779- 8133 Jul, Dysuria R30.0 ; Chronic idiopathic constipation K59.04 and Allergy, insect bite Z91.038 [facility] [id number] [place] [address] 84367- 5487 Jul, Major depressive disorder, recurrent episode, moderate F33.1 [facility] [id number] [place] [address] 38750- 2057 May, [facility] [id number] [place] [address] 97593- 1801 May, Abnormal fasting glucose R73.01 ; Gastroesophageal reflux disease without esophagitis K21.9 ; Tremor R25.1 and Prediabetes R73.09 [facility] [id number] [place] [address] [id number] May, Dental examination Z01.20 [facility] [id number] [place] [address] 29345- 2657 17 May, 2016 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 [facility] [id number] [place] [address] 44796- 4947 May, Major depressive disorder, recurrent, moderate F33.1 and 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 [facility] [id number] [place] [address] 39878- 9565 May, [facility] [id number] [place] [address] 89121 -7180 May, Dysuria R30.0 [facility] [id number] [place] [address] 98502- 6069 May, [facility] [id number] [place] [address] 52271- 5548 May, Major depressive disorder, recurrent episode, moderate F33.1 [facility] [id number] [place] [address] 90337- 8903 Apr, Abnormal mammogram of right breast R92.8 [facility] [id number] [place] [address] 64542- 9681 Apr, [facility] [id number] [place] [address] 25418- 3405 Apr, [facility] [address] [place] [address]- 9003 Mar, Major depressive disorder, recurrent, moderate F33.1 and Insomnia, unspecified G47.00 [facility] [id number] [place] [address] 11775- 5102 Mar, Major depressive disorder, recurrent episode, moderate F33.1 [facility] [id number] [place] [address] 50655- 8724 February, [facility] [id number] [place] [address] 32460- 7019 Jan, [facility] [id number] [place] [address] 78066- 5815 Jan, Major depressive disorder, recurrent episode, moderate F33.1 [facility] [id number] [place] [address] 07931- 2288 Jan, Major depressive disorder, recurrent, moderate F33.1 [facility] [id number] [place] [address] [id number] Jan, Dental examination V72.2 [facility] [id number] [place] [address] 66405 -5965 Dec, Dysuria R30.0 ; Vaginal discharge N89.8 ; Vaginal yeast infection B37.3 and Encounter for screening for infections with a predominantly sexual mode of transmission Z11.3 [facility] [address] [place] [address] 64927- 5785 Dec, Major depressive disorder, recurrent episode, moderate F33.1 [facility] [id number] [place] [address] 39643- 7207 Dec, [facility] [id number] [place] [address] 19828- 1457 Dec, [facility] [address] [place] [address] 47597- 8325 Dec, [facility] [id number] [place] [address] 86192- 6292 Nov, Major depressive disorder, recurrent episode, moderate F33.1 [facility] [address] [place] [address] [id number] 15 Nov, 2015 Encounter for dental examination Z01.20 [place] [id number] [place] [address] 13202- 6137 Nov, [place] [address] 39262- 0027 Nov, [place] [id number] [place] [address] 44829- 8390 Oct, Hyperkalemia E87.5 ; History of UTI Z87.440 and Sinusitis J32.9 [place] [id number] [place] [address] 63778- 2266 07 Oct, 2015 Hyperkalemia E87.5 and Family history of hypertension Z82.49 [place] [id number] [place] [address] 34319- 6913 Oct, [place] [id number] [place] [address] 88242- 6950 Oct, Dysuria R30.0 ; Acute cystitis without hematuria N30.00 ; Epigastric pain R10.13 ; Chronic fatigue R53.82 ; Sinusitis J32.9 and Vaginal yeast infection B37.3 [place] [id number] [place] [address] 22817- 0153 Oct, Breast cancer screening V76.10 and Abnormal mammogram of right breast R92.8 [place] [id number] [place] [address] 87009- 2328 Oct, Breast cancer screening V76.10 and Abnormal mammogram of right breast R92.8 [place] [address] [place] [address] 20975- 9294 Sep, [place] [id number] [place] [address] 69051- 9223 Sep, Major depressive disorder, recurrent episode, moderate 296.32 [place] [id number] [place] [address] 63285- 5999 Aug, Insomnia, unspecified G47.00 ; Major depressive disorder, recurrent, moderate F33.1 and Dysthymic disorder F34.1 [place] [id number] [place] [address] 90268- 3143 Aug, Major depressive disorder, recurrent, moderate F33.1 [place] [address] 40561- 0121 Aug, Insomnia, unspecified G47.00 ; Adjustment disorder with mixed anxiety and depressed mood F43.23 ; Dysthymic disorder F34.1 and Major depressive disorder, recurrent, moderate F33.1 [place] [id number] [place] [address] 43169- 8650 Aug, Depression F32.9 and Sinusitis J32.9 [place] [address] 04033- 7948 Aug, Major depressive disorder, recurrent episode, unspecified severity F33.[address] 45717- 4181 Aug, [place] [address] 99525- 0784 Jul, [place] [id number] [place] [address] 27669- 8269 Jun, [place] [id number] [place] [address] 82225- 3218 Jun, Dysuria 788.[address] 51950- 6828 Jun, Insomnia 780.52 ; Unspecified myalgia and myositis 729.1 ; High risk sexual behavior V69.2 and Dysuria 788.[address] [address] Jun, [facility] [address] [address]- 6330 May, [facility] [address]- 5549 Apr, [facility] [address] [id number] Apr, Dental examination V72.2 [facility] [id number] [place] [address] 48382- 0695 Apr, Insomnia 780.52 ; Unspecified myalgia and myositis 729.1 ; Long-term use of high-risk medication V58.69 and Urinary incontinence 788.30 [facility] [address] [address]- 9097 Apr, Breast cancer screening V76.10 and Breast pain 611.71 [facility] [id number] [place] [address] 98364- 2971 Apr, Breast cancer screening V76.10 [facility] [id number] [place] [address] 69756- 9575 Apr, Breast cancer screening V76.10 and Vaginal itching 698.1 [facility] [address] [address]- 5821 Apr, [facility] [id number] [place] [address] 55844- 1088 February, [facility] [address] [address]- 6133 February, Insomnia, unspecified 780.52 [facility] [address] [address]- 0165 Jan, [facility] [address] [address]- 9334 Jan, [facility] [address] [facility] [place] [address]- 8460 Dec, [facility] [place] [facility] [address] [id number] [place] [address]- 1250 Dec, [facility] [place] [facility] [address] [id number] [place] [address]- 0685 Dec, [facility] [place] [facility] [address] [id number] [place] [address]- 3116 Dec, [facility] [place] [facility] [address] [id number] [place] [address]- 9833 Dec, [facility] [place] [facility] [address] [id number] [place] [address]- 5118 Dec, [facility] [place] [facility] [address] [facility] [place] [id number] [place] [address]- 7513 Dec, [facility] [place] [facility] [address] [facility] [id number] [place] [address]- 3348 Dec, [facility] [place] [facility] [address] [facility] [id number] [place] [address]- 0120 Dec, [facility] [place] [facility] [address] [id number] [place] [address]- 7151 Dec, [facility] [place] [facility] [address] [facility] [place] [id number] [place] [address]- 8233 Nov, 2014 [facility] [place] [facility] [address] [id number] [place] [address]- 7808 Nov, 2014 [facility] [place] [facility] [address] [facility] [id number] [place] [address]- 0900 Nov, [facility] [place] [facility] [address] [id number] [place] 3374 Nov, 2014 [facility] [place] [facility] [address] [facility] [place] [place] [id number] [place] [address]- 6051 Nov, 2014 [facility] [place] [facility] [address] [facility] [place] [place] [id number] [place] [address]- 8650 Nov, 2014 [facility] [place] [facility] [address] [facility] [place] [place] [id number] [place] [address]- 8414 Nov, 2014 [facility] [place] [facility] [address] [facility] [place] [place] [id number] [place] [address]- 6354 Nov, 2014 [facility] [place] [facility] [address] [facility] [place] [place] [id number] [place] [address]- 2761 Nov, 2014 [facility] [place] [facility] [address] [facility] [place] [place] [id number] [place] [address]- 0102 Nov, 2014 [facility] [place] [facility] [address] [facility] [place] [place] [id number] [place] [address]- 3274 Nov, 2014 [facility] [place] [facility] [address] [facility] [place] [place] [id number] [place] [address]- 8745 Nov, 2014 [facility] [place] [facility] [id number] [place] [address]- 4342 Nov, 2014 [facility] [place] [facility] [address] [facility] [place] [place] [id number] [place] [address]- 6992 Nov, 2014 [facility] [place] [facility] [address] [facility] [place] [place] [id number] [place] [address]- 3376 Nov, 2014 [facility] [place] [facility] [address] [facility] [place] [place] [id number] [place] [address]- 1500 Nov, 2014 [facility] [place] [facility] [address] [facility] [place] [place] [id number] [place] [address]- 2668 Nov, 2014 [facility] [place] [facility] [address] [facility] [place] [id number] [address]- 2542 Nov, 2014 [facility] [place] [facility] [address] [facility] [place] [place] [id number] [place] [address]- 4621 Nov, 2014 [facility] [place] [facility] [address] [facility] [place] [id number], [place] [address]- 1404 Nov, 2014 [facility] [place] [facility] [address] [facility] [place] [place] [id number] [address]- 1432 Nov, [facility] [place] [facility] [address] [id number] [place] [address]- 6214 Nov, [facility] [place] [facility] [address] [id number] [place] [address]- 4099 Nov, [facility] [place] [facility] [address] [id number] [place] [address]- 1379 Oct, [facility] [place] [facility] [address] [id number] [place] [address]- 7821 Oct, [facility] [place] [facility] [address] [id number] [place] [address]- 9858 Oct, [facility] [place] [facility] [address] [id number] [place] [address]- 2729 Oct, [facility] [place] [facility] [address] [id number] [place] [address]- 0032 Oct, [facility] [place] [facility] [address] [id number] [place] [address]- 5456 Oct, [facility] [place] [facility] [address] [id number] [place] [address]- 5440 Oct, [facility] [place] [facility] [address] [id number], [place] [address]- 4253 Oct, [facility] [place] [facility] [address] [id number], [place] [address]- 1975 Oct, [facility] [place] [facility] [address] [id number], [place] [address]- 3860 Oct, [facility] [place] [facility] [address] [id number] [place] [address]- 6355 Oct, [facility] [place] [facility] [address] [id number], [place] [address]- 1798 Oct, [facility] [place] [facility] [address] [id number], [place] [address]- 0551 Sep, [facility] [place] [facility] [address] [id number], [place] [address]- 9047 Sep, [facility] [place] [facility] [address] [id number] [place] [address]- 0390 Sep, [facility] [place] [facility] [address] [id number] [place] [address]- 8710 Sep, [facility] [place] [facility] [address] [facility] [place] [place] [id number] [place] [address]- 9551 Sep, [facility] [place] [facility] [address] [id number] [place] [address]- 6240 Sep, [facility] [place] [facility] [address] [facility] [place] [id number] [place] [address]- 4164 Aug, [facility] [place] [facility] [address] [facility] [place] [id number] [place] [address] Aug, [facility] [place] [facility] [address] [facility] [place] [id number], [place] [address] Jul, [facility] [place] [facility] [address] [facility] [place] [id number][place] [address] Jul, [facility] [place] [facility] [address] [facility] [place] [id number], [place] [address] Jul, [facility] [place] [facility] [address] [facility] [place] [id number], [place] [address] Jul, [facility] [place] [facility] [address] [facility] [place] [id number], [place] [address] Jul, [facility] [place] [facility] [address] [facility] [place] [id number], [place] [address] Jul, [facility] [place] [facility] [address] [id number], [place] [address] Jun, [facility] [place] [facility] [address] [facility] [place] [id number], [place] [address] 25 Jun, 2014 [facility] [place] [facility] [address] [facility] [place] [id number], [place] [address] 16 Jun, 2014 [facility] [place] [facility] [address] [id number] [place] [address] 16 Jun, 2014 [facility] [place] [facility] [address] [id number] [place] [address]- [address] 13 Jun, 2014 [facility] [place] [facility] [address] [id number] [place] [address] Jun, [facility] [place] [facility] [address] [id number] [place] [address] Jun, [facility] [place] [facility] [address] [id number] [place] [address] May, [facility] [place] [facility] [address] [id number] [place] [address] May, [facility] [place] [facility] [address] [id number] [place] [address] February, [facility] [place] [facility] [address] [id number] [place] [address] February, [facility] [place] [facility] [address] [id number] [place] [address] February, [facility] [place] [facility] [address] [id number] [place] [address] February, [facility] [place] [facility] [address] [id number] [place] [address] February, [facility] [place] [facility] [address] [id number] [place] [address] February, [facility] [place] [facility] [address] [id number] [place] [address] February, [facility] [place] [facility] [address] [id number] [place] [address] Jan, [facility] [place] [facility] [address] [id number] [place] [address] Jan, [facility] [place] [facility] [address] [id number] [place] [address] Jan, [facility] [place] [facility] [address] [id number] [place] [address] Jan, [facility] [place] [facility] [address] [id number] [place] [address] 18 Jan, 2014 [facility] [place] [facility] [address] [id number] [place] [address] 18 Jan, 2014 [facility] [place] [facility] [address] [id number] [place] [address] 17 Jan, 2014 [facility] [place] [facility] [address] [id number] [place] [address] 17 Jan, 2014 [facility] [place] [facility] [address] [id number] [place] [address] 16 Jan, 2014 [facility] [place] [facility] [address] [id number] [place] [address] 16 Jan, 2014 [facility] [place] [facility] [address] [id number] [place] [address] 15 Jan, 2014 [facility] [place] [facility] [address] [id number] [place] [address] 15 Jan, 2014 [facility] [place] [facility] [address] [id number] [place] [address] 15 Jan, 2014 [facility] [place] [facility] [address] [id number] [place] [address] 15 Jan, 2014 [facility] [place] [facility] [address] [id number], [place] [address] Oct, [facility] [place] [facility] [address] [id number] [place] [address] Oct, [facility] [place] [facility] [address] [id number] [place] [address] May, [facility] [place] [facility] [address] [id number] [place] [address] Mar, [facility] [place] [facility] [address] [id number] [place] [address] Mar, [facility] [address] [id number] [place] [address] Mar, [facility] [address] [id number] [place] [address] February, [facility] [address] [id number] [place] [address] February, [facility] [address] [id number] [place] [address] February, [facility] [address] [id number] [place] [address] February, [facility] [address] [id number] [place] [address] February, [facility] [address] [id number] [place] [address] Jan, [facility] [address] [id number] [place] [address] Jan, [facility] [address] [id number] [place] [address] Jan, [facility] [address] [id number] [place] [address] Oct, [facility] [address] [id number] [place] [address] Oct, [facility] [address] [id number] [place] [address] Oct, [facility] [place] [facility] [address] [id number] [place] [address] Oct, [facility] [place] [facility] [address] [id number] [place] [address] Oct, [facility] [address] [id number] [place] [address] Oct, [facility] [address] [id number] [place] [address] Oct, [facility] [place] [facility] [address] [id number] [place] [address] Oct, [facility] [place] [facility] [address] [id number] [place] [address] Aug, [facility] [place] [facility] [address] [id number] [place] [address] Jul, [facility] [place] [facility] [address] [id number] [place] [address] Jul, [facility] [place] [facility] [address] [id number] [place] [address] Jul, [facility] [place] [facility] [address] [id number] [place] [address] Jul, [facility] [place] [facility] [address] [id number] [place] [address] Jul, [facility] [place] [facility] [address] [id number] [place] [address] Jul, [facility] [place] [facility] [address] [id number] [place] [address] Jul, [facility] [place] [facility] [address] [id number] [place] [address] Jun, [facility] [place] [facility] [address] [id number] [place] [address] May, [facility] [place] [facility] [address] [id number] [place] [address] May, [facility] [place] [facility] [address] [id number] [place] [address] Apr, [facility] [place] [facility] [address] [id number] [place] [address] Apr, [facility] [place] [facility] [address] [id number], [place] [address] Apr, [facility] [address] [id number], [place] [address] Apr, [facility] [address] [id number], [place] [address] Apr, [facility] [id number], [place] [address] Apr, [facility] [id number], [place] [address] Apr, [facility] [id number], [place] [address] Apr, [facility] [id number], [place] [address] Mar, [facility] [id number], [place] [address] Jul, IMMUNIZATIONS No Known Immunizations SOCIAL HISTORY Never Assessed REASON FOR VISIT Medication refill request PLAN OF CARE VITAL SIGNS MEDICATIONS Medication Instructions Dosage Frequency Start Date End Date Duration Status Contrave 8-90 MG Orally Twice a day 1 tablet 12h Aug, Sep, 14 days Active RESULTS No Results PROCEDURES No [...]
--- OUTSIDE RECORDS SUMMARY | 2018-05-16 00:39 | XMS REPORT ---
Author Author DENITA CARRINGTON Organization [facility] Address [address] [place] [address] Care Team Providers Care Clay Grinder Name Role Phone ELIZABETPRABHU DENITA Unavailable PROBLEMS Type Condition ICD9-CM Code INR14-SQ Code Onset Dates Condition Status SNOMED Code Problem Gastroesophageal reflux disease without esophagitis K21.9 Active 693475343 Problem Major depressive disorder, recurrent, moderate F33.1 Active 38228033 Problem Insomnia, unspecified G47.00 Active 499306011 Problem Major depressive disorder, recurrent episode, moderate F33.1 Active 754840246 Problem Recurrent major depressive disorder, in partial remission F33.41 Active 41587927 Problem Chronic maxillary sinusitis J32.0 Active 01660379 Problem History of prediabetes Z87.898 Active 547592386 Problem Overweight (BMI 25.0-29.9) E66.3 Active 415134203 Problem Skin lesion of right leg L98.9 Active 376232969 Problem Hyperlipidemia LDL goal <100 E78.5 Active 13711912 ALLERGIES Substance Reaction Event Type Date Status Imipramine HCl rash Drug Allergy Jun, Active Celebrex Unknown Drug Allergy Jun, Active Amoxicillin Unknown Drug Allergy Jun, Active Vladimir Toilet Paper yeast infection Non Drug Allergy Jun, Active Tape can only use paper tape Non Drug Allergy Jun, Active ENCOUNTERS Encounter Location Date Diagnosis [facility] [address] [facility] [id number] [address] May, [facility] [address] [facility] [id number] [address] Dec, Recurrent major depressive disorder, in partial remission F33.41 [facility] [address] [facility] [id number] [address] Dec, History of prediabetes Z87.898 ; Overweight (BMI 25.0-29.9) E66.3 ; Hyperlipidemia LDL goal <100 E78.5 and Long-term use of high-risk medication Z79.[address] [address] 19 Nov, 2017 Skin lesion of right leg L98.[address] [address]- [address] 06 Nov, 2017 Overweight (BMI 25.0-29.9) E66.3 ; Gastroesophageal reflux disease without esophagitis K21.9 ; Prediabetes R73.09 ; Chronic maxillary sinusitis J32.0 and Skin lesion of right leg L98.9 [facility] [address] [address] Oct, Acute non-recurrent frontal sinusitis J01.[address] [address] Sep, Other viral agents as the cause of diseases classified elsewhere B97.89 and Acute upper respiratory infection, unspecified J06.[address] [address] Sep, Major depressive disorder, recurrent episode, moderate F33.1 [place] [id number] [place] [address]876- 9033 Sep, [address] [address] Aug, [address] [address]- [address] Jul, Chronic constipation K59.09 ; Overweight (BMI 25.0-29.9) E66.3 and Facial rash R21 [place] [address] [address]- [address] 17 Jul, 2017 [place] [address] [address] 14 Jun, 2017 Major depressive disorder, recurrent episode, moderate F33.1 [facility] [id number] [place] [address] 78656 -0421 14 Jun, 2017 Dysuria R30.0 and Fluid level behind tympanic membrane of both ears H65.93 [facility] [id number] [place] [address] 95920- 2008 14 Jun, 2017 Dental examination Z01.20 [place] [address] [place] [id number] [place] [address] 89264- 6137 08 Jun, 2017 Other correction (current) 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 Z79.899 [place] [address] [place] [id number] [place] [address] 38055- 8248 08 Jun, 2017 Major depressive disorder, recurrent, moderate F33.1 and 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 [place] [address] [place] [id number] [place] [address] 57460- 4674 May, Major depressive disorder, recurrent, moderate F33.1 [facility] [id number] [place] [address] 86821 -9388 May, [facility] [address] [address] May, Candidiasis B37.9 and Vaginal lesion N89.8 [place] [address] [place] [id number] [place] [address] 65229- 6482 May, Major depressive disorder, recurrent, moderate F33.1 [place] [address] [id number] [place] [address] 76697- 8297 Mar, Major depressive disorder, recurrent, moderate F33.1 ; Insomnia, unspecified G47.00 and 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 [place] [address] [place] [id number] [place] [address] 63755- 2995 February, Major depressive disorder, recurrent, moderate F33.1 [place] [address] [place] [id number] [place] [address] 30367- 6532 Jan, Major depressive disorder, recurrent, moderate F33.1 [facility] [address] [place] [address] 97009- 6680 Nov, Major depressive disorder, recurrent, moderate F33.1 [facility] [id number] [place] [address] 94392- 2786 Nov, [facility] [address] 28789- 3667 Oct, Insomnia, unspecified G47.00 [facility] [id number] [place] [address] 94268- 9584 Oct, Major depressive disorder, recurrent, moderate F33.1 [facility] [id number] [place] [address] 36462- 9238 Sep, Major depressive disorder, recurrent, moderate F33.1 [facility] [id number] [place] [address] 45158- 8593 Sep, Major depressive disorder, recurrent episode, moderate F33.1 [facility] [id number] [place] [address] 13380- 0551 Aug, Major depressive disorder, recurrent episode, moderate F33.1 [facility] [id number] [place] [address] 30530- 6034 Aug, [facility] [id number] [place] [address] 42299- 4329 Aug, MDD (major depressive disorder), recurrent episode, mild F33.0 [facility] [id number] [place] [address] 63564- 5937 Jul, Dysuria R30.0 ; Chronic idiopathic constipation K59.04 and Allergy, insect bite Z91.038 [facility] [id number] [place] [address] 57035- 7673 Jul, Major depressive disorder, recurrent episode, moderate F33.1 [facility] [address] [place] [address] 97[address] May, [facility] [id number] [place] [address] 36605- 3883 May, Abnormal fasting glucose R73.01 ; Gastroesophageal reflux disease without esophagitis K21.9 ; Tremor R25.1 and Prediabetes R73.09 [facility] [address] [address] May, Dental examination Z01.20 [facility] [address] [place] [id number] [place] [address] 63442- 5443 17 May, 2016 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 [facility] [address] [place] [id number] [place] [address] 51023- 5285 May, Major depressive disorder, recurrent, moderate F33.1 and 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 [facility] [id number] [place] [address] 84678- 1399 May, [facility] [id number] [place] [address] 55855 -3361 May, Dysuria R30.0 [facility] [id number] [place] [address] 53933- 7379 May, [facility] [id number] [place] [address] 69178- 8533 May, Major depressive disorder, recurrent episode, moderate F33.1 [facility] [address] [place] [address] 05409- 4826 Apr, Abnormal mammogram of right breast R92.8 [facility] [id number] [place] [address] 93435- 1487 Apr, [facility] [id number] [place] [address] 60538- 2491 Apr, [facility] [id number] [place] [address] 55954- 8017 Mar, Major depressive disorder, recurrent, moderate F33.1 and Insomnia, unspecified G47.00 [facility] [address] [place] [address] 71650- 3567 Mar, Major depressive disorder, recurrent episode, moderate F33.1 [facility] [address] [address]- 6[address] February, [facility] [id number] [place] [address] 40297- 1448 Jan, [facility] [id number] [place] [address] 76459- 6208 Jan, Major depressive disorder, recurrent episode, moderate F33.1 [facility] [address] [place] [address] 08583- 8419 Jan, Major depressive disorder, recurrent, moderate F33.1 [facility] [address] [place] [id number] [place] [address] [id number] Jan, Dental examination V72.2 [facility] [address] [place] [address] 02199 -6656 Dec, Dysuria R30.0 ; Vaginal discharge N89.8 ; Vaginal yeast infection B37.3 and Encounter for screening for infections with a predominantly sexual mode of transmission Z11.3 [facility] [address] [address]- 4833 Dec, Major depressive disorder, recurrent episode, moderate F33.1 [facility] [address] [address]- 8584 Dec, [facility] [address] [id number] [place] [address] 33864- 0544 Dec, [facility] [address] [place] [address] 11685- 8456 Dec, [facility] [address] [place] [address] 60392- 3725 Nov, Major depressive disorder, recurrent episode, moderate F33.1 [facility] [address] [address] Nov, Encounter for dental examination Z01.20 [place] [address] [place] [address] 72308- 6383 Nov, [place] [address] [place] [id number] [place] [address] 38084- 6213 Nov, [place] [address] [place] [id number] [place] [address] 25511- 3954 Oct, Hyperkalemia E87.5 ; History of UTI Z87.440 and Sinusitis J32.9 [place] [address] [place] [id number] [place] [address] 56642- 8617 Oct, Hyperkalemia E87.5 and Family history of hypertension Z82.49 [place] [address] [place] [id number] [place] [address] 04507- 6640 Oct, [place] [address] [place] [id number] [place] [address] 57416- 3922 Oct, Dysuria R30.0 ; Acute cystitis without hematuria N30.00 ; Epigastric pain R10.13 ; Chronic fatigue R53.82 ; Sinusitis J32.9 and Vaginal yeast infection B37.3 [place] [address] [place] [address] 67620- 8080 Oct, Breast cancer screening V76.10 and Abnormal mammogram of right breast R92.8 [place] [address] [place] [address] 61666- 3862 Oct, Breast cancer screening V76.10 and Abnormal mammogram of right breast R92.8 [place] [address] [place] [address] 69898- 2782 Sep, [place] [address] [place] [id number] [place] [address] 68250- 2853 Sep, Major depressive disorder, recurrent episode, moderate 296.32 [place] [address] [place] [id number] [place] [address] 90492- 4331 Aug, Insomnia, unspecified G47.00 ; Major depressive disorder, recurrent, moderate F33.1 and Dysthymic disorder F34.1 [place] [address] [place] [id number] [place] [address] 80152- 4175 Aug, Major depressive disorder, recurrent, moderate F33.1 [place] [address] 454127- 7313 Aug, Insomnia, unspecified G47.00 ; Adjustment disorder with mixed anxiety and depressed mood F43.23 ; Dysthymic disorder F34.1 and Major depressive disorder, recurrent, moderate F33.1 [place] [address] 69542- 3952 Aug, Depression F32.9 and Sinusitis J32.9 [place] [address] 42260- 5006 Aug, Major depressive disorder, recurrent episode, unspecified severity F33.9 [place] [address] 11946- 2119 Aug, [place] [address] 80602- 2400 Jul, [place] [address] 31668- 2665 Jun, [place] [address] 73877- 4499 Jun, Dysuria 788.[address] 60139- 2271 Jun, Insomnia 780.52 ; Unspecified myalgia and myositis 729.1 ; High risk sexual behavior V69.2 and Dysuria 788.1 [place] [address] 71147- 5887 Jun, [facility] [address] [address]- 2568 May, [facility] [address] [address] Apr, [facility] [address] [place] [id number] [id number] Apr, Dental examination V72.2 [facility] [address] [place] [address] 22919- 3849 Apr, Insomnia 780.52 ; Unspecified myalgia and myositis 729.1 ; Long-term use of high-risk medication V58.69 and Urinary incontinence 788.30 [facility] [address] [address]- 0190 Apr, Breast cancer screening V76.10 and Breast pain 611.71 [place] [address] [place] [address] 12839- 2951 Apr, Breast cancer screening V76.10 [facility] [address] [place] [id number] [place] [address] 59597- 7919 Apr, Breast cancer screening V76.10 and Vaginal itching 698.1 [facility] [address] [address]- 0606 Apr, [facility] [address] [address]- 9501 February, [facility] [address] [address]- 7917 February, Insomnia, unspecified 780.52 [facility] [address] [address]- 9607 Jan, [facility] [address] [address]- 4854 Jan, [facility] [address] [place] [address] 75956- 1952 Dec, [facility] [place] [facility] [address] [id number] [place] [address]- 7728 Dec, [facility] [place] [facility] [address] [id number] [place] [address]- 2466 Dec, [facility] [place] [facility] [address] [facility] [id number] [place] [address]- 4448 Dec, [facility] [place] [facility] [address] [id number] [place] [address]- 7487 Dec, [facility] [place] [facility] [address] [id number] [place] [address]- 0233 Dec, [facility] [place] [facility] [address] [facility] [id number] [place] [address]- 8798 Dec, [facility] [place] [facility] [address] [facility] [id number] [place] [address]- 1341 Dec, [facility] [place] [facility] [address] [id number] [address]- 2336 Dec, [facility] [place] [facility] [address] [facility] [id number] [place] [address]- 4546 Dec, [facility] [place] [facility] [address] [facility] [id number] [place] [address]- 1862 Nov, [facility] [place] [facility] [address] [facility] [id number] [address]- 1810 Nov, [facility] [place] [facility] [address] [id number] [address]- 3565 Nov, [facility] [place] [facility] [address] [id number] [place] [address]- 0172 Nov, [facility] [place] [facility] [address] [facility] [id number] [place] [address]- 5533 Nov, [facility] [place] [facility] [address] [facility] [id number] [place] [address]- 3384 Nov, [facility] [place] [facility] [address] [id number] [place] [address]- 8649 Nov, 2014 [facility] [place] [facility] [address] [id number] [place] [address]- 6008 Nov, 2014 [facility] [place] [facility] [address] [facility] [id number] [place] [address]- 2544 17 Nov, 2014 [facility] [place] [facility] [address] [facility] [id number] [place] [address]- 1931 Nov, 2014 [facility] [place] [facility] [address] [id number] [place] [address]- 2236 Nov, 2014 [facility] [place] [facility] [address] [facility] [id number] [place] [address]- 2513 Nov, 2014 [facility] [place] [facility] [address] [facility] [id number] [place] [address]- 1628 Nov, 2014 [facility] [place] [facility] [address] [facility] [id number] [place] [address]- 7531 Nov, 2014 [facility] [place] [facility] [address] [facility] [id number] [place] [address]- 6842 Nov, 2014 [facility] [place] [facility] [address] [facility] [id number] [place] [address]- 7668 Nov, 2014 [facility] [place] [facility] [address] [facility] [id number] [place] [address]- 9292 Nov, 2014 [facility] [place] [facility] [address] [facility] [id number] [address]- 2542 Nov, 2014 [facility] [place] [facility] [address] [facility] [id number] [place] [address]- 5300 Nov, 2014 [facility] [place] [facility] [address] [facility] [id number] [place] [address]- 3321 Nov, 2014 [facility] [place] [facility] [address] [facility] [id number] [place] [address]- 9267 Nov, 2014 [facility] [place] [facility] [address] [facility] [id number] [place] [address]- 4391 Nov, [facility] [address] [id number] [place] [address]- 2175 Nov, [facility] [place] [facility] [address] [id number] [place] [address]- 2865 Oct, [facility] [address] [id number] [place] [address]- 4584 Oct, [facility] [address] [id number] [place] [address]- 4013 Oct, [facility] [address] [id number] [place] [address]- 2969 Oct, [facility] [address] [id number] [place] [address]- 3683 Oct, [facility] [address] [id number] [place] [address]- 0194 Oct, [facility] [address] [id number] [place] [address]- 4197 Oct, [facility] [address] [id number] [place] [address]- 4915 Oct, [facility] [address] [id number] [place] [address]- 4257 Oct, [facility] [address] [id number] [place] [address]- 9529 Oct, [facility] [address] [id number] [place] [address]- 7340 Oct, [facility] [place] [facility] [address] [id number] [place] [address]- 6821 Oct, [facility] [place] [facility] [address] [id number] [place] [address]- 7371 Sep, [facility] [address] [id number] [place] [address]- 9063 Sep, [facility] [place] [facility] [address] [id number] [place] [address]- 9529 Sep, [facility] [place] [facility] [address] [id number] [place] [address]- 9434 Sep, [facility] [place] [facility] [address] [id number] [place] [address]- 0524 Sep, [facility] [place] [facility] [address] [id number] [place] [address]- 6816 Sep, [facility] [place] [facility] [address] [id number] [place] [address]- 6600 Aug, [facility] [place] [facility] [address] [id number] [place] [address]- 6402 Aug, [facility] [place] [facility] [address] [id number] [place] [address]- 4772 Jul, [facility] [place] [facility] [address] [id number] [place] [address]- 2495 Jul, [facility] [place] [facility] [address] [id number] [place] [address]- 3651 Jul, [facility] [place] [facility] [address] [id number] [address]- 0808 Jul, [facility] [place] [facility] [address] [id number] [place] [address]- 9520 Jul, [facility] [place] [facility] [address] [id number] [place] [address]- 1745 07 Jul, 2014 [facility] [place] [facility] [address] [id number] [place] [address]- 8432 Jun, [facility] [place] [facility] [address] [id number] 8906 25 Jun, 2014 [facility] [place] [facility] [address] [id number] [place] [address]- 3889 16 Jun, 2014 [facility] [place] [facility] [address] [id number] [place] [address]- 9708 16 Jun, 2014 [facility] [place] [facility] [address] [id number] [place] [address]- 6024 13 Jun, 2014 [facility] [place] [facility] [address] [id number] [place] [address] Jun, [facility] [place] [facility] [address] [id number] [place] [address] Jun, [facility] [place] [facility] [address] [id number] [place] [address] May, [facility] [place] [facility] [address] [id number] [place] [address] May, [facility] [place] [facility] [address] [id number] [place] [address] February, [facility] [place] [facility] [address] [id number] [place] [address] February, [facility] [place] [facility] [address] [id number] [place] [address] February, [facility] [place] [facility] [address] [id number] [place] [address] February, [facility] [place] [facility] [address] [id number] [place] [address] February, [facility] [place] [facility] [address] [id number] [place] [address] February, [facility] [place] [facility] [address] [id number] [place] [address] February, [facility] [place] [facility] [address] [id number] [place] [address] Jan, [facility] [place] [facility] [address] [id number] [place] [address] Jan, [facility] [place] [facility] [address] [id number] [place] [address] Jan, [facility] [place] [facility] [address] [id number] [place] [address] 21 Jan, 2014 [facility] [place] [facility] [address] [id number] [place] [address] 18 Jan, 2014 [facility] [place] [facility] [address] [id number] [place] [address] 18 Jan, 2014 [facility] [place] [facility] [address] [id number] [place] [address] 17 Jan, 2014 [facility] [place] [facility] [address] [id number] [place] [address] 17 Jan, 2014 [facility] [place] [facility] [address] [id number] [place] [address] 16 Jan, 2014 [facility] [place] [facility] [address] [id number] [place] [address] 16 Jan, 2014 [facility] [place] [facility] [address] [id number] [place] [address] 15 Jan, 2014 [facility] [place] [facility] [address] [id number] [place] [address] 15 Jan, 2014 [facility] [place] [facility] [address] [id number] [place] [address] 15 Jan, 2014 [facility] [place] [facility] [address] [id number] [place] [address] 15 Jan, 2014 [facility] [facility] [address] [id number] [place] [id number] Oct, [facility] [place] [facility] [address] [id number] [place] [address] Oct, [facility] [place] [facility] [address] [id number] [place] [address] May, [facility] [place] [facility] [address] [id number] [place] [address] 14 Mar, 2013 [facility] [place] [facility] [address] [id number] [place] [address] Mar, [facility] [address] [id number] [place] [address] Mar, [facility] [address] [id number] [place] [address] February, [facility] [address] [id number] [place] [address] February, [facility] [address] [id number] [place] [address] February, [facility] [address] [id number] [place] [address] February, [facility] [address] [id number] [place] [address] February, [facility] [address] [id number] [place] [address] Jan, [facility] [place] [facility] [address] [id number] [place] [address] Jan, [facility] [address] [id number] [place] [address] Jan, [facility] [address] [id number] [place] [address] Oct, [facility] [address] [id number] [address] Oct, [facility] [address] [id number] [address] Oct, [facility] [address] [id number] [place] [address] Oct, [facility] [address] [id number] [address] Oct, [facility] [address] [id number] [place] [address] Oct, [facility] [address] [id number] [place] [address] Oct, [facility] [address] [id number] [place] [address] Oct, [facility] [address] [id number] [place] [address] Aug, [facility] [address] [id number] [place] [address] Jul, [facility] [address] [id number] [place] [address] Jul, [facility] [address] [id number] [place] [address] Jul, [facility] [address] [id number] [place] [address] Jul, [facility] [address] [id number] [place] [address] Jul, [facility] [address] [id number] [place] [address] Jul, [facility] [address] [id number] [place] [address] Jul, [facility] [address] [id number] [place] [address] Jun, [facility] [address] [id number] [place] [address] May, [facility] [address] [id number] [place] [address] May, [facility] [address] [id number] [place] [address] Apr, [facility] [address] [id number] [place] [address] Apr, [facility] [address] [id number] [place] [address] Apr, [facility] [address] [facility] [id number] [address] Apr, [facility] [id number] [address] Apr, [facility] [id number] [address] Apr, [facility] [id number] [address] Apr, [facility] [id number] [address] Apr, [facility] [id number] [address] Mar, [facility] [id number] [address] Jul, IMMUNIZATIONS No Known Immunizations SOCIAL HISTORY Never Assessed REASON FOR VISIT f/u Marissa PLAN OF CARE Activity Details Follow Up 3 Months Reason: VITAL SIGNS Height 68 in 2017-06-27 Weight 187.9 lbs 2017-06-27 Temperature 97.9 degrees Fahrenheit 2017-06-27 Heart Rate 68 bpm 2017-06-27 Respiratory Rate 20 2017-06-27 BMI 28.57 kg/m2 2017-06-27 Blood pressure systolic 98 mmHg 2017-06-27 Blood pressure diastolic 68 mmHg 2017-06-27 MEDICATIONS Medication Instructions Dosage Frequency Start Date End Date Duration Status Duloxetine HCl 60 mg Orally take with 30 mg Once a day 1 capsule 24h 30 days Active Abilify 5 mg Orally Once a day TAKE ONE-HALF TABLET BY MOUTH ONCE DAILY 24h 30 days Active Cymbalta 30 MG Orally take with 60 mg Once a day 1 capsule 24h 30 days Active Triamcinolone Acetonide 0.1 % Externally Twice a day 1 application to affected area 12h Jul, Active HydrOXYzine HCl 25 MG Orally three times a day as needed for anxiety 1 tablet as needed May, Active Flonase 50 MCG/ACT Nasally Once a [...]
--- OUTSIDE RECORDS SUMMARY | 2018-05-16 00:40 | XMS REPORT ---
Author Author STEPH OJEDA Organization [facility] Address [address] [place] [address] Care Team Providers Care Desulphuring Operator Name Role Phone STEPH OJEDA Unavailable PROBLEMS Type Condition ICD9-CM Code FMD70-JC Code Onset Dates Condition Status SNOMED Code Problem Gastroesophageal reflux disease without esophagitis K21.9 Active 577774377 Problem Major depressive disorder, recurrent, moderate F33.1 Active 73827410 Problem Insomnia, unspecified G47.00 Active 326261314 Problem Major depressive disorder, recurrent episode, moderate F33.1 Active 276083756 Problem Recurrent major depressive disorder, in partial remission F33.41 Active 68868743 Problem Chronic maxillary sinusitis J32.0 Active 66364774 Problem History of prediabetes Z87.898 Active 598274269 Problem Overweight (BMI 25.0-29.9) E66.3 Active 925926444 Problem Skin lesion of right leg L98.9 Active 205022088 Problem Hyperlipidemia LDL goal <100 E78.5 Active 52188692 ALLERGIES Substance Reaction Event Type Date Status Imipramine HCl rash Drug Allergy Sep, Active Celebrex Unknown Drug Allergy Sep, Active Amoxicillin Unknown Drug Allergy Sep, Active Vladimir Toilet Paper yeast infection Non Drug Allergy Sep, Active Tape can only use paper tape Non Drug Allergy Sep, Active ENCOUNTERS Encounter Location Date Diagnosis [facility] [id number] [place] [address] May, [facility] [id number] [place] [address] 91739- 0809 Mar, [facility] [id number] [address] February, Pain of left great toe M79.675 [facility] [id number] [place] [address] 67414- 3339 15 Dec, 2017 Recurrent major depressive disorder, in partial remission F33.41 [place] [id number] [place] [address] 96630- 5782 14 Dec, 2017 History of prediabetes Z87.898 ; Overweight (BMI 25.0-29.9) E66.3 ; Hyperlipidemia LDL goal <100 E78.5 and Long-term use of high-risk medication Z79.[address] [address]- 2504 Nov, Skin lesion of right leg L98.[address] 46615- 9056 06 Nov, 2017 Overweight (BMI 25.0-29.9) E66.3 ; Gastroesophageal reflux disease without esophagitis K21.9 ; Prediabetes R73.09 ; Chronic maxillary sinusitis J32.0 and Skin lesion of right leg L98.9 [facility] [place] [id number] [place] [address]23 -1044 Oct, Acute non-recurrent frontal sinusitis J01.10 [facility] [address] [address] Sep, Other viral agents as the cause of diseases classified elsewhere B97.89 and Acute upper respiratory infection, unspecified J06.[address] 7[address]44- 2227 Sep, Major depressive disorder, recurrent episode, moderate F33.1 [place] [id number] [place] [address] 33446- 2979 04 Sep, [address] 39834- 7377 Aug, [address] 25375- 4678 Jul, Chronic constipation K59.09 ; Overweight (BMI 25.0-29.9) E66.3 and Facial rash R21 [place] [id number] [place] [address] 94678- 6957 17 Jul, 2017 [place] [address] [address]47- 86[address] 14 Jun, 2017 Major depressive disorder, recurrent episode, moderate F33.1 [facility] [address] [address]708 14 Jun, 2017 Dysuria R30.0 and Fluid level behind tympanic membrane of both ears H65.93 [place] [id number] [place] [address] 04800- 7280 14 Jun, 2017 Dental examination Z01.20 [place] [address] 61601- 5198 08 Jun, 2017 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 [place] [address] 49748- 4110 08 Jun, 2017 Major depressive disorder, recurrent, moderate F33.1 and Other chcf (current) 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 Z79.899 [place] [id number] [place] [address] 52962- 4380 May, Major depressive disorder, recurrent, moderate F33.1 [facility] [id number] [place] [address] 92333 -4524 May, [facility] [id number] [place] [address] 95880 -2121 May, Candidiasis B37.9 and Vaginal lesion N89.8 [place] [id number] [place] [address] 80655- 6466 May, Major depressive disorder, recurrent, moderate F33.1 [place] [id number] [place] [address] 74718- 2492 Mar, Major depressive disorder, recurrent, moderate F33.1 ; Insomnia, unspecified G47.00 and 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 [facility] [address] [address] February, Major depressive disorder, recurrent, moderate F33.1 [facility] [address] [place] [address] 052839- 8756 Jan, Major depressive disorder, recurrent, moderate F33.1 [facility] [id number] [place] [address] 85096- 7862 Nov, Major depressive disorder, recurrent, moderate F33.1 [facility] [id number] [place] [address] 67865- 2592 Nov, [facility] [id number] [place] [address] 94869- 7446 Oct, Insomnia, unspecified G47.00 [facility] [id number] [place] [address] 08212- 8690 Oct, Major depressive disorder, recurrent, moderate F33.1 [facility] [id number] [place] [address] 29734- 5694 Sep, Major depressive disorder, recurrent, moderate F33.1 [facility] [address] [place] [address] 12780- 0664 Sep, Major depressive disorder, recurrent episode, moderate F33.1 [facility] [address] [place] [address] 13176- 6278 Aug, Major depressive disorder, recurrent episode, moderate F33.1 [facility] [address] [place] [address] 05765- 3411 Aug, [facility] [id number] [place] [address] 00933- 9350 Aug, MDD (major depressive disorder), recurrent episode, mild F33.0 [facility] [address] [place] [address] 55136- 9246 Jul, Dysuria R30.0 ; Chronic idiopathic constipation K59.04 and Allergy, insect bite Z91.038 [facility] [id number] [place] [address] 09121- 0362 Jul, Major depressive disorder, recurrent episode, moderate F33.1 [facility] [id number] [place] [address] 06884- 3148 May, [facility] [address] 63170- 6139 May, Abnormal fasting glucose R73.01 ; Gastroesophageal reflux disease without esophagitis K21.9 ; Tremor R25.1 and Prediabetes R73.09 [facility] [address] [id number] May, Dental examination Z01.20 [place] [address] 49118- 2764 17 May, 2016 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 [facility] [address] 98673- 7598 May, Major depressive disorder, recurrent, moderate F33.1 and 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 [facility] [id number] [place] [address] 62643- 1060 May, [facility] [id number] [place] [address] 12125 -5173 May, Dysuria R30.0 [facility] [id number] [place] [address] 33320- 7785 May, [facility] [id number] [place] [address] 43713- 5242 May, Major depressive disorder, recurrent episode, moderate F33.1 [facility] [id number] [place] [address] 43658- 3252 Apr, Abnormal mammogram of right breast R92.8 [facility] [address] 65314- 5522 Apr, [facility] [address] [address]- 7916 Apr, [facility] [address] [place] [address] 741899- 6627 Mar, Major depressive disorder, recurrent, moderate F33.1 and Insomnia, unspecified G47.00 [facility] [id number] [place] [address] 62508- 2589 Mar, Major depressive disorder, recurrent episode, moderate F33.1 [facility] [address] [place] [address] 89641- 5789 February, [facility] [id number] [place] [address] 96647- 2195 Jan, [facility] [address] [place] [address] 86916- 3263 Jan, Major depressive disorder, recurrent episode, moderate F33.1 [facility] [address] [place] [address] 18451- 7862 Jan, Major depressive disorder, recurrent, moderate F33.1 [facility] [address] [place] [address] [id number] Jan, Dental examination V72.2 [facility] [address] [place] [address] Dec, Dysuria R30.0 ; Vaginal discharge N89.8 ; Vaginal yeast infection B37.3 and Encounter for screening for infections with a predominantly sexual mode of transmission Z11.3 [facility] [address] [place] [address] 61979- 4599 Dec, Major depressive disorder, recurrent episode, moderate F33.1 [facility] [address] [address]- 3548 Dec, [facility] [id number] [place] [address] 16956- 6334 Dec, [facility] [address] [place] [address]- 9962 Dec, [facility] [address] [place] [address] 80878- 1921 Nov, Major depressive disorder, recurrent episode, moderate F33.1 [facility] [address] [place] [address] Nov, Encounter for dental examination Z01.20 [facility] [id number] [place] [address] 92994- 8075 Nov, [place] [id number] [place] [address] 20400- 6797 Nov, [place] [address] [place] [address] 92850- 8293 Oct, Hyperkalemia E87.5 ; History of UTI Z87.440 and Sinusitis J32.9 [place] [address] [place] [address] 09755- 6962 Oct, Hyperkalemia E87.5 and Family history of hypertension Z82.49 [place] [address] [place] [address] 69567- 8709 Oct, [place] [address] [place] [address] 59626- 1093 Oct, Dysuria R30.0 ; Acute cystitis without hematuria N30.00 ; Epigastric pain R10.13 ; Chronic fatigue R53.82 ; Sinusitis J32.9 and Vaginal yeast infection B37.3 [place] [address] [place] [address] 23203- 8487 Oct, Breast cancer screening V76.10 and Abnormal mammogram of right breast R92.8 [place] [address] [place] [address] 06516- 4134 Oct, Breast cancer screening V76.10 and Abnormal mammogram of right breast R92.8 [place] [address] [place] [address] 09407- 7611 Sep, [place] [id number] [place] [address] 98384- 8626 Sep, Major depressive disorder, recurrent episode, moderate 296.32 [place] [id number] [place] [address] 29615- 4480 Aug, Insomnia, unspecified G47.00 ; Major depressive disorder, recurrent, moderate F33.1 and Dysthymic disorder F34.1 [place] [id number] [place] [address] 76399- 1285 Aug, Major depressive disorder, recurrent, moderate F33.1 [place] [id number] [place] [address] 59897- 5501 Aug, Insomnia, unspecified G47.00 ; Adjustment disorder with mixed anxiety and depressed mood F43.23 ; Dysthymic disorder F34.1 and Major depressive disorder, recurrent, moderate F33.1 [place] [id number] [place] [address] 17972- 1711 Aug, Depression F32.9 and Sinusitis J32.9 [place] [id number] [place] [address] 88230- 9762 Aug, Major depressive disorder, recurrent episode, unspecified severity F33.9 [place] [id number] [place] [address] 59843- 8211 Aug, [place] [id number] [place] [address] 34007- 8944 Jul, [place] [id number] [place] [address] 64973- 7790 Jun, [place] [id number] [place] [address] 86533- 6448 15 Jun, 2015 Dysuria 788.1 [place] [address] 43298- 8185 Jun, Insomnia 780.52 ; Unspecified myalgia and myositis 729.1 ; High risk sexual behavior V69.2 and Dysuria 788.1 [facility] [address] [place] [address] Jun, [facility] [address] [address]- 9958 May, [facility] [address] [place] [address] 53267- 3045 Apr, [facility] [address] [place] [address] Apr, Dental examination V72.2 [facility] [address] [place] [address] 06259- 7712 Apr, Insomnia 780.52 ; Unspecified myalgia and myositis 729.1 ; Long-term use of high-risk medication V58.69 and Urinary incontinence 788.30 [place] [address] [address]- 9299 Apr, Breast cancer screening V76.10 and Breast pain 611.71 [place] [address] [place] [address] 22204- 8792 Apr, Breast cancer screening V76.10 [place] [address] [address]- 1596 Apr, Breast cancer screening V76.10 and Vaginal itching 698.1 [facility] [address] [address]- 4893 Apr, [place] [address] [place] [address] 23541- 0921 February, [place] [address] [address]- 1636 February, Insomnia, unspecified 780.52 [place] [address] [place] [address] 00097- 7056 14 Jan, 2015 [facility] [place] [facility] [address] [id number] [place] [address]- 6616 Jan, [facility] [place] [facility] [address] [id number] [place] [address]- 1040 Dec, [facility] [place] [facility] [address] [facility] [id number] [place] [address]- 0340 Dec, [facility] [place] [facility] [address] [id number] [place] [address]- 8546 Dec, [facility] [place] [facility] [address] [id number] [place] [address]- 8789 Dec, [facility] [place] [facility] [address] [facility] [id number] [place] [address]- 3086 Dec, [facility] [place] [facility] [address] [facility] [id number] [place] [address]- 3460 Dec, [facility] [place] [facility] [address] [facility] [id number] [place] [address]- 8083 Dec, [facility] [place] [facility] [address] [facility] [id number] [place] [address]- 2158 Dec, [facility] [place] [facility] [address] [facility] [id number] [place] [address]- 0663 Dec, [facility] [place] [facility] [address] [id number] [place] [address]- 2868 Dec, [facility] [place] [facility] [address] [facility] [id number] [place] [address]- 4996 Nov, [facility] [place] [facility] [address] [id number] [place] [address]- 0189 Nov, [facility] [place] [facility] [address] [id number] [place] [address]- 2012 Nov, [facility] [place] [facility] [address] [facility] [id number] [place] 8602 Nov, [facility] [place] [facility] [address] [id number] [place] [address]- 2902 Nov, 2014 [facility] [place] [facility] [address] [id number] [place] [address]- 1810 Nov, 2014 [facility] [place] [facility] [address] [facility] [id number] [place] [address]- 4321 Nov, 2014 [facility] [place] [facility] [address] [facility] [id number] [place] [address]- 7596 Nov, 2014 [facility] [place] [facility] [address] [id number] [place] [address]- 0347 Nov, 2014 [facility] [place] [facility] [address] [facility] [id number] [place] [address]- 1787 Nov, 2014 [facility] [place] [facility] [id number] [place] [address]- 7380 Nov, 2014 [facility] [place] [facility] [address] [facility] [id number] [place] [address]- 6365 Nov, 2014 [facility] [place] [facility] [address] [facility] [id number] [place] [address]- 4574 Nov, 2014 [facility] [place] [facility] [id number] [place] [address]- 7291 Nov, 2014 [facility] [place] [facility] [id number] [place] [address]- 4940 Nov, 2014 [facility] [place] [facility] [address] [facility] [id number] [place] [address]- 254 Nov, 2014 [facility] [place] [facility] [address] [facility] [id number] [place] [address]- 5821 Nov, 2014 [facility] [place] [facility] [address] [facility] [id number] [place] [address]- 8832 Nov, 2014 [facility] [place] [facility] [address] [facility] [id number] [place] [address]- 9692 Nov, 2014 [facility] [place] [facility] [address] [id number] [place] [address]- 6609 Nov, 2014 [facility] [place] [facility] [address] [id number] [place] [address]- 4699 Nov, [facility] [place] [facility] [address] [id number] [place] [address]- 7319 Nov, 2014 [facility] [place] [facility] [address] [id number] [place] [address]- 9342 Nov, [facility] [place] [facility] [address] [id number] [place] [address]- 3767 Oct, [facility] [place] [facility] [address] [id number] [place] [address]- 2091 Oct, [facility] [place] [facility] [address] [id number] [place] [address]- 1564 Oct, [facility] [place] [facility] [address] [id number] [place] [address]- 2149 Oct, [facility] [place] [facility] [address] [id number] [place] [address]- 8558 Oct, [facility] [place] [facility] [address] [id number] [place] [address]- 7391 Oct, [facility] [place] [facility] [address] [id number] [place] [address]- 8860 Oct, [facility] [place] [facility] [address] [id number] [place] [address]- 8419 Oct, [facility] [place] [facility] [address] [id number] [place] [address]- 4988 Oct, [facility] [place] [facility] [address] [id number] [place] [address]- 9823 Oct, [facility] [place] [facility] [address] [id number] [place] [address]- 2293 Oct, [facility] [place] [facility] [address] [id number] [place] [address]- 6209 Oct, [facility] [place] [facility] [address] [id number] [place] [address]- 0077 Sep, [facility] [place] [facility] [address] [id number] [place] [address]- 1386 Sep, [facility] [place] [facility] [address] [id number] [place] [address]- 3745 Sep, [facility] [place] [facility] [address] [id number] [place] [address]- 0949 Sep, [facility] [place] [facility] [address] [id number] [place] [address]- 8696 Sep, [facility] [place] [facility] [address] [id number] [place] [address]- 0257 Sep, [facility] [place] [facility] [address] [id number] [place] [address]- 7661 Aug, [facility] [place] [facility] [address] [id number] [place] [address]- 5287 Aug, [facility] [place] [facility] [address] [id number] [place] [address]- 3197 Jul, [facility] [place] [facility] [address] [id number] [place] [address]- 4133 Jul, [facility] [place] [facility] [address] [id number] [place] [address]- 8372 Jul, [facility] [place] [facility] [address] [id number] [place] [address]- 5755 Jul, [facility] [place] [facility] [address] [id number] [place] [address]- 4467 Jul, [facility] [place] [facility] [address] [id number] [place] [address]- 0922 Jul, [facility] [place] [facility] [address] [id number] [place] [address]- 5423 Jun, [facility] [place] [facility] [address] [id number] [place] [address]- 9705 25 Jun, 2014 [facility] [place] [facility] [address] [id number] [place] [address]- 6959 16 Jun, 2014 [facility] [place] [facility] [address] [id number] [place] [address]- 1161 16 Jun, 2014 [facility] [place] [facility] [address] [id number] [place] [address]- 3542 13 Jun, 2014 [facility] [place] [facility] [address] [id number] [place] [address]- 8078 Jun, [facility] [place] [facility] [address] [id number] [place] [address]- 4476 Jun, [facility] [place] [facility] [address] [id number] [place] [address]- 5125 May, [facility] [place] [facility] [address] [id number] [place] [address]- 7705 May, [facility] [place] [facility] [address] [id number] [place] [address]- 4273 February, [facility] [place] [facility] [address] [id number] [place] [address]- 1636 February, [facility] [place] [facility] [address] [id number] [place] [address]- 4916 February, [facility] [place] [facility] [address] [id number] [place] [address]- 9020 February, [facility] [place] [facility] [address] [id number] [place] [address]- 1260 February, [facility] [place] [facility] [address] [id number] [place] [address]- 9489 February, [facility] [place] [facility] [address] [id number] [place] [address]- 8733 February, [facility] [place] [facility] [address] [id number] [place] [address]- 3896 Jan, [facility] [place] [facility] [address] [id number] [place] [address] 29 Jan, 2014 [facility] [place] [facility] [address] [id number] [place] [address] Jan, [facility] [place] [facility] [address] [id number] [place] [address] Jan, [facility] [place] [facility] [address] [id number] [place] [address] Jan, [facility] [address] [id number] [place] [address] 18 Jan, 2014 [facility] [place] [facility] [address] [id number] [place] [address] Jan, [facility] [address] [id number] [place] [address] Jan, [facility] [address] [id number] [place] [address] 16 Jan, 2014 [facility] [place] [facility] [address] [id number] [place] [address] 16 Jan, 2014 [facility] [place] [facility] [address] [id number] [place] [address] 15 Jan, 2014 [facility] [place] [facility] [address] [id number] [place] [address] 15 Jan, 2014 [facility] [place] [facility] [address] [id number] [place] [address] 15 Jan, 2014 [facility] [place] [facility] [address] [id number] [place] [address] Jan, [facility] [place] [facility] [address] [id number] [place] [address] Oct, [facility] [place] [facility] [address] [id number] [place] [address] Oct, [facility] [place] [facility] [address] [id number] [place] [address] May, [facility] [address] [id number] [place] [address] Mar, [facility] [place] [facility] [address] [id number] [place] [address] Mar, [facility] [address] [id number] [place] [address] Mar, [facility] [place] [facility] [address] [id number] [place] [address] February, [facility] [address] [id number] [place] [address] February, [facility] [place] [facility] [address] [id number] [place] [address] February, [facility] [address] [id number] [place] [address] February, [facility] [address] [id number] [place] [address]- [address] February, [facility] [address] [id number] [place] [address] Jan, [facility] [place] [facility] [address] [id number] [place] [address] Jan, [facility] [place] [facility] [address] [id number] [place] [address] Jan, [facility] [place] [facility] [address] [id number] [place] [address] Oct, [facility] [place] [facility] [address] [id number] [place] [address] Oct, [facility] [place] [facility] [address] [id number] [place] [address] Oct, [facility] [place] [facility] [address] [id number] [place] [address] Oct, [facility] [place] [facility] [address] [id number] [place] [address] Oct, [facility] [address] [id number] [place] [id number] Oct, [facility] [place] [facility] [address] [id number] [place] [address] Oct, [facility] [address] [id number] [place] [address] Oct, [facility] [place] [facility] [address] [id number] [place] [address] Aug, [facility] [address] [id number] [place] [address] Jul, [facility] [place] [facility] [address] [id number] [place] [address] Jul, [facility] [place] [facility] [address] [id number] [place] [address] Jul, [facility] [address] [id number] [place] [address] Jul, [facility] [place] [facility] [address] [id number] [place] [address] Jul, [facility] [address] [id number] [place] [address] Jul, [facility] [place] [facility] [address] [id number] [place] [address] Jul, [facility] [place] [facility] [address] [id number] [place] [address] Jun, [facility] [place] [facility] [address] [id number] [place] [address] May, [facility] [place] [facility] [address] [id number] [place] [address] May, [facility] [place] [facility] [address] [id number] [place] [address] Apr, [facility] [address] [id number] [place] [address] Apr, [facility] [id number] [place] [address] Apr, [facility] [address] [id number] [place] [address] Apr, [facility] [id number] [place] [address] Apr, [facility] [id number] [place] [address] Apr, [facility] [id number] [place] [address] Apr, [facility] [id number] [place] [address] Apr, [facility] [id number] [place] [address] Mar, [facility] [address] [id number] [place] [address] Jul, IMMUNIZATIONS No Known Immunizations SOCIAL HISTORY Never Assessed REASON FOR VISIT sore throat Pt c/o sore throat, states everything she drinks [place] throat. Also c/o sinus drainage. INEZ Barker PLAN OF CARE VITAL SIGNS Height 68 in 2017-10-09 Weight 182.4 lbs 2017-10-09 Temperature 97.9 degrees Fahrenheit 2017-10-09 Heart Rate 80 bpm 2017-10-09 Respiratory Rate 20 2017-10-09 BMI 27.73 kg/m2 2017-10-09 Blood pressure systolic 104 mmHg 2017-10-09 Blood pressure diastolic 62 mmHg 2017-10-09 MEDICATIONS Medication Instructions Dosage Frequency Start Date End Date Duration Status Flonase 50 mcg/actuation nasal daily inhale 1 spray (50 mcg) in each nostril by intranasal route 2 times per day PRN 24h 14 Oct, 2014 Active Biotin Not-Taking Claritin 10 mg take 1 tablet (10 mg) by oral route once daily Jan, Active Omeprazole 20 mg Orally Once a day 1 capsule 24h 23 Oct, 2013 Active Flonase 50 MCG/ACT Nasally Once a day 1 spray in each nostril 24h Jun, 30 day(s) Active HydrOXYzine HCl 25 MG Orally three times a day as needed for anxiety 1 tablet as needed May, Not-Taking Duloxetine HCl 60 mg Orally take with 30 mg Once a day 1 capsule 24h 30 days Not-Taking Zinc + Vitamin C Not-Taking Calcium Not-Taking [place] 3 Not-Taking PredniSONE 20 mg Orally Once a day 2 tablets 24h Sep, Oct, 05 days Active Triamcinolone Acetonide 0.1 % Externally Twice a day 1 application to affected area 12h Jul, Active Cymbalta 30 MG Orally take with 60 mg Once a day 1 capsule 24h 30 days Not-Taking Zolpidem Tartrate 10 mg Orally Once a day 1 tablet at bedtime as needed 24h Sep, 30 days Not-Taking RESULTS No Results PROCEDURES No Known [...]
--- OUTSIDE RECORDS SUMMARY | 2018-05-16 00:42 | XMS REPORT ---
Author Author DENITA CARRINGTON Organization [facility] Address [address] [place] [address] Care Team Providers Care Adolescent Psychiatrist Name Role Phone DENITA CARRINGTON Unavailable PROBLEMS Type Condition ICD9-CM Code ZKV48-PK Code Onset Dates Condition Status SNOMED Code Problem Gastroesophageal reflux disease without esophagitis K21.9 Active 643860071 Problem Major depressive disorder, recurrent, moderate F33.1 Active 65216733 Problem Insomnia, unspecified G47.00 Active 439772536 Problem Major depressive disorder, recurrent episode, moderate F33.1 Active 854038680 Problem Recurrent major depressive disorder, in partial remission F33.41 Active 28495906 Problem Chronic maxillary sinusitis J32.0 Active 17915825 Problem History of prediabetes Z87.898 Active 624720854 Problem Overweight (BMI 25.0-29.9) E66.3 Active 577331269 Problem Skin lesion of right leg L98.9 Active 722481855 Problem Hyperlipidemia LDL goal <100 E78.5 Active 21692567 ALLERGIES No Information ENCOUNTERS Encounter Location Date Diagnosis [place] [id number] [place] [address] 10637- 7664 May, [facility] [id number] [place] [address] 66395- 0369 15 Dec, 2017 Recurrent major depressive disorder, in partial remission F33.41 [facility] [address] [place] [id number] [place] [address] 06813- 8699 14 Dec, 2017 History of prediabetes Z87.898 ; Overweight (BMI 25.0-29.9) E66.3 ; Hyperlipidemia LDL goal <100 E78.5 and Long-term use of high-risk medication Z79.899 [facility] [address] [place] [address] [id number] [place] [address] 84688- 0206 Nov, Skin lesion of right leg L98.9 [place] [address] [place] [id number] [place] [address] 58202- 3248 Nov, Overweight (BMI 25.0-29.9) E66.3 ; Gastroesophageal reflux disease without esophagitis K21.9 ; Prediabetes R73.09 ; Chronic maxillary sinusitis J32.0 and Skin lesion of right leg L98.9 [facility] [place] [address] [place] [id number] [place] [address] 07349 -3376 Oct, Acute non-recurrent frontal sinusitis J01.10 [facility] [place] [address] [place] [id number] [place] [address] 46044 -9993 Sep, Other viral agents as the cause of diseases classified elsewhere B97.89 and Acute upper respiratory infection, unspecified J06.9 [place] [address] [place] [id number] [place] [address] 61014- 6952 Sep, Major depressive disorder, recurrent episode, moderate F33.1 [place] [address] [place] [id number] [place] [address] 69211- 2742 Sep, [place] [address] 64752- 6810 Aug, [place] [address] [place] [id number] [place] [address] 24928- 6687 Jul, Chronic constipation K59.09 ; Overweight (BMI 25.0-29.9) E66.3 and Facial rash R21 [place] [address] [place] [id number] [place] [address] 50494- 1498 Jul, [place] [address] 39557- 8929 14 Jun, 2017 Major depressive disorder, recurrent episode, moderate F33.1 [facility] [place] [address] [place] [id number] [place] [address] 83127 -4115 14 Jun, 2017 Dysuria R30.0 and Fluid level behind tympanic membrane of both ears H65.93 [place] [address] [address] 9629 14 Jun, 2017 Dental examination Z01.20 [place] [address] [place] [id number] [place] [address] 82875- 2575 08 Jun, 2017 Other residential (current) 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 Z79.899 [place] [address] [place] [id number] [place] [address] 64876- 3074 08 Jun, 2017 Major depressive disorder, recurrent, moderate F33.1 and 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 [place] [address] [address]- 1095 14 May, 2017 Major depressive disorder, recurrent, moderate F33.1 [facility] [address] [place] [id number] [place] [address] 50467 -1126 May, [facility] [address] [place] [id number] [place] [address] 32178 -6229 May, Candidiasis B37.9 and Vaginal lesion N89.8 [place] [address] [place] [id number] [place] [address] 29609- 1285 May, Major depressive disorder, recurrent, moderate F33.1 [place] [address] [address]- 8519 Mar, Major depressive disorder, recurrent, moderate F33.1 ; Insomnia, unspecified G47.00 and Other residential (current) 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 Z79.899 [place] [address] [address]- 0790 February, Major depressive disorder, recurrent, moderate F33.1 [place] [address] [place] [id number] [place] [address] 80048- 7432 Jan, Major depressive disorder, recurrent, moderate F33.1 [place] [address] [address]- 6219 Nov, Major depressive disorder, recurrent, moderate F33.1 [place] [address] [address]- 2791 Nov, [place] [address] [place] [id number] [place] [address] 18794- 7051 Oct, Insomnia, unspecified G47.00 [place] [address] [place] [id number] [place] [address] 37416- 3240 Oct, Major depressive disorder, recurrent, moderate F33.1 [place] [address] [place] [id number] [place] [address] 80818- 2260 Sep, Major depressive disorder, recurrent, moderate F33.1 [place] [address] [place] [id number] [place] [address] 51317- 2451 Sep, Major depressive disorder, recurrent episode, moderate F33.1 [place] [address] [place] [id number] [place] [address] 95224- 4640 Aug, Major depressive disorder, recurrent episode, moderate F33.1 [place] [address] [place] [id number] [place] [address] 21147- 5197 Aug, [place] [address] [place] [id number] [place] [address] 31306- 3297 Aug, MDD (major depressive disorder), recurrent episode, mild F33.0 [place] [address] [place] [id number] [place] [address] 63780- 4785 Jul, Dysuria R30.0 ; Chronic idiopathic constipation K59.04 and Allergy, insect bite Z91.038 [place] [address] [place] [address] 25043- 1627 Jul, Major depressive disorder, recurrent episode, moderate F33.1 [place] [address] [place] [id number] [place] [address] 65564- 5593 May, [place] [address] [place] [id number] [place] [address] 36146- 8716 May, Abnormal fasting glucose R73.01 ; Gastroesophageal reflux disease without esophagitis K21.9 ; Tremor R25.1 and Prediabetes R73.09 [facility] [address] [place] [id number] [address] 19 May, 2016 Dental examination Z01.20 [facility] [address] [place] [address] 96408- 8728 17 May, 2016 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 [address] [place] [address] [id number] [place] [address] 74542 -2149 10 May, 2016 Dysuria R30.0 [facility] [address] [place] [id number] [place] [address] 38403- 0597 08 May, 2016 [facility] [address] [place] [id number] [place] [address] 66649- 8320 May, Major depressive disorder, recurrent episode, moderate F33.1 [facility] [address] [place] [address] 60280- 2907 Apr, Abnormal mammogram of right breast R92.8 [facility] [address] [place] [id number] [place] [address] 92693- 4008 Apr, [facility] [address] [place] [address] 77974- 5276 Apr, [facility] [address] [place] [id number] [place] [address] 36249- 5157 Mar, Major depressive disorder, recurrent, moderate F33.1 and Insomnia, unspecified G47.00 [facility] [address] [place] [address] 87148- 8075 Mar, Major depressive disorder, recurrent episode, moderate F33.1 [facility] [address] [address]- 9695 February, [facility] [address] [place] [id number] [place] [address] 62405- 1563 Jan, [facility] [address] [place] [address] 28222- 1063 Jan, Major depressive disorder, recurrent episode, moderate F33.1 [facility] [address] [address]- 6457 Jan, Major depressive disorder, recurrent, moderate F33.1 [facility] [address] [place] [id number] [place] [address] [id number] Jan, Dental examination V72.2 [facility] [address] [address] -8701 Dec, Dysuria R30.0 ; Vaginal discharge N89.8 ; Vaginal yeast infection B37.3 and Encounter for screening for infections with a predominantly sexual mode of transmission Z11.3 [facility] [address] [place] [address] 93073- 3220 Dec, Major depressive disorder, recurrent episode, moderate F33.1 [facility] [address] [address]- 1790 Dec, [facility] [address] [place] [address] 96854- 0920 Dec, [facility] [address] [address]- 5017 Dec, [facility] [address] [place] [address] 41884- 6798 Nov, Major depressive disorder, recurrent episode, moderate F33.1 [facility] [address] [address] Nov, Encounter for dental examination Z01.20 [facility] [address] [place] [id number] [place] [address] 49757- 1609 Nov, [place] [address] [place] [id number] [place] [address] 79214- 6901 Nov, [place] [address] [place] [id number] [place] [address] 81474- 6419 Oct, Hyperkalemia E87.5 ; History of UTI Z87.440 and Sinusitis J32.9 [place] [address] [place] [id number] [place] [address] 52268- 7410 Oct, Hyperkalemia E87.5 and Family history of hypertension Z82.49 [place] [address] 46381- 5950 Oct, [place] [address] [place] [id number] [place] [address] 35282- 0169 Oct, Dysuria R30.0 ; Acute cystitis without hematuria N30.00 ; Epigastric pain R10.13 ; Chronic fatigue R53.82 ; Sinusitis J32.9 and Vaginal yeast infection B37.3 [place] [address] [place] [id number] [place] [address] 47804- 5486 Oct, Breast cancer screening V76.10 and Abnormal mammogram of right breast R92.8 [place] [address] [place] [id number] [place] [address] 23909- 9121 Oct, Breast cancer screening V76.10 and Abnormal mammogram of right breast R92.8 [place] [address] [place] [address] 22782- 4499 Sep, [place] [address] 38395- 9971 09 Sep, 2015 Major depressive disorder, recurrent episode, moderate 296.32 [place] [address] [place] [address] 13051- 6375 Aug, Insomnia, unspecified G47.00 ; Major depressive disorder, recurrent, moderate F33.1 and Dysthymic disorder F34.1 [facility] [address] [place] [id number] [place] [address] 85382- 6069 Aug, Major depressive disorder, recurrent, moderate F33.1 [facility] [address] [place] [id number] [place] [address] 14168- 7235 Aug, Insomnia, unspecified G47.00 ; Adjustment disorder with mixed anxiety and depressed mood F43.23 ; Dysthymic disorder F34.1 and Major depressive disorder, recurrent, moderate F33.1 [place] [address] [place] [id number] [place] [address] 62528- 2848 Aug, Depression F32.9 and Sinusitis J32.9 [place] [address] [place] [id number] [place] [address] 91672- 2066 Aug, Major depressive disorder, recurrent episode, unspecified severity F33.9 [place] [address] 73577- 5996 Aug, [place] [address] [place] [id number] [place] [address] 32952- 6243 Jul, [place] [address] [place] [id number] [place] [address] 49322- 9326 Jun, [place] [address] [place] [id number] [place] [address] 16945- 3500 Jun, Dysuria 788.1 [place] [address] [place] [id number] [place] [address] 35626- 5241 Jun, Insomnia 780.52 ; Unspecified myalgia and myositis 729.1 ; High risk sexual behavior V69.2 and Dysuria 788.1 [place] [address] [place] [id number] [place] [address] 77378- 2709 Jun, [place] [address] [place] [id number] [place] [address] 22539- 6514 May, [place] [address] [place] [id number] [place] [address] 19687- 1602 Apr, [facility] [address] [id number] [id number] Apr, Dental examination V72.2 [facility] [address] [address]- 4532 Apr, Insomnia 780.52 ; Unspecified myalgia and myositis 729.1 ; Long-term use of high-risk medication V58.69 and Urinary incontinence 788.30 [facility] [address] [place] [address] [id number] [address]- 8180 17 Apr, 2015 Breast cancer screening V76.10 and Breast pain 611.71 [facility] [address] [place] [id number] [place] [address] 94607- 1706 Apr, Breast cancer screening V76.10 [facility] [address] [place] [id number] [place] [address] 66970- 0016 Apr, Breast cancer screening V76.10 and Vaginal itching 698.1 [facility] [address] [address]- 1624 Apr, [facility] [address] [place] [id number] [place] [address] 29406- 2288 February, [facility] [address] [address]- 6367 February, Insomnia, unspecified 780.52 [facility] [address] [address]- 4189 Jan, [facility] [address] [address]- 0832 Jan, [facility] [address] [place] [id number] [place] [address] 371352- 9805 Dec, [facility] [address]- 8516 Dec, [facility] [address] [place] [address] 28416- 6046 Dec, [facility] [place] [facility] [address] [id number] [place] [address]- 0588 Dec, [facility] [place] [facility] [address] [facility] [id number] [place] [address]- 4146 Dec, [facility] [place] [facility] [address] [facility] [id number] [place] [address]- 9053 Dec, [facility] [place] [facility] [address] [facility] [id number] [place] [address]- 6845 Dec, [facility] [place] [facility] [address] [facility] [id number] [place] [address]- 9939 Dec, [facility] [place] [facility] [address] [facility] [id number] [place] [address]- 9643 Dec, [facility] [place] [facility] [address] [facility] [id number] [place] [address]- 8615 Dec, [facility] [place] [facility] [address] [facility] [id number] [place] [address]- 8607 Nov, [facility] [place] [facility] [address] [facility] [id number] [place] [address]- 4822 Nov, 2014 [facility] [place] [facility] [address] [facility] [id number] [place] [address]- 3180 Nov, [facility] [place] [facility] [address] [place] [id number] [place] [address]- 6523 Nov, 2014 [facility] [place] [facility] [address] [facility] [id number] [address]- 0569 Nov, 2014 [facility] [place] [facility] [address] [facility] [id number] [place] [address]- 6823 Nov, 2014 [facility] [place] [facility] [address] [facility] [id number], [place] [address]- 3078 Nov, 2014 [facility] [place] [facility] [address] [place] [address]- 8901 Nov, 2014 [facility] [place] [facility] [address] [id number] [place] [address]- 4119 Nov, 2014 [facility] [place] [facility] [address] [id number] [place] [address]- 2234 Nov, 2014 [facility] [place] [facility] [address] [facility] [id number] [place] [address]- 7196 Nov, 2014 [facility] [place] [facility] [address] [facility] [id number] [place] [address]- 6887 Nov, 2014 [facility] [place] [facility] [address] [id number] [place] [address]- 9993 Nov, 2014 [facility] [place] [facility] [address] [id number] [place] [address]- 5754 Nov, 2014 [facility] [place] [facility] [address] [facility] [id number] [place] [address]- 3798 Nov, 2014 [facility] [place] [facility] [address] [facility] [id number], [place] [address]- 2812 Nov, 2014 [facility] [place] [facility] [address] [facility] [id number] [place] [address]- 4202 Nov, 2014 [facility] [place] [facility] [address] [facility] [id number] [place] [address]- 7843 Nov, 2014 [facility] [place] [facility] [address] [facility] [id number] [address]- 9157 Nov, 2014 [facility] [place] [facility] [address] [facility] [id number] [address]- 9238 Nov, 2014 [facility] [place] [facility] [address] [facility] [id number] [place] [address]- 8322 Nov, 2014 [facility] [place] [facility] [address] [facility] [id number] [place] [address]- 2006 Nov, 2014 [facility] [place] [facility] [address] [facility] [id number] [address]- 5831 Nov, 2014 [facility] [place] [facility] [address] [facility] [id number] [place] [address]- 0889 Oct, [facility] [address] [id number] [place] [address]- 6169 Oct, [facility] [address] [id number] [place] [address]- 1993 Oct, [facility] [address] [id number] [place] [address]- 8608 Oct, [facility] [address] [id number] [place] [address]- 8739 Oct, [facility] [address] [id number] [place] [address]- 2103 Oct, [facility] [address] [id number] [place] [address]- 3998 Oct, [facility] [address] [id number] [place] [address]- 8561 Oct, [facility] [address] [id number] [place] [address]- 0439 Oct, [facility] [address] [id number] [place] [address]- 8616 Oct, [facility] [address] [id number] [place] [address]- 7273 Oct, [facility] [address] [id number] [place] [address]- 6659 Oct, [facility] [address] [id number] [place] [address]- 9927 Sep, [facility] [place] [facility] [address] [id number] [place] [address]- 2227 Sep, [facility] [place] [facility] [address] [id number] [place] [address]- 2042 Sep, [facility] [address] [id number] [place] [address]- 0158 Sep, [facility] [place] [facility] [address] [id number] [place] [address]- 7333 Sep, [facility] [place] [facility] [address] [id number] [place] [address]- 5260 Sep, [facility] [place] [facility] [address] [id number] [place] [address]- 0570 Aug, [facility] [place] [facility] [address] [id number] [place] [address]- 0727 Aug, [facility] [place] [facility] [address] [id number] [place] [address] Jul, [facility] [place] [facility] [address] [id number] [place] [address] Jul, [facility] [place] [facility] [address] [id number] [place] [address] Jul, [facility] [place] [facility] [address] [id number] [address] Jul, [facility] [place] [facility] [address] [id number] [place] [address] Jul, [facility] [place] [facility] [address] [id number], [place] [address] Jul, [facility] [place] [facility] [address] [id number], [place] [address] 25 Jun, 2014 [facility] [place] [facility] [address] [id number] [address] 25 Jun, 2014 [facility] [place] [facility] [address] [id number] [address] 16 Jun, 2014 [facility] [place] [facility] [address] [id number] [address] 16 Jun, 2014 [facility] [place] [facility] [address] [id number], [place] [address] 13 Jun, 2014 [facility] [place] [facility] [address] [id number], [place] [address] Jun, [facility] [place] [facility] [address] [id number] [place] [address] Jun, [facility] [place] [facility] [address] [id number] [place] [address] May, [facility] [place] [facility] [address] [id number] [place] [address] May, [facility] [place] [facility] [address] [id number] [place] [address] February, [facility] [place] [facility] [address] [id number] [place] [address] February, [facility] [place] [facility] [address] [id number] [place] [address] February, [facility] [place] [facility] [address] [id number] [place] [address] February, [facility] [place] [facility] [address] [id number] [place] [address] February, [facility] [place] [facility] [address] [id number] [place] [address] February, [facility] [place] [facility] [address] [id number] [place] [address] February, [facility] [place] [facility] [address] [id number] [place] [address] Jan, [facility] [place] [facility] [address] [id number] [place] [address] Jan, [facility] [place] [facility] [address] [id number] [place] [address] Jan, [facility] [place] [facility] [address] [id number] [place] [address] Jan, [facility] [place] [facility] [address] [id number] [place] [address] Jan, [facility] [place] [facility] [address] [id number] [place] [address] 18 Jan, 2014 [facility] [place] [facility] [address] [id number] [place] [address] 17 Jan, 2014 [facility] [place] [facility] [address] [id number] [place] [address] 17 Jan, 2014 [facility] [place] [facility] [address] [id number] [place] [address] 16 Jan, 2014 [facility] [place] [facility] [address] [id number] [place] [address] 16 Jan, 2014 [facility] [place] [facility] [address] [id number] [place] [address] 15 Jan, 2014 [facility] [place] [facility] [address] [id number] [place] [address] 15 Jan, 2014 [facility] [place] [facility] [address] [id number] [place] [address] 15 Jan, 2014 [facility] [place] [facility] [address] [id number] [place] [address] 15 Jan, 2014 [facility] [place] [facility] [address] [id number] [place] [address] Oct, [facility] [place] [facility] [address] [id number] [place] [address] Oct, [facility] [place] [facility] [address] [id number] [place] [address] May, [facility] [place] [facility] [address] [id number] [place] [address] Mar, [facility] [place] [facility] [address] [id number] [place] [address] Mar, [facility] [place] [facility] [address] [id number] [place] [address] Mar, [facility] [place] [facility] [address] [id number] [place] [address] February, [facility] [address] [id number] [place] [address] February, [facility] [address] [id number] [place] [address] February, [facility] [address] [id number] [place] [address] February, [facility] [address] [id number] [place] [address] February, [facility] [address] [id number] [place] [address] Jan, [facility] [address] [id number] [place] [address] Jan, [facility] [address] [id number] [place] [address] Jan, [facility] [address] [id number] [place] [address]16 Oct, [facility] [address] [id number] [place] [address] Oct, [facility] [address] [id number] [place] [address]60 Oct, [facility] [place] [facility] [address] [id number] [place] [address] Oct, [facility] [place] [facility] [address] [id number] [address] Oct, [facility] [place] [facility] [address] [id number] [place] [address] Oct, [facility] [place] [facility] [address] [id number] [place] [address] Oct, [facility] [place] [facility] [address] [id number] [place] [address] Oct, [facility] [place] [facility] [address] [id number] [place] [address] Aug, [facility] [place] [facility] [address] [id number] [place] [address] Jul, [facility] [place] [facility] [address] [id number] [place] [address] 69[address] Jul, [facility] [place] [facility] [address] [id number] [place] [address] Jul, [facility] [place] [facility] [address] [id number] [place] [address] Jul, [facility] [place] [facility] [address] [id number] [place] [address] Jul, [facility] [place] [facility] [address] [id number] [place] [address] Jul, [facility] [place] [facility] [address] [id number] [place] [address] Jul, [facility] [place] [facility] [address] [id number] [place] [address] Jun, [facility] [place] [facility] [address] [id number] [place] [address] May, [facility] [place] [facility] [address] [id number] [place] [address] May, [facility] [place] [facility] [address] [id number] [place] [address]959 Apr, [facility] [place] [facility] [address] [id number] [place] [address] Apr, [facility] [place] [facility] [address] [id number] [place] [address] Apr, [facility] [place] [facility] [address] [id number] [place] [address] Apr, [facility] [place] [facility] [address] [id number] [place] [address] Apr, [facility] [address] [facility] [id number], [place] [address] Apr, [facility] [address] [facility] [id number], [place] [address] Apr, [facility] [address] [facility] [id number], [place] [address] Apr, [facility] [address] [facility] [id number] [address] Mar, [facility] [address] [facility] [id number], [place] [address] Jul, IMMUNIZATIONS No Known Immunizations SOCIAL HISTORY Never Assessed REASON FOR VISIT lab orders PLAN OF CARE VITAL SIGNS MEDICATIONS Unknown [...]
--- OUTSIDE RECORDS SUMMARY | 2018-05-16 00:42 | XMS REPORT ---
Author Author DENITA CARRINGTON Organization [facility] Address [address] [place] [address] Care Team Providers Care Manager Operations And Procurement Name Role Phone DENITA CARRINGTON Unavailable PROBLEMS Type Condition ICD9-CM Code RYL79-DJ Code Onset Dates Condition Status SNOMED Code Problem Gastroesophageal reflux disease without esophagitis K21.9 Active 358833893 Problem Major depressive disorder, recurrent, moderate F33.1 Active 92353152 Problem Insomnia, unspecified G47.00 Active 015257550 Problem Major depressive disorder, recurrent episode, moderate F33.1 Active 234914152 Problem Recurrent major depressive disorder, in partial remission F33.41 Active 21336899 Problem Chronic maxillary sinusitis J32.0 Active 25840209 Problem History of prediabetes Z87.898 Active 540480931 Problem Overweight (BMI 25.0-29.9) E66.3 Active 950098678 Problem Skin lesion of right leg L98.9 Active 541323826 Problem Hyperlipidemia LDL goal <100 E78.5 Active 44490831 ALLERGIES No Information ENCOUNTERS Encounter Location Date Diagnosis [place] [id number] [place] [address] 65687- 7348 May, [facility] [id number] [place] [address] 29282- 2092 15 Dec, 2017 Recurrent major depressive disorder, in partial remission F33.41 [facility] [address] [id number] [place] [address] 39256- 8218 14 Dec, 2017 History of prediabetes Z87.898 ; Overweight (BMI 25.0-29.9) E66.3 ; Hyperlipidemia LDL goal <100 E78.5 and Long-term use of high-risk medication Z79.899 [facility] [address] [id number] [place] [address] 63341- 7003 Nov, Skin lesion of right leg L98.9 [place] [address] [place] [id number] [place] [address] 10950- 7082 Nov, Overweight (BMI 25.0-29.9) E66.3 ; Gastroesophageal reflux disease without esophagitis K21.9 ; Prediabetes R73.09 ; Chronic maxillary sinusitis J32.0 and Skin lesion of right leg L98.9 [facility] [place] [address] [place] [id number] [place] [address] 16798 -0955 Oct, Acute non-recurrent frontal sinusitis J01.10 [facility] [place] [address] [id number] [place] [address] 36780 -1807 Sep, Other viral agents as the cause of diseases classified elsewhere B97.89 and Acute upper respiratory infection, unspecified J06.9 [place] [address] [place] [id number] [place] [address] 54847- 9536 Sep, Major depressive disorder, recurrent episode, moderate F33.1 [place] [address] [place] [id number] [place] [address] 93311- 7124 Sep, [place] [address] 73295- 8900 Aug, [place] [address] [place] [id number] [place] [address] 22209- 3789 Jul, Chronic constipation K59.09 ; Overweight (BMI 25.0-29.9) E66.3 and Facial rash R21 [place] [address] [place] [id number] [place] [address] 92211- 9048 Jul, [place] [address] 54425- 9102 14 Jun, 2017 Major depressive disorder, recurrent episode, moderate F33.1 [facility] [place] [address] [place] [id number] [place] [address] 19396 -4884 14 Jun, 2017 Dysuria R30.0 and Fluid level behind tympanic membrane of both ears H65.93 [place] [address] [address]- 3279 14 Jun, 2017 Dental examination Z01.20 [place] [address] [place] [id number] [place] [address] 33430- 1023 08 Jun, 2017 Other care home (current) 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 Z79.899 [place] [address] [place] [id number] [place] [address] 61919- 3241 08 Jun, 2017 Major depressive disorder, recurrent, moderate F33.1 and 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 [place] [address] [address]- 2839 14 May, 2017 Major depressive disorder, recurrent, moderate F33.1 [facility] [address] [place] [id number] [place] [address] 58530 -3463 May, [facility] [address] [place] [id number] [place] [address] 20131 -8628 May, Candidiasis B37.9 and Vaginal lesion N89.8 [place] [address] [place] [id number] [place] [address] 26752- 8068 May, Major depressive disorder, recurrent, moderate F33.1 [place] [address] [address]- 8555 Mar, Major depressive disorder, recurrent, moderate F33.1 ; Insomnia, unspecified G47.00 and Other care home (current) 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 Z79.899 [place] [address] [address]- 1809 February, Major depressive disorder, recurrent, moderate F33.1 [place] [address] [place] [id number] [place] [address] 76743- 8265 Jan, Major depressive disorder, recurrent, moderate F33.1 [place] [address] [address]- 9640 Nov, Major depressive disorder, recurrent, moderate F33.1 [place] [address] [address]- 5699 Nov, [place] [address] [place] [id number] [place] [address] 27087- 4403 Oct, Insomnia, unspecified G47.00 [place] [address] [place] [id number] [place] [address] 77000- 5754 Oct, Major depressive disorder, recurrent, moderate F33.1 [place] [address] [place] [id number] [place] [address] 37746- 9411 Sep, Major depressive disorder, recurrent, moderate F33.1 [place] [address] [place] [id number] [place] [address] 87882- 4975 Sep, Major depressive disorder, recurrent episode, moderate F33.1 [place] [address] [place] [id number] [place] [address] 13743- 6170 Aug, Major depressive disorder, recurrent episode, moderate F33.1 [place] [address] [place] [id number] [place] [address] 54892- 7712 Aug, [place] [address] [place] [id number] [place] [address] 36679- 2093 Aug, MDD (major depressive disorder), recurrent episode, mild F33.0 [place] [address] [place] [id number] [place] [address] 50047- 6678 Jul, Dysuria R30.0 ; Chronic idiopathic constipation K59.04 and Allergy, insect bite Z91.038 [place] [address] [place] [address] 00431- 3806 Jul, Major depressive disorder, recurrent episode, moderate F33.1 [place] [address] [place] [id number] [place] [address] 22124- 0181 May, [place] [address] [place] [id number] [place] [address] 92428- 7349 May, Abnormal fasting glucose R73.01 ; Gastroesophageal reflux disease without esophagitis K21.9 ; Tremor R25.1 and Prediabetes R73.09 [facility] [address] [place] [id number] [id number] 19 May, 2016 Dental examination Z01.20 [facility] [id number] [place] [address] 19511- 8779 17 May, 2016 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 [facility] [address] [place] [id number] [place] [address] 99492- 2489 16 May, 2016 Major depressive disorder, recurrent, moderate F33.1 and Other care home (current) 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 Z79.899 [facility] [address] [place] [id number] [place] [address] 55598- 5409 16 May, 2016 [facility] [address] [place] [id number] [place] [address] 22380 -5489 10 May, 2016 Dysuria R30.0 [facility] [address] [place] [id number] [place] [address] 27478- 7623 08 May, 2016 [facility] [address] [place] [id number] [place] [address] 42166- 6753 May, Major depressive disorder, recurrent episode, moderate F33.1 [facility] [id number] [place] [address] 25417- 0658 Apr, Abnormal mammogram of right breast R92.8 [facility] [address] [place] [id number] [place] [address] 89934- 0454 Apr, [facility] [id number] [place] [address] 04740- 4457 Apr, [facility] [address] [place] [id number] [place] [address] 03014- 3873 Mar, Major depressive disorder, recurrent, moderate F33.1 and Insomnia, unspecified G47.00 [facility] [id number] [place] [address] 93475- 6275 Mar, Major depressive disorder, recurrent episode, moderate F33.1 [facility] [address] [address]- 5630 February, [facility] [address] [place] [id number] [place] [address] 58981- 4404 Jan, [facility] [id number] [place] [address] 69311- 3769 Jan, Major depressive disorder, recurrent episode, moderate F33.1 [facility] [address] [address]- 0625 Jan, Major depressive disorder, recurrent, moderate F33.1 [facility] [address] [place] [address] [id number] [place] [address] [id number] Jan, Dental examination V72.2 [facility] IN [facility] [address] [address] -5764 Dec, Dysuria R30.0 ; Vaginal discharge N89.8 ; Vaginal yeast infection B37.3 and Encounter for screening for infections with a predominantly sexual mode of transmission Z11.3 [facility] [address] [place] [address] 13555- 4591 Dec, Major depressive disorder, recurrent episode, moderate F33.1 [facility] [address], [place] [address]- 8078 Dec, [facility] [id number] [place] [address] 34187- 7498 Dec, [facility] [address], [place] [address]- 5110 Dec, [facility] [id number] [place] [address] 80733- 7925 Nov, Major depressive disorder, recurrent episode, moderate F33.1 [facility] [address] [id number] Nov, Encounter for dental examination Z01.20 [facility] [address] [place] [id number] [place] [address] 44405- 5506 Nov, [place] [address] [place] [id number] [place] [address] 63336- 4183 Nov, [place] [address] [place] [id number] [place] [address] 70615- 4166 Oct, Hyperkalemia E87.5 ; History of UTI Z87.440 and Sinusitis J32.9 [place] [address] [place] [id number] [place] [address] 02202- 0997 Oct, Hyperkalemia E87.5 and Family history of hypertension Z82.49 [place] [address] 68623- 8731 Oct, [place] [address] [place] [id number] [place] [address] 31470- 6682 Oct, Dysuria R30.0 ; Acute cystitis without hematuria N30.00 ; Epigastric pain R10.13 ; Chronic fatigue R53.82 ; Sinusitis J32.9 and Vaginal yeast infection B37.3 [place] [address] [place] [id number] [place] [address] 52887- 2360 Oct, Breast cancer screening V76.10 and Abnormal mammogram of right breast R92.8 [place] [address] [place] [id number] [place] [address] 80548- 4357 Oct, Breast cancer screening V76.10 and Abnormal mammogram of right breast R92.8 [place] [address] [place] [address] 29967- 8934 Sep, [place] [address] 69740- 9122 09 Sep, 2015 Major depressive disorder, recurrent episode, moderate 296.32 [place] [address] [place] [address] 35322- 6149 Aug, Insomnia, unspecified G47.00 ; Major depressive disorder, recurrent, moderate F33.1 and Dysthymic disorder F34.1 [facility] [address] [place] [id number] [place] [address] 35040- 4741 Aug, Major depressive disorder, recurrent, moderate F33.1 [facility] [address] [place] [id number] [place] [address] 96460- 3916 Aug, Insomnia, unspecified G47.00 ; Adjustment disorder with mixed anxiety and depressed mood F43.23 ; Dysthymic disorder F34.1 and Major depressive disorder, recurrent, moderate F33.1 [place] [address] [place] [id number] [place] [address] 50146- 8476 Aug, Depression F32.9 and Sinusitis J32.9 [place] [address] [place] [id number] [place] [address] 16836- 9625 Aug, Major depressive disorder, recurrent episode, unspecified severity F33.9 [place] [address] 41020- 1397 Aug, [place] [address] [place] [id number] [place] [address] 89690- 8227 Jul, [place] [address] [place] [id number] [place] [address] 17716- 3698 Jun, [place] [address] [place] [id number] [place] [address] 83361- 6074 Jun, Dysuria 788.1 [place] [address] [place] [id number] [place] [address] 87047- 1628 Jun, Insomnia 780.52 ; Unspecified myalgia and myositis 729.1 ; High risk sexual behavior V69.2 and Dysuria 788.1 [place] [address] [place] [id number] [place] [address] 55545- 4104 Jun, [place] [address] [place] [id number] [place] [address] 17143- 3851 May, [place] [address] [place] [id number] [place] [address] 09361- 6017 Apr, [facility] [id number] [id number] Apr, Dental examination V72.2 [facility] [address] [place] [address]- 1851 Apr, Insomnia 780.52 ; Unspecified myalgia and myositis 729.1 ; Long-term use of high-risk medication V58.69 and Urinary incontinence 788.30 [facility] [address] [id number] [address]- 9158 17 Apr, 2015 Breast cancer screening V76.10 and Breast pain 611.71 [facility] [address] [place] [id number] [place] [address] 34128- 5032 Apr, Breast cancer screening V76.10 [facility] [address] [place] [id number] [place] [address] 79249- 3515 Apr, Breast cancer screening V76.10 and Vaginal itching 698.1 [facility] [address], [place] [address]- 5542 Apr, [facility] [address] [id number] [place] [address] 46836- 7508 February, [facility] [address], [place] [address]- 8024 February, Insomnia, unspecified 780.52 [facility] [address] [address]- 1758 Jan, [facility] [address], [place] [address]- 8045 Jan, [facility] [address] [id number] [place] [address] 637209- 3583 Dec, [facility] [address] 6046 Dec, [facility] [id number] [place] [address] 23877- 5899 Dec, [facility] [place] [facility] [address] [id number] [place] [address]- 9045 Dec, [facility] [place] [facility] [address] [facility] [id number] [place] [address]- 3324 Dec, [facility] [place] [facility] [address] [facility] [id number] [place] [address]- 6610 Dec, [facility] [place] [facility] [address] [facility] [id number] [place] [address]- 9220 Dec, [facility] [place] [facility] [address] [facility] [id number] [place] [address]- 1505 Dec, [facility] [place] [facility] [address] [facility] [id number] [place] [address]- 2886 Dec, [facility] [place] [facility] [address] [facility] [id number] [place] [address]- 7202 Dec, [facility] [place] [facility] [address] [facility] [id number] [place] [address]- 3254 Nov, [facility] [place] [facility] [address] [facility] [id number] [place] [address]- 5662 Nov, 2014 [facility] [place] [facility] [address] [facility] [id number] [place] [address]- 3030 Nov, [facility] [place] [facility] [address] [id number] [place] [address]- 6099 Nov, 2014 [facility] [place] [facility] [address] [facility] [id number], [place] [address]- 0335 Nov, 2014 [facility] [place] [facility] [address] [facility] [id number] [place] [address]- 5611 Nov, 2014 [facility] [place] [facility] [address] [facility] [id number], [place] [address]- 5275 Nov, 2014 [facility] [place] [facility] [address] [place] [address]- 1947 Nov, 2014 [facility] [place] [facility] [address] [id number] [place] [address]- 0263 Nov, 2014 [facility] [place] [facility] [address] [id number] [place] [address]- 9133 Nov, 2014 [facility] [place] [facility] [address] [facility] [id number] [place] [address]- 3172 Nov, 2014 [facility] [place] [facility] [address] [facility] [id number] [place] [address]- 3081 Nov, 2014 [facility] [place] [facility] [address] [id number] [place] [address]- 5323 Nov, 2014 [facility] [place] [facility] [address] [id number] [place] [address]- 2846 Nov, 2014 [facility] [place] [facility] [address] [facility] [id number] [place] [address]- 5092 Nov, 2014 [facility] [place] [facility] [address] [facility] [id number], [place] [address]- 7206 Nov, 2014 [facility] [place] [facility] [address] [facility] [id number] [place] [address]- 2960 Nov, 2014 [facility] [place] [facility] [address] [facility] [id number] [place] [address]- 3859 Nov, 2014 [facility] [place] [facility] [address] [facility] [id number], [place] [address]- 3247 Nov, 2014 [facility] [place] [facility] [address] [facility] [id number], [place] [address]- 8108 Nov, 2014 [facility] [place] [facility] [address] [facility] [id number] [place] [address]- 6170 Nov, 2014 [facility] [place] [facility] [address] [facility] [id number] [place] [address]- 6953 Nov, 2014 [facility] [place] [facility] [address] [facility] [id number], [place] [address]- 6150 Nov, 2014 [facility] [place] [facility] [address] [facility] [id number] [place] [address]- 5207 Oct, [facility] [address] [id number] [place] [address]- 1111 Oct, [facility] [address] [id number] [place] [address]- 0515 Oct, [facility] [address] [id number] [place] [address]- 6935 Oct, [facility] [address] [id number] [place] [address]- 5690 Oct, [facility] [address] [id number] [place] [address]- 1938 Oct, [facility] [address] [id number] [place] [address]- 7962 Oct, [facility] [address] [id number] [place] [address]- 8219 Oct, [facility] [address] [id number] [place] [address]- 0454 Oct, [facility] [address] [id number] [place] [address]- 1085 Oct, [facility] [address] [id number] [place] [address]- 0337 Oct, [facility] [address] [id number] [place] [address]- 8091 Oct, [facility] [address] [id number] [place] [address]- 7739 Sep, [facility] [place] [facility] [address] [id number] [place] [address] Sep, [facility] [place] [facility] [address] [id number] [place] [address] Sep, [facility] [address] [id number] [place] [address] Sep, [facility] [place] [facility] [address] [id number] [place] [address] Sep, [facility] [place] [facility] [address] [id number] [place] [address] Sep, [facility] [place] [facility] [address] [id number] [place] [address] Aug, [facility] [place] [facility] [address] [id number] [place] [address] Aug, [facility] [place] [facility] [address] [id number] [place] [address] Jul, [facility] [place] [facility] [address] [id number] [place] [address] Jul, [facility] [place] [facility] [address] [id number] [place] [address] Jul, [facility] [place] [facility] [address] [id number], [place] [address] Jul, [facility] [place] [facility] [address] [id number] [place] [address] Jul, [facility] [place] [facility] [address] [id number], [place] [address] Jul, [facility] [place] [facility] [address] [id number], [place] [address] 25 Jun, 2014 [facility] [place] [facility] [address] [id number], [place] [address] 25 Jun, 2014 [facility] [place] [facility] [address] [id number], [place] [address] 16 Jun, 2014 [facility] [place] [facility] [address] [id number], [place] [address] 16 Jun, 2014 [facility] [place] [facility] [address] [id number], [place] [address] 13 Jun, 2014 [facility] [place] [facility] [address] [id number], [place] [address] Jun, [facility] [place] [facility] [address] [id number] [place] [address] Jun, [facility] [place] [facility] [address] [id number] [place] [address] May, [facility] [place] [facility] [address] [id number] [place] [address] May, [facility] [place] [facility] [address] [id number] [place] [address] February, [facility] [place] [facility] [address] [id number] [place] [address] February, [facility] [place] [facility] [address] [id number] [place] [address] February, [facility] [place] [facility] [address] [id number] [place] [address] February, [facility] [place] [facility] [address] [id number] [place] [address] February, [facility] [place] [facility] [address] [id number] [place] [address] February, [facility] [place] [facility] [address] [id number] [place] [address] February, [facility] [place] [facility] [address] [id number] [place] [address] Jan, [facility] [place] [facility] [address] [id number] [place] [address] Jan, [facility] [place] [facility] [address] [id number] [place] [address] Jan, [facility] [place] [facility] [address] [id number] [place] [address] Jan, [facility] [place] [facility] [address] [id number] [place] [address] Jan, [facility] [place] [facility] [address] [id number] [place] [address] 18 Jan, 2014 [facility] [place] [facility] [address] [id number] [place] [address] 17 Jan, 2014 [facility] [place] [facility] [address] [id number] [place] [address] 17 Jan, 2014 [facility] [facility] [address] [id number] [place] [address] 16 Jan, 2014 [facility] [place] [facility] [address] [id number] [place] [address] 16 Jan, 2014 [facility] [place] [facility] [address] [id number] [place] [address] 15 Jan, 2014 [facility] [place] [facility] [address] [id number] [place] [address] 15 Jan, 2014 [facility] [place] [facility] [address] [id number] [place] [address] 15 Jan, 2014 [facility] [place] [facility] [address] [id number] [place] [address] 15 Jan, 2014 [facility] [place] [facility] [address] [id number] [place] [address] Oct, [facility] [place] [facility] [address] [id number] [place] [address] Oct, [facility] [place] [facility] [address] [id number] [place] [address] May, [facility] [place] [facility] [address] [id number] [place] [address] Mar, [facility] [place] [facility] [address] [id number] [place] [address] Mar, [facility] [place] [facility] [address] [id number] [place] [address] Mar, [facility] [place] [facility] [address] [id number] [place] [address] February, [facility] [address] [id number] [place] [address] February, [facility] [address] [id number] [place] [address] February, [facility] [address] [id number] [place] [address] February, [facility] [address] [id number] [place] [address] February, [facility] [address] [id number] [place] [address] Jan, [facility] [address] [id number] [place] [address] Jan, [facility] [address] [id number] [place] [address] Jan, [facility] [address] [id number] [place] [address] Oct, [facility] [address] [id number] [place] [address] Oct, [facility] [address] [id number] [place] [address] Oct, [facility] [place] [facility] [address] [id number] [place] [address] Oct, [facility] [place] [facility] [address] [id number], [place] [address] Oct, [facility] [place] [facility] [address] [id number] [place] [address] Oct, [facility] [place] [facility] [address] [id number] [place] [address] Oct, [facility] [place] [facility] [address] [id number] [place] [address] Oct, [facility] [place] [facility] [address] [id number] [place] [address] Aug, [facility] [place] [facility] [address] [id number] [place] [address] Jul, [facility] [place] [facility] [address] [id number] [place] [address] Jul, [facility] [place] [facility] [address] [id number] [place] [address] Jul, [facility] [facility] [address] [id number] [place] [address] Jul, [facility] [address] [id number] [place] [address] Jul, [facility] [address] [id number] [place] [address] Jul, [facility] [place] [facility] [address] [id number] [place] [address] Jul, [facility] [place] [facility] [address] [id number] [place] [address] Jun, [facility] [place] [facility] [address] [id number] [place] [address] May, [facility] [place] [facility] [address] [id number] [place] [address] May, [facility] [place] [facility] [address] [id number] [place] [address] Apr, [facility] [address] [id number] [place] [address] Apr, [facility] [place] [facility] [address] [id number] [place] [address] Apr, [facility] [place] [address] [id number] [place] [address] Apr, [facility] [address] [id number] [place] [address] Apr, [facility] [address] [facility] [id number], [place] [address] Apr, [facility] [address] [facility] [id number], [place] [address] Apr, [facility] [address] [facility] [id number], [place] [address] Apr, [facility] [address] [facility] [id number], [place] [address] Mar, [facility] [address] [facility] [id number], [place] [address] Jul, IMMUNIZATIONS No Known Immunizations SOCIAL HISTORY Never Assessed REASON FOR VISIT Lab (walk-in)--[facility] PLAN OF CARE VITAL SIGNS MEDICATIONS Unknown Medications RESULTS Name Result Date Reference Range A1C 2017-06-21 Hemoglobin A1c 5.3 4.8-5.6 TSH 2017-06-21 TSH 1.860 0.450-4.500 CBC 2017-06-21 WBC 4.8 3.4-10.8 RBC 4.21 3.77-5.28 Hemoglobin 12.7 11.1-15.9 Hematocrit 39.3 34.0-46.6 MCV 93 79-97 MCH 30.2 26.6-33.0 MCHC 32.3 31.5-35.7 RDW 13.5 12.3-15.4 Platelets 335 150-379 Neutrophils 42 Lymphs 40 Monocytes 11 Eos 6 Basos 1 Neutrophils (Absolute) 2.0 1.4-7.0 Lymphs (Absolute) 1.9 0.7-3.1 Monocytes(Absolute) 0.5 0.1-0.9 Eos (Absolute) 0.3 0.0-0.4 Baso (Absolute) 0.1 0.0-0.2 Immature Granulocytes 0 Immature Grans (Abs) 0.0 0.0-0.1 LIPID PANEL 2017-06-21 Cholesterol, Total 210 100-199 Triglycerides 150 0-149 HDL Cholesterol 47 >39 VLDL Cholesterol Robert 30 5-40 LDL Cholesterol Calc 133 0-99 CMP 2017-06-21 Glucose, Serum 92 65-99 BUN 12 6-24 Creatinine, Serum 0.84 0.57-1.00 eGFR If NonAfricn Am 84 >59 eGFR If Africn Am 96 >59 BUN/Creatinine Ratio 14 9-23 Sodium, Serum 141 134-144 Potassium, Serum 4.5 3.5-5.2 Chloride, Serum 101 96-106 Carbon Dioxide, Total 26 18-29 Calcium, Serum 9.2 8.7-10.2 Protein, Total, Serum 6.9 6.0-8.5 Albumin, Serum 4.1 3.5-5.5 Globulin, Total 2.8 1.5-4.5 A/G Ratio 1.5 1.2-2.2 Bilirubin, Total 0.4 0.0-1.2 Alkaline Phosphatase, S 49 39-117 AST (SGOT) 15 0-40 ALT (SGPT) 10 0-32 PROCEDURES Procedure Date Ordered Result Body Site ASSAY THYROID STIM HORMONE Jun 21, 2017 COMPLETE CBC W/AUTO DIFF WBC Jun 21, 2017 LIPID PANEL Jun 21, 2017 Hemoglobin Test Send Out 0 dollar Jun 21, 2017 VENIPUNCT, ROUTINE* Jun 21, 2017 COMPREHEN METABOLIC PANEL Jun 21, 2017 INSTRUCTIONS MEDICATIONS ADMINISTERED No Known Medications [...]
--- OUTSIDE RECORDS SUMMARY | 2018-05-16 00:44 | XMS REPORT ---
Author Author SINGH CHURCHILL Organization [facility] Address [address] [place] [address] Care Team Providers Care Blood And Plasma Laboratory Assistant Name Role Phone SINGH CHURCHILL Unavailable PROBLEMS Type Condition ICD9-CM Code NTL45-ST Code Onset Dates Condition Status SNOMED Code Problem Gastroesophageal reflux disease without esophagitis K21.9 Active 891422992 Problem Major depressive disorder, recurrent, moderate F33.1 Active 56946240 Problem Insomnia, unspecified G47.00 Active 990120965 Problem Major depressive disorder, recurrent episode, moderate F33.1 Active 642320090 Problem Recurrent major depressive disorder, in partial remission F33.41 Active 85219672 Problem Chronic maxillary sinusitis J32.0 Active 45066686 Problem History of prediabetes Z87.898 Active 968081227 Problem Overweight (BMI 25.0-29.9) E66.3 Active 542921175 Problem Skin lesion of right leg L98.9 Active 217396418 Problem Hyperlipidemia LDL goal <100 E78.5 Active 88944718 ALLERGIES Substance Reaction Event Type Date Status Imipramine HCl rash Drug Allergy Jul, Active Celebrex Unknown Drug Allergy Jul, Active Amoxicillin Unknown Drug Allergy Jul, Active Vladimir Toilet Paper yeast infection Non Drug Allergy Jul, Active Tape can only use paper tape Non Drug Allergy Jul, Active ENCOUNTERS Encounter Location Date Diagnosis [facility] [address] [facility] [id number], [place] [address] May, [facility] [address] [facility] [id number], [place] [address] Mar, [facility] [address] [facility] [id number], [place] [address] February, [facility] [address] [facility] [id number], [place] [address] February, Pain of left great toe M79.675 [place] [address] [place] [id number] [place] [address] 93765- 1491 15 Dec, 2017 Recurrent major depressive disorder, in partial remission F33.41 [place] [address] [place] [id number] [place] [address] 50591- 4094 14 Dec, 2017 History of prediabetes Z87.898 ; Overweight (BMI 25.0-29.9) E66.3 ; Hyperlipidemia LDL goal <100 E78.5 and Long-term use of high-risk medication Z79.899 [place] [address] [address]- 0092 Nov, Skin lesion of right leg L98.9 [place] [address] 54703- 4237 06 Nov, 2017 Overweight (BMI 25.0-29.9) E66.3 ; Gastroesophageal reflux disease without esophagitis K21.9 ; Prediabetes R73.09 ; Chronic maxillary sinusitis J32.0 and Skin lesion of right leg L98.9 [facility] [place] [id number] [place] [address] 94131 -1615 Oct, Acute non-recurrent frontal sinusitis J01.10 [facility] [place] [id number] [place] [address] 30979 -5395 Sep, Other viral agents as the cause of diseases classified elsewhere B97.89 and Acute upper respiratory infection, unspecified J06.9 [place] [address] [place] [id number] [place] [address] 27817- 2906 Sep, Major depressive disorder, recurrent episode, moderate F33.1 [place] [id number] [place] [address] 50623- 7791 04 Sep, 2017 [place] [address] [id number] [place] [address] 32675- 5219 Aug, [address] [address]- 4379 Jul, Chronic constipation K59.09 ; Overweight (BMI 25.0-29.9) E66.3 and Facial rash R21 [place] [address] 74640- 3898 17 Jul, 2017 [place] [address] 59805- 6180 14 Jun, 2017 Major depressive disorder, recurrent episode, moderate F33.1 [facility] [address] [address]28 [address] 14 Jun, 2017 Dysuria R30.0 and Fluid level behind tympanic membrane of both ears H65.93 [place] [address] 52623- 1448 14 Jun, 2017 Dental examination Z01.20 [place] [address] 46017- 8592 08 Jun, 2017 Other meterman (current) 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 Z79.899 [place] [address] 49995- 2488 08 Jun, 2017 Major depressive disorder, recurrent, moderate F33.1 and Other mcc (current) 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 Z79.899 [place] [address] 70124- 2751 May, Major depressive disorder, recurrent, moderate F33.1 [facility] [address] 98423 -9997 May, [facility] [address] 94909 -9889 May, Candidiasis B37.9 and Vaginal lesion N89.8 [facility] [address] 84777- 5880 May, Major depressive disorder, recurrent, moderate F33.1 [place] [address] 88809- 4928 Mar, Major depressive disorder, recurrent, moderate F33.1 ; Insomnia, unspecified G47.00 and Other mcc (current) 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 Z79.899 [facility] [address] [place] [id number] [place] [address] 89620- 4746 February, Major depressive disorder, recurrent, moderate F33.1 [facility] [address] [id number] [place] [address] 57761- 7587 Jan, Major depressive disorder, recurrent, moderate F33.1 [facility] [address] [place] [id number] [place] [address] 78019- 4103 Nov, Major depressive disorder, recurrent, moderate F33.1 [facility] [address] [id number] [place] [address] 91691- 6604 Nov, [facility] [address] [id number] [place] [address] 54407- 7766 Oct, Insomnia, unspecified G47.00 [facility] [id number] [place] [address] 85605- 0333 Oct, Major depressive disorder, recurrent, moderate F33.1 [facility] [address] [id number] [place] [address] 16826- 1801 Sep, Major depressive disorder, recurrent, moderate F33.1 [facility] [address] [id number] [place] [address] 32017- 7590 Sep, Major depressive disorder, recurrent episode, moderate F33.1 [facility] [address] [id number] [place] [address] 46118- 5596 Aug, Major depressive disorder, recurrent episode, moderate F33.1 [facility] [address] [id number] [place] [address] 15939- 4173 Aug, [facility] [address] [id number] [place] [address] 49509- 9391 Aug, MDD (major depressive disorder), recurrent episode, mild F33.0 [facility] [address] [id number] [place] [address] 83368- 8161 Jul, Dysuria R30.0 ; Chronic idiopathic constipation K59.04 and Allergy, insect bite Z91.038 [facility] [address] [id number] [place] [address] 90670- 9795 Jul, Major depressive disorder, recurrent episode, moderate F33.1 [facility] [address] 41253- 7445 May, [facility] [address] 73455- 3073 May, Abnormal fasting glucose R73.01 ; Gastroesophageal reflux disease without esophagitis K21.9 ; Tremor R25.1 and Prediabetes R73.09 [facility] [address] [id number] May, Dental examination Z01.20 [facility] [address] 18276- 4575 May, Other mcc (current) 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 Z79.899 [facility] [address] 06630- 2965 May, Major depressive disorder, recurrent, moderate F33.1 and Other meterman (current) 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 Z79.899 [facility] [address] [id number] [place] [address] 53560- 5003 May, [facility] [address] [id number] [place] [address] 28261 -5197 May, Dysuria R30.0 [facility] [address] 07260- 2484 May, [facility] [address] 73947- 8017 May, Major depressive disorder, recurrent episode, moderate F33.1 [facility] [address] 38597- 2639 Apr, Abnormal mammogram of right breast R92.8 [facility] [address] [address] 101[address] Apr, [facility] [address], [place] [address]- 5948 Apr, [facility] [address] [place] [address] 52345- 5521 Mar, Major depressive disorder, recurrent, moderate F33.1 and Insomnia, unspecified G47.00 [facility] [address] [place] [address] 98811- 7127 Mar, Major depressive disorder, recurrent episode, moderate F33.1 [facility] [address] [place] [address] 82418- 7675 February, [facility] [address] [id number] [place] [address] 74506- 1883 Jan, [facility] [address] [place] [address] 65320- 3637 Jan, Major depressive disorder, recurrent episode, moderate F33.1 [facility] [address] [place] [address] 86273- 9785 Jan, Major depressive disorder, recurrent, moderate F33.1 [facility] [address] [place] [address] [id number] Jan, Dental examination V72.2 [facility] [address], [place] [address] Dec, Dysuria R30.0 ; Vaginal discharge N89.8 ; Vaginal yeast infection B37.3 and Encounter for screening for infections with a predominantly sexual mode of transmission Z11.3 [facility] [address], [place] [address]- 2965 Dec, Major depressive disorder, recurrent episode, moderate F33.1 [facility] [address] [place] [id number] [place] [address] 46947- 9785 Dec, [facility] [address], [place] [address]- 8892 Dec, [facility] [address], [place] [address]- 7427 Dec, [facility] [address] [place] [address] 88672- 6578 Nov, Major depressive disorder, recurrent episode, moderate F33.1 [facility] [address] [id number] 15 Nov, 2015 Encounter for dental examination Z01.20 [place] [address] [place] [id number] [place] [address] 55001- 2619 Nov, [place] [address] [place] [address] 38488- 7740 Nov, [place] [address] [place] [id number] [place] [address] 76471- 9873 Oct, Hyperkalemia E87.5 ; History of UTI Z87.440 and Sinusitis J32.[address] [place] [address] 30775- 3794 Oct, Hyperkalemia E87.5 and Family history of hypertension Z82.49 [address] [address]- 2040 Oct, [place] [address] [place] [id number] [place] [address] 65356- 0685 Oct, Dysuria R30.0 ; Acute cystitis without hematuria N30.00 ; Epigastric pain R10.13 ; Chronic fatigue R53.82 ; Sinusitis J32.9 and Vaginal yeast infection B37.3 [place] [address], [place] [address]- 9283 Oct, Breast cancer screening V76.10 and Abnormal mammogram of right breast R92.8 [address] [place] [address] 86494- 5207 Oct, Breast cancer screening V76.10 and Abnormal mammogram of right breast R92.8 [place] [address] [place] [id number] [place] [address] 50378- 3184 Sep, [place] [address] 24338- 3531 Sep, Major depressive disorder, recurrent episode, moderate 296.32 [place] [address] 95694- 6316 Aug, Insomnia, unspecified G47.00 ; Major depressive disorder, recurrent, moderate F33.1 and Dysthymic disorder F34.1 [place] [address] [id number] [place] [address] 61259- 3774 Aug, Major depressive disorder, recurrent, moderate F33.[address] 95450- 5437 Aug, Insomnia, unspecified G47.00 ; Adjustment disorder with mixed anxiety and depressed mood F43.23 ; Dysthymic disorder F34.1 and Major depressive disorder, recurrent, moderate F33.1 [place] [address] [id number] [place] [address] 94668- 7926 Aug, Depression F32.9 and Sinusitis J32.9 [place] [address] [id number] [place] [address] 81152- 8635 Aug, Major depressive disorder, recurrent episode, unspecified severity F33.9 [place] [address] [id number] [place] [address] 36813- 9648 Aug, [place] [address] 75073- 9172 Jul, [place] [address] [place] [id number] [place] [address] 06436- 1352 Jun, [place] [address] 76737- 8110 Jun, Dysuria 788.1 [facility] [address] [place] [address] 15858- 9720 Jun, Insomnia 780.52 ; Unspecified myalgia and myositis 729.1 ; High risk sexual behavior V69.2 and Dysuria 788.1 [facility] [address] [place] [address] 43442- 1218 Jun, [facility] [address] [id number] [place] [address] 65827- 7941 May, [facility] [address] [place] [id number] [place] [address] 77015- 0447 Apr, [facility] [address] [place] [address] [id number] Apr, Dental examination V72.2 [place] [address] [place] [id number] [place] [address] 08927- 1729 Apr, Insomnia 780.52 ; Unspecified myalgia and myositis 729.1 ; Long-term use of high-risk medication V58.69 and Urinary incontinence 788.30 [facility] [address] [place] [id number] [place] [address] 19265- 8329 Apr, Breast cancer screening V76.10 and Breast pain 611.71 [place] [address] [place] [address] 03884- 4143 Apr, Breast cancer screening V76.10 [place] [address] [place] [id number] [place] [address] 48016- 2140 Apr, Breast cancer screening V76.10 and Vaginal itching 698.1 [facility] [address] [place] [address] 24780- 4925 Apr, [facility] [id number] [place] [address] 40925- 8589 February, [facility] [address] [place] [id number] [place] [address] 48871- 1076 February, Insomnia, unspecified 780.52 [facility] [address] [id number] [place] [address]- 1724 Jan, [facility] [address] [facility] [id number] [place] [address]- 7252 Jan, [facility] [address] [facility] [id number] [place] [address]- 2213 Dec, [facility] [address] [facility] [id number] [place] [address]- 8054 Dec, [facility] [address] [facility] [id number] [place] [address]- 9694 Dec, [facility] [address] [facility] [id number] [place] [address]- 4024 Dec, [facility] [address] [place] [id number] [place] [address]- 7137 Dec, [facility] [address] [facility] [id number] [place] [address]- 5357 Dec, [facility] [address] [place] [id number] [place] [address]- 4243 Dec, [facility] [address] [facility] [id number], [place] [address]- 2024 Dec, [facility] [place] [facility] [address] [facility] [id number] [place] [address]- 8240 Dec, [facility] [address] [facility] [id number], [place] [address]- 1297 Dec, [facility] [place] [facility] [address] [facility] [id number] [place] [address]- 4006 Nov, [facility] [place] [facility] [address] [facility] [id number] [place] [address]- 3014 Nov, [facility] [address] [facility] [id number] 0740 Nov, [facility] [place] [facility] [address] [facility] [id number] [place] [address]- 4880 Nov, 2014 [facility] [place] [facility] [address] [facility] [id number] [place] [address]- 3143 Nov, 2014 [facility] [place] [facility] [address] [facility] [id number] [place] [address]- 3512 Nov, 2014 [facility] [place] [facility] [address] [facility] [id number] [place] [address]- 6535 Nov, 2014 [facility] [place] [facility] [address] [facility] [id number] [place] [address]- 2496 Nov, 2014 [facility] [place] [facility] [address] [facility] [id number] [place] [address]- 7230 17 Nov, 2014 [facility] [place] [facility] [address] [facility] [id number] [place] [address]- 3649 Nov, 2014 [facility] [place] [facility] [address] [facility] [id number] [place] [address]- 9936 Nov, 2014 [facility] [place] [facility] [address] [facility] [id number] [place] [address]- 8338 Nov, 2014 [facility] [place] [facility] [address] [facility] [id number] [place] [address]- 4611 Nov, 2014 [facility] [place] [facility] [address] [facility] [id number] [place] [address]- 3718 Nov, 2014 [facility] [place] [facility] [address] [facility] [id number], [place] [address]- 4128 Nov, 2014 [facility] [place] [facility] [address] [facility] [id number] [place] [address]- 9118 Nov, 2014 [facility] [place] [facility] [address] [facility] [id number], [place] [address]- 0141 Nov, 2014 [facility] [place] [facility] [address] [facility] [id number], [place] [address]- 7545 05 Nov, 2014 [facility] [place] [facility] [address] [id number] [place] [address]- 4607 Nov, [facility] [place] [facility] [address] [id number] [place] [address]- 6343 Nov, [facility] [place] [facility] [address] [id number] [place] [address]- 2408 Nov, [facility] [place] [facility] [address] [id number] [place] [address]- 2329 Nov, [facility] [place] [facility] [address] [id number] [place] [address]- 9146 Nov, [facility] [place] [facility] [address] [id number] [place] [address]- 8090 Oct, [facility] [place] [facility] [address] [id number] [place] [address]- 0403 Oct, [facility] [place] [facility] [address] [id number] [place] [address]- 8873 Oct, [facility] [place] [facility] [address] [id number] [place] [address]- 6472 Oct, [facility] [place] [facility] [address] [id number] [place] [address]- 1681 Oct, [facility] [place] [facility] [address] [id number] [place] [address]- 8087 Oct, [facility] [place] [facility] [address] [id number] [place] [address]- 7218 Oct, [facility] [place] [facility] [address] [id number] [place] [address]- 3600 Oct, [facility] [place] [facility] [address] [id number] [place] [address]- 4374 Oct, [facility] [place] [facility] [address] [id number] [place] [address]- 9143 Oct, [facility] [place] [facility] [address] [id number] [place] [address]- 0889 Oct, [facility] [place] [facility] [address] [id number] [place] [address]- 6486 Oct, [facility] [place] [facility] [address] [id number] [place] 0306 Sep, [facility] [place] [facility] [address] [id number] [place] [address]- 4902 Sep, [facility] [place] [facility] [address] [id number] [place] [address]- 1591 Sep, [facility] [place] [facility] [address] [id number] [place] [address]- 2685 Sep, [facility] [place] [facility] [address] [id number] [place] [address]- 9389 Sep, [facility] [place] [facility] [address] [id number] [place] [address]- 5730 Sep, [facility] [place] [facility] [address] [id number] [place] [address]- 5308 Aug, [facility] [place] [facility] [address] [id number] [place] [address]- 1301 Aug, [facility] [place] [facility] [address] [id number] [place] [address]- 2638 Jul, [facility] [place] [facility] [address] [id number] [place] [address]- 8107 Jul, [facility] [place] [facility] [address] [id number], [place] [address]- 7278 Jul, [facility] [place] [facility] [address] [id number] [place]- 0891 Jul, [facility] [place] [facility] [address] [id number], [place] [address]- 9124 Jul, [facility] [place] [facility] [address] [id number], [place] [address]- 5031 Jul, [facility] [place] [facility] [address] [id number] [place] [address]- 6416 25 Jun, 2013 [facility] [place] [facility] [address] [id number] [place] [address]- 8876 25 Jun, 2014 [facility] [place] [facility] [address] [id number] [place] [address]- 2546 16 Jun, 2014 [facility] [place] [facility] [address] [id number] [place] [address] 16 Jun, 2014 [facility] [place] [facility] [address] [id number] [place] [address] 13 Jun, 2014 [facility] [place] [facility] [address] [id number] [place] [address] 12 Jun, 2014 [facility] [place] [facility] [address] [id number] [place] [address] Jun, [facility] [place] [facility] [address] [id number] [place] [address] May, [facility] [place] [facility] [address] [id number] [place] [address] May, [facility] [place] [facility] [address] [id number] [place] [address] February, [facility] [place] [facility] [address] [id number] [place] [address] February, [facility] [place] [facility] [address] [id number] [place] [address] February, [facility] [place] [facility] [address] [id number] [place] [address] February, [facility] [place] [facility] [address] [id number] [place] [address] February, [facility] [place] [facility] [address] [id number] [place] [address] February, [facility] [place] [facility] [address] [id number] [place] [address] February, [facility] [place] [facility] [address] [id number] [place] [address] Jan, [facility] [place] [facility] [address] [id number] [place] [address] 29 Jan, 2014 [facility] [place] [facility] [address] [id number] [place] [address] Jan, [facility] [place] [facility] [address] [id number] [place] [address] Jan, [facility] [place] [facility] [address] [id number] [place] [address]- [address] Jan, [facility] [place] [facility] [address] [id number] [place] [address] Jan, [facility] [place] [facility] [address] [id number] [place] [address] Jan, [facility] [place] [facility] [address] [id number] [place] [address] 17 Jan, 2014 [facility] [place] [facility] [address] [id number] [place] [address] 16 Jan, 2014 [facility] [place] [facility] [address] [id number] [place] [address] 16 Jan, 2014 [facility] [place] [facility] [address] [id number] [place] [address] 15 Jan, 2014 [facility] [place] [facility] [address] [id number] [address] 15 Jan, 2014 [facility] [place] [facility] [address] [id number] [place] [address] 15 Jan, 2014 [facility] [place] [facility] [address] [id number] [place] [address] 15 Jan, 2014 [facility] [place] [facility] [address] [id number] [place] [address] Oct, [facility] [place] [facility] [address] [id number] [place] [address] Oct, [facility] [address] [id number] [place] [address] May, [facility] [address] [id number] [place] [address] Mar, [facility] [address] [id number] [place] [address] Mar, [facility] [facility] [address] [id number] [place] [address] Mar, [facility] [address] [id number] [place] [address] February, [facility] [address] [id number] [place] [address] February, [facility] [address] [id number] [place] [address] February, [facility] [address] [id number] [place] [address] February, [facility] [address] [id number] [place] [address] February, [facility] [address] [id number] [place] [address] Jan, [facility] [address] [id number] [place] [address] Jan, [facility] [address] [id number] [place] [address] Jan, [facility] [place] [facility] [address] [id number] [place] [address] Oct, [facility] [address] [id number] [place] [id number] Oct, [facility] [address] [id number] [place] [address] Oct, [facility] [place] [facility] [address] [id number] [place] [address] Oct, [facility] [place] [facility] [address] [id number] [place] [address] Oct, [facility] [place] [facility] [address] [id number] [place] [address] Oct, [facility] [place] [facility] [address] [id number] [place] [address] Oct, [facility] [address] [id number] [place] [address] Oct, [facility] [place] [facility] [address] [id number] [place] [address] Aug, [facility] [address] [id number] [place] [address] Jul, [facility] [address] [id number] [place] [address] Jul, [facility] [place] [facility] [address] [id number] [place] [address] Jul, [facility] [place] [facility] [address] [id number] [place] [address] Jul, [facility] [place] [facility] [address] [id number] [place] [address] Jul, [facility] [place] [facility] [address] [id number] [address] Jul, [facility] [place] [facility] [address] [id number] [place] [address] Jul, [facility] [place] [facility] [address] [id number] [place] [address] Jun, [facility] [place] [facility] [address] [id number] [place] [address] May, [facility] [place] [facility] [address] [id number], [place] [address] May, [facility] [id number] [address] Apr, [facility] [id number] [address] Apr, [facility] [id number] [address] Apr, [facility] [id number] [address] Apr, [facility] [id number] [address] Apr, [facility] [id number] [address] Apr, [facility] [id number] [address] Apr, [facility] [id number] [address] Apr, [facility] [id number] [address] Mar, [facility] [id number] [address] Jul, IMMUNIZATIONS No Known Immunizations SOCIAL HISTORY Never Assessed REASON FOR VISIT Hospital f/u, pt. states still having constipation---[place],[facility] PLAN OF CARE Activity Details Follow Up 2 weeks Reason:rash, overweight VITAL SIGNS Height 68 in 2017-08-13 Weight 188.4 lbs 2017-08-13 Temperature 97.8 degrees Fahrenheit 2017-08-13 Heart Rate 74 bpm 2017-08-13 Respiratory Rate 20 2017-08-13 BMI 28.64 kg/m2 2017-08-13 Blood pressure systolic 118 mmHg 2017-08-13 Blood pressure diastolic 76 mmHg 2017-08-13 MEDICATIONS Medication Instructions Dosage Frequency Start Date End Date Duration Status Calcium Active Zinc + Vitamin C Active Abilify 5 mg Orally Once a day TAKE ONE-HALF TABLET BY MOUTH ONCE DAILY 24h 30 days Active Cymbalta 30 MG Orally take with 60 mg Once a day 1 capsule 24h 30 days Active Duloxetine HCl 60 mg Orally take with 30 mg Once a day 1 capsule 24h 30 days Active Biotin Active [place] 3 Active Triamcinolone Acetonide 0.1 % Externally Twice a day 1 application to affected area 12h 21 Jul, 2016 Active HydrOXYzine HCl 25 MG Orally three times a day as needed for anxiety 1 tablet as needed May, Active Flonase 50 MCG/ACT Nasally Once a day 1 spray in each nostril 24h 14 Jun, 2017 30 day(s) Active Zolpidem Tartrate 10 mg Orally Once a day 1 tablet at bedtime as needed 24h 20 Sep, 2016 30 days Active RESULTS No Results PROCEDURES [...]
== END 2018-05-15 21:03 | disposition home or self-care (01) ==
LOC: EDUNIT# 19:41 → ER 19:43
DX: M54.17 Radiculopathy, lumbosacral region (principal); K21.9 Gastro-esophageal reflux disease without esophagitis; F32.9 Major depressive disorder, single episode, unspecified; Z87.19 Personal history of other diseases of the digestive system; Z88.8 Allergy status to other drugs, medicaments and biological substances; Z88.0 Allergy status to penicillin; Z88.1 Allergy status to other antibiotic agents; Z90.89 Acquired absence of other organs; Z90.710 Acquired absence of both cervix and uterus
CPT/HCPCS: 96372; 99284

== ENCOUNTER → 2018-07-03 | Outpatient (CLI) | payer OTHER ==
--- NOTE | 2018-07-03 19:31 | Diagnostic Imaging Report ---
EXAMINATION: Left lower extremity ultrasound nonvascular. INDICATION: Lump and tenderness over lateral right leg. FINDINGS: There are no prior studies available for comparison. Reportedly, there is a palpable abnormality along the lateral aspect of the left leg. The ultrasound examination of this area, however, shows no discrete solid or cystic mass. IMPRESSION: There is no abnormal solid or cystic mass in the region of the patient's palpable abnormality. Clinical follow-up is recommended. Dictated by: Dictated on workstation # [id number]
== END ==
LOC: RAD 13:06
PROVIDERS: ATTEND Nurse Practitioner Family
DX: M79.662 Pain in left lower leg (principal); R22.42 Localized swelling, mass and lump, left lower limb
CPT/HCPCS: 76881

== ENCOUNTER → 2018-07-18 | Outpatient (CLI) | payer OTHER ==
--- NOTE | 2018-07-18 10:35 | Diagnostic Imaging Report ---
PROCEDURE: MRI right joint upper extremity without contrast. TECHNIQUE: Multiplanar, multisequence non contrast-enhanced MRI of the right upper extremity was accomplished. INDICATION: Chronic right shoulder pain and limited range of motion. FINDINGS: The biceps tendon is in a normal location within the bicipital groove. The subscapularis tendon of the rotator cuff is intact. The supraspinatus and infraspinatus tendons of the rotator cuff are intact. No tear or retraction is identified. No fluid is identified within the subacromial and subdeltoid bursa. Glenohumeral and acromioclavicular alignment are normal. IMPRESSION: Unremarkable MRI of the right shoulder. There is no evidence of a rotator cuff tear. Dictated by: Dictated on workstation # [id number]
== END ==
LOC: RAD 07:01
PROVIDERS: ATTEND Nurse Practitioner Family
DX: G89.29 Other chronic pain (principal); M25.511 Pain in right shoulder
CPT/HCPCS: 73221

== ENCOUNTER → 2019-08-19 | Outpatient (CLI) | payer OTHER ==
--- NOTE | 2019-08-20 17:49 | Diagnostic Imaging Report ---
EXAMINATION: Digital mammogram bilateral screening. The current study was also evaluated with a Computer Aided Detection (CAD) system. 3-D tomosynthesis was also performed and reviewed. INDICATION: Screening. This study was compared to the prior exams of 05/09/2016, 10/24/2015, 04/27/2015, and 02/04/2014. At this time, there are no current complaints. FINDINGS: The fibroglandular tissue in both breasts is heterogeneously dense. This does limit the sensitivity of this exam. Overall, there does not appear to have been any significant change when compared to the prior study. No primary or secondary sign of malignancy is noted. 3D tomographic images fail to show any sign of malignancy. IMPRESSION: 1. There is no evidence for malignancy. 2. The patient should have her annual screening mammogram on schedule in August of 2020. ACR BI-RADS Category 1: Negative. Result letter will be mailed to the patient. Note: At least 10% of breast cancer is not imaged by mammography. Dictated by: Dictated on workstation # [id number]
== END ==
LOC: RAD 15:25
PROVIDERS: ATTEND Nurse Practitioner Primary Care
DX: Z12.31 Encounter for screening mammogram for malignant neoplasm of breast (principal)
CPT/HCPCS: 77067

== ENCOUNTER 2019-11-07 20:09 | Outpatient (CLI) | payer OTHER | END 2019-11-08 07:05 | disposition home or self-care (01) | LOC: SLEEP 20:09 | PROVIDERS: ATTEND Nurse Practitioner Primary Care | DX: G47.10 Hypersomnia, unspecified (principal); G47.00 Insomnia, unspecified; F39 Unspecified mood [affective] disorder | CPT/HCPCS: 95810 ==

== ENCOUNTER 2019-12-30 16:47 | Emergency (ER) | payer OTHER ==
[~2019-12-30] VITALS: Ht 172.7 cm; Wt 95.3 kg
[2019-12-30 17:01] VITALS: BP 115/80
--- NOTE | 2019-12-30 17:26 | ED Hip Pain/Injury ---
General Chief Complaint: Hip/Pelvic Problems Stated Complaint: BILAT HIP PAIN Nursing Triage Note: Pt amb to triage with c/o bilat hip discomfort. Pt reports persistant pain for 20 years. Pt reports she has been sleeping on a hard bed since 12/23/19 that has caused increase in discomfort. Pt denies injury, fever, chills, or urinary symptoms. Pt reports she is scheduled for an MRI on 01/06/20 stating, "I just can't stand the pain that long." A&OX4. Source: patient Exam Limitations: no limitations History of Present Illness Date Seen by Provider: Dec 30, 2019 Time Seen by Provider: 17:22 Initial Comments To ER with bilateral hip pain for 20 years, intolerable for the past few days. She believes this from sleeping on a hard mattress at her daughter's house in [place]. No fevers no urinary symptoms. She has chronic constipation, no fevers or chills. No injury. She has an MRI scheduled on 01/06/20. She would like to have an emergency MRI today. No loss of bowel or bladder control. She states that steroids don't help. She is already on Celebrex and Flexeril despite l isting that as an allergy here. Reports a history of fibromyalgia. Timing/Duration: constant Severity: moderate Location: hip (R), hip (L) Method of Injury: unknown Associated Symptoms: denies symptoms Allergies and Home Medications Allergies Coded Allergies: imipramine (Verified Allergy, Severe, RASH, 08/03/15) ondansetron (Verified Allergy, Mild, RASH, 08/01/15) Mild skin rash after IV administration of Zofran. No signs or symptoms of anaphylaxis amoxicillin (Verified Allergy, Unknown, RASH, 03/01/10) celecoxib (Unverified Allergy, Unknown, 12/20/14) cyclobenzaprine (Unverified Allergy, Unknown, 12/20/14) tapentadol (Unverified Allergy, Unknown, RASH,, 12/20/14) Home Medications Duloxetine HCl 30 Mg Capsule.dr, 90 MG PO DAILY, (Reported) Patient Home Medication List Home Medication List Reviewed: Yes Review of Systems Constitutional: see HPI EENTM: see HPI Respiratory: no symptoms reported Cardiovascular: no symptoms reported Genitourinary: no symptoms reported Musculoskeletal: see HPI, back pain Skin: no symptoms reported Psychiatric/Neurological: No Symptoms Reported Past Tykkqpn-Ssrwtc-Uzxace Hx Patient Social History 2nd Hand Smoke Exposure: No Recent Foreign Travel: No Contact w/Someone Who Travel: No Recent Infectious Disease Expo: No Recent Hopitalizations: Yes (NECK SURG JUL 25 2011) Past Medical History Surgeries: Yes (T&A, Rt. 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 0oz. 85.728873nq; 31.00 BMI Method:Stated General Appearance: No Apparent Distress, WD/WN Neck: Full Range of Motion, Normal Inspection Neurologic/Psychiatric: Alert, Oriented x3 Skin: Normal Color, Warm/Dry Progress/Results/Core Measures Results/Orders Vital Signs/I&O 12/30/19 17:01 Temp 36.8 Pulse 87 Resp 18 B/P (MAP) 115/80 (92) Pulse Ox 100 O2 Delivery Room Air Blood Pressure Mean: 92 Departure Communication (Admissions) Discussed with her that her symptoms do not qualify for emergency MRI. Cannot prescribe opiates for chronic pain in the emergency room. Impression Primary Impression: Chronic hip pain Qualified Codes: M25.551 - Pain in right hip; M25.552 - Pain in left hip; G89.29 - Other chronic pain Disposition: HOME, SELF-CARE Condition: Stable Departure-Patient Inst. Decision time for Depature: 17:25 Referrals: [facility] (PCP) Primary Care Physician BRADFORD WYMAN APRN (Family) Primary Care Physician Patient Instructions: Chronic Pain (DC), Hip Pain Add. Discharge Instructions: 1. You can call critical access hospital to see if they can schedule the MRI for any sooner, any stronger medicine will need to be written by them. All discharge instructions reviewed with patient and/or family. Voiced understanding. ANAMARIA BARONE APRN Dec 30, 2019 17:26
== END 2019-12-30 17:28 | disposition home or self-care (01) ==
LOC: EDUNIT# 16:47 → ER 16:48
DX: G89.29 Other chronic pain (principal); M25.551 Pain in right hip; M25.552 Pain in left hip; F32.9 Major depressive disorder, single episode, unspecified; Z88.8 Allergy status to other drugs, medicaments and biological substances; Z88.0 Allergy status to penicillin
CPT/HCPCS: 99283

== ENCOUNTER → 2021-03-27 | Outpatient (CLI) | payer BC ==
--- NOTE | 2021-03-27 11:16 | Diagnostic Imaging Report ---
PROCEDURE: MRI right joint lower extremity without contrast. TECHNIQUE: Multiplanar, multisequence non contrast-enhanced MRI of the right lower extremity was accomplished. INDICATION: Foot and ankle pain. Chronic in nature. Question tarsal tunnel syndrome. EXAMINATION: Right lower extremity MRI 03/27/2021 FINDINGS: There are focal varicosities or prominent vessels noted along the medial aspect of the proximal foot at and distal to the region of the tarsal tunnel. Mild T2 hyperintensity is seen within the plantar musculature of the hindfoot perhaps due to mild denervation reactive in nature. Plantar fascia unremarkable. Achilles tendon intact. Peroneal tendons intact. Flexor and extensor tendons intact. Anterior talofibular ligament intact. Posterior talofibular ligament intact. The anterior and posterior inferior tibiofibular ligaments intact. The deltoid ligament is unremarkable. No acute osseous abnormality appreciated. Talar dome and ankle mortise intact. IMPRESSION: 1. Prominent vessels in the medial aspect of the hindfoot likely varicosities possibly causing patient's symptoms correlate with patient's symptoms and history. There is secondary mild T2 hyperintensity within the plantar musculature of the hindfoot. 2. Ligaments and tendons intact. Dictated by: Dictated on workstation # [id number]
== END ==
LOC: RAD 09:16
PROVIDERS: ATTEND Podiatrist Foot & Ankle Surgery
DX: M72.2 Plantar fascial fibromatosis (principal); M76.71 Peroneal tendinitis, right leg; M76.821 Posterior tibial tendinitis, right leg; G57.51 Tarsal tunnel syndrome, right lower limb
CPT/HCPCS: 73721

== ENCOUNTER 2021-05-02 23:05 | Observation (INO) | payer BC ==
[~2021-05-02] VITALS: Ht 172.7 cm; Wt 97.2 kg
[2021-05-02] MEDS ORDERED: NITROGLYCERIN 0.4 MG SL TABS BTL 25'S SL PRN (23:45)
[2021-05-02] MEDS ORDERED: ASPIRIN 81 MG CHEW (CHILDREN'S ASA) PO ONE (23:45)
[2021-05-02 23:52] LABS: BASOPHILS # (AUTO) 0.1 10^3/uL (0.0-0.1); BASOPHILS % (AUTO) 1 % (0-10); EOSINOPHILS # (AUTO) 0.3 10^3/uL (0.0-0.3); EOSINOPHILS % (AUTO) 3 % (0-10); HEMATOCRIT 39 % (35-52); HEMOGLOBIN 12.2 g/dL (11.5-16.0); LYMPHOCYTES # (AUTO) 3.2 10^3/uL (1.0-4.0); LYMPHOCYTES % (AUTO) 37 % (12-44); MEAN CORPUSCULAR HEMOGLOBIN 30 pg (25-34); MEAN CORPUSCULAR HGB CONC 32 g/dL (32-36); MEAN CORPUSCULAR VOLUME 95 fL (80-99); MEAN PLATELET VOLUME 9.9 fL (9.0-12.2); MONOCYTES % (AUTO) 12 % (0-12); NEUTROPHILS # (AUTO) 4.1 10^3/uL (1.8-7.8); NEUTROPHILS % (AUTO) 47 % (42-75); PLATELET COUNT 316 10^3/uL (130-400); WHITE BLOOD COUNT 8.7 10^3/uL (4.3-11.0)
[2021-05-02 23:53] LABS: ALBUMIN 4.1 GM/DL (3.2-4.5); POTASSIUM 4.1 MMOL/L (3.6-5.0)
[2021-05-02 23:55] LABS: CALCIUM 9.1 MG/DL (8.5-10.1)
[2021-05-02 23:56] LABS: TOTAL PROTEIN 7.1 GM/DL (6.4-8.2)
[2021-05-02 23:58] LABS: BILIRUBIN,TOTAL 0.3 MG/DL (0.1-1.0)
[2021-05-03] LABS: CREATININE SERUM 0.98 MG/DL (0.60-1.30)
[2021-05-03 00:02] LABS: MAGNESIUM 2.2 MG/DL (1.6-2.4)
[2021-05-03] MEDS ORDERED: ONDANSETRON 4 MG/2 ML (SDV) Z0FRAN IVP ONE (00:15)
[2021-05-03] MEDS ORDERED: NS IV 1000 ML 1,000 ML IV SCH (00:15)
[2021-05-03 00:16] LABS: INR 0.9 (0.8-1.4); PROTHROMBIN TIME PATIENT 12.7 SEC (12.2-14.7)
--- NOTE | 2021-05-03 01:16 | ED Chest Pain ---
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 CENTER CHEST PRESSURE THAT RADIATES TO LEFT ARM NUMBNESS, NECK PAIN. STATES CP PREVIOUSLY AND SENT TO DR. FERRER (CARDIOLOGY) FOR MEDICAL R/O PRIOR TO UPCOMING FOOT SX NEXT SATURDAY. STATES SAW DR. FERRER TODAY AND HAD EKG, BUT NO LAB WORK DONE. Source: patient Exam Limitations: no limitations History of Present Illness Date Seen by Provider: May 02, 2021 Time Seen by Provider: 23:18 Initial Comments This 50-year-old woman presents to the emergency room with complaints of central chest pain that started about 25 minutes prior to arrival. She has been experiencing episodes of chest pain for the last 4 to 6 months. This episode of chest pain occurred during exertion while she was getting her and his wheelchair situated in the car. She was sitting at a baseball game prior to that. She saw Dr. Ferrer in the clinic today and a stress test and echocardiogram are being scheduled for her. She is also scheduled to have surgery on her plantar fasciitis by Dr. Ledezma next week. She has no history of coronary artery disease but does have a family history. She is not a smoker. She complains of associated shortness of breath. Her primary care provider is at [facility] in [place]. She is noted to be mildly tachycardic. She also reports driving up to 1500 miles per week for her work. Her chest pain radiates into the neck and the left arm but she has chronic neck pain from prior trauma. She also has chronic lower extremity pain due to plantar fasciitis and other maladies. Allergies and Home Medications Allergies Coded Allergies: imipramine (Verified Allergy, Severe, RASH, 08/03/15) ondansetron (Verified Allergy, Mild, RASH, 08/01/15) Mild skin rash after IV administration of Zofran. No signs or symptoms of anaphylaxis amoxicillin (Verified Allergy, Unknown, RASH, 03/01/10) celecoxib (Unverified Allergy, Unknown, 12/20/14) cyclobenzaprine (Unverified Allergy, Unknown, 12/20/14) tapentadol (Unverified Allergy, Unknown, RASH,, 12/20/14) Home Medications Duloxetine HCl 30 Mg Capsule., 90 MG PO DAILY, (Reported) Patient Home Medication List Home Medication List Reviewed: Yes Review of Systems Review of Systems Constitutional: no symptoms reported EENTM: No Symptoms Reported Respiratory: See HPI Cardiovascular: See HPI Gastrointestinal: No Symptoms Reported Genitourinary: No Symptoms Reported Musculoskeletal: see HPI Skin: no symptoms reported Psychiatric/Neurological: No Symptoms Reported Endocrine: No Symptoms Reported Hematologic/Lymphatic: No Symptoms Reported Past Tcvtlfc-Kgecym-Kowvxo Hx Patient Social History Tobacco Use?: No Substance use?: No Alcohol Use?: No Pt feels they are or have been: No Immunizations Up To Date 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 0oz. 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 as Tested Skin: Normal Color, Warm/Dry Progress/Results/Core Measures Results/Orders Lab Results Laboratory Tests Test 05/02/21 23:30 Range/Units White Blood Count 8.7 4.3-11.0 10^3/uL Red Blood Count 4.06 3.80-5.11 10^6/uL Hemoglobin 12.2 11.5-16.0 g/dL Hematocrit 39 35-52 % Mean Corpuscular Volume 95 80-99 fL Mean Corpuscular Hemoglobin 30 25-34 pg Mean Corpuscular Hemoglobin Concent 32 32-36 g/dL Red Cell Distribution Width 12.6 10.0-14.5 % Platelet Count 316 130-400 10^3/uL Mean Platelet Volume 9.9 9.0-12.2 fL Immature Granulocyte % (Auto) 0 % Neutrophils (%) (Auto) 47 42-75 % Lymphocytes (%) (Auto) 37 12-44 % Monocytes (%) (Auto) 12 0-12 % Eosinophils (%) (Auto) 3 0-10 % Basophils (%) (Auto) 1 0-10 % Neutrophils # (Auto) 4.1 1.8-7.8 10^3/uL Lymphocytes # (Auto) 3.2 1.0-4.0 10^3/uL Monocytes # (Auto) 1.0 0.0-1.0 10^3/uL Eosinophils # (Auto) 0.3 0.0-0.3 10^3/uL Basophils # (Auto) 0.1 0.0-0.1 10^3/uL Immature Granulocyte # (Auto) 0.0 0.0-0.1 10^3/uL Prothrombin Time 12.7 12.2-14.7 SEC INR Comment 0.9 0.8-1.4 Activated Partial Thromboplast Time 26 24-35 SEC D-Dimer 0.30 0.00-0.49 UG/ML Sodium Level 140 135-145 MMOL/L Potassium Level 4.1 3.6-5.0 MMOL/L Chloride Level 105 98-107 MMOL/L Carbon Dioxide Level 24 21-32 MMOL/L Anion Gap 11 5-14 MMOL/L Blood Urea Nitrogen 17 7-18 MG/DL Creatinine 0.98 0.60-1.30 MG/DL Estimat Glomerular Filtration Rate 60 BUN/Creatinine Ratio 17 Glucose Level 103 70-105 MG/DL Calcium Level 9.1 8.5-10.1 MG/DL Corrected Calcium 9.0 8.5-10.1 MG/DL Magnesium Level 2.2 1.6-2.4 MG/DL Total Bilirubin 0.3 0.1-1.0 MG/DL Aspartate Amino Transf (AST/SGOT) 20 5-34 U/L Alanine Aminotransferase (ALT/SGPT) 21 0-55 U/L Alkaline Phosphatase 61 40-136 U/L Myoglobin 33.1 10.0-92.0 NG/ML Troponin I < 0.028 <0.028 NG/ML Total Protein 7.1 6.4-8.2 GM/DL Albumin 4.1 3.2-4.5 GM/DL My Orders Orders - VALERIO FORTE MD Cbc With Automated Diff (05/02/21 23:18) Magnesium (05/02/21 23:18) Chest 1 View, Ap/Pa Only (05/02/21 23:18) Ekg Tracing (05/02/21 23:18) Comprehensive Metabolic Panel (05/02/21 23:18) Myoglobin Serum (05/02/21 23:18) Protime With Inr (05/02/21 23:18) Partial Thromboplastin Time (05/02/21 23:18) O2 (05/02/21 23:18) Monitor-Rhythm Ecg Trace Only (05/02/21 23:18) Lipid Panel (05/03/21 06:00) Ed Iv/Invasive Line Start (05/02/21 23:18) Troponin I (05/02/21 23:18) Fibrin Degradation Products (05/02/21 23:31) Nitroglycerin 0.4 Mg Btl 25's (Nitrostat (05/02/21 23:45) Aspirin Chewable Tablet (Baby Aspirin Ch (05/02/21 23:45) Ondansetron Injection (Zofran Injectio (05/03/21 00:15) Ns Iv 1000 Ml (Sodium Chloride 0.9%) (05/03/21 00:15) Myocardial Spect Multi (05/03/21 01:05) Medications Given in ED Current Medications Medications Dose Ordered Sig/Karly Route Start Time Stop Time Status Last Admin Dose Admin Aspirin 324 mg ONCE ONCE PO 05/02/21 23:45 05/02/21 23:46 DC 05/02/21 23:41 324 MG Nitroglycerin 0.4 mg UD PRN SL 05/02/21 23:45 05/02/21 23:55 0.4 MG Ondansetron HCl 8 mg ONCE ONCE IVP 05/03/21 00:15 05/03/21 00:16 DC 05/03/21 00:11 8 MG Vital Signs/I&O 05/02/21 05/02/21 23:13 23:13 Temp 36.8 Pulse 106 Resp 16 B/P (MAP) 142/94 (110) Pulse Ox 100 O2 Delivery Room Air Room Air Blood Pressure Mean: 110 Progress Progress Note : Progress Note Patient felt rather ill after receiving nitroglycerin. She felt lightheaded and nauseous. She was treated with IV fluids and Zofran. She did not become hypotensive. Chest pain did eventually dissipate to 0 from an initial reported pain level of 8/10. Case was discussed with Dr. Ferrer. After discussion with Dr. Ferrer and patient, it was determined patient would be admitted for observation to obtain her stress test. This was ordered from the ER. Patient also received aspirin in the ER. CODE STATUS was discussed, and she elects full code. Initial ECG Impression Date: May 02, 2021 Initial ECG Impression Time: 23:19 Initial ECG Rate: 99 Initial ECG Rhythm: Normal Sinus Comment Sinus rhythm with no ST elevation or depression. No abnormal intervals or axis deviation. Diagnostic Imaging Diagonstic Imaging: Xray Plain Films/CT/US/NM/MRI: chest Comments Chest x-ray viewed by me. Report not yet available. No acute abnormalities ap preciated. Departure Communication (Admissions) Time/Spoke to Admitting Phy: 01:00 Dr. Elam Time/Spoke to Consulting Phy: 00:50 Dr. Ferrer Impression Primary Impression: Chest pain Qualified Codes: R07.9 - Chest pain, unspecified Disposition: ADMITTED INPATIENT Condition: Improved Admissions Decision to Admit Reason: Admit from ER (General) Decision to Admit/Date: May 03, 2021 Time/Decision to Admit Time: 00:50 Departure-Patient Inst. Referrals: [facility] (PCP) Primary Care Physician BRADFORD WYMAN APRN (Family) Primary Care Physician VALERIO FORTE MD May 03, 2021 01:16
[2021-05-03 02:02] VITALS: BP 117/70
[2021-05-03] MEDS ORDERED: ONDANSETRON 4 MG/2 ML (SDV) Z0FRAN IVP PRN (02:15)
[2021-05-03 04:00] VITALS: BP_SYST 117; BP_SYST 119; BP_DIAS 70
--- NOTE | 2021-05-03 06:06 | Short Stay Summary-Hospitalist ---
History of Present Illness HPI/Chief Complaint CC: Chest pressure HPI: This is a 50yoWF clinic pt of [facility] who presented with chest pressure. She had reported it two days ago to a PCP and it worsened so she presented and she has undergone stress test and echocardiogram by Dr. Ferrer and will be evaluated the next step but likely will be going home. Source: patient Exam Limitations: no limitations Date Seen 05/03/21 Time Seen by a Provider: 10:00 Attending Physician Rabia Elam DO [facility] Referring Physician Date of Admission May 03, 2021 at 01:03 Home Medications & Allergies Home Medications Reviewed patient Home Medication Reconciliation performed by pharmacy medication reconciliations building services technician and/or nursing. Patients Allergies have been reviewed. Allergies Allergies Coded Allergies imipramine (Verified Allergy, Severe, RASH, 08/03/15) ondansetron (Verified Allergy, Mild, RASH, 08/01/15) Mild skin rash after IV administration of Zofran. 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: employed Tobacco Use?: No Substance use?: No Alcohol Use?: No Pt feels they are or have been: No Current Status Advance Directives: No Communicates: Verbally Primary Language: Frisian Preferred Spoken Language: Frisian Is interpretation needed?: No Past Medical History Surgeries: Abdominal, Adenoidectomy, Gallbladder, Hysterectomy, Orthopedic (Cervical spine fusion), 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 0oz. 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 Short Stay Diagnosis Discharge Diagnosis-Short Stay Admission Diagnosis Assessment: Chest pain Fibromyalgia Final Discharge Diagnosis Assessment: Chest pain Fibromyalgia Conclusion Plan Discharge home after stress test if okay with cardiology Diagnosis/Problems Diagnosis/Problems (1) Chest pain Status: Acute Qualifiers: Qualified Codes: R07.9 - Chest pain, unspecified Clinical Quality Measures AMI/AHF: ASA po Prior to arrival: RABIA Cleveland DO May 03, 2021 06:06
[2021-05-03 07:04] LABS: CHOLESTEROL 171 MG/DL (< 200); HDL CHOLESTEROL 50 MG/DL (40-60); TRIGLYCERIDES 94 MG/DL (<150); VLDL CHOLESTEROL 19 MG/DL (5-40)
--- NOTE | 2021-05-03 07:25 | Diagnostic Imaging Report ---
Indication: Chest pain. FINDINGS: Portable chest show the lungs to be well-aerated and clear. Heart is not enlarged. No pulmonary edema or hilar adenopathy. No pneumothorax or pleural effusion. No bony abnormalities. IMPRESSION: Normal portable chest. Dictated by: Dictated on workstation # [id number]
--- NOTE | 2021-05-03 08:01 | Consultation-Cardiology ---
HPI-Cardiology Cardiology Consultation: Date of Consultation 05/03/2021 Date of Admission 05/03/2021 Attending Physician Rabia Elam DO Admitting Physician [facility] Consulting Physician ROBINSON TITUS JR, MD HPI: Time Seen by a Provider: 07:58 Chief Complaint: Reason for consultation: Chest pain. I had the pleasure of seeing Nazia in the hospital this morning. She has a history of gastroesophageal reflux disease, tarsal tunnel syndrome of the right foot, fibromyalgia, depression, osteopenia, and obesity. I just met her in the office yesterday for preoperative cardiovascular evaluation for foot surgery. Due to some chest pain and an abnormal ECG, I ordered a preoperative stress test which was to be done on . However, yesterday she was at her son's baseball game and developed recurrent chest discomfort. This was more intense than the discomfort she had been experiencing at home. This also made her feel short of breath last night. She then came to the hospital for further evaluation. In the emergency room she was given 1 sublingual nitroglycerin which gave her a migraine headache but her chest discomfort gradually resolved. Overnight, she has not had any significant chest discomfort or dyspnea. Prior to last evening, she had been getting some chest pains off and on for the past year or so. This felt like stabbing pains around her left breast. This happens with and without exertion. She denies radiation or associated symptoms. This may last 10-15 minutes then resolve. She has dyspnea on exertion for about the past 5-8 years. She thinks this is because she gained weight over this amount of time due to a lack of exercise. She denies paroxysmal nocturnal dyspnea, orthopnea, palpitations, lightheadedness, syncope, or ankle edema. She does not smoke. Review of Systems-Cardiology Review of Systems Other comments Review of 10 organ systems is as per the history of present illness, otherwise negative. YOX-Qiwlfb-Dnbunz Hx Patient Social History 2nd Hand Smoke Exposure: No Have you traveled recently?: No Alcohol Use?: No Pt feels they are or have been: No Past Medical History PMH As described under Assessment. Allergies and Home Medications Allergies Coded Allergies: imipramine (Verified Allergy, Severe, RASH, 08/03/15) ondansetron (Verified Allergy, Mild, RASH, 08/01/15) Mild skin rash after IV administration of Zofran. No signs or symptoms of anaphylaxis amoxicillin (Verified Allergy, Unknown, RASH, 03/01/10) celecoxib (Unverified Allergy, Unknown, 12/20/14) cyclobenzaprine (Unverified Allergy, Unknown, 12/20/14) tapentadol (Unverified Allergy, Unknown, RASH,, 12/20/14) Home Medications Duloxetine HCl 30 Mg Capsule.dr, 90 MG PO DAILY, (Reported) Patient Home Medication List Home Medication List Reviewed: Yes Exam Vital Signs Vital Signs Date Time Temp Pulse Resp B/P (MAP) Pulse Ox O2 Delivery O2 Flow Rate FiO2 05/03/21 08:30 84 18 129/92 (104) 100 Room Air 05/03/21 04:00 36.7 Physical Exam General: Alert. No acute distress. Well nourished and appears stated age. Eye: Extraocular movements are intact. Conjunctivae are clear. There are no xanthelasma. HENT: Normocephalic. Atraumatic. Carotid pulsations 2/2 without bruits. Neck: Jugular venous pressure does not appear elevated. No thyromegaly appreciated. Respiratory: Lungs are clear to auscultation. Respirations are non-labored. Breath sounds are equal. Symmetrical chest wall expansion. Cardiovascular: Normal rate. Regular rhythm. No murmur. No gallop. Point of maximal impulse is not appear displaced. Good pulses equal in all extremities. No edema. Gastrointestinal: Soft. Normal bowel sounds. Skin: Skin turgor is normal. There is no pallor. Musculoskeletal: No kyphosis or scoliosis appreciated. Her right foot is in a boot. Neurologic: Alert and oriented to person, place, time. Cranial nerves 3-12 appear grossly intact. The patient has good motor tone strength in the upper and lower extremities bilaterally. Psychiatric: Cooperative. Appropriate mood & affect. Labs Laboratory Tests Test 05/02/21 23:30 05/03/21 06:00 Range/Units White Blood Count 8.7 4.3-11.0 10^3/uL Red Blood Count 4.06 3.80-5.11 10^6/uL Hemoglobin 12.2 11.5-16.0 g/dL Hematocrit 39 35-52 % Mean Corpuscular Volume 95 80-99 fL Mean Corpuscular Hemoglobin 30 25-34 pg Mean Corpuscular Hemoglobin Concent 32 32-36 g/dL Red Cell Distribution Width 12.6 10.0-14.5 % Platelet Count 316 130-400 10^3/uL Mean Platelet Volume 9.9 9.0-12.2 fL Immature Granulocyte % (Auto) 0 % Neutrophils (%) (Auto) 47 42-75 % Lymphocytes (%) (Auto) 37 12-44 % Monocytes (%) (Auto) 12 0-12 % Eosinophils (%) (Auto) 3 0-10 % Basophils (%) (Auto) 1 0-10 % Neutrophils # (Auto) 4.1 1.8-7.8 10^3/uL Lymphocytes # (Auto) 3.2 1.0-4.0 10^3/uL Monocytes # (Auto) 1.0 0.0-1.0 10^3/uL Eosinophils # (Auto) 0.3 0.0-0.3 10^3/uL Basophils # (Auto) 0.1 0.0-0.1 10^3/uL Immature Granulocyte # (Auto) 0.0 0.0-0.1 10^3/uL Prothrombin Time 12.7 12.2-14.7 SEC INR Comment 0.9 0.8-1.4 Activated Partial Thromboplast Time 26 24-35 SEC D-Dimer 0.30 0.00-0.49 UG/ML Sodium Level 140 135-145 MMOL/L Potassium Level 4.1 3.6-5.0 MMOL/L Chloride Level 105 98-107 MMOL/L Carbon Dioxide Level 24 21-32 MMOL/L Anion Gap 11 5-14 MMOL/L Blood Urea Nitrogen 17 7-18 MG/DL Creatinine 0.98 0.60-1.30 MG/DL Estimat Glomerular Filtration Rate 60 BUN/Creatinine Ratio 17 Glucose Level 103 70-105 MG/DL Calcium Level 9.1 8.5-10.1 MG/DL Corrected Calcium 9.0 8.5-10.1 MG/DL Magnesium Level 2.2 1.6-2.4 MG/DL Total Bilirubin 0.3 0.1-1.0 MG/DL Aspartate Amino Transf (AST/SGOT) 20 5-34 U/L Alanine Aminotransferase (ALT/SGPT) 21 0-55 U/L Alkaline Phosphatase 61 40-136 U/L Myoglobin 33.1 10.0-92.0 NG/ML Troponin I < 0.028 < 0.028 <0.028 NG/ML Total Protein 7.1 6.4-8.2 GM/DL Albumin 4.1 3.2-4.5 GM/DL Triglycerides Level 94 <150 MG/DL Cholesterol Level 171 < 200 MG/DL LDL Cholesterol Direct 109 1-129 MG/DL VLDL Cholesterol 19 5-40 MG/DL HDL Cholesterol 50 40-60 MG/DL ECG Impression ECG Initial ECG Impression Date: May 03, 2021 Comment Sinus rhythm with left atrial abnormality, low voltage in the precordial leads, and poor R wave progression. Diagnosis/Problems Diagnosis/Problems (1) Chest pain Status: Acute Assessment & Plan: Etiology unclear. Her troponin levels are undetectable. She has poor R wave progression on her electrocardiogram but no acute ischemic changes at rest. I suspect this could be noncardiac chest pain, possibly due to her esophageal reflux disease and/or fibromyalgia. She just completed a regadenoson nuclear stress test. I will have her also undergo an echocardiogram. If these are unremarkable, we may be able to discharge the patient home later today. (2) Abnormal ECG Assessment & Plan: As above, she has poor R wave progression but no ischemic changes or definitive evidence of a prior myocardial infarction. We will proceed as above. (3) Gastroesophageal reflux disease without esophagitis Assessment & Plan: It does not appear as though she was taking any medication for this at home. I will start her on a proton pump inhibitor. If her cardiac testing is unremarkable, I recommend she be discharged on a proton pump with christelle curran. She already has a follow-up appointment with me in May. (4) Obesity Assessment & Plan: She needs to work on weight loss to help reduce her long- term risk of both cardiac and noncardiac problems related to obesity. Problem Qualifiers (1) Chest pain: Chest pain type: unspecified Qualified Codes: R07.9 - Chest pain, unspecified ROBINSON TITUS JR, MD May 03, 2021 08:01
[2021-05-03] MEDS ORDERED: REGADENOSON 0.4 MG/5 ML SYR (LEXISCAN) IV ONE ×2 (08:27→08:45)
[2021-05-03 08:30] VITALS: BP 129/92
[2021-05-03] MEDS ORDERED: ASPIRIN 81 MG CHEW (CHILDREN'S ASA) PO SCH (09:00)
[2021-05-03] MEDS ORDERED: PANTOPRAZOLE 40 MG (PROTONIX) TAB PO NR (09:13)
[2021-05-03 10:15] VITALS: BP 117/83
[2021-05-03 11:29] VITALS: BP 121/78
[2021-05-03] MEDS ORDERED: ACETAMINOPHEN 325 MG TABLET PO PRN (11:30)
--- NOTE | 2021-05-03 13:48 | NUCLEAR STRESS TEST ---
REGADENOSON NUCLEAR STRESS Date of procedure: 05/03/2021. Primary care provider: Shari Lobo APRN Admitting physician: Rabia Elam MD. INDICATION: Chest pain and abnormal ECG. BASELINE ELECTROCARDIOGRAM: Sinus rhythm with low voltage in the precordial leads and possible old septal myocardial infarction. STRESS TEST PROCEDURE: The patient was administered 0.4 mg of intravenous Regadenoson. The resting heart rate was 83 bpm and the peak heart rate was 108 bpm. The resting blood pressure was 129/92 mmHg and the minimum blood pressure was 113/81 mmHg. This represents a normal heart rate and a normal blood pressure response to Regadenoson. The test was stopped due to the protocol. There was no chest discomfort during the test. There were no arrhythmias during the test. There were no significant stress induced electrocardiogram changes. NUCLEAR PROCEDURE: The patient was administered 10.1 mCi of intravenous technetium 99m Tetrofosmin at rest for the rest images. The patient was subsequently administered 31.8 mCi of intravenous technetium 99m Tetrofosmin at peak stress for the stress images. Following an appropriate wait after each injection, imaging was obtained. The images were subsequently processed and reformatted in the usual views. Gated imaging was obtained. The image quality was adequate with some gastrointestinal attenuation artifact. CT attenuation correction was used as an adjunct to standard imaging. Both the corrected and uncorrected images were reviewed for interpretation. NUCLEAR RESULTS: There was normal myocardial perfusion in all segments without evidence of infarction or ischemia. There was normal left ventricular chamber size with an end-diastolic volume of 63 mL and an end-systolic volume of 27 mL. There was no evidence of transient ischemic dilatation. The TID ratio was 1.16. There was normal wall motion in all segments with a calculated ejection fraction of 58%. IMPRESSION: 1. Normal heart rate and blood pressure response to regadenoson. 2. There was no stress-induced chest discomfort, arrhythmias, or electrocardiogram changes. 3. There was normal myocardial perfusion in all segments without evidence of infarction or ischemia. 4. There was normal wall motion in all segments with a calculated ejection fraction of 58%. ROBINSON TITUS JR, MD May 03, 2021 13:48
[2021-05-03] MEDS ORDERED: PANT40TA52 PO (14:01)
[2021-05-03] MEDS ORDERED: CALC-687 PO (14:01)
[2021-05-03] MEDS ORDERED: MIRA25TA PO (14:01)
[2021-05-03] MEDS ORDERED: ATOR40TA PO (14:01)
[2021-05-03] MEDS ORDERED: DULO30CA49 PO (14:01)
[2021-05-03] MEDS ORDERED: DULO60CA59 PO (14:01)
[2021-05-03] MEDS ORDERED: LORA10TA76 PO (14:01)
[2021-05-03] MEDS ORDERED: ESZO3TAB30 PO (14:01)
[2021-05-03] MEDS ORDERED: CHOL-34 PO (14:01)
[2021-05-03 15:38] VITALS: BP 121/78
[2021-05-04] MEDS ORDERED: PANTOPRAZOLE 40 MG (PROTONIX) TAB PO SCH (09:00)
[2021-05-08] MEDS ORDERED: ACHD5005 PO (11:07)
== END 2021-05-03 13:56 | disposition home or self-care (01) ==
LOC: EDUNIT# 23:05 → ER 23:09 → 4TH 23:10 → UNDOADMOB 05-03 01:03 → UNDODISOB 05-03 15:38
PROVIDERS: ADMIT Internal Medicine; ATTEND Internal Medicine
DX: R07.89 Other chest pain (principal); M79.7 Fibromyalgia; K59.09 Other constipation; I35.8 Other nonrheumatic aortic valve disorders; K21.9 Gastro-esophageal reflux disease without esophagitis; F32.9 Major depressive disorder, single episode, unspecified; E66.9 Obesity, unspecified; M85.80 Other specified disorders of bone density and structure, unspecified site; Z79.899 Other long term (current) 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; Z91.048 Other nonmedicinal substance allergy status; Z68.32 Body mass index [BMI] 32.0-32.9, adult
CPT/HCPCS: 71045; 78452; 80053; 80061; 83735; 83874; 84484 ×2; 85025; 85379; 85610; 85730; 93005 ×2; 93017; 93041; 93306; 96361; 96374; 99284; A9502; G0378; 36415

== ENCOUNTER 2021-05-08 07:46 | Day surgery (SDC) | payer BC ==
[~2021-05-08] VITALS: Ht 171.5 cm; Wt 88.5 kg
[2021-05-08] VITALS (15 sets, daily range): BP systolic 111–139; BP diastolic 76–101
[~2021-05-08 07:46] MED LIST changes: +ATOR40TA PO; +CALC-687 PO; +CHOL-34 PO; +DULO30CA49 PO; +DULO60CA59 PO; +ESZO3TAB30 PO; +LORA10TA76 PO; +MIRA25TA PO; +PANT40TA52 PO
[2021-05-08] MEDS ORDERED: CLINDAMYCIN 600 MG/50 ML IVPB 50 ML IV ONE (08:15)
[2021-05-08] MEDS ORDERED: LIDOCAINE PF 2% 5 ML (XYLOCAINE) VIAL ONE (08:26)
[2021-05-08] MEDS ORDERED: ONDANSETRON 4 MG/2 ML (SDV) Z0FRAN ONE ×2 (08:26→11:12)
[2021-05-08] MEDS ORDERED: MIDAZOLAM 2 MG/2 ML (VERSED) VIAL ONE (08:26)
[2021-05-08] MEDS ORDERED: fentaNYL INJ 100 MCG/2 ML AMP ONE (08:26)
[2021-05-08] MEDS ORDERED: proPOfol 200 MG/20 ML (DIPRIVAN) VIAL IV ONE (08:26)
[2021-05-08] MEDS: LACTATED RINGERS 1,000 ML IV SCH ×2 (08:35→09:54)
[2021-05-08] MEDS ORDERED: LIDOCAINE 1% INJ 20 ML 20 ML VIAL ONE (08:43)
[2021-05-08] MEDS ORDERED: BUPIVACAINE 0.5% 30 ML (SENSORCAINE) VIAL ONE (08:43)
--- NOTE | 2021-05-08 09:31 | Progress Note-Pre Operative ---
Pre-Operative Progress Note H&P Reviewed The H&P was reviewed, patient examined and no changes noted. Date Seen by Provider: May 08, 2021 Time Seen by Provider: : Date H&P Reviewed: May 08, 2021 Time H&P Reviewed: 09:31 Pre-Operative Diagnosis: Tarsal Tunnel Syndrome, Plantar Fasciitis, right SOSA MONSALVE DPM May 08, 2021 09:31
[2021-05-08] MEDS ORDERED: CETI10TA17 PO (10:29)
[2021-05-08] MEDS ORDERED: MIRA50TA PO (10:29)
[2021-05-08] MEDS ORDERED: CLON1TAB13 PO (10:29)
[2021-05-08] MEDS ORDERED: CHOL500050 PO (10:29)
[2021-05-08] MEDS ORDERED: ATOR20TA66 PO (10:29)
[2021-05-08] MEDS ORDERED: TERB250T16 PO (10:29)
[2021-05-08] MEDS ORDERED: SEVOFLURANE (ULTANE) 15 ML INHAL SOLN ONE (10:50)
--- NOTE | 2021-05-08 10:56 | Progress Note-Post Operative ---
Post-Operative Progess Note Surgeon (s)/Holder Pile Driving (s) Surgeon SOSA MONSALVE DPM Holder Pile Driving: none Pre-Operative Diagnosis Tarsal Tunnel Syndrome, Plantar Fasciitis, right Post-Operative Diagnosis Same Procedure & Operative Findings Date of Procedure 05/08/21 Procedure Performed/Findings Tarsal Tunnel Release, Plantar Fascial Release, right Anesthesia Type General Estimated Blood Loss Estimated blood loss (mL): minimal Specimens/Packing Specimens Removed Plantar Fascia, right Packing: none SOSA MONSALVE DPM May 08, 2021 10:56
[2021-05-08] MEDS ORDERED: HYDROcodone/APAP 5 MG/325 MG (LORTAB) TAB PO PRN (11:00)
[2021-05-08] MEDS ORDERED: LACTATED RINGERS 1,000 ML IV SCH (11:00)
[2021-05-08] MEDS ORDERED: morphine INJ 10 MG/ML 1ML (SYR OR VIAL) ONE (11:03)
[2021-05-08] MEDS ORDERED: ACHD5005 PO (11:07)
--- NOTE | 2021-05-08 11:09 | Anesthesia-General Post-Op ---
General Patient Condition Mental Status/LOC: Same as Preop Cardiovascular: Satisfactory Nausea/Vomiting: Absent Respiratory: Satisfactory Pain: Controlled Complications: Absent Post Op Complications Complications None Follow Up Care/Instructions Patient Instructions None needed. Anesthesia/Patient Condition Patient Condition Patient is doing well, no complaints, stable vital signs, no apparent adverse anesthesia problems. No complications reported per nursing. MANJIT SUAREZ CRNA May 08, 2021 11:09
[2021-05-08] MEDS ORDERED: morphine INJ 10 MG/ML 1ML (SYR OR VIAL) IVP ONE (11:15)
[2021-05-08] MEDS ORDERED: fentaNYL INJ 100 MCG/2 ML AMP IVP ONE (11:15)
[2021-05-08] MEDS ORDERED: ONDANSETRON 4 MG/2 ML (SDV) Z0FRAN IVP PRN (11:15)
[2021-05-08] MEDS ORDERED: PROMETHAZINE INJ 25 MG/ML (PHENERGAN) AMP IVP ONE (11:15)
[2021-05-08] MEDS ORDERED: PROMETHAZINE INJ 25 MG/ML (PHENERGAN) AMP ONE (11:20)
[2021-05-08] MEDS ORDERED: LABETALOL HCL 20 MG/4 ML VIAL ONE (11:52)
[2021-05-08] MEDS ORDERED: LABETALOL HCL 20 MG/4 ML VIAL IV PRN ×2 (12:00)
--- NOTE | 2021-05-08 14:32 | Physical Therapy Ortho Eval ---
PT Orthopedic Evaluation Type of Surgery Tarsal Tunnel Syndrome, Plantar Fasciitis, right Prior Level of Function Current Living Status: Significant Other Established Durable Medical Eq: Front Wheeled Walker, Crutches Subjective Subjective Patient in bed pre tx, agrees to PT, has 9/10 pain in right foot, nurse notified of pain Entry Into Home: Stairs Without Railing (patient does have a pole to grab onto) Steps Into Home: 2 Motor Control Motor Control: Motor Control WNL Transfer SCALE: Activities may be completed with or without assistive devices. 4-Pjqghrpdcb-ytwwwvj completes the activity by him/herself with no assistance from a helper. 5-Set-up or Clean-up Assistance-helper sets up or cleans up; patient completes activity. [place] assists only prior to or following the activity. 4-Supervision or Touching Assistance-helper provides verbal cues and/or touching/steadying and/or contact guard assistance as patient completes activity. Assistance may be provided throughout the activity or intermittently. 3-Partial/Moderate Assistance-helper does LESS THAN HALF the effort. [place] lifts, holds or supports trunk or limbs, but provides less than half the effort. 2-Substantial/Maximal Assistance-helper does MORE THAN HALF the effort. [place] lifts or holds trunk or limbs and provides more than half the effort. 3-Hveyinshe-lucirb does ALL the effort. Patient does none of the effort to complete the activity. Or, the assistance of 2 or more helpers is required for the patient to complete the activity. If activity was not attempted, code reason: 7-Patient Refused. 9-Not Applicable-not attempted and the patient did not perform the activity before the current illness, exacerbation or injury. 10-Not Attempted due to Environmental Limitations-(lack of equipment, weather restraints, etc.). 88-Not Attempted due to Medical Conditions or Safety Concerns. Transfers (B, C, W/C) (QC): 4 Gait Gait Assistive Device: Crutches Right Lower Extremity: Right Weight Bearing Status RLE: Non Weight Bearing Left Lower Extremity: Left Weight Bearing Status LLE: Full Weight Bearing Summary/Comments Patient ambulated 70' with axillary crutches with min assist. Patient is unsteady at the moment and slightly light headed. She states she has used crutches before and is confident she can use them safely after her medication wears off and she isn't woozy. Patient also went up and down 1 step using axillary crutches with min assist. Treatment Rendered Treatment: Therapeutic Exercises, Gait Train, Step Train LAQ and toe curls Assessment/Goals Goal Time Frame: 1 Visit Understands HEP: Yes Safe Ambulation: Yes (with assist) Plan Treatment Plan: Discharge PT/Family Agrees to Plan: Yes Time Time In: 1407 Time Out: 1421 Total Billed Treatment Time: 14 Billed Treatment Time 1 visit ABHISHEK Rodriguez' JON TAMEZ PT May 08, 2021 14:32
--- NOTE | 2021-05-08 16:55 | OPERATIVE REPORT ---
DATE OF SERVICE: 05/08/2021 SURGEON: Sosa Monsalve DPM. PREOPERATIVE DIAGNOSIS: Plantar fasciitis and tarsal tunnel syndrome, right foot. POSTOPERATIVE DIAGNOSIS: Plantar fasciitis and tarsal tunnel syndrome, right foot. PROCEDURES PERFORMED: 1. Tarsal tunnel release, right foot. 2. Plantar fascial release, right foot. WOUND CLASS: Clean. ANESTHESIA: General. HEMOSTASIS: Pneumatic thigh tourniquet at 300 mmHg. INDICATIONS FOR PROCEDURE: This 50-year-old female presents complaining of a painful right foot. Conservative therapy is met with unsatisfactory results and the patient is agreeable to surgical intervention after risks and complications were discussed at length. No guarantees were extended to the patient and she is willing to proceed. DESCRIPTION OF PROCEDURE: The patient was brought back to the operating table and placed in a secure supine position. A general anesthetic was then induced. Appropriate timeout was performed. A pneumatic thigh tourniquet was placed on the right lower extremity over the several layers of padding. The right foot and ankle were prepped and draped in a normal sterile manner. The right foot was elevated, allowed to exsanguinate after which the tourniquet was inflated to 300 mmHg. Attention was then directed to the right foot, where an 8 cm longitudinal curvilinear incision was created extending from the posterior aspect of the medial malleolus inferiorly along the tarsal tunnel and into the plantar aspect of the foot just anterior to the tuberosity. The incision was deepened in the same plane with great care to identify and retract all vital neurovascular structures. Blunt dissection was carried out through the subcutaneous tissue to the deep fascia, where again, great care was taken to preserve the neurovascular structures. The flexor retinaculum was identified along the posterior aspect of the right foot and ankle. The tarsal tunnel was then released again by blunt dissection tenting the flexor retinaculum with a blunt hemostat followed by a Metzenbaum scissor release. Good reduction of tension overlying the tarsal tunnel was appreciated at this time. Dissection was then carried out distally, where the abductor hallucis muscle belly was identified. The fascia overlying this muscle belly was identified. The abductor muscle belly was then bluntly dissected away from the carmencita pedis area. Once again, great care was taken to preserve the neurovascular structures of the distal tarsal tunnel and into the carmencita pedis area. The fascia was then released from superior to inferior adjacent to the abductor hallucis muscle belly. Attention was then directed to the inferior aspect of the abductor muscle belly, where the deep fascia was released, which extended to the medial band of the plantar fascia, which it too was released with great care not to damage the muscle tissue. The deep fascia between the abductor hallucis muscle belly and the quadratus plantae was identified. This fascia was further released from inferior to superior allowing for complete release of Gutierres's nerve in this area. The neurovascular bundle was traced into the inferior aspect of the foot between the quadratus plantae and the flexor digiti minimi muscle bellies. No other restrictions were identified. Attention was then redirected to the inferior aspect of the foot, where the soft tissue release was performed to the adipose tissue, where the overlying plantar fascia was identified. It was quite tense in its contracture. The plantar fascia was released from the underlying muscle tissue. Approximately, 0.5 cm section was removed from the central band and sent for gross and microscopic evaluation. The reduction to the attention of the plantar fascia was greatly reduced after this maneuver. The wounds were flushed with copious amounts of normal saline and closure was then performed. Prior to the closure, the tourniquet was released and no active bleeders were identified and all small bleeders were cauterized. The skin was then reapproximated utilizing a horizontal mattress type stitch with a 4-0 Prolene. Excellent skin coaptation was appreciated at this time. Postoperative injection consisted of 16 mL of 0.5% Marcaine injected in a local infusion to the surgical site with great care not to infiltrate the vascular structures. The injection also included 10 mg of dexamethasone, which mainly went to the plantar fascial area, but some into the tarsal tunnel as well. Postoperative dressing consisted of Betadine soaked Adaptic, sterile 4 x 4, sterile Kerlix, soft roll, posterior splint and two Bob wraps with ABDs applied to proximal, distal and heel for additional padding. The patient tolerated the anesthesia and procedure well and was transported from the operating room to the recovery room with vital signs stable and vascular status intact to all digits of the right foot. She is to be nonweightbearing on the right lower extremity with crutches or a knee scooter. She is to follow up in my office in 10 days' period of time or sooner if necessary. Job ID: [id number] DocumentID: [id number] Dictated Date: 05/08/2021 11:16:56 [employer] Former Date: 05/08/2021 15:42:47 Dictated By: SOSA MONSALVE DPM
== END 2021-05-08 14:25 | disposition home or self-care (01) ==
LOC: SDC 07:46
PROVIDERS: ATTEND Podiatrist Foot & Ankle Surgery
DX: M72.2 Plantar fascial fibromatosis (principal); G57.51 Tarsal tunnel syndrome, right lower limb; E78.5 Hyperlipidemia, unspecified; K21.9 Gastro-esophageal reflux disease without esophagitis; R07.9 Chest pain, unspecified; E03.9 Hypothyroidism, unspecified; K59.09 Other constipation; M79.7 Fibromyalgia; F32.9 Major depressive disorder, single episode, unspecified; F43.20 Adjustment disorder, unspecified; G47.00 Insomnia, unspecified; J30.9 Allergic rhinitis, unspecified; N30.10 Interstitial cystitis (chronic) without hematuria; Z83.3 Family history of diabetes mellitus; Z80.8 Family history of malignant neoplasm of other organs or systems; Z79.899 Other long term (current) 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
CPT/HCPCS: 87081

== ENCOUNTER → 2022-01-15 | Outpatient (CLI) | payer OTHER ==
[~2022-01-15] MED LIST changes: +ACHD5005 PO; +ATOR20TA66 PO; +CETI10TA17 PO; +CHOL500050 PO; +CLON1TAB13 PO; +MIRA50TA PO; +TERB250T88 PO
--- NOTE | 2022-01-15 16:02 | Diagnostic Imaging Report ---
INDICATION: Right hand pain 3 views of the right hand show no fracture, dislocation or other acute abnormalities. IMPRESSION: Unremarkable right hand. Dictated by: Dictated on workstation # [id number]
== END ==
LOC: RAD FS 15:14
PROVIDERS: ATTEND Orthopaedic Surgery Sports Medicine
DX: M79.641 Pain in right hand (principal)
CPT/HCPCS: 73130

== ENCOUNTER 2022-02-06 17:07 | Emergency (ER) | payer OTHER ==
[~2022-02-06] VITALS: Ht 172.7 cm; Wt 95.3 kg
[2022-02-06] MEDS ORDERED: ONDANSETRON 4 MG/2 ML (SDV) Z0FRAN ONE (17:30)
[2022-02-06] MEDS ORDERED: HYDROcodone/APAP 5 MG/325 MG (LORTAB) TAB PO ONE (17:30)
--- NOTE | 2022-02-06 18:03 | Diagnostic Imaging Report ---
PROCEDURE: CT head and CT cervical spine without contrast. TECHNIQUE: Multiple contiguous axial images were obtained through the brain and cervical spine without the use of intravenous contrast. Sagittal and coronal reformations through the cervical spine were then performed. Auto Exposure Controls were utilized during the CT exam to meet ALARA standards for radiation dose reduction. INDICATION: Fall with head and neck pain. COMPARISON: No prior studies are available for comparison. FINDINGS: CT HEAD: Ventricles and sulci are within normal limits. No sulcal effacement or midline shift is identified. No acute intra-axial or extra-axial hemorrhage is detected. Cisterns are patent. Visualized paranasal sinuses are clear. IMPRESSION: No acute intracranial process is detected. CT CERVICAL SPINE: The curvature and alignment is normal. Postop changes to the cervical spine are noted. There is an anterior plate and screws transfixing the C4 through C6 levels. Interposition grafts at these levels are also seen. The hardware appears to be intact. The bony structures are intact. The prevertebral tissues are normal. No fractures are seen. Odontoid is intact. IMPRESSION: No acute bony abnormality is detected. Dictated by: Dictated on workstation # [id number]
--- NOTE | 2022-02-06 18:05 | Diagnostic Imaging Report ---
Procedure: CT thoracic and lumbar spine without contrast. Technique: Multiple contiguous axial images were obtained through the thoracic and lumbar spine without the use of intravenous contrast. Sagittal and coronal reformations were then performed. All CT scans use one or more of the following dose optimizing techniques: automated exposure control, MA and/or KvP adjustment based on a patient size and exam type, or iterative reconstruction. Date: February 06, 2022. Indication: 51-year-old female, fall. Mid and lower back pain. Comparison: None. Findings: The alignment of the thoracic spine is unremarkable. The thoracic disc heights are well preserved without endplate degenerative changes. There are degenerative changes of the lower cervical spine. CT is limited for assessment of disc pathology as well as additional non-bony causes of pathology in the spinal canal. There is no identified acute fracture of the thoracic spine. The alignment of the lumbar spine is unremarkable. There is moderate disc height loss at L5-S1. There is no identified acute fracture of the lumbar spine. There are atherosclerotic calcifications. Impression: 1. No identified acute fracture of the thoracic or lumbar spine. 2. Moderate disc height loss at L5-S1. Dictated by: Dictated on workstation # [id number]
--- NOTE | 2022-02-06 18:07 | Diagnostic Imaging Report ---
EXAMINATION: Left knee radiographs, 3 views. COMPARISON: None. HISTORY: 51-year-old female, fall. Left knee pain. FINDINGS: There is no acute fracture. There is no knee joint effusion. There is no radiopaque foreign body. Joint spaces are well-preserved. IMPRESSION: No acute bony abnormality of the left knee. Dictated by: Dictated on workstation # [id number]
--- NOTE | 2022-02-06 19:01 | ED Fall/Injury ---
General Chief Complaint: Trauma-Non Activation Stated Complaint: FALL Nursing Triage Note: PT AMBULATE TO ROOM FS06 WITH C/O POST NECK, LEFT SHOULDER, SPINE, LOWER BACK, AND LEFT KNEE PAIN. PT REPORTS TRIPPING OVER HER DOG AT HOME. PT STATES SHE FELL LANDING ON HER FACE. PT REPORTS PREVIOUS NECK FX. Source: patient, EMS Exam Limitations: no limitations History of Present Illness Date Seen by Provider: Feb 06, 2022 Time Seen by Provider: 17:11 Initial Comments 51-year-old female with prior history of cervical spine fracture coming in after she tripped over her dog landing on her face now with neck pain. Happened just prior to arrival. Since she had neck pain she called 911. They placed her in a c-collar and transported her here. Vitals normal per them and normal neuro exam. She did not pass out and she remembers all of the events. She does not take blood thinners. She is otherwise denying any other acute complaints. Allergies and Home Medications Allergies Coded Allergies: imipramine (Verified Allergy, Severe, RASH, 08/03/15) Penicillins (Verified Allergy, Unknown, 05/08/21) adhesive tape (Verified Allergy, Unknown, Rash, 05/08/21) amoxicillin (Verified Allergy, Unknown, RASH, 03/01/10) celecoxib (Unverified Allergy, Unknown, 12/20/14) cyclobenzaprine (Unverified Allergy, Unknown, 12/20/14) tapentadol (Unverified Allergy, Unknown, RASH, PT HAS RECEIVED LORTAB IN THE PAST, 05/08/21) Patient Home Medication List Home Medication List Reviewed: Yes Atorvastatin Calcium (Atorvastatin Calcium) 20 Mg Tablet, 20 MG PO DAILY, (Reported) Entered as Reported by: DONTE RODRIGES on 05/08/21 1029 Calcium Carbonate/Mag Oxide/Zn (Jvnvhxk-Wsvrygdgx-Bhql Tablet) 1 Each Tablet, 1 EACH PO HS, (Reported) Entered as Reported by: MEMO HART on 05/03/21 1401 Cetirizine HCl (Cetirizine HCl) 10 Mg Tablet, 10 MG PO DAILY, (Reported) Entered as Reported by: DONTE RODRIGES on 05/08/21 1029 Cholecalciferol (Vitamin D3) (Vitamin D3) 125 Mcg Capsule, 125 MCG PO HS, (Reported) Entered as Reported by: DONTE RODRIGES on 05/08/21 1029 Clonazepam (Clonazepam) 1 Mg Tablet, 1 MG PO PRN, (Reported) Entered as Reported by: DONTE RODRIGES on 05/08/21 1029 Duloxetine HCl (Duloxetine HCl) 30 Mg Capsule.dr, 30 MG PO DAILY, (Reported) Entered as Reported by: MEMO HART on 05/03/21 1401 Duloxetine HCl (Duloxetine HCl) 60 Mg Capsule.dr, 60 MG PO DAILY, (Reported) Entered as Reported by: MEMO HART on 05/03/21 1401 Eszopiclone (Lunesta) 3 Mg Tablet, 3 MG PO HS, (Reported) Entered as Reported by: MEMO HART on 05/03/21 1401 Hydrocodone/Acetaminophen (Hydrocodone-Acetamin 5-325 mg) 1 Each Tablet, 1 TAB PO Q4H PRN for PAIN-MODERATE (5-7) Prescribed by: SOSA MONSALVE on 05/08/21 1107 Mirabegron (Myrbetriq) 50 Mg Tab.er.24h, 50 MG PO DAILY, (Reported) Entered as Reported by: DONTE RODRIGES on 05/08/21 1029 Pantoprazole Sodium (Pantoprazole Sodium) 40 Mg Tablet.dr, 40 MG PO DAILY, (Reported) Entered as Reported by: MEMO HART on 05/03/21 1401 Terbinafine HCl (Terbinafine HCl) 250 Mg Tablet, 250 MG PO DAILY, (Reported) Entered as Reported by: DONTE RODRIGES on 05/08/21 1029 Review of Systems Review of Systems Constitutional: No chills Eyes: Denies Blurred Vision Ears, Nose, Mouth, Throat: no symptoms reported Respiratory: no symptoms reported Cardiovascular: no symptoms reported Gastrointestinal: no symptoms reported Genitourinary: no symptoms reported Musculoskeletal: back pain Skin: no symptoms reported Psychiatric/Neurological: No Symptoms Reported All Other Systems Reviewed Negative Unless Noted: Yes Past Pqfphhg-Zmykwl-Wpnzyb Hx Patient Social History Tobacco Use?: No Smoking Status: Never a Smoker Smokeless Tobacco Frequency: Never a User Use of E-Cig and/or Vaping dev: No Use of E-Cig and/or Vaping Aki: Never a User Substance use?: No Alcohol Use?: No Pt feels they are or have been: No Past Medical History Surgery/Hospitalization HX: JOANN PARTIAL HYSTERECTOMY LAP NISSON R HAND CARPAL TUNNEL RELEASE ORTHO TONSILS Surgeries: Yes (T&A, R big toe, bilat knee scopes, lap beatriz, gallbladder,CERVICAL fusion+) Abdominal, Adenoidectomy, Gallbladder, Hysterectomy, Orthopedic, Tonsillectomy Respiratory: No Cardiac: Yes (recent chest pain, cardiac workup/cleared for 05/08/21 surg) High Cholesterol Neurological: No Reproductive Disorders: Yes (CYSTOCELE, UTEROVAGINAL PROLAPSE, RECTOCELE) 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 Sexually Transmitted Disease: No Genitourinary: Yes (OAB) Gastrointestinal: Yes Gastroesophageal Reflux, Chronic Constipation Musculoskeletal: Yes (Plantar fasciitis) Fibromyalgia Endocrine: No HEENT: No (GLASSES) Cancer: No Psychosocial: Yes Depression Integumentary: No Blood Disorders: No Adverse Reaction/Blood Tranf: No Family Medical History No Pertinent Family Hx Physical Exam Vital Signs Vital Signs - First Documented 02/06/22 17:08 Temp 36.6 Pulse 86 Resp 17 B/P (MAP) 147/71 (96) O2 Delivery Room Air Capillary Refill : Less Than 3 Seconds Height, Weight, BMI Height: 5'8.00" Weight: 188lbs. 0oz. 85.391538bk; 31.00 BMI Method:Stated General Appearance: WD/WN, no apparent distress HEENT: PERRL/EOMI, normal ENT inspection, pharynx normal Neck: non-tender, normal inspection, other (C-collar in place) Cardiovascular: regular rate, rhythm, no edema, no murmur Respiratory: chest non-tender, lungs clear, normal breath sounds, no respiratory distress, no accessory muscle use Gastrointestinal: normal bowel sounds, non tender, soft; No distended, No guarding, No rebound Back: normal inspection, no CVA tenderness, other (Mild mid back tenderness paravertebral) Extremities: normal range of motion, normal inspection, no pedal edema, no calf tenderness, normal capillary refill, other (Mild tenderness around the left knee but otherwise nowhere else) Neurologic/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, no motor/sensory deficits, alert, normal mood/affect, oriented x 3 Skin: normal color, warm/dry Lymphatic: no adenopathy [place] Coma Score Best Eye Response: (4) Open Spontaneously Best Verbal Response: (5) Oriented Best Motor Response: (6) Obeys Commands Progress/Results/Core Measures Results/Orders My Orders Orders - ARGENIS GLASS MD Ct Head/Cervical Spine Wo (02/06/22 17:20) Ct Thoracic/Lumbar Spine Wo (02/06/22 17:20) Knee 3 View Left (02/06/22 17:20) Hydrocodone/Apap 5/325 Tablet (Lortab 5 (02/06/22 17:30) Ondansetron Injection (Zofran Injectio (02/06/22 17:30) Medications Given in ED Current Medications Medications Dose Ordered Sig/Karly Route Start Time Stop Time Status Last Admin Dose Admin Acetaminophen/ Hydrocodone Bitart 1 ea ONCE ONCE PO 02/06/22 17:30 02/06/22 17:31 DC 02/06/22 17:27 1 EA Ondansetron HCl 4 mg STK-MED ONCE .ROUTE 02/06/22 17:30 02/06/22 17:34 DC 02/06/22 17:37 4 MG Vital Signs/I&O 02/06/22 17:08 Temp 36.6 Pulse 86 Resp 17 B/P (MAP) 147/71 (96) O2 Delivery Room Air Blood Pressure Mean: 96 Progress Progress Note : Progress Note 51-year-old female coming in after a ground-level fall tripping on her dog. ABCs were intact, GCS 15, vital stable on presentation. Physical exam reassuring with only seen mild mid back tenderness and some mild left knee tenderness. CT head, and total spine ordered given her prior history. X-ray left knee also ordered. These were all negative for acute findings. C-collar then cleared. She is ambulating and tolerating p.o. I believe she is stable for discharge with outpatient follow-up. She was sent home with strict return precautions Diagnostic Imaging Diagonstic Imaging: Xray (LEFT KNEE), CT (HEAD, C SPINE, T AND L SPINE) Comments [facility] [place], [place] NAME: CHRISTELLE TINOCO [facility] REC#: [id number] PT STATUS: REG ER : 1970 PHYSICIAN: ARGENIS GLASS MD ADMIT DATE: 02/06/22/ER FS Signed Date of Exam:02/06/22 CT THORACIC/LUMBAR SPINE WO Procedure: CT thoracic and lumbar spine without contrast. Technique: Multiple contiguous axial images were obtained through the thoracic and lumbar spine without the use of intravenous contrast. Sagittal and coronal reformations were then performed. All CT scans use one or more of the following dose optimizing techniques: automated exposure control, MA and/or KvP adjustment based on a patient size and exam type, or iterative reconstruction. Date: February 06, 2022. Indication: 51-year-old female, fall. Mid and lower back pain. Comparison: None. Findings: The alignment of the thoracic spine is unremarkable. The thoracic disc heights are well preserved without endplate degenerative changes. There are degenerative changes of the lower cervical spine. CT is limited for assessment of disc pathology as well as additional non-bony causes of pathology in the spinal canal. There is no identified acute fracture of the thoracic spine. The alignment of the lumbar spine is unremarkable. There is moderate disc height loss at L5-S1. There is no identified acute fracture of the lumbar spine. There are atherosclerotic calcifications. Impression: 1. No identified acute fracture of the thoracic or lumbar spine. 2. Moderate disc height loss at L5-S1. Dictated by: Dictated on workstation # [id number] Dict: 02/06/221757 Trans: 02/06/221838 [facility] [phone] Interpreted by: DEBI FORTUNE MD Electronically signed by: EDBI FORTUNE MD 02/06/221838 [facility] [place], [place] NAME: ALEJANDRINACHRISTELLE Mila [facility] REC#: [id number] PT STATUS: REG ER : 1970 PHYSICIAN: ARGENIS GLASS MD ADMIT DATE: 02/06/22/ER FS Signed Date of Exam:02/06/22 CT HEAD/CERVICAL SPINE WO PROCEDURE: CT head and CT cervical spine without contrast. TECHNIQUE: Multiple contiguous axial images were obtained through the brain and cervical spine without the use of intravenous contrast. Sagittal and coronal reformations through the cervical spine were then performed. Auto Exposure Controls were utilized during the CT exam to meet ALARA standards for radiation dose reduction. INDICATION: Fall with head and neck pain. COMPARISON: No prior studies are available for comparison. FINDINGS: CT HEAD: Ventricles and sulci are within normal limits. No sulcal effacement or midline shift is identified. No acute intra-axial or extra-axial hemorrhage is detected. Cisterns are patent. Visualized paranasal sinuses are clear. IMPRESSION: No acute intracranial process is detected. CT CERVICAL SPINE: The curvature and alignment is normal. Postop changes to the cervical spine are noted. There is an anterior plate and screws transfixing the C4 through C6 levels. Interposition grafts at these levels are also seen. The hardware appears to be intact. The bony structures are intact. The prevertebral tissues are normal. No fractures are seen. Odontoid is intact. IMPRESSION: No acute bony abnormality is detected. Dictated by: Dictated on workstation # [id number] Dict: 02/06/221756 Trans: 02/06/221837 [facility] [phone] Interpreted by: JOSEFINA TINOCO MD Electronically signed by: JOSEFINA TINOCO MD 02/06/221837 [facility] [place] [place] NAME: CHRISTELLE TINOCO [facility] REC#: [id number] PT STATUS: REG ER : 1970 PHYSICIAN: ARGENIS GLASS MD ADMIT DATE: 02/06/22/ER FS Signed Date of Exam:02/06/22 KNEE 3 VIEW LEFT EXAMINATION: Left knee radiographs, 3 views. COMPARISON: None. HISTORY: 51-year-old female, fall. Left knee pain. FINDINGS: There is no acute fracture. There is no knee joint effusion. There is no radiopaque foreign body. Joint spaces are well-preserved. IMPRESSION: No acute bony abnormality of the left knee. Dictated by: Dictated on workstation # [id number] Dict: 02/06/221756 Trans: 02/06/221838 [id number] Interpreted by: DEBI FORTUNE MD Electronically signed by: DEBI FORTUNE MD 02/06/221838 Departure Impression Primary Impression: Fall Qualified Codes: W19.XXXA - Unspecified fall, initial encounter Additional Impression: Neck pain Disposition: 01 HOME, SELF-CARE Condition: Stable Departure-Patient Inst. Decision time for Depature: 19:00 Referrals: JENNIE SCOTT APRN (PCP/Family) Primary Care Physician Patient Instructions: Neck Pain ED, Preventing Falls ED Add. Discharge Instructions: Fortunately all of your imaging is negative for anything broken or anything else acute. I recommend taking Tylenol as needed for pain. He can also try heating pad or ice, whichever feels better. Follow-up with your regular doctor in the next couple days if things or not improving. Work/School Note: Work Release Form Date Seen in the Emergency Department: Feb 06, 2022 Return to Work: Feb 08, 2022 Restrictions: No Restrictions ARGENIS GLASS MD Feb 06, 2022 19:01
[2022-02-06 19:07] VITALS: BP 134/88
== END 2022-02-06 19:08 | disposition home or self-care (01) ==
LOC: EDUNIT# 17:07 → ER FS 17:08
DX: M54.2 Cervicalgia (principal)
CPT/HCPCS: 70450; 72125; 72128; 72131; 73562

== ENCOUNTER 2022-03-12 16:30 | Emergency (ER) | payer OTHER ==
[2022-03-12 16:55] VITALS: BP 116/79
--- NOTE | 2022-03-12 17:40 | Diagnostic Imaging Report ---
CHEST 1 VIEW AP/PA ONLY Indication: Shortness of air Comparison: 05/02/2021 Findings: No focal airspace disease in the visualized lungs. Please note that the posterior lower lobes are poorly evaluated by portable radiography. No pleural effusion or pneumothorax. Normal cardiomediastinal silhouette. Impression: 1. No acute cardiopulmonary process by portable radiography. Dictated by: Dictated on workstation # [id number]
--- NOTE | 2022-03-12 17:41 | ED General ---
General Chief Complaint: COVID19 Suspect/Confirmed Stated Complaint: COUGH,NAUSEA,DIARRHEA Source of Information: Patient Exam Limitations: No Limitations History of Present Illness Date Seen by Provider: March 12, 2022 Time Seen by Provider: 17:00 Initial Comments Patient is a 51-year-old female who presents with body aches chills, sweats shortness of breath and productive cough starting yesterday. Patient reports fatigue and diarrhea. History of recent COVID exposure. Patient is not vaccinated. No other symptoms or complaints. Timing/Duration: 1 Day Severity: Mild Modifying Factors: improves with Other Associated Systoms: Other Allergies and Home Medications Allergies Coded Allergies: imipramine (Verified Allergy, Severe, RASH, 08/03/15) Penicillins (Verified Allergy, Unknown, 05/08/21) adhesive tape (Verified Allergy, Unknown, Rash, 05/08/21) amoxicillin (Verified Allergy, Unknown, RASH, 03/01/10) celecoxib (Unverified Allergy, Unknown, 12/20/14) cyclobenzaprine (Unverified Allergy, Unknown, 12/20/14) tapentadol (Unverified Allergy, Unknown, RASH, PT HAS RECEIVED LORTAB IN THE PAST, 05/08/21) Patient Home Medication List Home Medication List Reviewed: Yes Atorvastatin Calcium (Atorvastatin Calcium) 20 Mg Tablet, 20 MG PO DAILY, (Reported) Entered as Reported by: DONTE RODRIGES on 05/08/21 1029 Calcium Carbonate/Mag Oxide/Zn (Oeojrku-Zwhhxvqqb-Yjag Tablet) 1 Each Tablet, 1 EACH PO HS, (Reported) Entered as Reported by: MEMO HART on 05/03/21 1401 Cetirizine HCl (Cetirizine HCl) 10 Mg Tablet, 10 MG PO DAILY, (Reported) Entered as Reported by: DONTE RODRIGES on 05/08/21 1029 Cholecalciferol (Vitamin D3) (Vitamin D3) 125 Mcg Capsule, 125 MCG PO HS, (Reported) Entered as Reported by: DONTE RODRIGES on 05/08/21 1029 Clonazepam (Clonazepam) 1 Mg Tablet, 1 MG PO PRN, (Reported) Entered as Reported by: DONTE RODRIGES on 05/08/21 1029 Duloxetine HCl (Duloxetine HCl) 30 Mg Capsule.dr, 30 MG PO DAILY, (Reported) Entered as Reported by: MEMO HART on 05/03/21 1401 Duloxetine HCl (Duloxetine HCl) 60 Mg Capsule.dr, 60 MG PO DAILY, (Reported) Entered as Reported by: MEMO HART on 05/03/21 1401 Eszopiclone (Lunesta) 3 Mg Tablet, 3 MG PO HS, (Reported) Entered as Reported by: MEMO HART on 05/03/21 1401 Hydrocodone/Acetaminophen (Hydrocodone-Acetamin 5-325 mg) 1 Each Tablet, 1 TAB PO Q4H PRN for PAIN-MODERATE (5-7) Prescribed by: SOSA MONSALVE on 05/08/21 1107 Mirabegron (Myrbetriq) 50 Mg Tab.er.24h, 50 MG PO DAILY, (Reported) Entered as Reported by: DONTE RODRIGES on 05/08/21 1029 Pantoprazole Sodium (Pantoprazole Sodium) 40 Mg Tablet.dr, 40 MG PO DAILY, (Reported) Entered as Reported by: MEMO HART on 05/03/21 1401 Terbinafine HCl (Terbinafine HCl) 250 Mg Tablet, 250 MG PO DAILY, (Reported) Entered as Reported by: DONTE RODRIGES on 05/08/21 1029 Review of Systems Review of Systems Constitutional: see HPI EENTM: see HPI Respiratory: see HPI Cardiovascular: see HPI Gastrointestinal: see HPI Genitourinary: see HPI Musculoskeletal: see HPI Skin: see HPI Psychiatric/Neurological: See HPI Hematologic/Lymphatic: See HPI Immunological/Allergic: see HPI All Other Systems Reviewed Negative Unless Noted: Yes Past Dxedzdp-Mdpuek-Yhycqv Hx Patient Social History Tobacco Use?: Yes Past Medical History Surgery/Hospitalization HX: JOANN PARTIAL HYSTERECTOMY LAP NISSON R HAND CARPAL TUNNEL RELEASE ORTHO TONSILS Surgeries: Yes (T&A, R big toe, bilat knee scopes, lap beatriz, ga llbladder,CERVICAL fusion+) Abdominal, Adenoidectomy, Gallbladder, Hysterectomy, Orthopedic, Tonsillectomy Respiratory: No Cardiac: Yes (recent chest pain, cardiac workup/cleared for 05/08/21 surg) High Cholesterol Neurological: No Reproductive Disorders: Yes (CYSTOCELE, UTEROVAGINAL PROLAPSE, RECTOCELE) 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 0oz. 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 Norm as Tested Skin: Normal Color, Warm/Dry Lymphatic: No Adenopathy Focused Exam Sepsis Stage: Ruled Out Progress/Results/Core Measures Suspected Sepsis SIRS Temperature: Pulse: Respiratory Rate: Blood Pressure / Mean: Results/Orders My Orders Orders - MELLOFANNIE DO Chest 1 View Ap/Pa Only (03/12/22 17:20) Covid 19 Inhouse Test (03/12/22 17:20) Influenza A And B By Pcr (03/12/22 17:20) Isolation Central Supply Req (03/12/22 17:20) Vital Signs/I&O Capillary Refill : Departure Communication (Admissions) Chest x-ray: Groundglass appearance concerning for COVID Patient with viral URI symptoms concerning for COVID without respiratory compromise COVID test result pending. Recommendations for supportive care watchful waiting self quarantine and PCP follow-up. Return precautions follow- up. Patient verbalizes understanding agreement discharge instructions prior to departure. Impression Primary Impression: Viral syndrome Disposition: HOME, SELF-CARE Condition: Stable Departure-Patient Inst. Decision time for Depature: 17:39 Referrals: JENNIE SCOTT APRN (PCP/Family) Primary Care Physician Patient Instructions: Viral Syndrome (DC) Add. Discharge Instructions: You were evaluated in the emergency department for cough, sore throat, and diarrhea. The exact cause of your symptoms has not been determined. A COVID test result is pending. Please go home and rest, self quarantine and take newly prescribed medications as directed. Follow-up with your PCP in 2 to 3 days for reevaluation. Return to the ED if new or worsening symptoms. All discharge instructions reviewed with patient and/or family. Voiced understanding. Scripts Hydrocodone/Acetaminophen (Hydrocodone-Acetamin 5-325 mg) 5 Mg-325 Mg Tablet 1 TAB PO Q4H PRN for PAIN-MODERATE (5-7), #10 TAB Prov: FANNIE MELLO DO 03/12/22 Albuterol Sulfate (Proventil Hfa) 6.7 Gm Hfa.aer.ad 2 PUFF INH Q6H for SHORTNESS OF BREATH, #1 EACH Prov: FANNIE MELLO DO 03/12/22 Doxycycline Hyclate (Doxycycline Hyclate) 100 Mg Tablet 100 MG PO BID, #20 TAB 0 Refills Prov: FANNIE MELLO DO 03/12/22 Prednisone (Prednisone) 20 Mg Tab 40 MG PO DAILY, #5 TAB 0 Refills Prov: FANNIE MELLO DO 03/12/22 FANNIE MELLO DO March 12, 2022 17:41
[2022-03-12] MEDS ORDERED: ACHD5005 PO (17:42)
[2022-03-12] MEDS ORDERED: RT-ALBUINH INH (17:42)
[2022-03-12] MEDS ORDERED: DOXY100T2 PO (17:42)
[2022-03-12] MEDS ORDERED: PRD20T PO (17:42)
== END 2022-03-12 18:25 | disposition home or self-care (01) ==
LOC: EDUNIT# 16:30 → ER FS 16:32
DX: U07.1 COVID-19 (principal); B34.9 Viral infection, unspecified
CPT/HCPCS: 71045; 87636

== ENCOUNTER → 2022-03-23 | Outpatient (CLI) | payer OTHER ==
[~2022-03-23] MED LIST changes: +DOXY100T2 PO; +RT-ALBUINH INH
--- NOTE | 2022-03-23 14:55 | Diagnostic Imaging Report ---
INDICATION: KIDNEY STONES COMPARISON: 07/20/2017 FINDINGS: 2 frontal radiograph views of the abdomen were obtained and demonstrate nondistended loops of small bowel. There is no large collection of free peritoneal air. Moderate air and stool are seen scattered throughout the ascending and transverse colon. No unexpected extraosseous calcifications or radiopaque foreign bodies are seen. Bony structures show no gross acute abnormalities. IMPRESSION: 1. Nonobstructed small bowel gas pattern. 2. Moderate colonic air and stool. Please correlate for constipation Dictated by: Dictated on workstation # [id number]
== END ==
LOC: RAD FS 14:28
PROVIDERS: ATTEND Urology
DX: N20.0 Calculus of kidney (principal)
CPT/HCPCS: 74018

== ENCOUNTER 2022-07-05 19:56 | Emergency (ER) | payer OTHER ==
--- NOTE | 2022-07-05 20:23 | ED Psychosocial ---
General Chief Complaint: Suicidal Ideation Risk Stated Complaint: PSYCH EVAL Source: patient Exam Limitations: no limitations History of Present Illness Date Seen by Provider: Jul 05, 2022 Time Seen by Provider: 19:59 Initial Comments 51-year-old female with past medical history of hypertension, depression, GERD, chronic pain coming in due to suicidal ideation with a plan. She is pending homelessness potentially this weekend because she cannot afford to live anywhere. She says she has no support system and feels with major depression. Was last admitted for major depression at [facility] in roughly 2011. She never been admitted for self-harm. She says she would cut herself with a knife which she does have access to. She also mentions that it might be easier to sit in front of a train. She denies any self-harm ever in her life. She is otherwise denying any other acute complaints including any chest pain, shortness of breath, abdominal pain, nausea, vomiting, diarrhea, fever, chills, weakness, numbness, or any other concerns Allergies and Home Medications Allergies Coded Allergies: imipramine (Verified Allergy, Severe, RASH, 08/03/15) Penicillins (Verified Allergy, Unknown, 05/08/21) adhesive tape (Verified Allergy, Unknown, Rash, 05/08/21) amoxicillin (Verified Allergy, Unknown, RASH, 03/01/10) celecoxib (Unverified Allergy, Unknown, 12/20/14) cyclobenzaprine (Unverified Allergy, Unknown, 12/20/14) tapentadol (Unverified Allergy, Unknown, RASH, PT HAS RECEIVED LORTAB IN THE PAST, 05/08/21) Patient Home Medication List Home Medication List Reviewed: Yes Albuterol Sulfate (Proventil Hfa) 6.7 Gm Hfa.aer.ad, 2 PUFF INH Q6H Prescribed by: FANNIE MELLO on 03/12/22 1742 Atorvastatin Calcium (Atorvastatin Calcium) 20 Mg Tablet, 20 MG PO DAILY, (Reported) Entered as Reported by: DONTE RODRIGES on 05/08/21 1029 Calcium Carbonate/Mag Oxide/Zn (Dvkaxwo-Irgoilggc-Lvfh Tablet) 1 Each Tablet, 1 EACH PO HS, (Reported) Entered as Reported by: MEMO HART on 05/03/21 1401 Cetirizine HCl (Cetirizine HCl) 10 Mg Tablet, 10 MG PO DAILY, (Reported) Entered as Reported by: DONTE RODRIGES on 05/08/21 1029 Cholecalciferol (Vitamin D3) (Vitamin D3) 125 Mcg Capsule, 125 MCG PO HS, (Reported) Entered as Reported by: DONTE RODRIGES on 05/08/21 1029 Clonazepam (Clonazepam) 1 Mg Tablet, 1 MG PO PRN, (Reported) Entered as Reported by: DONTE RODRIGES on 05/08/21 1029 Doxycycline Hyclate (Doxycycline Hyclate) 100 Mg Tablet, 100 MG PO BID Prescribed by: FANNIE MELLO on 03/12/22 174 Duloxetine HCl (Duloxetine HCl) 30 Mg Capsule.dr, 30 MG PO DAILY, (Reported) Entered as Reported by: MEMO HART on 05/03/21 140 Duloxetine HCl (Duloxetine HCl) 60 Mg Capsule.dr, 60 MG PO DAILY, (Reported) Entered as Reported by: MEMO HART on 05/03/21 140 Eszopiclone (Lunesta) 3 Mg Tablet, 3 MG PO HS, (Reported) Entered as Reported by: MEMO HART on 05/03/21 140 Hydrocodone/Acetaminophen (Hydrocodone-Acetamin 5-325 mg) 1 Each Tablet, 1 TAB PO Q4H PRN for PAIN-MODERATE (5-7) Prescribed by: SOSA MONSALVE on 05/08/21 1107 Hydrocodone/Acetaminophen (Hydrocodone-Acetamin 5-325 mg) 5 Mg-325 Mg Tablet, 1 TAB PO Q4H PRN for PAIN-MODERATE (5-7) Prescribed by: FANNIE MELLO on 03/12/22 174 Mirabegron (Myrbetriq) 50 Mg Tab.er.24h, 50 MG PO DAILY, (Reported) Entered as Reported by: DONTE RODRIGES on 05/08/21 1029 Pantoprazole Sodium (Pantoprazole Sodium) 40 Mg Tablet.dr, 40 MG PO DAILY, (Reported) Entered as Reported by: MEMO HART on 05/03/21 1401 Prednisone (Prednisone) 20 Mg Tab, 40 MG PO DAILY Prescribed by: FANNIE MELLO on 03/12/22 174 Terbinafine HCl (Terbinafine HCl) 250 Mg Tablet, 250 MG PO DAILY, (Reported) Entered as Reported by: DONTE RODRIGES on 05/08/21 1029 Review of Systems Constitutional: No fever; other EENTM: No blurred vision Respiratory: no symptoms reported Cardiovascular: no symptoms reported Gastrointestinal: no symptoms reported Genitourinary: no symptoms reported Musculoskeletal: no symptoms reported Skin: no symptoms reported Psychiatric/Neurological: See HPI, Depressed All Other Systems Reviewed Negative Unless Noted: Yes Past Piwubqp-Oblval-Cbupyg Hx Patient Social History Tobacco Use?: No Use of E-Cig and/or Vaping dev: No Substance use?: No Alcohol Use?: No Pt feels they are or have been: No Immunizations Up To Date First/Initial COVID19 Vaccinat: Not currently vaccinated Past Medical History Surgery/Hospitalization HX: JOANN PARTIAL HYSTERECTOMY LAP NISSON R HAND CARPAL TUNNEL RELEASE ORTHO TONSILS Surgeries: Yes (T&A, R big toe, bilat knee scopes, lap beatriz, gallbladder,CERVICAL fusion+) Abdominal, Adenoidectomy, Gallbladder, Hysterectomy, Orthopedic, Tonsillectomy Respiratory: No Cardiac: Yes (recent chest pain, cardiac workup/cleared for 05/08/21 surg) High Cholesterol Neurological: No Reproductive Disorders: Yes (CYSTOCELE, UTEROVAGINAL PROLAPSE, RECTOCELE) RETIREMENT ACTUARY History: Hysterectomy Sexually Transmitted Disease: No Genitourinary: Yes (OAB) Gastrointestinal: Yes Gastroesophageal Reflux, Chronic Constipation Musculoskeletal: Yes (Plantar fasciitis) Fibromyalgia Endocrine: No HEENT: No (GLASSES) Cancer: No Psychosocial: Yes Depression Integumentary: No Blood Disorders: No Adverse Reaction/Blood Tranf: No Family Medical History No Pertinent Family Hx Physical Exam Vital Signs - First Documented 07/05/22 20:00 Temp 36.6 Pulse 96 Resp 20 B/P (MAP) 162/105 (124) Pulse Ox 100 O2 Delivery Room Air Capillary Refill : Height, Weight, BMI Height: 5'8.00" Weight: 188lbs. 0oz. [id number]; 31.00 BMI Method:Stated General Appearance: WD/WN, other (tearful) HEENT: PERRL/EOMI, normal ENT inspection, pharynx normal Neck: non-tender, full range of motion, supple, normal inspection Respiratory: chest non-tender, lungs clear, normal breath sounds, no respiratory distress, no accessory muscle use Cardiovascular: regular rate, rhythm, no edema, no murmur Gastrointestinal: normal bowel sounds, non tender, soft; No distended, No guarding, No rebound Extremities: normal range of motion, non-tender, normal inspection, no pedal edema, no calf tenderness, normal capillary refill Neurologic/Psychiatric: no motor/sensory deficits, alert, normal mood/affect, oriented x 3 Appearance/Memory: appropriate appearance Behavior/Eye Contact: cooperative, good eye contact Thoughts/Hallucinations: no apparent hallucination Skin: normal color, warm/dry Lymphatic: no adenopathy Progress/Results/Core Measures Results/Orders Lab Results Laboratory Tests Test 07/05/22 20:00 07/05/22 20:08 Range/Units Urine Color YELLOW Urine Clarity CLEAR Urine pH 7.0 5-9 Urine Specific [place] <=1.005 1.016-1.022 Urine Protein NEGATIVE NEGATIVE Urine Glucose (UA) NEGATIVE NEGATIVE Urine Ketones NEGATIVE NEGATIVE Urine Nitrite NEGATIVE NEGATIVE Urine Bilirubin NEGATIVE NEGATIVE Urine Urobilinogen 0.2 < = 1.0 MG/DL Urine Leukocyte Esterase NEGATIVE NEGATIVE Urine RBC (Auto) NEGATIVE NEGATIVE Urine RBC NONE /HPF Urine WBC RARE /HPF Urine Squamous Epithelial Cells 0-2 /HPF Urine Crystals NONE /LPF Urine Bacteria FEW H /HPF Urine Casts NONE /LPF Urine Mucus NEGATIVE /LPF Urine Culture Indicated NO Urine Opiates Screen NEGATIVE NEGATIVE Urine Oxycodone Screen NEGATIVE NEGATIVE Urine Methadone Screen NEGATIVE NEGATIVE Urine Propoxyphene Screen NEGATIVE NEGATIVE Urine Barbiturates Screen NEGATIVE NEGATIVE Ur Tricyclic Antidepressants Screen NEGATIVE NEGATIVE Urine Phencyclidine Screen NEGATIVE NEGATIVE Urine Amphetamines Screen NEGATIVE NEGATIVE Urine Methamphetamines Screen NEGATIVE NEGATIVE Urine Benzodiazepines Screen NEGATIVE NEGATIVE Urine Cocaine Screen NEGATIVE NEGATIVE Urine Cannabinoids Screen NEGATIVE NEGATIVE White Blood Count 7.0 4.3-11.0 10^3/uL Red Blood Count 4.24 3.80-5.11 10^6/uL Hemoglobin 12.7 11.5-16.0 g/dL Hematocrit 38 35-52 % Mean Corpuscular Volume 89 80-99 fL Mean Corpuscular Hemoglobin 30 25-34 pg Mean Corpuscular Hemoglobin Concent 34 32-36 g/dL Red Cell Distribution Width 12.3 10.0-14.5 % Platelet Count 275 130-400 10^3/uL Mean Platelet Volume 10.1 9.0-12.2 fL Immature Granulocyte % (Auto) 0 % Neutrophils (%) (Auto) 50 42-75 % Lymphocytes (%) (Auto) 35 12-44 % Monocytes (%) (Auto) 12 0-12 % Eosinophils (%) (Auto) 3 0-10 % Basophils (%) (Auto) 1 0-10 % Neutrophils # (Auto) 3.5 1.8-7.8 10^3/uL Lymphocytes # (Auto) 2.4 1.0-4.0 10^3/uL Monocytes # (Auto) 0.8 0.0-1.0 10^3/uL Eosinophils # (Auto) 0.2 0.0-0.3 10^3/uL Basophils # (Auto) 0.1 0.0-0.1 10^3/uL Immature Granulocyte # (Auto) 0.0 0.0-0.1 10^3/uL Sodium Level 137 135-145 MMOL/L Potassium Level 3.8 3.6-5.0 MMOL/L Chloride Level 101 98-107 MMOL/L Carbon Dioxide Level 25 21-32 MMOL/L Anion Gap 11 5-14 MMOL/L Blood Urea Nitrogen 17 7-18 MG/DL Creatinine 0.92 0.60-1.30 MG/DL Estimat Glomerular Filtration Rate 75 BUN/Creatinine Ratio 18 Glucose Level 90 70-105 MG/DL Calcium Level 9.7 8.5-10.1 MG/DL Corrected Calcium 9.3 8.5-10.1 MG/DL Total Bilirubin 0.3 0.1-1.0 MG/DL Aspartate Amino Transf (AST/SGOT) 21 5-34 U/L Alanine Aminotransferase (ALT/SGPT) 16 0-55 U/L Alkaline Phosphatase 58 40-136 U/L Total Protein 7.2 6.4-8.2 GM/DL Albumin 4.5 3.2-4.5 GM/DL Salicylates Level < 0.3 L 5.0-20.0 MG/DL Acetaminophen Level < 10 L 10-30 UG/ML Serum Alcohol < 10 <10 MG/DL SARS-CoV-2 RNA (RT-PCR) Not Detected Not Detecte My Orders Orders - ARGENIS GLASS MD Covid 19 Inhouse Test (07/05/22 20:17) Ua Culture If Indicated (07/05/22 20:17) Cbc With Automated Diff (07/05/22 20:17) Comprehensive Metabolic Panel (07/05/22 20:17) Alcohol (07/05/22 20:17) Drug Screen Stat (Urine) (07/05/22 20:17) Acetaminophen (07/05/22 20:17) Salicylate (07/05/22 20:17) Ekg Tracing (07/05/22 20:17) Bh Status Checks/Observation O Q15M (07/05/22 20:17) Lorazepam Tablet (Ativan Tablet) (07/05/22 20:30) Medications Given in ED Current Medications Medications Dose Ordered Sig/Karly Route Start Time Stop Time Status Last Admin Dose Admin Lorazepam 0.5 mg ONCE PRN PO 07/05/22 20:30 07/05/22 20:27 0.5 MG Vital Signs/I&O 07/05/22 20:00 Temp 36.6 Pulse 96 Resp 20 B/P (MAP) 162/105 (124) Pulse Ox 100 O2 Delivery Room Air Progress Progress Note : Progress Note 51-year-old female with above history coming in due to to feeling depressed and feeling suicidal with a plan to cut herself with a knife or jump in front of a train. ABCs were intact and vitals were stable on presentation. Physical exam reassuring with no acute abnormalities. Basic psychiatric screening labs were obtained. From an emergency department standpoint, she is cleared for psychiatric evaluation. Update 04:00: Patient has had her screening, and the chided for well over an hour. At this time she is feeling better about the situation with her housing. She is no longer feeling suicidal. They were able to come up with a safety plan. Initial ECG Impression Date: Jul 05, 2022 Initial ECG Impression Time: 20:31 Initial ECG Rate: 91 Initial ECG Rhythm: Normal Sinus Comment Narrow QRS, left axis deviation, no acute ischemic changes including no ST elevation Departure Impression Primary Impression: Suicidal ideations Disposition: 01 HOME, SELF-CARE Condition: Stable Departure-Patient Inst. Decision time for Depature: 04:09 Referrals: JENNIE SCOTT APRN (PCP/Family) Primary Care Physician Patient Instructions: OUTPT MENTAL HEALTH SERVICES, Suicide Prevention Add. Discharge Instructions: If you start feeling worse again, please come back to the ER for repeat screening. Work/School Note: Work Release Form Date Seen in the Emergency Department: Jul 06, 2022 Return to Work: Jul 07, 2022 ARGENIS GLASS MD Jul 05, 2022 20:23
[2022-07-05 20:26] LABS: BASOPHILS # (AUTO) 0.1 10^3/uL (0.0-0.1); BASOPHILS % (AUTO) 1 % (0-10); EOSINOPHILS # (AUTO) 0.2 10^3/uL (0.0-0.3); EOSINOPHILS % (AUTO) 3 % (0-10); HEMATOCRIT 38 % (35-52); HEMOGLOBIN 12.7 g/dL (11.5-16.0); LYMPHOCYTES # (AUTO) 2.4 10^3/uL (1.0-4.0); LYMPHOCYTES % (AUTO) 35 % (12-44); MEAN CORPUSCULAR HEMOGLOBIN 30 pg (25-34); MEAN CORPUSCULAR HGB CONC 34 g/dL (32-36); MEAN CORPUSCULAR VOLUME 89 fL (80-99); MEAN PLATELET VOLUME 10.1 fL (9.0-12.2); MONOCYTES # (AUTO) 0.8 10^3/uL (0.0-1.0); MONOCYTES % (AUTO) 12 % (0-12); NEUTROPHILS # (AUTO) 3.5 10^3/uL (1.8-7.8); NEUTROPHILS % (AUTO) 50 % (42-75); PLATELET COUNT 275 10^3/uL (130-400)
[2022-07-05] MEDS ORDERED: LORazepam 0.5 MG (ATIVAN) TABLET PO PRN (20:30)
[2022-07-05 20:36] LABS: BILIRUBIN,URINE NEGATIVE (NEGATIVE); CLARITY,URINE CLEAR; COLOR,URINE YELLOW; GLUCOSE, URINE (UA) NEGATIVE (NEGATIVE); KETONES,URINE NEGATIVE (NEGATIVE); LEUKOCYTE ESTERASE ,URINE NEGATIVE (NEGATIVE); NITRITE,URINE NEGATIVE (NEGATIVE); PROTEIN,URINE NEGATIVE (NEGATIVE)
[2022-07-05 20:45] LABS: BACTERIA,URINE FEW /HPF; SQUAMOUS EPITHELIAL CELL,UR 0-2 /HPF; WBC,URINE RARE /HPF
[2022-07-05 20:46] LABS: AMPHETAMINE SCREEN, URINE NEGATIVE (NEGATIVE); BARBITURATE SCREEN URINE NEGATIVE (NEGATIVE); BENZODIAZEPINES SCREEN URINE NEGATIVE (NEGATIVE); CANNABINOID SCREEN, URINE NEGATIVE (NEGATIVE); COCAINE SCREEN URINE NEGATIVE (NEGATIVE); METHADONE STAT NEGATIVE (NEGATIVE); OPIATE SCREEN URINE NEGATIVE (NEGATIVE); OXYCODONE STAT NEGATIVE (NEGATIVE); PROPOXYPHENE STAT NEGATIVE (NEGATIVE); TRICYCLIC ANTIDEPRESSANTS SCRE NEGATIVE (NEGATIVE)
[2022-07-05 20:48] LABS: ALANINE AMINOTRANSFERASE 16 U/L (0-55); ALBUMIN 4.5 GM/DL (3.2-4.5); ALKALINE PHOSPHATASE 58 U/L (40-136); BILIRUBIN,TOTAL 0.3 MG/DL (0.1-1.0); BUN/CREATININE RATIO 18; CALCIUM 9.7 MG/DL (8.5-10.1); CARBON DIOXIDE 25 MMOL/L (21-32); CHLORIDE 101 MMOL/L (98-107); CREATININE SERUM 0.92 MG/DL (0.60-1.30); GFR ESTIMATED 75; GLUCOSE 90 MG/DL (70-105); POTASSIUM 3.8 MMOL/L (3.6-5.0); SODIUM 137 MMOL/L (135-145); TOTAL PROTEIN 7.2 GM/DL (6.4-8.2)
[2022-07-05 20:49] LABS: ACETAMINOPHEN < 10 UG/ML (10-30); SALICYLATE < 0.3 MG/DL (5.0-20.0)
[2022-07-06 04:08] VITALS: BP 111/76
== END 2022-07-06 04:17 | disposition home or self-care (01) ==
LOC: EDUNIT# 19:56 → ER FS 19:58
DX: R45.851 Suicidal ideations (principal); Z20.822 Contact with and (suspected) exposure to COVID-19; Z28.310 Unvaccinated for COVID-19
CPT/HCPCS: 36415; 80053; 80306; 80320; 80329; 81000; 85025; 87636; 93005

== ENCOUNTER 2022-09-13 21:39 | Emergency (ER) | payer OTHER ==
--- NOTE | 2022-09-13 21:47 | ED Integumentary General ---
General Chief Complaint: Laceration Stated Complaint: L INDEX FINGER LAC History of Present Illness Date Seen by Provider: Sep 13, 2022 Time Seen by Provider: 21:47 Initial Comments 52-year-old female with left finger laceration. She reports that she was helping some with a project when she cut it with a knife. She has a real small laceration on the tip approximately half centimeter. She did cut a little bit of the nail. Has some mild bleeding. She is up-to-date on her tetanus. No other injury. Allergies and Home Medications Allergies Coded Allergies: imipramine (Verified Allergy, Severe, RASH, 08/03/15) Penicillins (Verified Allergy, Unknown, 05/08/21) adhesive tape (Verified Allergy, Unknown, Rash, 05/08/21) amoxicillin (Verified Allergy, Unknown, RASH, 03/01/10) celecoxib (Unverified Allergy, Unknown, 12/20/14) cyclobenzaprine (Unverified Allergy, Unknown, 12/20/14) tapentadol (Unverified Allergy, Unknown, RASH, PT HAS RECEIVED LORTAB IN THE PAST, 05/08/21) Patient Home Medication List Home Medication List Reviewed: Yes Albuterol Sulfate (Proventil Hfa) 6.7 Gm Hfa.aer.ad, 2 PUFF INH Q6H Prescribed by: FANNIE MELLO on 03/12/22 1742 Atorvastatin Calcium (Atorvastatin Calcium) 20 Mg Tablet, 20 MG PO DAILY, (Reported) Entered as Reported by: DONTE RODRIGES on 05/08/21 1029 Calcium Carbonate/Mag Oxide/Zn (Fkdzhea-Kncztwdaf-Qamr Tablet) 1 Each Tablet, 1 EACH PO HS, (Reported) Entered as Reported by: MEMO HART on 05/03/21 1401 Cetirizine HCl (Cetirizine HCl) 10 Mg Tablet, 10 MG PO DAILY, (Reported) Entered as Reported by: DONTE RODRIGES on 05/08/21 1029 Cholecalciferol (Vitamin D3) (Vitamin D3) 125 Mcg Capsule, 125 MCG PO HS, (Reported) Entered as Reported by: DONTE RODRIGES on 05/08/21 1029 Clonazepam (Clonazepam) 1 Mg Tablet, 1 MG PO PRN, (Reported) Entered as Reported by: DONTE RODRIGES on 05/08/21 1029 Doxycycline Hyclate (Doxycycline Hyclate) 100 Mg Tablet, 100 MG PO BID Prescribed by: FANNIE MELLO on 03/12/22 174 Duloxetine HCl (Duloxetine HCl) 30 Mg Capsule.dr, 30 MG PO DAILY, (Reported) Entered as Reported by: MEMO HART on 05/03/21 140 Duloxetine HCl (Duloxetine HCl) 60 Mg Capsule.dr, 60 MG PO DAILY, (Reported) Entered as Reported by: MEMO HART on 05/03/21 1401 Eszopiclone (Lunesta) 3 Mg Tablet, 3 MG PO HS, (Reported) Entered as Reported by: MEMO HART on 05/03/21 1401 Hydrocodone/Acetaminophen (Hydrocodone-Acetamin 5-325 mg) 1 Each Tablet, 1 TAB PO Q4H PRN for PAIN-MODERATE (5-7) Prescribed by: SOSA MONSALVE on 05/08/21 1107 Hydrocodone/Acetaminophen (Hydrocodone-Acetamin 5-325 mg) 5 Mg-325 Mg Tablet, 1 TAB PO Q4H PRN for PAIN-MODERATE (5-7) Prescribed by: FANNIE MELLO on 03/12/22 174 Mirabegron (Myrbetriq) 50 Mg Tab.er.24h, 50 MG PO DAILY, (Reported) Entered as Reported by: DONTE RODRIGES on 05/08/21 1029 Pantoprazole Sodium (Pantoprazole Sodium) 40 Mg Tablet.dr, 40 MG PO DAILY, (Reported) Entered as Reported by: MEMO HART on 05/03/21 140 Prednisone (Prednisone) 20 Mg Tab, 40 MG PO DAILY Prescribed by: FANNIE MELLO on 03/12/22 174 Terbinafine HCl (Terbinafine HCl) 250 Mg Tablet, 250 MG PO DAILY, (Reported) Entered as Reported by: DONTE RODRIGES on 05/08/21 1029 Review of Systems Review of Systems Constitutional: no symptoms reported EENTM: no symptoms reported Respiratory: no symptoms reported Cardiovascular: no symptoms reported Gastrointestinal: no symptoms reported Musculoskeletal: see HPI Skin: see HPI Past Tcimjzx-Oqivce-Mbeqjf Hx Patient Social History Tobacco Use?: No Use of E-Cig and/or Vaping dev: No Substance use?: No Immunizations Up To Date First/Initial COVID19 Vaccinat: Not currently vaccinated Past Medical History Surgery/Hospitalization HX: JOANN PARTIAL HYSTERECTOMY LAP NISSON R HAND CARPAL TUNNEL RELEASE ORTHO TONSILS Surgeries: Yes (T&A, R big toe, bilat knee scopes, lap beatriz, gallbladder,CERVICAL fusion+) Abdominal, Adenoidectomy, Gallbladder, Hysterectomy, Orthopedic, Tonsillectomy Respiratory: No Cardiac: Yes (recent chest pain, cardiac workup/cleared for 05/08/21 surg) High Cholesterol Neurological: No Reproductive Disorders: Yes (CYSTOCELE, UTEROVAGINAL PROLAPSE, RECTOCELE) 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 Sexually Transmitted Disease: No Genitourinary: Yes (OAB) Gastrointestinal: Yes Gastroesophageal Reflux, Chronic Constipation Musculoskeletal: Yes (Plantar fasciitis) Fibromyalgia Endocrine: No HEENT: No (GLASSES) Cancer: No Psychosocial: Yes Depression Integumentary: No Blood Disorders: No Adverse Reaction/Blood Tranf: No Family Medical History No Pertinent Family Hx Physical Exam Vital Signs Vital Signs - First Documented 09/13/22 21:41 Temp 36.5 Pulse 99 Resp 18 B/P (MAP) 140/83 (102) Pulse Ox 99 O2 Delivery Room Air Capillary Refill : General Appearance: no apparent distress, mild distress Cardiovascular: normal peripheral pulses, regular rate, rhythm Respiratory: lungs clear, normal breath sounds Extremities: normal range of motion, normal capillary refill Neurologic/Psychiatric: alert, normal mood/affect, oriented x 3 Skin Problem Location: upper extremities (left index finger ) Skin Problem Character: linear (0.5 cm laceration ) Procedures/Interventions Wound Location: Upper Extremities Other Wound Location left index finger Wound's Depth, Shape: superficial, linear Wound Explored: clean Other Closure Supply: Wound Adhesive Progress Patient tolerated well with no immediate complication Progress/Results/Core Measures Results/Orders Vital Signs/I&O 09/13/22 21:41 Temp 36.5 Pulse 99 Resp 18 B/P (MAP) 140/83 (102) Pulse Ox 99 O2 Delivery Room Air Progress Progress Note : Progress Note Patient with small laceration of face with adhesive. Wound care instructions given discharged home in stable condition Departure Impression Primary Impression: Laceration of left index finger w/o foreign body with damage to nail Qualified Codes: S61.311A - Laceration without foreign body of left index finger with damage to nail, initial encounter Disposition: 01 HOME, SELF-CARE Condition: Stable Departure-Patient Inst. Referrals: SONIA,JENNIE K FORMING ACID DUMPER (PCP/Family) Primary Care Physician Patient Instructions: Laceration Repair With Glue ED Add. Discharge Instructions: Keep clean with warm soapy water All discharge instructions reviewed with patient and/or family. Voiced understanding. RUBEN GODDARD DO Sep 13, 2022 21:47
[2022-09-13 22:00] VITALS: BP 140/83
== END 2022-09-13 22:02 | disposition home or self-care (01) ==
LOC: EDUNIT# 21:39 → ER FS 21:40
DX: S61.311A Laceration without foreign body of left index finger with damage to nail, initial encounter (principal); Z28.310 Unvaccinated for COVID-19; W26.0XXA Contact with knife, initial encounter

== ENCOUNTER → 2023-02-14 | Outpatient (CLI) | payer OTHER ==
--- NOTE | 2023-02-14 16:39 | Diagnostic Imaging Report ---
INDICATION: FIBROMYALGIA COMPARISON: None. FINDINGS: Multiple radiographic views of the bilateral feet were obtained and show no fractures, dislocations, or other acute bony abnormalities. Joint spaces are well maintained throughout. The soft tissues appear unremarkable. No unexpected radiopaque foreign bodies are identified. IMPRESSION: Unremarkable radiographic exam of the bilateral feet. Dictated by: Dictated on workstation # [id number]
--- NOTE | 2023-02-14 16:41 | Diagnostic Imaging Report ---
INDICATION: FIBROMYALGIA COMPARISON: None. FINDINGS: Multiple radiographic views of the bilateral hands were obtained and show no fractures, dislocations, or other acute bony abnormalities. Joint spaces are well maintained throughout. The soft tissues appear unremarkable. No unexpected radiopaque foreign bodies are identified. IMPRESSION: Unremarkable radiographic exam of the bilateral hand. Dictated by: Dictated on workstation # [id number]
--- NOTE | 2023-02-14 16:43 | Diagnostic Imaging Report ---
INDICATION: Knee pain. COMPARISON: 02/06/2022 FINDINGS: Single frontal radiographic view of the bilateral knees was obtained. Chondrocalcinosis is noted on the right. No acute osseous abnormality is seen on this single frontal view. Joint spaces appear appropriate. No unexpected radiopaque foreign bodies are seen. IMPRESSION: 1. No acute fracture or dislocation of either knee. 2. Chondrocalcinosis on the right. This can be seen with underlying CPPD. Dictated by: Dictated on workstation # [id number]
--- NOTE | 2023-02-14 16:46 | Diagnostic Imaging Report ---
INDICATION: Fibromyalgia COMPARISON: None FINDINGS: A single frontal view of the pelvis was performed. There is no radiographic evidence of acute fracture or dislocation. Pubic symphysis is within normal limits. SI joints are symmetric. Proximal femurs are intact, bilaterally. The femoro-acetabular joint spaces appear maintained on this single frontal view. Remainder of the bony pelvis is intact as well. No unexpected radiopaque foreign bodies are seen. Included small bowel loops are nondistended. Impression: 1. No radiographic evidence of acute fracture or dislocation of the bony pelvis. Dictated by: Dictated on workstation # [id number]
== END ==
LOC: RAD FS 15:51
PROVIDERS: ATTEND Internal Medicine Rheumatology
DX: M79.7 Fibromyalgia (principal); M11.261 Other chondrocalcinosis, right knee; M25.50 Pain in unspecified joint
CPT/HCPCS: 72170; 73565